=== PATIENT | male | born 1940 | race Caucasian/White ===

== ENCOUNTER 2019-12-26 14:05 | Inpatient (IN) | payer MEDICARE, OTHER, SELFPAY ==
[2019-12-26] VITALS (12 sets, daily range): BP systolic 131–219; BP diastolic 60–91; PULSE 70–88; RESP 20–30; TEMP 36.2–37.2; O2SAT 93–97; BMI 43.7
--- NOTE | ~2019-12-26 | CT_ITS ---
EXAMINATION: CTA chest PE protocol DATE: 12/27/2019 18:01 INDICATION: Shortness of breath, dyspnea on exertion. Subtle anterior lifestyle. TECHNIQUE: Computed tomography angiography (CTA) of the chest was performed with 100 mL Omnipaque-350 intravenous contrast timed to evaluate the pulmonary arteries. Coronal maximum intensity projection 3D-reconstructions were created by the technologist. Automated exposure control and iterative reconst ruction technique were employed. Exam dose: 976.28 mGy-cm total exam DLP. COMPARISON: None. FINDINGS: There is diagnostic contrast enhancement of the pulmonary arteries and no evidence of pulmo nary embolism. There is aortic, great vessel and coronary atherosclerotic calcification. No thoracic aortic aneurysm or dissection is detected. Mild cardiomegaly. No pericardial or pleural effusion. No hilar or mediastinal mass lesion or lymphadenopathy. There are calcified pulmonary granulomas as w ell as calcified hilar and mediastinal nodes consistent with old pulmonary granulomatous disease. No pulmonary infiltrate or consolidation or pulmonary mass lesion is evident. Up to 1.5 cm blebs in t he right upper lobe. Diffuse idiopathic skeletal hyperostosis of the thoracic spine. No suspicious osteolytic or osteoblas tic lesions are noted. IMPRESSION: No evidence of pulmonary embolism Reviewed, dictated and finalized at [facility]. Reviewed, dictated and finalized at location [facility].
--- NOTE | ~2019-12-26 | XR_ITS ---
EXAMINATION: XR chest 2V DATE: 12/26/2019 15:20 INDICATION: Shortness of breath and COPD TECHNIQUE: AP and lateral views of the chest are obtained. COMPARISON: 03/28/2004 FINDINGS: The lungs are free of acute opacities. There is no pleural effusion or pneumothorax. The ca rdiomediastinal silhouette is normal. There is moderate thoracic spondylosis. Calcified bilateral hil ar lymph nodes are consistent with old granulomatous disease. IMPRESSION: 1. No acute cardiopulmonary abnormality. Reviewed, dictated and finalized at location [facility].
--- NOTE | ~2019-12-26 | US_ITS ---
EXAMINATION: US venous doppler [facility] DATE: 12/27/2019 08:09 INDICATION: Lower limb swelling TECHNIQUE: Grayscale ultrasound images without and with compression and Doppler ultrasound images of the bilateral lower extremity veins were obtained. COMPARISON: None. FINDINGS: The visualized portions of right common femoral vein, profunda (deep) femoral vein, femoral vein, pop liteal vein, posterior tibial veins, peroneal veins, gastrocnemius vein and greater saphenous vein ou tflow are patent. The visualized portions of left common femoral vein, profunda femoral vein, femoral vein, popliteal v ein, posterior tibial veins, peroneal veins, gastrocnemius vein and greater saphenous vein outflow ar e patent. 2.3 x 1.5 x 1.4 cm Haines cyst at the left popliteal fossa. IMPRESSION: 1. No deep venous thrombosis in either lower limb. 2. Small left Haines's cyst. Reviewed, dictated and finalized at location B.
--- NOTE | 2019-12-26 14:24 | ED.SOB ---
HPI - SOB/Dyspnea General Chief Complaint: Shortness of Breath/Dyspnea Stated Complaint: sob Time Seen by Provider: 12/26/19 14:23 History of Present Illness HPI Narrative: Sent in from PCP for elevated blood pressure, and SOB. He reports that he had recent lab work showing anemia. He does admit to [facility]. He has taken all prescribed medications. No Chest pain. Related Data Home Medications Medication Instructions Recorded Confirmed Tresiba FlexTouch U-100 60 DAILY 12/26/19 enalapril maleate DAILY 12/26/19 furosemide 12/26/19 ipratropium-albuterol [Combivent INHALATION BID 12/26/19 Respimat] levothyroxine DAILY 12/26/19 metformin mg PO BID 12/26/19 potassium chloride meq DAILY 12/26/19 pravastatin HS 12/26/19 tamsulosin mg PO HS 12/26/19 venlafaxine mg PO DAILY 12/26/19 Allergies Allergy/AdvReac Type Severity Reaction Status Date / Time No Known Allergies Allergy Mild Verified 12/26/19 14:14 Review of Systems Review of Systems: All systems reviewed & are unremarkable except as noted in HPI and below Constitutional: Constitutional: Denies chills and Denies fever(s) Cardiovascular: Cardiovascular: Denies chest pain Respiratory: Respiratory: Denies chest congestion, Denies cough and Reports dyspnea Gastrointestinal: Gastrointestinal: Denies abdominal pain and Denies nausea Musculoskeletal: Musculoskeletal: Denies back pain Neurologic: Denies numbness and Denies weakness Hematologic/Lymphatic: Hematologic/Lymphatic: Denies easy bleeding and Denies easy bruising PMF Past Medical History Medical History BPH (benign prostatic hyperplasia) COPD (chronic obstructive pulmonary disease) Diabetes HTN (hypertension) Hypothyroidism Social History Social History Gender identity (if verbalized by the patient): Male Exam Const: General: no acute distress, alert and ill appearing Nutritional Appearance: obese Orientation/consciousness: patient oriented x3 HENMT: Head: normal to inspection Resp: Effort & Inspection: labored and tachypneic Auscultation: clear to auscultation bilaterally Cardio: Rate: regular rate Rhythm: regular rhythm GI: Inspection: distended GI Palp: No Tenderness to palpation present (GI) Skin: General skin exam: normal color Rashes: no rashes Neuro: General: patient oriented x3, moves all extremities, no focal motor deficits and CN's II-XI intact bilaterally Extrem: General: edema bilateral Other: No calf tenderness Course Vital Signs Vital signs: Vital Signs Temperature 36.2 C L 12/26/19 14:10 Pulse Rate 82 12/26/19 14:10 Respiratory Rate 20 12/26/19 14:10 Blood Pressure 201/73 H 12/26/19 14:10 Pulse Oximetry 97 12/26/19 14:10 Temperature 36.2 C L 12/26/19 14:10 Pulse Rate 70 12/26/19 17:38 Respiratory Rate 30 H 12/26/19 17:38 Blood Pressure 131/81 12/26/19 17:38 Pulse Oximetry 94 12/26/19 17:38 MDM - SOB/Dyspnea MDM Narrative Medical decision making narrative: He has labored breathing despite normal oxygen saturation he will need to be admitted for his breathing. This is likely due to CHF given significantly elevated BP, BNP, and peripheral edema. Differential Diagnosis Differential diagnosis: Likely acute exacerbation of chronic obstructive airways disease and congestive heart failure Medical Records Attestation: I reviewed the patient's medical records. Lab Data Attestation: I reviewed the patient's lab results. Result diagrams: 12/26/19 14:43 12/26/19 14:43 Labs: Lab Results 12/26/19 12/26/19 12/26/19 Range/Units 14:43 14:43 14:43 WBC 10.1 H (4.5-10.0) K/mm3 RBC 4.53 L (4.6-6.20) M/mm3 Hgb 12.7 L (14.0-18.0) g/dL Hct 39.9 L (42.0-52.0) % MCV 88.1 (80-100) fl MCH 28.0 (26-34) pg MCHC 31.8 L (32-36) g/dl RDW 14.6 H (11.5-14.5)
--- NOTE | 2019-12-26 14:34 | ECG_ITS ---
Measurements Intervals [place] Rate: 89 P: 62 DE: 274 QRS: -69 QRSD: 142 T: 65 QT: 374 QTc: 457 Interpretive Statements SINUS RHYTHM WITH FIRST DEGREE AV BLOCK LEFT AXIS DEVIATION RIGHT BUNDLE BRANCH BLOCK CONSIDER INFERIOR INFARCT, AGE INDETERMINATE BASELINE ARTIFACT- I, III, AVR, AVL, V1-V2 ABNORMAL ECG Electronically Signed On 12-26-2019 15:27:09 CDT by Js Abad D.O.
[2019-12-26 15:03] LABS: Basophils Absolute Auto 0.1 K/mm3 (0.0-0.1); Basophils Percent Auto 0.8 % (0.2-1.2); Eosinophils Absolute Auto 0.2 K/mm3 (0-0.3); Eosinophils Percent Auto 2.2 % (0-4.4); Hematocrit 39.9 % (42.0-52.0); Hemoglobin 12.7 g/dL (14.0-18.0); Immature Granulocyte Absolute 0.07 K/mm3 (0.00-0.031); Immature Granulocyte Percent A 0.7 % (0-0.5); Lymphocytes Absolute Auto 1.82 K/mm3 (0.9-3.2); Mean Corpuscular HGB Conc 31.8 g/dl (32-36); Mean Corpuscular Volume 88.1 fl (80-100); Mean Platelet Volume 9.8 fl (7.4-10.4); Monocytes Absolute Auto 0.7 K/mm3 (0.1-0.6); Monocytes Percent Auto 6.8 % (2.6-8.5); Neutrophils Absolute Auto 7.2 K/mm3 (1.3-6.7); Neutrophils Percent Auto 71.5 % (45.5-73.1); Platelet Count Result 636 k/mm3 (150-375); Red Blood Count 4.53 M/mm3 (4.6-6.20); Red Cell Distribution Width 14.6 % (11.5-14.5); White Blood Count 10.1 K/mm3 (4.5-10.0)
[2019-12-26 15:10] LABS: Anion Gap 7 mmol/L (8-16); Blood Urea Nitrogen 22 mg/dL (9-20); Calcium 8.7 mg/dL (8.4-10.2); Carbon Dioxide 26 mmol/L (22-30); Chloride 106 mmol/L (98-107); Estimated CRCL calculation 55 ml/min; Estimated Glomerular Filt Rate 53; Glucose 89 mg/dL (75-110); Potassium 4.3 mmol/L (3.4-5.0); Sodium 139 mmol/L (137-145)
[2019-12-26 15:20] LABS: INR 1.1
[2019-12-26 15:21] LABS: NT Pro B Type Natriuretic Pept 1370 PG/ML (5-100); Partial Thromboplastin Time 33.3 SECONDS (22.3-36.8); Troponin I 0.025 ng/mL (0.000-0.034)
[2019-12-26] MEDS: NITROGLYCERIN OINTMENT 1 INCH DOSE TRANSDERM (15:37)
[2019-12-26] MEDS: FUROSEMIDE INJ 40 MG/4 ML VIAL IV PUSH ×2 (15:37→22:53)
[2019-12-26] MEDS: IPRATROPIUM BR 0.02% INH SOLN 0.5 MG/2.5 ML VIAL INHALATION (15:57)
[2019-12-26] MEDS: ALBUTEROL SULFATE NEB 2.5 MG/0.5 ML INH 5 MG INHALATION (15:57)
[2019-12-26] MEDS: LABETALOL HCL INJ 100 MG/20 ML VIAL 20 MG IV PUSH (16:35)
--- NOTE | 2019-12-26 17:11 | PC.NURSE ---
Dietary tray ordered for pt, spoke to Sumit.
--- NOTE | 2019-12-26 20:11 | PC.NURSE ---
This patient, Gianfranco Rosen, was admitted to Medical Room 258-. Patient/family oriented to hospital policies and general routines including ID bracelet, bed and alarms, visiting hours, pain management, procedures, bathroom and other care routines, personal items, smoking policy, room service/diet, and visiting hours. Valuables list has been completed. Information on how to activate the Rapid Response Team has been discussed. Patient/Family are encouraged to report perceived risks to care and to ask questions if they do not understand what they are told or what they should do.
--- NOTE | 2019-12-26 21:59 | PM.IMHP ---
H&P: HPI History of Present Illness Date/Time: 12/26/19 21:59 Chief complaint: CHF exacerbation Narrative: Gianfranco Rosen is a 79 year old male who has a history of COPD. He is typically on room air. He does have history of sleep apnea and states that he uses a CPAP machine at home. The patient stated that he had been taking his diuretics for many months and was doing well. As matter of fact he thought he was doing so well that he did need his Lasix anymore. So he stopped taking it for last couple months. So now patient has been short of breath with exertion. He has been using his inhalers. He does not have a cough for fever chills. Last echo cardiac Doppler. He does not recall ever being diagnosed with CHF. She chest x-ray showed nothing acute at this time. Patient had been tachypneic but not hypoxic. Patient's respirations were 30 a minute but his O2 saturation was normal. No ABDs were drawn at that time. Patient was given nitro paste for elevated blood pressure of 219/91. His blood pressure did eventually come down to 131/81 given nebulizer treatment. He was given labetalol for the hypertension is well. He was given Lasix as well. The patient is very talkative and talking in full sentences. When I enter the room the patient is urged to pursue breathe. However prior to me coming to the room the patient was talking in full sentences without difficulty. He does have some edema to lower extremity. Date of service 12/26/2019 Review of Systems Review of Systems: All systems reviewed & are unremarkable except as noted in HPI and below Constitutional: Constitutional: Reports as per HPI and Reports no additional constitutional complaints Eyes: Eyes: Reports as per HPI and Reports no additional eye complaints ENT: Reports system reviewed and no additional complaints, except as documented and Reports Normal hearing present Cardiovascular: Cardiovascular: Reports no additional cardiovascular complaints Respiratory: Respiratory: Reports no additional respiratory complaints and Reports no additional respiratory complaints Gastrointestinal: Gastrointestinal: Reports as per HPI and Reports no additional gastrointestinal complaints Musculoskeletal: Musculoskeletal: Reports no additional musculoskeletal complaints Integumentary/Breasts: Skin/Breast: Reports system reviewed and no additional complaints, except as docu and Reports as per HPI Neurologic: Reports system reviewed and no additional complaints, except as documented, Reports as per HPI and Reports Normal hearing present Psychiatric: Psychiatric: Reports no additional psychiatric complaints and Reports as per HPI Endocrine: Endocrine: Reports no additional endocrine complaints Hematologic/Lymphatic: Hematologic/Lymphatic: Reports no additional hematologic/lymphatic complaints Allergic/Immunologic: Allergic/Immunologic: Reports no additional allergic/immunologic complaints [facility] Past Medical History Medical History (Updated 12/26/19 @ 22:21 by Jaimee Spann NP) BPH (benign prostatic hyperplasia) COPD (chronic obstructive pulmonary disease) Depression with anxiety Diabetes HTN (hypertension) Hyperlipidemia Hypothyroidism PORFIRIO on CPAP Surgical History Surgical History (Updated 12/26/19 @ 22:08 by Jaimee Spann NP) History of appendectomy S/P repair of hydrocele Family History Family History (Updated 12/26/19 @ 22:10 by Jaimee Spann NP) Father Natural with unknown cause Mother Natural with unknown cause Social History Social History (Updated 12/26/19 @ 22:12 by Jaimee Spann NP) Social History: The patient stated that he was over 30 years ago and they had 5 children together. He lives with his significant other he has been with over 30 years. Laura is has significant other and she is a durable power employment law attorney for healthcare. Patient is a full code. He said he used to smoke over 20 years ago and occasionally has a
[2019-12-26] MEDS: methylPREDNISolone SOD SUCC 125 MG VIAL 60 MG IV PUSH (22:53)
[2019-12-26] MEDS: PRAVASTATIN SODIUM 20 MG TABLET 40 MG PO (22:55)
[2019-12-26] MEDS: TAMSULOSIN HCL 0.4 MG CAPSULE PO (22:55)
[2019-12-26 23:12] LABS: Glucose Point of Care 123 (65-105)
[2019-12-27] VITALS (17 sets, daily range): BP systolic 160–185; BP diastolic 60–82; PULSE 82–108; RESP 16–26; TEMP 35.9–36.6; O2SAT 91–96
--- NOTE | 2019-12-27 | ECHO_ITS ---
Patient Info Name: Gianfranco Rosen Age: 79 years : 1940 Gender: Male Ht: 70 in Wt: 304 lbs BSA: 2.68 m2 HR: 98 bpm BP: 123 / 56 mmHg Technical Quality: Good Exam Date: 12/27/2019 10:25 AM Exam Location: [facility] Patient Status: Inpatient Admit Date: 12/27/2019 Staff Ordering Physician: Jaimee Spann NP Manager Non Profit: Tho Hutson RDCS, RT Attending Provider: Eryn Bass PA-C Referring Physician: Zana CÁRDENAS; Exam Type: CA echo doppler color flow Study Info Indications R07.89 - Other chest pain Complete two-dimensional, color flow and Doppler transthoracic echocardiogram is performed. Summary 1. Complete two-dimensional, color flow and Doppler transthoracic echocardiogram is performed. 2. Left ventricular chamber dimension is normal. 3. Left ventricular systolic function is normal, estimated at 65-70%. 4. There is mildly increased left ventricular wall thickness. 5. Left ventricular septal wall motion is normal. 6. The left ventricular diastolic function is normal. 7. Left atrial chamber dimension is mildly enlarged. Left Ventricle Left ventricular chamber dimension is normal. Left ventricular systolic function is normal, estimated at 65-70%. There is mildly increased left ventricular wall thickness. Left ventricular septal wall motion is normal. The left ventricular diastolic function is normal. Right Ventricle Right ventricular chamber dimension is normal. Right ventricular systolic function is normal. Left Atria Left atrial chamber dimension is mildly enlarged. Right Atria Right atrial chamber dimension is normal. Atrial Septum Intact interatrial septum visualized by color flow imaging. Aortic Valve The aortic valve is trileaflet. There is mild aortic valve sclerosis. There is no aortic valve stenosis. There is trace aortic valve regurgitation. Pulmonic Valve The pulmonic valve is normal. There is no pulmonic valve stenosis. There is trace pulmonic regurgitation. Mitral Valve The mitral valve has normal leaflets. There is no mitral valve stenosis. There is trace mitral valve regurgitation. Tricuspid Valve The tricuspid valve leaflets are normal. There is no significant tricuspid valve stenosis. There is trace tricuspid valve regurgitation. Pericardium/Pleural The pericardium appears normal. There is trivial pericardial effusion. Inferior Vena Cava Normal inferior vena cava with >50% collapse upon inspiration consistent with normal right atrial pressure, 8 mmHg. Aorta The aortic root size at the sinus of Valsalva is normal. The prox ascending aorta size is not well visualized. There is mild aortic atherosclerosis. Left Ventricular Outflow Tract Name Value Normal LVOT 2D LVOT Diameter 2.0 cm LVOT Doppler LVOT Peak Gradient 7 mmHg LVOT Mean Gradient 4 mmHg LVOT VTI 21 cm LVOT VTI/AV VTI Ratio 0.6 LVOT Stroke Volume 68 ml LVOT CO 6.
[2019-12-27] MEDS: hydrALAZINE HCL 20 MG/ML VIAL 10 MG IV PUSH ×2 (01:45→18:45)
[2019-12-27 05:50] LABS: Basophils Absolute Auto 0.1 K/mm3 (0.0-0.1); Basophils Percent Auto 0.6 % (0.2-1.2); Eosinophils Percent Auto 0.2 % (0-4.4); Hemoglobin 12.5 g/dL (14.0-18.0); Immature Granulocyte Percent A 0.9 % (0-0.5); Lymphocytes Absolute Auto 0.79 K/mm3 (0.9-3.2); Lymphocytes Percent Auto 6.9 % (18.3-44.2); Mean Corpuscular HGB Conc 32.1 g/dl (32-36); Mean Corpuscular Volume 87.2 fl (80-100); Mean Platelet Volume 9.8 fl (7.4-10.4); Monocytes Absolute Auto 0.2 K/mm3 (0.1-0.6); Monocytes Percent Auto 1.6 % (2.6-8.5); Neutrophils Absolute Auto 10.2 K/mm3 (1.3-6.7); Neutrophils Percent Auto 89.8 % (45.5-73.1); Platelet Count Result 649 k/mm3 (150-375); Red Blood Count 4.47 M/mm3 (4.6-6.20); Red Cell Distribution Width 14.6 % (11.5-14.5); White Blood Count 11.4 K/mm3 (4.5-10.0)
[2019-12-27 06:12] LABS: Magnesium 1.8 mg/dL (1.6-2.3)
[2019-12-27] MEDS: LEVOTHYROXINE SODIUM 75 MCG TABLET PO (06:39)
[2019-12-27] MEDS: methylPREDNISolone SOD SUCC 125 MG VIAL 60 MG IV PUSH ×2 (06:39→13:43)
[2019-12-27 08:13] LABS: Glucose Point of Care 208 (65-105)
[2019-12-27] MEDS: INSULIN ASPART (*BKC) 100 UNITS/ML SUB-Q ×3 (08:17→18:41)
[2019-12-27] MEDS: VENLAFAXINE HCL XR 75 MG CAP.ER.24H PO (08:19)
[2019-12-27] MEDS: ENALAPRIL MALEATE 10 MG TABLET 20 MG PO (08:20)
[2019-12-27] MEDS: FUROSEMIDE INJ 40 MG/4 ML VIAL IV PUSH ×2 (08:20→20:56)
[2019-12-27] MEDS: POTASSIUM CHLORIDE 10 MEQ TABLET.ER PO (08:20)
[2019-12-27 09:15] LABS: Hemoglobin A1C 7.2 % (<5.7)
[2019-12-27 13:15] LABS: Glucose Point of Care 316 (65-105)
--- NOTE | 2019-12-27 15:00 | PM.IMPN ---
Progress Note: A&P Assessment and Plan (1) Dyspnea: Code(s): R06.00 - Dyspnea, unspecified Status: Acute Assessment and Plan: patient presented to the hospital with dyspnea With rest and with exertion which is become worsening recently. Could be secondary to underlying congestive heart failure for which he is on diuretics that he has not taken for months, underlying COPD exacerbation since he is a former smoker, pulmonary embolism since he has a sedentary lifestyle, versus cardiac in nature since he has not seen a intelligence agent in a while and he has comorbid conditions such as diabetes and high cholesterol. Patient's chest x-ray on arrival showed no acute cardiopulmonary disease The patient does not have any leg swelling or pulmonary edema, but his BNP was elevated at 1300. he was given IV Lasix and has some improvement of his symptoms. Echocardiogram also showed normal systolic and diastolic function, so the patient does not have an underlying congestive heart failure. continue IV Lasix since it may be improving his symptoms and has good urinary output. Chest x-ray is not show signs of hyperinflation from COPD and he has no wheezing to show COPD exacerbation. Will decrease the patient's IV steroids that he was started on. Patient is tachycardic today on examination into to his sedentary lifestyle, not being on anticoagulation and shortness of breath I will order a CTA of his chest to further rule out a PE causing his symptoms. Venous Dopplers were negative bilaterally. Also worried about a cardiac cause with his initial troponin being 0.025 so a repeat troponin was ordered today which was less than 0.012. It could still be cardiac in nature due to his morbid obesity, diabetes, and no cardiac workup recently. Patient otherwise denies any chest pain at this time. Will continue monitoring on telemetry and consider cardiac evaluation as an outpatient. Continue monitoring his symptoms tomorrow and rule out underlying PE. (2) HTN (hypertension): Code(s): I10 - Essential (primary) hypertension Status: Chronic Assessment and Plan: Patient's blood pressure has been elevated in the 160s and 170s. Continue with enalapril He is also getting diuretics. Consider making adjustments if his blood pressure continues to be elevated but this could also be related to his underlying stress and anxiety of being in the hospital. Ordered p.r.n. hydralazine IV for elevated blood pressure Continue monitoring BP. (3) Hypothyroidism: Code(s): E03.9 - Hypothyroidism, unspecified Status: Chronic Assessment and Plan: Continue with levothyroxine. TSH was normal. (4) Depression with anxiety: Code(s): F41.8 - Other specified anxiety disorders Status: Chronic Assessment and Plan: Continue with Effexor. (5) BPH (benign prostatic hyperplasia): Code(s): N40.0 - Benign prostatic hyperplasia without lower urinary tract symptoms Status: Chronic Assessment and Plan: Continue with tamsulosin (6) PORFIRIO on CPAP: Code(s): G47.33 - Obstructive sleep apnea (adult) (pediatric); Z99.89 - Dependence on other enabling machines and devices Status: Chronic Assessment and Plan: Continue with CPAP machine (7) Diabetes: Code(s): E11.9 - Type 2 diabetes mellitus without complications Status: Chronic Assessment and Plan: Hemoglobin A1c was 7.2% which is fairly well controlled Continue Accu-Cheks ACHS. Hold metformin and Tresiba. Continue with sliding scale insulin with meals. Hypoglycemic protocol in place. [facility] Edie
[2019-12-27] MEDS: ALBUTEROL SULFATE NEB 2.5 MG/0.5 ML INH 5 MG INHALATION ×2 (15:37→21:03)
[2019-12-27] MEDS: IPRATROPIUM BR 0.02% INH SOLN 0.5 MG/2.5 ML VIAL INHALATION ×2 (15:38→21:03)
[2019-12-27 16:23] LABS: Troponin I < 0.012 ng/mL (0.000-0.034)
[2019-12-27 19:04] LABS: D Dimer 0.29 ug/mL (<0.48)
[2019-12-27 19:37] LABS: Glucose Point of Care 319 (65-105)
[2019-12-27] MEDS: TAMSULOSIN HCL 0.4 MG CAPSULE PO (20:57)
[2019-12-27] MEDS: PRAVASTATIN SODIUM 20 MG TABLET 40 MG PO (20:57)
[2019-12-27] MEDS: methylPREDNISolone SOD SUCC 40 MG VIAL IV PUSH (20:57)
[2019-12-27] MEDS: LABETALOL HCL INJ 100 MG/20 ML VIAL IV PUSH (21:08)
[2019-12-28] VITALS (17 sets, daily range): BP systolic 166–190; BP diastolic 67–79; PULSE 93–107; RESP 20–22; TEMP 35.6–36.1; O2SAT 91–96
[2019-12-28] MEDS: NITROGLYCERIN OINTMENT 1 INCH DOSE 0.5 INCH TRANSDERM (00:24)
[2019-12-28] MEDS: LABETALOL HCL INJ 100 MG/20 ML VIAL 20 MG IV PUSH (02:05)
[2019-12-28] MEDS: INSULIN ASPART (*BKC) 100 UNITS/ML 10 UNITS SUB-Q (02:14)
[2019-12-28] MEDS: IPRATROPIUM BR 0.02% INH SOLN 0.5 MG/2.5 ML VIAL INHALATION ×3 (02:59→13:44)
[2019-12-28] MEDS: ALBUTEROL SULFATE NEB 2.5 MG/0.5 ML INH 5 MG INHALATION ×3 (02:59→13:43)
[2019-12-28 04:00] LABS: Glucose Point of Care 413 (65-105)
[2019-12-28 04:00] LABS: Glucose Point of Care 348 (65-105)
[2019-12-28 05:45] LABS: Hematocrit 44.7 % (42.0-52.0); Hemoglobin 14.1 g/dL (14.0-18.0); Mean Corpuscular HGB Conc 31.5 g/dl (32-36); Mean Corpuscular Hemoglobin 27.6 pg (26-34); Mean Corpuscular Volume 87.6 fl (80-100); Mean Platelet Volume 9.8 fl (7.4-10.4); Platelet Count Result 874 k/mm3 (150-375); Red Cell Distribution Width 14.8 % (11.5-14.5)
[2019-12-28 06:11] LABS: Anion Gap 12 mmol/L (8-16); Blood Urea Nitrogen 42 mg/dL (9-20); Calcium 8.5 mg/dL (8.4-10.2); Carbon Dioxide 25 mmol/L (22-30); Chloride 99 mmol/L (98-107); Estimated CRCL calculation 46 ml/min; Estimated Glomerular Filt Rate 42; Glucose 351 mg/dL (75-110); Magnesium 2.1 mg/dL (1.6-2.3); Potassium 4.4 mmol/L (3.4-5.0); Sodium 136 mmol/L (137-145)
[2019-12-28] MEDS: LEVOTHYROXINE SODIUM 75 MCG TABLET PO (06:18)
[2019-12-28 07:51] LABS: Glucose Point of Care 338 (65-105)
[2019-12-28] MEDS: INSULIN ASPART (*BKC) 100 UNITS/ML SUB-Q ×2 (08:23→12:02)
[2019-12-28] MEDS: FUROSEMIDE INJ 40 MG/4 ML VIAL IV PUSH (08:25)
[2019-12-28] MEDS: ENALAPRIL MALEATE 10 MG TABLET 20 MG PO (08:25)
[2019-12-28] MEDS: POTASSIUM CHLORIDE 10 MEQ TABLET.ER PO (08:25)
[2019-12-28] MEDS: methylPREDNISolone SOD SUCC 40 MG VIAL IV PUSH (08:25)
[2019-12-28] MEDS: VENLAFAXINE HCL XR 75 MG CAP.ER.24H PO (08:25)
[2019-12-28 11:41] LABS: Glucose Point of Care 283 (65-105)
--- NOTE | 2019-12-28 11:59 | PM.DS ---
DS: Admitting Diagnosis Admitting Diagnosis Admitting Diagnosis: CHF exacerbation DS: Discharge Diagnosis Discharge Diagnosis (1) Dyspnea: Code(s): R06.00 - Dyspnea, unspecified Status: Acute Assessment and Plan: patient presented to the hospital with dyspnea With rest and with exertion which is become worsening recently. Could be secondary to underlying congestive heart failure for which he is on diuretics that he has not taken for months, underlying COPD exacerbation since he is a former smoker, pulmonary embolism since he has a sedentary lifestyle, versus cardiac in nature since he has not seen a grain cleaner and transfer operator in a while and he has comorbid conditions such as diabetes and high cholesterol. Patient's chest x-ray on arrival showed no acute cardiopulmonary disease The patient does not have any leg swelling or pulmonary edema, but his BNP was elevated at 1300. he was given IV Lasix with improvement of his symptoms. Echocardiogram also showed normal systolic and diastolic function, so the patient does not have an underlying congestive heart failure. Discontinued IV Lasix this morning. Chest x-ray is not show signs of hyperinflation from COPD and he has no wheezing to show COPD exacerbation. Will decrease the patient's IV steroids that he was started on. Will discontinue IV Steroids since his lungs are clear and not having any wheezing. I ordered a CTA of his chest which showed no PE or acute abnormality. Venous Dopplers were negative bilaterally. Also worried about a cardiac cause with his initial troponin being 0.025 so a repeat troponin was ordered today which was less than 0.012. It could still be cardiac in nature due to his morbid obesity, diabetes, and no cardiac workup recently. Patient otherwise denies any chest pain at this time. Tele shows no acute changes at this time. The patient reports feeling great today . He denies much shortness of breath at rest or with exertion. I believe the cause of his underlying shortness of breath could be due to discontinuing Lasix 20 mg months ago, vs morbid obesity, vs inactive lifestyle. Will discharge the patient home to try changing his diet and weight loss along with increasing his activity. Explained to the patient that he needs a stress test if he has not had one in a while to rule out underlying cardiac nature of his shortness of breath secondary to DM, morbid obesity and sedentary lifestyle. Follow up with PCP in 1 week for further evaluation, recommendations, possible stress test and will repeat labs to ensure his creatinine is back to normal and to consider restarting Lasix 20 mg daily. The patient understands and agrees with the plan. All questions answered. (2) HTN (hypertension): Code(s): I10 - Essential (primary) hypertension Status: Chronic Assessment and Plan: Patient's blood pressure has been elevated in the 160s and 170s. Continue with enalapril Will have him continue checking BP and write it down twice daily and follow up with PCP for further evaluation and adjustments to medications. (3) Hypothyroidism: Code(s): E03.9 - Hypothyroidism, unspecified Status: Chronic Assessment and Plan: Continue with levothyroxine. TSH was normal. (4) Depression with anxiety: Code(s): F41.8 - Other specified anxiety disorders Status: Chronic Assessment and Plan: Continue with Effexor. (5) BPH (benign prostatic hyperplasia): Code(s): N40.0 - Benign prostatic hyperplasia without lower urinary tract symptoms Status: Chronic Assessment and Plan: Continue with tamsulosin (6) PORFIRIO on CPAP: Code(s): G47.33 - Obstructive sleep apnea (adult) (ped
--- NOTE | 2019-12-29 06:35 | WPDCDIQUERY2 ---
CDI Query Clarification Request - Per documentation CHF and COPD have been ruled out. -I believe the cause of his underlying shortness of breath could be due to discontinuing Lasix 20 mg months ago, vs morbid obesity, vs inactive lifestyle.
== END 2019-12-28 14:10 | disposition home or self-care (01) | DRG 204 ==
LOC: ANHED 17:49 → ANH2MED 19:19
PROVIDERS: Nurse Practitioner; Physician Assistant; Admitting Provider Internal Medicine; Emergency Provider Emergency Medicine; PCP Family Medicine Sports Medicine; Visit Provider Internal Medicine
DX: R06.00 Dyspnea, unspecified (principal); Z68.41 Body mass index [BMI] 40.0-44.9, adult; E66.01 Morbid (severe) obesity due to excess calories; I10 Essential (primary) hypertension; E03.9 Hypothyroidism, unspecified; F41.8 Other specified anxiety disorders; N40.0 Benign prostatic hyperplasia without lower urinary tract symptoms; G47.33 Obstructive sleep apnea (adult) (pediatric); J44.9 Chronic obstructive pulmonary disease, unspecified; E11.9 Type 2 diabetes mellitus without complications; D72.829 Elevated white blood cell count, unspecified; Z72.89 Other problems related to lifestyle; Z79.84 Long term (current) use of oral hypoglycemic drugs; Z79.899 Other long term (current) drug therapy; Z87.891 Personal history of nicotine dependence; Z99.89 Dependence on other enabling machines and devices
CPT/HCPCS: 36415; 71046; 71275; 80048; 83036; 83735; 83880; 84100; 84443; 84484; 85025; 85027; 85380; 85610; 85730; 93005; 93306; 93970; 94640; 96374; 96375; 96376; 99285; A9270; G0378; J0360; J1815; J1940; J2060; J2920; J2930; Q9967

== ENCOUNTER 2020-05-30 14:39 | Inpatient (IN) | payer MEDICARE, SELFPAY ==
[2020-05-30] VITALS (13 sets, daily range): BP systolic 178–217; BP diastolic 56–99; PULSE 95–109; RESP 22–30; TEMP 36.4–36.7; O2SAT 91–97; BMI 46.2
--- NOTE | ~2020-05-30 | US_ITS ---
EXAMINATION: US venous doppler [facility] DATE: 05/31/2020 13:24 INDICATION: Lower limb edema. TECHNIQUE: Grayscale ultrasound images without and with compression and Doppler ultrasound images of the bilateral lower extremity veins were obtained. COMPARISON: Ultrasound 12/27/2019 FINDINGS: The visualized portions of right common femoral vein, profunda (deep) femoral vein, femoral vein, pop liteal vein, peroneal veins, posterior tibial veins, and greater saphenous vein outflow are patent. The visualized portions of left common femoral vein, profunda femoral vein, femoral vein, popliteal v ein, peroneal veins, posterior tibial veins, and greater saphenous vein outflow are patent. IMPRESSION: 1. No deep venous thrombosis. Reviewed, dictated and finalized at location A. CHING MACHINE OPERATOR
--- NOTE | ~2020-05-30 | XR_ITS ---
EXAMINATION: XR chest 1V portable DATE: 05/30/2020 15:14 INDICATION: Shortness of breath. TECHNIQUE: A single frontal view of the chest was obtained. COMPARISON: None. FINDINGS: There is a small left pleural effusion. There are airspace opacities in all lung zones bila terally with a perihilar and left basilar predominance. No pneumothorax. The heart size is normal. IMPRESSION: 1. Diffuse lung disease, consistent with pulmonary edema versus pneumonia. 2. Small left pleural effusion. Reviewed, dictated and finalized at location A. N CREW
--- NOTE | ~2020-05-30 | XR_ITS ---
EXAMINATION: XR chest 1V portable EXAM DATE: 05/31/2020 15:55 INDICATION: Lung edema. TECHNIQUE: Portable AP frontal chest x-ray was obtained. Comparison is made to prior examination from 05/30/2020. FINDINGS: Interval improvement in previously seen congestion and pulmonary edema, improving CHF exace rbation. There is no pneumothorax suspected. The cardiac silhouette is enlarged. There are no osseous abnormalities identified. IMPRESSION: Findings consistent with improving CHF exacerbation. Reviewed, dictated and finalized at location B. GER CONTACT
--- NOTE | 2020-05-30 14:44 | ECG_ITS ---
Measurements Intervals [place] Rate: 32 P: [place]: 0 QRS: -66 QRSD: 140 T: -50 QT: 473 QTc: 349 Interpretive Statements SINUS RHYTHM WITH MARKED FIRST DEGREE AV BLOCK RIGHT BUNDLE BRANCH BLOCK LOW VOLTAGE- PRECORDIAL LEADS INFERIOR INFARCT, AGE INDETERMINATE ANTEROLATERAL INFARCT, AGE INDETERMINATE ABNORMAL ECG Electronically Signed On 05-30-2020 16:06:41 VACUUM CASTER by Js Abad D.O.
[2020-05-30 15:18] LABS: Basophils Absolute Auto 0.1 K/mm3 (0.0-0.1); Basophils Percent Auto 0.9 % (0.2-1.2); Eosinophils Absolute Auto 0.1 K/mm3 (0-0.3); Eosinophils Percent Auto 1.4 % (0-4.4); Hematocrit 42.2 % (42.0-52.0); Hemoglobin 13.3 g/dL (14.0-18.0); Immature Granulocyte Absolute 0.06 K/mm3 (0.00-0.031); Immature Granulocyte Percent A 0.7 % (0-0.5); Lymphocytes Absolute Auto 0.93 K/mm3 (0.9-3.2); Lymphocytes Percent Auto 10.6 % (18.3-44.2); Mean Corpuscular HGB Conc 31.5 g/dl (32-36); Mean Corpuscular Hemoglobin 28.6 pg (26-34); Mean Corpuscular Volume 90.8 fl (80-100); Mean Platelet Volume 9.7 fl (7.4-10.4); Monocytes Absolute Auto 0.6 K/mm3 (0.1-0.6); Monocytes Percent Auto 6.6 % (2.6-8.5); Neutrophils Percent Auto 79.8 % (45.5-73.1); Platelet Count Result 664 k/mm3 (150-375); Red Blood Count 4.65 M/mm3 (4.6-6.20); Red Cell Distribution Width 15.6 % (11.5-14.5); White Blood Count 8.8 K/mm3 (4.5-10.0)
--- NOTE | 2020-05-30 15:45 | ED.SOB ---
HPI - SOB/Dyspnea General Chief Complaint: Shortness of Breath/Dyspnea Stated Complaint: shortness of breath x1 wk Time Seen by Provider: 05/30/20 14:57 Source: patient and family Mode of arrival: ambulatory Limitations: no limitations History of Present Illness HPI Narrative: An 80-year-old gentleman presents into the emergency department today with complaints of shortness of breath. His notes that his shortness of breath has been getting significantly worse over the last several months really. She notes that he can barely walk around without getting short of breath. He cannot tolerate doing any stairs. He also notes that he has been having extreme issues with swallowing. At one point time the patient was on Lasix and was taken off of this. They state that they are not clear why he was told to stop this. He denies any fevers chills or cough at this time. Patient denies any chest pain. Related Data Allergies Allergy/AdvReac Type Severity Reaction Status Date / Time No Known Allergies Allergy Verified 05/30/20 14:49 Review of Systems Review of Systems: Narrative: CONSTITUTIONAL: Denies fever, chills, or sweats. EYES: Denies visual changes, redness, or discharge. ENT: Denies rhinorrhea, congestion, sore throat, or otalgia. CARDIOVASCULAR: Denies chest pain, palpitations, or edema. RESPIRATORY: Endorses shortness of breath. GASTROINTESTINAL: Denies abdominal pain, nausea, vomiting, or diarrhea. GENITOURINARY: Denies dysuria or hematuria. SKIN: Denies rash or itching. MUSCULOSKELETAL: Denies back pain, joint pain, or myalgia. Endorses diffuse lower extremity edema NEUROLOGIC: Denies headache, numbness, dizziness, or weakness. PSYCHIATRIC: Denies anxiety or depression. Exam Narrative: Exam Narrative: GENERAL: Well-appearing, well-nourished, and in no acute distress. HEAD: Normocephalic, atraumatic. EYES: PERRLA and EOMI. ENT: Nares clear, no rhinorrhea or epistaxis. Mucous membranes moist. Oropharynx without tonsillar hypertrophy exudate or other lesions. Bilateral TMs pearly buckner nonbulging NECK: Supple. No adenopathy or masses. No carotid bruits or JVD CHEST: Significantly diminished lung sounds diffusely. HEART: Regular rate and rhythm. No murmur heard. Normal peripheral pulses. ABDOMEN: Obese abdomen, soft, nontender, nondistended, normal active bowel sounds. EXTREMITIES: Normal range of motion. 4+ edema in the BLE. SKIN: Warm, dry, no rash. NEURO: No focal deficits. Alert and oriented x3. PSYCH: Normal mood and affect. Course Consultations Consultation #1: Spoke with ABISAI Hermosillo for the hospitalist service. Full details of the patient's disposition and evaluation were discussed. She agrees to accept for further evaluation and work-up. Time: 16:25 Vital Signs Vital signs: Vital Signs Temperature 36.7 C 05/30/20 14:45 Pulse Rate 99 05/30/20 14:45 Respiratory Rate 29 H 05/30/20 14:45 Blood Pressure 217/95 H 05/30/20 14:45 Pulse Oximetry 94 05/30/20 14:45 Temperature 36.7 C 05/30/20 14:45 Pulse Rate 100 05/30/20 17:15 Respiratory Rate 28 H 05/30/20 17:15 Blood Pressure 188/79 H 05/30/20 17:15 Pulse Oximetry 91 05/30/20 17:15 MDM - SOB/Dyspnea MDM Narrative Medical decision making narrative: In brief this 80-year-old gentleman came into the emergency department tonight with complaints of shortness of breath. Clinically on evaluation the patient looks like a CHF exacerbation. He was having significant edema in his bilateral lower extremities as well as rales bilaterally on chest exam. Patient was noted to be borderline hypoxic. His labs were reviewed, patient's troponin mildly elevated but likely baseline for his CHF. He was not complaining of any chest pain. Patient was given Lasix, nitroglycerin with minimal improvement. Patient was also given hydralazine to address his blood pressure. Patient will be admitted to hospitalist service for further management. Medical Records Atte
[2020-05-30] MEDS: FUROSEMIDE INJ 40 MG/4 ML VIAL IV PUSH (15:49)
[2020-05-30] MEDS: NITROGLYCERIN OINTMENT 1 INCH DOSE TRANSDERM (15:50)
[2020-05-30 16:18] LABS: Anion Gap 4 mmol/L (8-16); Blood Urea Nitrogen 19 mg/dL (9-20); Calcium 9.1 mg/dL (8.4-10.2); Carbon Dioxide 29 mmol/L (22-30); Chloride 107 mmol/L (98-107); Estimated CRCL calculation 53 ml/min; Estimated Glomerular Filt Rate 49; Glucose 93 mg/dL (75-110); Potassium 4.3 mmol/L (3.4-5.0); Sodium 140 mmol/L (137-145)
[2020-05-30 16:27] LABS: NT Pro B Type Natriuretic Pept 3300 PG/ML (5-100)
[2020-05-30] MEDS: hydrALAZINE HCL 20 MG/ML VIAL 10 MG IV PUSH ×2 (16:55→22:44)
[2020-05-30 17:07] LABS: Troponin I 0.041 ng/mL (0.000-0.034)
--- NOTE | 2020-05-30 17:17 | PC.NURSE ---
Meal tray ordered for patient
--- NOTE | 2020-05-30 17:58 | ED.GENADULT ---
HPI - General Adult General Chief complaint: Shortness of Breath/Dyspnea Stated complaint: shortness of breath x1 wk Time Seen by Provider: 05/30/20 14:57 Source: patient and family Mode of arrival: ambulatory Limitations: no limitations Related Data Allergies Allergy/AdvReac Type Severity Reaction Status Date / Time No Known Allergies Allergy Verified 05/30/20 14:49 Course Vital Signs Vital signs: Vital Signs Temperature 36.7 C 05/30/20 14:45 Pulse Rate 99 05/30/20 14:45 Respiratory Rate 29 H 05/30/20 14:45 Blood Pressure 217/95 H 05/30/20 14:45 Pulse Oximetry 94 05/30/20 14:45 Temperature 36.7 C 05/30/20 14:45 Pulse Rate 100 05/30/20 17:15 Respiratory Rate 28 H 05/30/20 17:15 Blood Pressure 188/79 H 05/30/20 17:15 Pulse Oximetry 91 05/30/20 17:15 Medical Decision Making Vital Signs Vital Signs: Vital Signs Temperature 36.7 C 05/30/20 14:45 Pulse Rate 99 05/30/20 14:45 Respiratory Rate 29 H 05/30/20 14:45 Blood Pressure 217/95 H 05/30/20 14:45 Pulse Oximetry 94 05/30/20 14:45 Temperature 36.7 C 05/30/20 14:45 Pulse Rate 100 05/30/20 17:15 Respiratory Rate 28 H 05/30/20 17:15 Blood Pressure 188/79 H 05/30/20 17:15 Pulse Oximetry 91 05/30/20 17:15 Lab Data Result diagrams: 05/30/20 15:02 05/30/20 15:02 Labs: Lab Results 05/30/20 05/30/20 05/30/20 Range/Units 15:02 15:02 15:02 WBC 8.8 (4.5-10.0) K/mm3 RBC 4.65 (4.6-6.20) M/mm3 Hgb 13.3 L (14.0-18.0) g/dL Hct 42.2 (42.0-52.0) % MCV 90.8 (80-100) fl MCH 28.6 (26-34) pg MCHC 31.5 L (32-36) g/dl RDW 15.6 H (11.5-14.5) % Plt Count 664 H (150-375) k/mm3 MPV 9.7 (7.4-10.4) fl Immature Gran % (Auto) 0.7 H (0-0.5) % Neut % (Auto) 79.8 H (45.5-73.1) % Lymph % (Auto) 10.6 L (18.3-44.2) % Ceiba % (Auto) 6.6 (2.6-8.5) % Eos % (Auto) 1.4 (0-4.4) % Baso % (Auto) 0.9 (0.2-1.2) % Lymph # (Auto) 0.93 (0.9-3.2) K/mm3 Ceiba # (Auto) 0.6 (0.1-0.6) K/mm3 Eos # (Auto) 0.1 (0-0.3) K/mm3 Baso # (Auto) 0.1 (0.0-0.1) K/mm3 Abs Immat Gran (auto) 0.06 H (0.00-0.031) K/mm3 Absolute Neuts (auto) 7.0 H (1.3-6.7) K/mm3 Absolute Nucleated RBC 0.0 (0.0-0.012) K/mm3 Nucleated RBC % 0.0 (0.0-0.2) % Sodium 140 (137-145) mmol/L Potassium 4.3 (3.4-5.0) mmol/L Chloride 107 (98-107) mmol/L Carbon Dioxide 29 (22-30) mmol/L Anion Gap 4 L (8-16) mmol/L BUN 19 (9-20) mg/dL Creatinine 1.40 H (0.7-1.3) mg/dL Estim Creat Clear Calc 53 ml/min Estimated GFR 49 L (59 - ) Glucose 93 (75-110) mg/dL Calcium 9.1 (8.4-10.2) mg/dL Troponin I 0.041 H* (0.000-0.034) ng/mL NT-Pro-B Natriuret Pep 3300 H (5-100) PG/ML Discharge Plan Discharge Clinical Impression: Hypertensive crisis Congestive heart failure Qualifiers: Heart failure type: unspecified Heart failure chronicity: acute on chronic Qualified Code(s): I50.9 - Heart failure, unspecified Patient Disposition: Still a Patient Condition: Improved Follow-up/Referrals: PEACE GALLEGOS [Other]
[2020-05-30] MEDS: hydrALAZINE HCL 20 MG/ML VIAL IV PUSH (18:15)
[2020-05-30] MEDS: FUROSEMIDE 40 MG TABLET PO (18:31)
--- NOTE | 2020-05-30 18:40 | PC.NURSE ---
Patient placed on 2L oxygen due to patient having panic attack and reporting he cannot breath, patient calming down at this time.
--- NOTE | 2020-05-30 19:14 | ADMGEN ---
This patient, Winnie Rosen, was admitted to IMU Room 214-01 on at 1852. Patient/family oriented to hospital policies and general routines including ID bracelet, bed and alarms, visiting hours, pain management, procedures, bathroom and other care routines, personal items, smoking policy, room service/diet, and visiting hours. Information on how to activate the Rapid Response Team has been discussed. Patient/Family are encouraged to report perceived risks to care and to ask questions if they do not understand what they are told or what they should do.
[2020-05-30 20:51] LABS: Glucose Point of Care 163 (65-105)
[2020-05-30 20:59] LABS: Troponin I 0.037 ng/mL (0.000-0.034)
--- NOTE | 2020-05-30 21:00 | PM.IMHP ---
H&P: HPI History of Present Illness Date/Time: 05/30/20 21:00 Chief Complaint: Dyspnea on exertion Narrative: Gianfranco Rosen is a 80 year old male who has a history of sleep apnea and COPD. The patient was here back in November and had a normal echo. He had a normal EF and diastolic dysfunction. The the patient has a previous chart which needs to be merged with this chart. The patient was taken off of his Lasix last admission because he was not diagnosed with congestive heart failure. The last time he was here he was treated with COPD. The patient does not wear oxygen at home. Any does wear CPAP machine. The patient said that he was progressively getting more short of breath over the last week. He did not happen all of sudden. Had increased swelling in his lower extremities as well.. The patient is mostly short of breath with exertion. No fever, no chills, and no cough. The patient has difficulty ambulating up stairs. He sleeps with his head propped up. He sleeps with a CPAP on. Troponin 0.041 and 0.037. No complaints of chest pain. Patient was placed on 3 L of oxygen per nasal cannula. BNP was listed as 3300. Consistent pulmonary edema versus pneumonia. Small left pleural effusion. Nitro 1 in, IV Lasix, and Apresoline. Blood sugar 163. Patient is being admitted for observation on the date of service of 05/30/2020 Review of Systems Review of Systems: All systems reviewed & are unremarkable except as noted in HPI and below Constitutional: Constitutional: Reports as per HPI and Reports no additional constitutional complaints Eyes: Eyes: Reports as per HPI and Reports no additional eye complaints ENT: Reports system reviewed and no additional complaints, except as documented and Reports Normal hearing present Cardiovascular: Cardiovascular: Reports no additional cardiovascular complaints Respiratory: Respiratory: Reports no additional respiratory complaints and Reports no additional respiratory complaints Gastrointestinal: Gastrointestinal: Reports as per HPI and Reports no additional gastrointestinal complaints Musculoskeletal: Musculoskeletal: Reports no additional musculoskeletal complaints Integumentary/Breasts: Skin/Breast: Reports system reviewed and no additional complaints, except as docu and Reports as per HPI Neurologic: Reports system reviewed and no additional complaints, except as documented, Reports as per HPI and Reports Normal hearing present Psychiatric: Psychiatric: Reports no additional psychiatric complaints and Reports as per HPI Endocrine: Endocrine: Reports no additional endocrine complaints Hematologic/Lymphatic: Hematologic/Lymphatic: Reports no additional hematologic/lymphatic complaints Allergic/Immunologic: Allergic/Immunologic: Reports no additional allergic/immunologic complaints [facility] Past Medical History Medical History (Updated 05/30/20 @ 21:10 by Jaimee Spann NP) BPH (benign prostatic hyperplasia) COPD (chronic obstructive pulmonary disease) Depression with anxiety DM2 (diabetes mellitus, type 2) Hyperlipidemia Hypertension Hypothyroidism Obstructive sleep apnea Uses CPAP at home Surgical History Surgical History (Updated 05/30/20 @ 21:10 by Jaimee Spann NP) History of appendectomy S/P repair of hydrocele Family History Family History (Updated 05/30/20 @ 21:11 by Jaimee Spann NP) Father Natural Mother Natural Social History Social History (Updated 05/30/20 @ 21:12 by Jaimee Spann NP) Social History: The patient had been twice. He has been living with Laura his significant other for over 30 years. He has had 5 children with his previous . Laura is his durable power claim attorney for healthcare. The patient is a full code. The patient used to smoke over 20 years ago and occasionally has a cigarette. He occasionally has alcoholic beverage. No marijuana or illicit drugs. He is retired. Smoking status: Former smo
[2020-05-30] MEDS: methylPREDNISolone SOD SUCC 40 MG VIAL IV PUSH (21:45)
[2020-05-30] MEDS: ACETAMINOPHEN 325 MG TABLET 650 MG PO (22:44)
[2020-05-31] VITALS (16 sets, daily range): BP systolic 143–182; BP diastolic 55–87; PULSE 90–114; RESP 12–24; TEMP 35.9–36.6; O2SAT 92–97
--- NOTE | 2020-05-31 | ECHO_ITS ---
Patient Info Name: Gianfranco Rosen Age: 80 years : 1940 Gender: Male Ht: 70 in Wt: 322 lbs BSA: 2.76 m2 HR: 97 bpm BP: 144 / 64 mmHg Heart Rhythm: Indeterminant Technical Quality: Fair Exam Date: 05/31/2020 3:03 PM Exam Location: [facility] Pulmonary Patient Status: Inpatient Admit Date: 05/31/2020 Staff Ordering Physician: Jaimee Spann NP Outside Plant Supervisor: Tho Hutson, INDERJIT, RT Attending Provider: Snehal De Leon MD Referring Physician: Zana CÁRDENAS; Exam Type: CA echo doppler color flow Study Info Indications I27.82 - Chronic pulmonary embolism Complete two-dimensional, color flow and Doppler transthoracic echocardiogram is performed. Summary 1. Complete two-dimensional, color flow and Doppler transthoracic echocardiogram is performed. 2. Technically difficult study with limited views. 3. Left ventricular systolic function is normal, estimated at 55-60%. 4. There is severely increased left ventricular wall thickness. 5. The left ventricular diastolic function is grade III diastolic dysfunction. 6. Right atrial chamber dimension is mildly enlarged. 7. There is no aortic valve stenosis. 8. There is mild mitral valve regurgitation. 9. Unable to estimate PA systolic pressure due to poor spectral resolution of tricuspid regurgitant jet velocity. 10. Dilated inferior vena cava with <50% collapse upon inspiration consistent with significantly elevated right atrial pressure, 15 mmHg. Left Ventricle Left ventricular chamber dimension is normal. Left ventricular systolic function is normal, estimated at 55-60%. There is severely increased left ventricular wall thickness. The left ventricular diastolic function is grade III diastolic dysfunction. Technically difficult study with limited views. Right Ventricle Right ventricular chamber dimension is normal. Right ventricular systolic function is normal. Left Atria Left atrial chamber dimension is normal. Right Atria Right atrial chamber dimension is mildly enlarged. Aortic Valve The aortic valve is not well visualized. There is no aortic valve stenosis. There is no aortic valve regurgitation. Pulmonic Valve The pulmonic valve is not well visualized. Mitral Valve The mitral valve has thickened leaflets. There is mild mitral valve regurgitation. The mitral valve annulus is mildly calcified. Tricuspid Valve The tricuspid valve leaflets are normal. There is trace tricuspid valve regurgitation. Unable to estimate PA systolic pressure due to poor spectral resolution of tricuspid regurgitant jet velocity. Pericardium/Pleural The pericardium appears normal. There is trivial pericardial effusion. Inferior Vena Cava Dilated inferior vena cava with <50% collapse upon inspiration consistent with significantly elevated right atrial pressure, 15 mmHg. Aorta The aortic root size at the sinus of Valsalva is not well visualized. Left Ventricular Outflow Tract Name Value Normal LVOT 2D LVOT Diameter 2.0 cm LVOT Doppler LVOT Peak Gradient 5 mmHg LVOT Mean Gradient 3 mmHg L
[2020-05-31] MEDS: LABETALOL HCL INJ 100 MG/20 ML VIAL 10 MG IV PUSH (01:16)
[2020-05-31 05:22] LABS: Basophils Percent Auto 0.3 % (0.2-1.2); Hematocrit 42.2 % (42.0-52.0); Hemoglobin 13.3 g/dL (14.0-18.0); Immature Granulocyte Absolute 0.13 K/mm3 (0.00-0.031); Immature Granulocyte Percent A 1.1 % (0-0.5); Lymphocytes Absolute Auto 0.67 K/mm3 (0.9-3.2); Lymphocytes Percent Auto 5.8 % (18.3-44.2); Mean Corpuscular HGB Conc 31.5 g/dl (32-36); Mean Corpuscular Hemoglobin 27.8 pg (26-34); Mean Corpuscular Volume 88.3 fl (80-100); Mean Platelet Volume 9.8 fl (7.4-10.4); Monocytes Absolute Auto 0.3 K/mm3 (0.1-0.6); Monocytes Percent Auto 2.2 % (2.6-8.5); Neutrophils Absolute Auto 10.4 K/mm3 (1.3-6.7); Neutrophils Percent Auto 90.6 % (45.5-73.1); Platelet Count Result 879 k/mm3 (150-375); Red Blood Count 4.78 M/mm3 (4.6-6.20); Red Cell Distribution Width 15.5 % (11.5-14.5); White Blood Count 11.5 K/mm3 (4.5-10.0)
[2020-05-31] MEDS: methylPREDNISolone SOD SUCC 40 MG VIAL IV PUSH ×3 (05:41→22:48)
[2020-05-31] MEDS: LEVOTHYROXINE SODIUM 75 MCG TABLET PO (05:41)
[2020-05-31 05:56] LABS: Blood Urea Nitrogen 24 mg/dL (9-20); Calcium 8.7 mg/dL (8.4-10.2); Carbon Dioxide 30 mmol/L (22-30); Chloride 101 mmol/L (98-107); Estimated CRCL calculation 50 ml/min; Estimated Glomerular Filt Rate 45; Glucose 207 mg/dL (75-110); Magnesium 1.7 mg/dL (1.6-2.3); Phosphorus 3.4 mg/dL (2.5-4.5)
[2020-05-31 06:26] LABS: Anion Gap 6 mmol/L (8-16); Sodium 137 mmol/L (137-145)
[2020-05-31 06:29] LABS: Thyroid Stimulating Hormone Reflex 0.846 uIU/mL (0.465-4.68)
[2020-05-31] MEDS: TAMSULOSIN HCL 0.4 MG CAPSULE PO (10:31)
[2020-05-31] MEDS: ENALAPRIL MALEATE 10 MG TABLET 20 MG PO (10:31)
[2020-05-31] MEDS: PRAVASTATIN SODIUM 20 MG TABLET 40 MG PO (10:31)
[2020-05-31] MEDS: VENLAFAXINE HCL XR 75 MG CAP.ER.24H PO (10:31)
[2020-05-31] MEDS: FUROSEMIDE INJ 40 MG/4 ML VIAL IV PUSH (10:31)
[2020-05-31] MEDS: POTASSIUM CHLORIDE 10 MEQ TABLET.ER PO (10:31)
[2020-05-31] MEDS: INSULIN ASPART (*BKC) 100 UNITS/ML SUB-Q ×3 (10:32→17:34)
[2020-05-31] MEDS: ENOXAPARIN 40 MG/0.4 ML SYRINGE SUB-Q (10:32)
[2020-05-31 12:07] LABS: Glucose Point of Care 246 (65-105)
[2020-05-31] MEDS: ACETAMINOPHEN 325 MG TABLET 650 MG PO (12:35)
[2020-05-31] MEDS: PERFLUTREN LIPID MICROSPHERES 1.5 ML VIAL DILUTED TO 10 ML TOTAL VOLUME IV PUSH (15:19)
--- NOTE | 2020-05-31 15:28 | PM.IMPN ---
Progress Note: A&P Assessment and Plan (1) COPD (chronic obstructive pulmonary disease): Code(s): J44.9 - Chronic obstructive pulmonary disease, unspecified Status: Chronic Assessment and Plan: Breathing treatments Systemic steroids (2) PORFIRIO on CPAP: Code(s): G47.33 - Obstructive sleep apnea (adult) (pediatric); Z99.89 - Dependence on other enabling machines and devices Status: Chronic Assessment and Plan: CPAP at night time (3) Diabetes: Code(s): E11.9 - Type 2 diabetes mellitus without complications Status: Chronic Assessment and Plan: Continue to monitor ISS as needed (4) DM2 (diabetes mellitus, type 2): Code(s): E11.9 - Type 2 diabetes mellitus without complications Status: Chronic Assessment and Plan: Carb consistent diet (5) COPD (chronic obstructive pulmonary disease): Code(s): J44.9 - Chronic obstructive pulmonary disease, unspecified Status: Chronic Assessment and Plan: Continue breathing treatments. (6) HTN (hypertension): Code(s): I10 - Essential (primary) hypertension Status: Chronic Assessment and Plan: Re start home meds Subjective Date/time seen: 05/31/20 15:28 Patient states that he feels much better. Review of Systems Review of Systems: Narrative: patient states that he has been having sob Constitutional: Comments: no fevers, no rigors, no chills. ENT: Comments: no throat pain, nasal congestion. Cardiovascular: Comments: no chest pin, no leg swelling, no pnd, no orthopnea. Respiratory: Comments: sob, no cough or sputum production. Gastrointestinal: Comments: no n/v/abdominal pain. Musculoskeletal: Comments: no joint pain. Integumentary/Breasts: Comments: no rashes Neurologic: Comments: no sensory motor deficit Exam Narrative: Exam Narrative: Lying in bed. Const: General: no acute distress, alert, awake and tired appearing Nutritional Appearance: overweight HENMT: Head: normal to inspection and normocephalic General nose exam: Normal external nose present Face and sinus: normal facial exam Eyes: Pupils: Equal, round and reactive pupils present EOM: EOMs intact bilaterally Neck: Neck: no lymphadenopathy, supple and no JVD Resp: Auscultation: clear to auscultation bilaterally Cardio: Jugular venous distension: no JVD Rate: regular rate Rhythm: regular rhythm GI: GI Palp: Yes Soft to palpation and Yes No hepatosplenomegaly present Skin: Wounds: no wounds Neuro: General: patient oriented x3 and CN's II-XI intact bilaterally Cranial nerves: Yes CN's II-XII intact bilaterally and Yes Bilaterally intact EOM present Cognition (Neuro): normal cognition Speech: normal speech Motor exam (neuro): 5/5 motor strength present throughout Extrem: General: no pedal edema Objective Data Vital Signs Vital Signs: Vital Signs - 24 hr 05/30/20 17:15 05/30/20 18:04 05/30/20 18:41 Temperature Pulse Rate 100 103 H 105 H Respiratory Rate 28 H 29 H 30 H Blood Pressure 188/79 H 210/99 H 199/74 H Pulse Oximetry 91 92 96 05/30/20 19:00 05/30/20 20:00 05/30/20 22:00 Temperature 97.8 F Pulse Rate 104 H 107 H 104 H Respiratory Rate 22 H Blood Pressure 187/56 H Pulse Oximetry 97 94 05/30/20 22:10 05/30/20 22:14 05/30/20 23:45 Temperature Pulse Rate 104 H 100 Respiratory Rate Blood Pressure 178/75 H Pulse Oximetry 95 92 05/30/20 23:48 05/31/20 00:00 05/31/20 01:16 Temperature 97.6 F Pulse Rate 109 H 108 H 104 H Respiratory Rate 22 H Blood Pressure 182/78 H Pulse Oximetry 95 92 05/31/20 02:00 05/31/20 04:00 05/31/20 06:00 Temperature 97.8 F Pulse Rate 90 98 93 Respiratory Rate 20 Blood Pressure 144/64 H Pulse Oximetry 96 05/31/20 08:00 05/31/20 08:41 05/31/20 10:00 Temperature 96.7 F L Pulse Rate 96 98 97 Respiratory Rate 24 H Blood Pressure 143/64 H Pulse Oximetry 92 92 05/31/20 12:0
[2020-05-31 16:33] LABS: Glucose Point of Care 230 (65-105)
[2020-05-31] MEDS: hydrALAZINE HCL 20 MG/ML VIAL 10 MG IV PUSH (20:31)
[2020-05-31 20:37] LABS: Glucose Point of Care 266 (65-105)
[2020-05-31] MEDS: amLODIPine BESYLATE 5 MG TABLET PO (22:48)
[2020-06-01] VITALS (16 sets, daily range): BP systolic 150–184; BP diastolic 54–76; PULSE 91–104; RESP 18–24; TEMP 35.9–36.6; O2SAT 92–97
[2020-06-01 01:29] LABS: Glucose Point of Care 206 (65-105)
[2020-06-01] MEDS: hydrALAZINE HCL 20 MG/ML VIAL 10 MG IV PUSH ×2 (04:18→12:02)
[2020-06-01] MEDS: methylPREDNISolone SOD SUCC 40 MG VIAL IV PUSH ×3 (07:00→21:18)
[2020-06-01] MEDS: LEVOTHYROXINE SODIUM 75 MCG TABLET PO (07:00)
--- NOTE | 2020-06-01 08:24 | P.CDI_ITS ---
CDI Query Clarification Request 1) CHF, acute on chronic documented in H&P - CXR impression: findings c/w improving CHF exacerbation - BNP 3300 - Lasix 40mg IV and Lasix 40mg po given in ED and pt continued on Lasix 40mg IV daily - 05/31 echo summary: EF 55-60 %, grade III diastolic dysfunction Please further specify type of acute on chronic CHF: * Systolic * Diastolic * Both systolic and diastolic * Unable to determine 2) COPD has been documented - Pt placed on Solu Medrol 40 mg IV q 8 hrs Please clarify if COPD is exacerbated, stable, or unable to determine <Vaishali Hampton RN - Last Filed: 06/01/20 08:32> Clarified Diagnosis (1) Decompensated COPD with exacerbation (chronic obstructive pulmonary disease): Code(s): J44.1 - Chronic obstructive pulmonary disease with (acute) exacerbation <Vaishali Hampton RN - Last Filed: 06/01/20 08:32> Status: Acute <Vaishali Hampton RN - Last Filed: 06/01/20 08:32> (2) Diastolic CHF, acute on chronic: Code(s): I50.33 - Acute on chronic diastolic (congestive) heart failure <Vaishali Hampton RN - Last Filed: 06/01/20 08:32> Status: Acute <Vaishali Hampton RN - Last Filed: 06/01/20 08:32>
[2020-06-01] MEDS: FUROSEMIDE INJ 40 MG/4 ML VIAL IV PUSH ×2 (08:51→17:41)
[2020-06-01] MEDS: INSULIN ASPART (*BKC) 100 UNITS/ML SUB-Q ×3 (08:51→18:00)
[2020-06-01] MEDS: ENOXAPARIN 40 MG/0.4 ML SYRINGE SUB-Q (08:51)
[2020-06-01 08:52] LABS: Glucose Point of Care 223 (65-105)
[2020-06-01] MEDS: POTASSIUM CHLORIDE 10 MEQ TABLET.ER PO (08:52)
[2020-06-01] MEDS: PRAVASTATIN SODIUM 20 MG TABLET 40 MG PO (08:52)
[2020-06-01] MEDS: ENALAPRIL MALEATE 10 MG TABLET 20 MG PO (08:52)
[2020-06-01] MEDS: TAMSULOSIN HCL 0.4 MG CAPSULE PO (08:52)
[2020-06-01] MEDS: VENLAFAXINE HCL XR 75 MG CAP.ER.24H PO (08:52)
[2020-06-01 11:59] LABS: Glucose Point of Care 282 (65-105)
[2020-06-01] MEDS: amLODIPine BESYLATE 5 MG TABLET PO (12:03)
--- NOTE | 2020-06-01 12:17 | PC.NURSE ---
Transfer received from IMU per bed. Report received from SCOTT Fonseca.
--- NOTE | 2020-06-01 13:31 | PC.NURSE ---
Addendum entered by EUNICE Lazaro 06/01/20 13:32: Transfer time entered in error. Transfer time was actually 1210. Original Note: This patient, Gianfranco Rosen, was transferred to [facility] on 06/01/20 at 1331. Personal belongings sent with patient. Report given to Imelda. Appropriate documentation sent with patient.
--- NOTE | 2020-06-01 16:20 | PM.IMPN ---
Progress Note: A&P Assessment and Plan (1) Decompensated COPD with exacerbation (chronic obstructive pulmonary disease): Code(s): J44.1 - Chronic obstructive pulmonary disease with (acute) exacerbation Status: Acute Assessment and Plan: Breathing treatments Solumedrol Oygen by NC (2) Diastolic CHF, acute on chronic: Code(s): I50.33 - Acute on chronic diastolic (congestive) heart failure Status: Acute Assessment and Plan: Diuresing well I/O's daily Fluid restriction. (3) KIMBROUGH (dyspnea on exertion): Code(s): R06.00 - Dyspnea, unspecified Status: Acute Assessment and Plan: Likely secondary to CHF exacerbation Improved (4) PORFIRIO on CPAP: Code(s): G47.33 - Obstructive sleep apnea (adult) (pediatric); Z99.89 - Dependence on other enabling machines and devices Status: Chronic Assessment and Plan: Continue CPAP at night time (5) DM2 (diabetes mellitus, type 2): Code(s): E11.9 - Type 2 diabetes mellitus without complications Status: Chronic Assessment and Plan: Accu checks ACHS ISS as needed (6) Obstructive sleep apnea: Code(s): G47.33 - Obstructive sleep apnea (adult) (pediatric) Status: Chronic Assessment and Plan: CPAP Subjective Date/time seen: 06/01/20 16:20 I feel much better. Review of Systems Review of Systems: Narrative: No new issues overnight Constitutional: Comments: no fevers, no rigors, no chills. ENT: Comments: no nasal congestion, no throat pain. Cardiovascular: Comments: no chest pain, leg swelling Respiratory: Comments: mild sob, non productive cough. Gastrointestinal: Comments: no n/v/abdominal pain. Musculoskeletal: Comments: B/L LE swelling. Integumentary/Breasts: Comments: no rashes Neurologic: Comments: no sensory motor deficit Exam Narrative: Exam Narrative: Sitting in recliner. Const: General: comfortable, no acute distress, alert, awake, Physically active and other (Chronically ill looking) Nutritional Appearance: overweight Orientation/consciousness: patient oriented x3 HENMT: Head: normocephalic Ears: hearing grossly normal bilaterally General nose exam: Normal external nose present Face and sinus: normal facial exam Eyes: General: appearance normal, both eyes and all related structures Pupils: Equal, round and reactive pupils present EOM: EOMs intact bilaterally Neck: Neck: no lymphadenopathy, supple and no JVD Resp: Auscultation: diminished lung sounds Cardio: Jugular venous distension: no JVD Rate: regular rate Rhythm: regular rhythm GI: GI Palp: Yes Soft to palpation and Yes No hepatosplenomegaly present Skin: Wounds: no wounds Neuro: General: patient oriented x3 and CN's II-XI intact bilaterally Cranial nerves: Yes CN's II-XII intact bilaterally Cognition (Neuro): normal cognition Speech: normal speech Motor exam (neuro): 5/5 motor strength present throughout Extrem: General: edema bilateral (ankle.) Objective Data Vital Signs Vital Signs: Vital Signs - 24 hr 05/31/20 18:00 05/31/20 20:00 05/31/20 21:45 Temperature 96.9 F L Pulse Rate 110 H 103 H Respiratory Rate 20 Blood Pressure 182/79 H 172/55 H Pulse Oximetry 97 05/31/20 22:00 06/01/20 00:00 06/01/20 02:00 Temperature 96.7 F L Pulse Rate 99 95 99 Respiratory Rate 22 H Blood Pressure 155/71 H Pulse Oximetry 95 06/01/20 04:00 06/01/20 06:00 06/01/20 07:12 Temperature 98 F Pulse Rate 100 98 Respiratory Rate 18 Blood Pressure 179/59 H 157/61 H Pulse Oximetry 95 06/01/20 08:00 06/01/20 09:33 06/01/20 10:00 Temperature 97.4 F L Pulse Rate 98 96 Respiratory Rate 22 H Blood Pressure 154/54 H Pulse Oximetry 92 92 06/01/20 11:58 06/01/20 12:21 06/01/20 13:42 Temperature 97.2 F L 96.9 F L 96.8 F L Pulse Rate 100 91 102 H Respiratory Rate 24 H 24 H 22 H Blood Pressure 180/66 H 150/76 H 154/60 H Pulse Oximetry 94 97 93
[2020-06-01] MEDS: ALBUTEROL SULFATE NEB 2.5 MG/0.5 ML INH INHALATION (17:32)
[2020-06-01 17:49] LABS: Glucose Point of Care 285 (65-105)
[2020-06-01 20:28] LABS: Glucose Point of Care 386 (65-105)
[2020-06-02] VITALS (20 sets, daily range): BP systolic 150–196; BP diastolic 61–87; PULSE 88–107; RESP 18–24; TEMP 36.3–36.4; O2SAT 91–96
[2020-06-02] MEDS: ALBUTEROL SULFATE NEB 2.5 MG/0.5 ML INH INHALATION ×4 (02:31→19:34)
[2020-06-02] MEDS: LEVOTHYROXINE SODIUM 75 MCG TABLET PO (06:36)
[2020-06-02] MEDS: methylPREDNISolone SOD SUCC 40 MG VIAL IV PUSH ×3 (06:36→22:52)
[2020-06-02 07:55] LABS: Glucose Point of Care 324 (65-105)
[2020-06-02] MEDS: INSULIN ASPART (*BKC) 100 UNITS/ML SUB-Q ×2 (07:55→11:46)
[2020-06-02 07:59] LABS: Potassium 4.3 mmol/L (3.4-5.0)
[2020-06-02] MEDS: PRAVASTATIN SODIUM 20 MG TABLET 40 MG PO (08:00)
[2020-06-02] MEDS: FUROSEMIDE INJ 40 MG/4 ML VIAL IV PUSH ×2 (08:00→16:34)
[2020-06-02] MEDS: ENOXAPARIN 40 MG/0.4 ML SYRINGE SUB-Q (08:00)
[2020-06-02] MEDS: VENLAFAXINE HCL XR 75 MG CAP.ER.24H PO (08:01)
[2020-06-02] MEDS: ENALAPRIL MALEATE 10 MG TABLET 20 MG PO (08:01)
[2020-06-02] MEDS: POTASSIUM CHLORIDE 10 MEQ TABLET.ER PO (08:01)
[2020-06-02] MEDS: amLODIPine BESYLATE 5 MG TABLET PO (08:01)
[2020-06-02] MEDS: TAMSULOSIN HCL 0.4 MG CAPSULE PO (08:01)
[2020-06-02 11:50] LABS: Glucose Point of Care 391 (65-105)
--- NOTE | 2020-06-02 15:06 | PM.IMPN ---
Progress Note: A&P Assessment and Plan (1) Diastolic CHF, acute on chronic: Code(s): I50.33 - Acute on chronic diastolic (congestive) heart failure Status: Acute Assessment and Plan: Diuresing I/O's daily BMP Clinically much improved. (2) Decompensated COPD with exacerbation (chronic obstructive pulmonary disease): Code(s): J44.1 - Chronic obstructive pulmonary disease with (acute) exacerbation Status: Acute Assessment and Plan: Breathing treatments Systemic steroids Supplemental O2 CPAP at night time. (3) HTN (hypertension): Code(s): I10 - Essential (primary) hypertension Status: Chronic Assessment and Plan: Stable Continue home meds (4) PORFIRIO on CPAP: Code(s): G47.33 - Obstructive sleep apnea (adult) (pediatric); Z99.89 - Dependence on other enabling machines and devices Status: Chronic Assessment and Plan: Continue CPAP Subjective Date/time seen: 06/02/20 15:06 States that feels much better. Review of Systems Review of Systems: Narrative: Denies any discomfort at this time. Constitutional: Comments: no fevers, no rigors, no chills. Cardiovascular: Comments: leg swelling Respiratory: Comments: mild sob. Gastrointestinal: Comments: no n/v/abdominal pain. Musculoskeletal: Comments: no joint pain. Integumentary/Breasts: Comments: no rashes. Neurologic: Comments: no sensory motor deficit. Exam Narrative: Exam Narrative: Lying in bed. Const: General: comfortable, no acute distress, alert, awake and Physically active Nutritional Appearance: overweight HENMT: Head: normal to inspection and normocephalic Ears: hearing grossly normal bilaterally General nose exam: Normal external nose present Face and sinus: normal facial exam Neck: Neck: no lymphadenopathy, supple and no JVD Lymphatic: no lymphadenopathy noted Resp: Auscultation: clear to auscultation bilaterally and diminished lung sounds Cardio: Jugular venous distension: no JVD Rate: regular rate Rhythm: regular rhythm GI: GI Palp: Yes Soft to palpation and Yes No hepatosplenomegaly present Skin: Rashes: no rashes Neuro: General: patient oriented x3 and CN's II-XI intact bilaterally Cranial nerves: Yes CN's II-XII intact bilaterally and Yes Equal, round and reactive pupils present Cognition (Neuro): normal cognition Speech: normal speech Motor exam (neuro): 5/5 motor strength present throughout Extrem: General: pedal edema bilaterally Objective Data Vital Signs Vital Signs: Vital Signs - 24 hr 06/01/20 16:00 06/01/20 19:57 06/01/20 20:00 Temperature 97.4 F L Pulse Rate 103 H 102 H 104 H Respiratory Rate 20 Blood Pressure 184/69 H Pulse Oximetry 97 06/01/20 21:20 06/01/20 22:59 06/02/20 00:00 Temperature Pulse Rate 99 Respiratory Rate Blood Pressure Pulse Oximetry 97 96 06/02/20 02:31 06/02/20 02:38 06/02/20 04:00 Temperature Pulse Rate 99 97 100 Respiratory Rate 22 H 22 H Blood Pressure Pulse Oximetry 06/02/20 06:04 06/02/20 08:00 06/02/20 09:15 Temperature 97.3 F L Pulse Rate 100 99 100 Respiratory Rate 18 22 H Blood Pressure 165/85 H Pulse Oximetry 95 95 96 06/02/20 09:25 06/02/20 09:56 06/02/20 12:00 Temperature Pulse Rate 97 97 Respiratory Rate 20 Blood Pressure Pulse Oximetry 92 06/02/20 14:22 06/02/20 14:31 Temperature 97.6 F Pulse Rate 100 88 Respiratory Rate 18 18 Blood Pressure 173/78 H Pulse Oximetry 91 Intake/Output Intake/Output: Intake & Output 05/30/20 05/31/20 06/01/20 06/02/20 23:59 23:59 23:59 23:59 Intake Total 1220 1330 1220 Output Total 4551 [id number] [facility] -[id number] [id number] -[id number] Meds/Results Medications: Active Medications Generic Name Dose Route Start Last Admin Trade Name Freq PRN Reason Stop Dose Admin Acetaminophen 650 mg 05/30/20 22:22 05/31/20 12:35 Acetaminophen 325 Mg Tablet PO 650 mg Q4H PRN Ad
[2020-06-02 15:19] LABS: Basophils Percent Auto 0.1 % (0.2-1.2); Hematocrit 43.2 % (42.0-52.0); Hemoglobin 13.9 g/dL (14.0-18.0); Immature Granulocyte Absolute 0.13 K/mm3 (0.00-0.031); Immature Granulocyte Percent A 0.8 % (0-0.5); Lymphocytes Absolute Auto 0.52 K/mm3 (0.9-3.2); Lymphocytes Percent Auto 3.1 % (18.3-44.2); Mean Corpuscular HGB Conc 32.2 g/dl (32-36); Mean Corpuscular Hemoglobin 28.3 pg (26-34); Mean Platelet Volume 9.5 fl (7.4-10.4); Monocytes Absolute Auto 0.9 K/mm3 (0.1-0.6); Monocytes Percent Auto 5.6 % (2.6-8.5); Neutrophils Percent Auto 90.4 % (45.5-73.1); Platelet Count Result 1017 k/mm3 (150-375); Red Blood Count 4.91 M/mm3 (4.6-6.20); Red Cell Distribution Width 15.5 % (11.5-14.5); White Blood Count 16.6 K/mm3 (4.5-10.0)
[2020-06-02 15:33] LABS: Anion Gap 9 mmol/L (8-16); Blood Urea Nitrogen 54 mg/dL (9-20); Calcium 8.9 mg/dL (8.4-10.2); Carbon Dioxide 27 mmol/L (22-30); Chloride 99 mmol/L (98-107); Estimated CRCL calculation 44 ml/min; Estimated Glomerular Filt Rate 39; Glucose 425 mg/dL (75-110); Potassium 4.4 mmol/L (3.4-5.0); Sodium 135 mmol/L (137-145)
[2020-06-02 16:40] LABS: Glucose Point of Care 416 (65-105)
[2020-06-02] MEDS: INSULIN ASPART (*BKC) 100 UNITS/ML 12 UNITS SUB-Q (17:01)
[2020-06-02] MEDS: hydrALAZINE HCL 20 MG/ML VIAL 10 MG IV PUSH (19:52)
[2020-06-02] MEDS: ACETAMINOPHEN 325 MG TABLET 650 MG PO (19:58)
[2020-06-02 22:50] LABS: Glucose Point of Care 485 (65-105)
[2020-06-03] VITALS (9 sets, daily range): BP systolic 154; BP diastolic 77; PULSE 51–105; RESP 16–20; TEMP 36.2; O2SAT 92–94
[2020-06-03] MEDS: ALBUTEROL SULFATE NEB 2.5 MG/0.5 ML INH INHALATION ×2 (02:08→09:05)
[2020-06-03] MEDS: methylPREDNISolone SOD SUCC 40 MG VIAL IV PUSH (06:05)
[2020-06-03] MEDS: LEVOTHYROXINE SODIUM 75 MCG TABLET PO (06:05)
[2020-06-03] MEDS: INSULIN ASPART (*BKC) 100 UNITS/ML SUB-Q (07:35)
[2020-06-03 07:41] LABS: Glucose Point of Care 391 (65-105)
[2020-06-03] MEDS: TAMSULOSIN HCL 0.4 MG CAPSULE PO (08:57)
[2020-06-03] MEDS: VENLAFAXINE HCL XR 75 MG CAP.ER.24H PO (08:57)
[2020-06-03] MEDS: FUROSEMIDE INJ 40 MG/4 ML VIAL IV PUSH (08:57)
[2020-06-03] MEDS: ENALAPRIL MALEATE 10 MG TABLET 20 MG PO (08:57)
[2020-06-03] MEDS: POTASSIUM CHLORIDE 10 MEQ TABLET.ER PO (08:57)
[2020-06-03] MEDS: PRAVASTATIN SODIUM 20 MG TABLET 40 MG PO (08:57)
[2020-06-03] MEDS: ENOXAPARIN 40 MG/0.4 ML SYRINGE SUB-Q (08:57)
[2020-06-03] MEDS: amLODIPine BESYLATE 5 MG TABLET PO (08:58)
--- NOTE | 2020-06-03 09:51 | PM.DS ---
DS: Admitting Diagnosis Admitting Diagnosis Admitting Diagnosis: (1) Hypertensive crisis: (2) COPD (chronic obstructive pulmonary disease): (3) Congestive heart failure: (4) Obstructive sleep apnea: (5) BPH (benign prostatic hyperplasia): (6) Depression with anxiety: (7) Hypertension: (8) Hypothyroidism: (9) Hyperlipidemia: DS: Discharge Diagnosis Discharge Diagnosis (1) Diastolic CHF, acute on chronic: Code(s): I50.33 - Acute on chronic diastolic (congestive) heart failure Status: Acute (2) Decompensated COPD with exacerbation (chronic obstructive pulmonary disease): Code(s): J44.1 - Chronic obstructive pulmonary disease with (acute) exacerbation Status: Acute (3) Diabetes: Code(s): E11.9 - Type 2 diabetes mellitus without complications Status: Chronic (4) COPD (chronic obstructive pulmonary disease): Code(s): J44.9 - Chronic obstructive pulmonary disease, unspecified Status: Chronic (5) HTN (hypertension): Code(s): I10 - Essential (primary) hypertension Status: Chronic (6) PORFIRIO on CPAP: Code(s): G47.33 - Obstructive sleep apnea (adult) (pediatric); Z99.89 - Dependence on other enabling machines and devices Status: Chronic (7) DM2 (diabetes mellitus, type 2): Code(s): E11.9 - Type 2 diabetes mellitus without complications Status: Chronic (8) Hypertensive crisis: Code(s): I16.9 - Hypertensive crisis, unspecified Status: Acute DS: Summary Hospital Course Hospital Course: Gianfranco Rosen is a 80 year old male who has a history of sleep apnea on CPAP, COPD. The patient was here back in November and had a normal echo. He had a normal EF and diastolic dysfunction. The the patient has a previous chart which needs to be merged with this chart. The patient was taken off of his Lasix last admission because he was not diagnosed with congestive heart failure. The last time he was here he was treated with COPD. The patient does not wear oxygen at home. Does wear CPAP machine. The patient said that he was progressively getting more short of breath over the last week. Had increased swelling in his lower extremities . The patient has shortness of breath with exertion. No fever, no chills, and no cough. The patient has difficulty going up stairs. He sleeps with his head up. He sleeps with a CPAP on. Troponin 0.041 and 0.037. No complaints of chest pain. Patient was placed on 3 L of oxygen by nasal cannula. BNP was elevated at 3300. Consistent pulmonary edema versus pneumonia. Small left pleural effusion. Nitro 1 in, IV Lasix, and Apresoline. Was placed on observation for further evaluation and monitoring and treatment. A 2DECHO was obtained and showed EF=40-4% Patient was placed on Azithromycin an Rocephin due to lung infiltrates and breathing treatments he was diuresed as well and participated in PT/OT therapy sessions No procedures No consults No events. Time Spent with Patient Time attestation: Total time spent providing and/or coordinating discharge services: Exam Const: General: cooperative, comfortable, no acute distress, well developed, alert and awake Nutritional Appearance: average body habitus Orientation/consciousness: patient oriented x3 HENMT: Head: normal to inspection, normocephalic and atraumatic Ears: hearing grossly normal bilaterally General nose exam: Normal external nose present Face and sinus: normal facial exam Eyes: Pupils: Equal, round and reactive pupils present EOM: EOMs intact bilaterally Neck: Neck: no lymphadenopathy and no JVD Resp: Effort & Inspection: normal respiratory effort and able to speak in complete sentences Auscultation: clear to auscultation bilaterally Cardio: Jugular venous distension: no JVD Rate: regular rate Rhythm: regular rhythm GI: GI Palp: Yes Soft to palpation and Yes No hepatosplenom
== END 2020-06-03 12:00 | disposition home or self-care (01) | DRG 304 ==
LOC: ANHED 17:57 → ANHIMU 18:07 → ANH3MED 06-01 15:40 → ANHIMU 06-06 13:57
PROVIDERS: Nurse Practitioner; Admitting Provider Family Medicine; Emergency Provider Emergency Medicine; Visit Provider Internal Medicine
DX: I16.9 Hypertensive crisis, unspecified (principal); I50.33 Acute on chronic diastolic (congestive) heart failure; J44.1 Chronic obstructive pulmonary disease with (acute) exacerbation; I11.0 Hypertensive heart disease with heart failure; E11.9 Type 2 diabetes mellitus without complications; G47.33 Obstructive sleep apnea (adult) (pediatric); N40.0 Benign prostatic hyperplasia without lower urinary tract symptoms; E78.5 Hyperlipidemia, unspecified; F41.8 Other specified anxiety disorders; Z28.21 Immunization not carried out because of patient refusal; Z79.4 Long term (current) use of insulin; Z87.891 Personal history of nicotine dependence; Z99.89 Dependence on other enabling machines and devices
CPT/HCPCS: 36415; 71045; 80048; 82948; 83735; 83880; 84100; 84132; 84443; 84484; 85025; 87040; 93005; 93306; 93970; 94640; 96374; 96375; 96376; 97110; 97161; 97165; 97530; 97535; 99285; A9270; G0378; J0360; J1650; J1815; J1940; J2920; Q9957

== ENCOUNTER 2021-02-06 15:14 | Observation (INO) | payer MEDICARE, SELFPAY ==
[2021-02-06] VITALS (8 sets, daily range): BP systolic 174–200; BP diastolic 72–82; PULSE 80–99; RESP 14–23; TEMP 36.4–36.6; O2SAT 93–99; BMI 41.3
--- NOTE | ~2021-02-06 | XR_ITS ---
EXAMINATION: XR chest 2V DATE: 02/06/2021 15:55 INDICATION: Shortness of breath. TECHNIQUE: Frontal and lateral views of the chest were obtained. COMPARISON: Chest single view 05/31/2020, chest CT 12/27/2019 FINDINGS: There is a small left pleural effusion. There are airspace opacities in left lower lung zon e. There is linear atelectasis in left midlung zone. Calcified bilateral lung nodules and calcified h ilar and mediastinal lymph nodes are consistent with old granulomatous disease. No pneumothorax. The heart size is normal. There are prominent paracardial fat pads. IMPRESSION: 1. Small left pleural effusion. 2. Airspace opacities in left lower lung zone, consistent with atelectasis versus pneumonia. Reviewed, dictated and finalized at location A. IMPRESSION: 1. Small left pleural effusion. 2. Airspace opacities in left lower lung zone, consistent with atelectasis vers us pneumonia.
--- NOTE | 2021-02-06 15:16 | ECG_ITS ---
Measurements Intervals [place] Rate: 85 P: 60 AR: 292 QRS: -67 QRSD: 149 T: 53 QT: 403 QTc: 479 Interpretive Statements SINUS RHYTHM WITH FIRST DEGREE AV BLOCK RIGHT BUNDLE BRANCH BLOCK VOLTAGE CRITERIA FOR LVH ANTEROLATERAL INFARCT, AGE INDETERMINATE BASELINE ARTIFACT- I, AVR, AVL ABNORMAL ECG Electronically Signed On 02-06-2021 15:32:58 CDT by Js Abad D.O.
[2021-02-06 15:55] LABS: Basophils Absolute Auto 0.1 K/mm3 (0.0-0.1); Basophils Percent Auto 0.8 % (0.2-1.2); Eosinophils Absolute Auto 0.2 K/mm3 (0-0.3); Eosinophils Percent Auto 1.8 % (0-4.4); Hematocrit 42.3 % (42.0-52.0); Hemoglobin 13.9 g/dL (14.0-18.0); Immature Granulocyte Absolute 0.06 K/mm3 (0.00-0.031); Immature Granulocyte Percent A 0.6 % (0-0.5); Lymphocytes Absolute Auto 1.26 K/mm3 (0.9-3.2); Lymphocytes Percent Auto 11.8 % (18.3-44.2); Mean Corpuscular HGB Conc 32.9 g/dl (32-36); Mean Corpuscular Hemoglobin 29.3 pg (26-34); Mean Corpuscular Volume 89.2 fl (80-100); Mean Platelet Volume 9.3 fl (7.4-10.4); Monocytes Absolute Auto 0.7 K/mm3 (0.1-0.6); Monocytes Percent Auto 6.6 % (2.6-8.5); Neutrophils Absolute Auto 8.4 K/mm3 (1.3-6.7); Neutrophils Percent Auto 78.4 % (45.5-73.1); Platelet Count Result 780 k/mm3 (150-375); Red Blood Count 4.74 M/mm3 (4.6-6.20); Red Cell Distribution Width 13.9 % (11.5-14.5); White Blood Count 10.7 K/mm3 (4.5-10.0)
[2021-02-06 16:02] LABS: Anion Gap 6 mmol/L (8-16); Blood Urea Nitrogen 24 mg/dL (9-20); Carbon Dioxide 30 mmol/L (22-30); Chloride 105 mmol/L (98-107); Estimated CRCL calculation 46 ml/min; Estimated Glomerular Filt Rate 49; Glucose 127 mg/dL (65-110); Potassium 4.1 mmol/L (3.4-5.0); Sodium 141 mmol/L (137-145)
[2021-02-06 16:10] LABS: INR 3.3; Prothrombin Time 32.9 Seconds (11.1-14.7)
--- NOTE | 2021-02-06 16:13 | ED.SOB ---
HPI - SOB/Dyspnea General Chief Complaint: Shortness of Breath/Dyspnea Stated Complaint: SOB Time Seen by Provider: 02/06/21 16:13 Source: patient Mode of arrival: ambulatory Limitations: no limitations History of Present Illness HPI Narrative: The patient is an 80 yo male with a history of COPD, HTN, Type II DM, diastolic CHF, EF 55%, who presents for evaluation of dyspnea. Pt actually denies having any medical history at time of assessment. He reports dyspnea with onset yesterday. Worsening over the past 24 hours. Patient's significant other called EMS to have patient evaluated today due to constant dyspnea. Pt was given a Duoneb en route without much improvement. Pt reports dyspnea at rest. He denies chest pain, cough, fever or chills. He does report lower extremity swelling which is chronic for him; states he has been battling that for years. No recent travel or recent surgery. No recent sick contacts. He has received one COVID vaccine in his series. No known history of COVID. No worsening in dyspnea with exertion or positional changes. states patient has been taking his Lasix every couple of days. History of prior alcohol abuse, previous smoker. Patient admitted to this facility in 05/2020, EF 55-60%. Related Data Home Medications Medication Instructions Recorded Confirmed Combivent Respimat See Rx Instructions .ROUTE .COMPLEX 12/26/19 12/26/19 Tresiba FlexTouch U-100 60 unit SUBCUT DAILY 12/26/19 12/26/19 enalapril maleate 20 mg PO DAILY 12/26/19 12/26/19 furosemide 20 mg PO DAILY 12/26/19 12/26/19 levothyroxine 75 mcg PO DAILY 12/26/19 12/26/19 metformin 500 mg PO BID 12/26/19 12/26/19 potassium chloride 10 meq PO DAILY 12/26/19 12/26/19 pravastatin 40 mg PO HS 12/26/19 12/26/19 tamsulosin 0.4 mg PO HS 12/26/19 12/26/19 venlafaxine 75 mg PO DAILY 12/26/19 12/26/19 Tresiba U-100 Insulin 60 unit SUBCUT DAILY 05/30/20 05/30/20 enalapril maleate 20 mg PO DAILY 05/30/20 05/30/20 levothyroxine 75 mcg PO DAILY 05/30/20 05/30/20 metformin 1,000 mg PO BID 05/30/20 05/30/20 potassium chloride 10 meq PO DAILY 05/30/20 05/30/20 pravastatin 40 mg PO DAILY 05/30/20 05/30/20 tamsulosin 0.4 mg PO DAILY 05/30/20 05/30/20 venlafaxine 75 mg PO DAILY 05/30/20 05/30/20 Allergies Allergy/AdvReac Type Severity Reaction Status Date / Time No Known Allergies Allergy Verified 05/31/20 09:04 Review of Systems Review of Systems: CONSTITUTIONAL: Denies fever, chills, or sweats. EYES: Denies visual changes, redness, or discharge. ENT: Denies rhinorrhea, congestion, sore throat, or otalgia. CARDIOVASCULAR: Denies chest pain, palpitations, reports bilateral lower extremity edema RESPIRATORY: Denies cough, reports dyspnea GASTROINTESTINAL: Denies abdominal pain, nausea, vomiting, or diarrhea. GENITOURINARY: Denies dysuria or hematuria. SKIN: Denies rash or itching. MUSCULOSKELETAL: Denies back pain, joint pain, or myalgia. NEUROLOGIC: Denies headache, numbness, or weakness. [facility] Past Medical History Medical History BPH (benign prostatic hyperplasia) BPH (benign prostatic hyperplasia) COPD (chronic obstructive pulmonary disease) COPD (chronic obstructive pulmonary disease) Depression with anxiety Depression with anxiety Diabetes DM2 (diabetes mellitus, type 2) HTN (hypertension) Hyperlipidemia Hyperlipidemia Hypertension Hypothyroidism Hypothyroidism Obstructive sleep apnea Uses CPAP at home PORFIRIO on CPAP Surgical History Surgical History History of appendectomy History of appendectomy S/P repair of hydrocele S/P repair of hydrocele Family History Family History Father Natural Mother Natural Father Natural with unknown cause Mother Natural with unknown cause Social History Social History (Reviewed 02/06/21 @ 17:07 by Daniel
[2021-02-06 16:15] LABS: NT Pro B Type Natriuretic Pept 3140 pg/mL (5-100); Troponin I 0.029 ng/mL (0.000-0.034)
[2021-02-06 16:35] LABS: Alveolar/Arterial O2 Gradient 30.8 mmHg; Base Excess ABG -0.7 mEq/l (+/-2.0); Carboxyhemoglobin 0.9 % THb (0-2.0); Device ROOM AIR; Fractional Inspired Oxygen 21 %; Methemoglobin ABG 0.1 %THb (0-1.5); Modified Allen's Test Pass; Oxygen Content ABG 19.7 %vol (16.0-22.0); Oxygen Saturation ABG 95.8 % (95.0-100.0); Oxyhemoglobin 93.9 % THb (90.0-100.0); PCO2 ABG 35.3 mmHg (35.0-45.0); PO2 ABG 76.7 mmHg (80.0-100.0); PO2 FiO2 Ratio Arterial Blood 3.65 %; Reduced Hemoglobin 5.1 %THb (0-5.0); Site Drawn RIGHT RADIAL; Total Hemoglobin 14.9 g/dL (12.0-18.0); pH ABG 7.431 (7.350-7.450)
[2021-02-06] MEDS: NITROGLYCERIN SL 0.4 MG TABLET SUBLINGUAL (17:41)
[2021-02-06] MEDS: FUROSEMIDE INJ 40 MG/4 ML VIAL 20 MG IV PUSH (17:41)
[2021-02-06] MEDS: NITROGLYCERIN OINTMENT 1 INCH DOSE TRANSDERM (17:57)
[2021-02-06] MEDS: ALBUTEROL SULFATE NEB 2.5 MG/3 ML INH 1.25 MG INHALATION (18:00)
[2021-02-06 18:58] LABS: Alanine Aminotransferase 17 U/L (4-50); Albumin Level 3.9 g/dL (3.5-5.1); Alkaline Phosphatase 71 U/L (38-126); Aspartate Amino Transferase 26 U/L (17-59); Bilirubin,Total 0.5 mg/dL (0.2-1.3)
[2021-02-06 19:08] LABS: Troponin I 0.023 ng/mL (0.000-0.034)
--- NOTE | 2021-02-06 20:46 | PM.IMHP ---
H&P: HPI History of Present Illness Date/Time: 02/06/21 20:46 this is a 80-year-old male patient who has a past medical history of having COPD, hypertension, diabetes type 2, congestive heart failure with an EF of 55%. The patient presented to the emergency room for evaluation of dyspnea. The patient is having a difficult time lying flat and is short of breath with exertion. This has been worsening over last 24 hours. The patient has increased edema to his lower extremities. The patient tried to do DuoNebs without any relief. The patient denied any chest pain. No fever no chills. No known history of COVID. No recent travel or sick contacts. The patient stated that he has been taking his medications daily. White count 10.7. Creatinine 1.4 which is his baseline. Blood sugar 127. Troponin negative x2. BNP 3140. COVID PCR is pending. Chest x-ray was read as small left pleural effusion. Airspace opacities and left lower lung zones, consistent with atelectasis versus pneumonia. The patient was given nitro sublingual, IV Lasix, nitro paste, and albuterol. The patient stated very little relief and was very uncomfortable lying in the bed. The patient had a strong scent of urine. Last echo was on 05/31/2020 with the EF of 55-60% grade 3 diastolic dysfunction. The patient is being admitted to observation status on the date of service of 02/06/2021. Chief Complaint: Shortness of breath Review of Systems Review of Systems: All systems reviewed & are unremarkable except as noted in HPI and below Constitutional: Constitutional: Reports as per HPI and Reports no additional constitutional complaints Eyes: Eyes: Reports as per HPI and Reports no additional eye complaints ENT: Reports system reviewed and no additional complaints, except as documented and Reports Normal hearing present Cardiovascular: Cardiovascular: Reports no additional cardiovascular complaints Respiratory: Respiratory: Reports no additional respiratory complaints and Reports no additional respiratory complaints Gastrointestinal: Gastrointestinal: Reports as per HPI and Reports no additional gastrointestinal complaints Musculoskeletal: Musculoskeletal: Reports no additional musculoskeletal complaints Integumentary/Breasts: Skin/Breast: Reports system reviewed and no additional complaints, except as docu and Reports as per HPI Neurologic: Reports system reviewed and no additional complaints, except as documented, Reports as per HPI and Reports Normal hearing present Psychiatric: Psychiatric: Reports no additional psychiatric complaints and Reports as per HPI Endocrine: Endocrine: Reports no additional endocrine complaints Hematologic/Lymphatic: Hematologic/Lymphatic: Reports no additional hematologic/lymphatic complaints Allergic/Immunologic: Allergic/Immunologic: Reports no additional allergic/immunologic complaints [facility] Past Medical History Medical History (Updated 02/06/21 @ 22:39 by Jaimee Spann NP) BPH (benign prostatic hyperplasia) COPD (chronic obstructive pulmonary disease) Depression with anxiety Diabetes DM2 (diabetes mellitus, type 2) Hyperlipidemia Hypertension Hypothyroidism Obstructive sleep apnea Uses CPAP at home Surgical History Surgical History (Updated 02/06/21 @ 22:40 by Jaimee Spann NP) History of appendectomy S/P repair of hydrocele Family History Family History (Updated 02/06/21 @ 22:40 by Jaimee Spann NP) Mother Natural Father Natural with unknown cause Social History Social History (Updated 02/06/21 @ 22:41 by Jaimee Spann NP) Social History: The patient stated that he was over 30 years ago and they had 5 children together. He lives with his significant other he has been with over 30 years. Laura is has significant other and she is a durable power consumer attorney for healthcare. Patient is a full code. He said he used to smoke over 20 years ago and occasionally has a cigarette. Occ
[2021-02-07] VITALS: PULSE 86
--- NOTE | 2021-02-07 00:16 | PC.NURSE ---
This patient, Gianfranco Rosen, was admitted to 3 [facility] Surg Room 313-01. Patient/family oriented to hospital policies and general routines including ID bracelet, bed and alarms, visiting hours, pain management, procedures, bathroom and other care routines, personal items, smoking policy, room service/diet, and visiting hours. Information on how to activate the Rapid Response Team has been discussed. Patient/Family are encouraged to report perceived risks to care and to ask questions if they do not understand what they are told or what they should do.
[2021-02-07 02:50] VITALS: BP 205/83
[2021-02-07] MEDS: hydrALAZINE HCL 20 MG/ML VIAL 10 MG IV PUSH (03:00)
[2021-02-07] MEDS: HALOPERIDOL LACTATE 5 MG/ML VIAL IM (03:01)
[2021-02-07 04:00] VITALS: BP 175/60; PULSE 85; RESP 22; TEMP 36.3; O2SAT 99
--- NOTE | 2021-02-07 06:00 | ECG_ITS ---
Measurements Intervals [place] Rate: 93 P: 55 AL: 248 QRS: -74 QRSD: 162 T: 73 QT: 394 QTc: 490 Interpretive Statements SINUS RHYTHM WITH FIRST DEGREE AV BLOCK RIGHT BUNDLE BRANCH BLOCK LEFT ANTERIOR FASCICULAR BLOCK BASELINE WANDER- V3 ABNORMAL ECG Electronically Signed On 02-07-2021 11:13:21 CDT by Js Abad D.O.
--- NOTE | 2021-02-07 07:43 | PC.NURSE ---
Patient has requested to leave AMA. Patient is alert and oriented x4. Patient refuses to wear CPAP. Patient refuses to wear oxygen. Dr. Pulliam has been informed of the situation and approved patient to sign AMA forms and leave once a ride is in route.
[2021-02-07 08:56] LABS: Glucose Point of Care 120 mg/dl (65-105)
--- NOTE | 2021-02-07 09:19 | PM.CNCAR ---
Assessment and Plan Assessment and plan (1) Diastolic CHF, acute on chronic: Code(s): I50.33 - Acute on chronic diastolic (congestive) heart failure Status: Acute Assessment and Plan: Mild acute on chronic decompensated heart failure with preserved ejection fraction most likely secondary to uncontrolled hypertension medication noncompliance. It does not appear per pharmacy records he has been taking losartan or Lasix. Upon questioning he was somewhat vague with regards to his consistency with medications. -patient appears reasonably compensated at this time. May change to oral Lasix 40 mg p.o. x1 now 20 mg daily thereafter. -BP must be much better controlled prior to discharge to reduce risk for recurrent decompensated heart failure. Monitor renal function. -compliant with CPAP, diabetes management, follow-up, medical therapy, and recommendations. -patient indicated his desire to leave hospital against medical advice necessary as he wants to go home today. He was unequivocally advised not to leave the hospital against medical advice and ensure his own safety and health. I explained the importance of ensuring blood pressure control adequate volume status and tolerance of medications and that he remain compliant with medications and recommendations to avoid recurrent hospitalizations. He was not favor reducing likelihood of returning to the hospital but was noncommittal to remaining hospitalized as recommended. Echocardiogram May 2020 revealed severe concentric LVH consistent with hypertensive heart disease EF 55-60%. No need to repeat echocardiogram at this time. Grade 3 diastolic dysfunction also noted. (2) Uncontrolled hypertension: Code(s): I10 - Essential (primary) hypertension Status: Acute Assessment and Plan: BP very poorly controlled. Add amlodipine 5 mg daily, continue enalapril 20 mg daily. Discontinue p.r.n. hydralazine to clarify what he will require. Discontinue nitroglycerin paste. Explained to the patient risk for acute decompensated heart failure with uncontrolled hypertension. Goal less than 130/80mmHg ideally as tolerated. Will need to exercise some caution given his advanced age. (3) Noncompliance with medication regimen: Code(s): Z91.14 - Patient's other noncompliance with medication regimen Status: Acute Assessment and Plan: Per pharmacy records he has not been compliant with several of his medications including Lasix and enalapril. As above. (4) CKD stage 3 due to type 2 diabetes mellitus: Code(s): E11.22 - Type 2 diabetes mellitus with diabetic chronic kidney disease; N18.30 - Chronic kidney disease, stage 3 unspecified Status: Acute Assessment and Plan: Appears to be near baseline at this time. Continue to monitor closely with regards to medication tolerance. (5) PORFIRIO on CPAP: Code(s): G47.33 - Obstructive sleep apnea (adult) (pediatric); Z99.89 - Dependence on other enabling machines and devices Status: Chronic Assessment and Plan: Compliance with CPAP. (6) COPD (chronic obstructive pulmonary disease): Code(s): J44.9 - Chronic obstructive pulmonary disease, unspecified Status: Chronic Assessment and Plan: Per primary service. COVID swab pending remains in isolation as PUI. (7) DM2 (diabetes mellitus, type 2): Code(s): E11.9 - Type 2 diabetes mellitus without complications Status: Chronic Assessment and Plan: Per primary service. (8) Morbid obesity with BMI of 40.0-44.9, adult: Code(s): E66.01 - Morbid (severe) obesity due to excess calories; Z68.41 - Body mass index [BMI] 40.0-44.9, adult Status: Acute Assessment and Plan: Lifestyle modification, weight loss, reduction in caloric intake and consistent cardiovascular activity. History of Present Illness History of Present Illness Consult date/time: Date of service: 02/07/21 09:19 Cardiology consultation
[2021-02-07 09:34] VITALS: BP 221/78; PULSE 89; RESP 22; TEMP 36.2; O2SAT 95
--- NOTE | 2021-02-07 09:44 | PM.EVENT ---
Event Note Event Note Event Note: I was called by the nursing staff this morning due to the patient wanting to leave against medical advice. I went up saw the patient and had a nice conversation with him. He was calm, collective, and appropriate. He stated that he came in for shortness of breath and that he was ready to go home and he has called his ride. I talked to him about his blood pressure elevation and that this is considered a silent killer. He is at significant risk for stroke, heart attack and other various diseases which can result in even if he feels good right now. He says that he has a primary care physician that he is going to get in touch with. I explained him that he needed to stay in the hospital but he has refused. I asked him what blood pressure medications he was taking at home and he said he takes whatever pills his pharmacy since him through the mail and was unable to tell me what exactly they were. I did call [facility] pharmacy and was confirmed that he is not taking any blood pressure medications. He is only getting metformin, tamsulosin, pravastatin, and venlafaxine. The last time he was prescribed enalapril was 2020 in the Lasix was June 2020. Cardiology was consulted and I spoke with them about the case. The patient is not stable for discharge and he is well aware of the risk of leaving against medical advice. Because of his significant blood pressure, I did call in a few blood pressure medications to his mail-in pharmacy. I urged him to see his primary care physician as soon as possible or come back to emergency room. Patient agreed. Vitals: Temperature 97.2?, blood pressure 221/78, pulse 89, respiratory rate 22, O2 sat 95 on room air General: Overweight patient resting comfortably on the side the bed in no acute distress Neuro: Alert and oriented x4. Cranial nerves 2-12 intact. Equal strength upper lower extremities 5/5 HEENT: Normocephalic, neck supple CV: Regular rate and rhythm Resp: Mildly decreased breath sounds and very few crackles at the bases. Overall clear. No conversational dyspnea Abd: Soft, non-distended. No palpable pain in all four quadrants. Positive bowel sounds. Extremities: 1+ lower extremity pitting edema, worse on the left. No pain to palpation Diagnosis-hypertensive urgency, chronic kidney disease, diabetes, acute on chronic diastolic heart failure, COVID PUI. plan-suspect this is acute on chronic heart failure due to uncontrolled hypertension. No signs of pneumonia on exam, history or labs. Patient has been afebrile. Patient plans to leave against medical advice. As stated above, he understands the risks. Due to his significant hypertension, I did refill some of his blood pressure medications. He is unreliable to get to a physical pharmacy so I will mail these to his house.
[2021-02-07 18:09] LABS: SARS-CoV-2 RNA PCR Negative
== END 2021-02-07 10:05 | disposition left against medical advice (07) ==
LOC: ANHED 19:20 → ANH3MEDSUR 19:53
PROVIDERS: Emergency Medicine; Physician Assistant; Admitting Provider Internal Medicine; Emergency Provider Emergency Medicine; PCP Family Medicine Sports Medicine; Visit Provider Internal Medicine
DX: R06.02 Shortness of breath (principal); J44.9 Chronic obstructive pulmonary disease, unspecified; R60.0 Localized edema; G47.33 Obstructive sleep apnea (adult) (pediatric); I50.33 Acute on chronic diastolic (congestive) heart failure; N40.0 Benign prostatic hyperplasia without lower urinary tract symptoms; E03.9 Hypothyroidism, unspecified; E78.5 Hyperlipidemia, unspecified; E11.9 Type 2 diabetes mellitus without complications; F41.8 Other specified anxiety disorders; I13.0 Hypertensive heart and chronic kidney disease with heart failure and stage 1 through stage 4 chronic kidney disease, or unspecified chronic kidney disease; E11.22 Type 2 diabetes mellitus with diabetic chronic kidney disease; N18.30 Chronic kidney disease, stage 3 unspecified; E66.01 Morbid (severe) obesity due to excess calories; Z68.41 Body mass index [BMI] 40.0-44.9, adult; Z87.891 Personal history of nicotine dependence; Z91.14 Patient's other noncompliance with medication regimen; Z20.822 Contact with and (suspected) exposure to COVID-19; Z79.4 Long term (current) use of insulin
CPT/HCPCS: 36415; 36600; 71046; 80048; 80076; 82375; 82805; 82948; 83050; 83880; 84484; 85025; 85610; 85730; 93005; 94640; 96372; 96374; 96375; 99285; A9270; C9803; G0378; J0360; J1630; J1940; U0003; U0005

== ENCOUNTER 2022-01-11 13:49 | Inpatient (IN) | payer MEDICARE, SELFPAY ==
[2022-01-11] VITALS (18 sets, daily range): BP systolic 153–211; BP diastolic 70–97; PULSE 75–100; RESP 18–30; TEMP 36.1–36.3; O2SAT 96
--- NOTE | ~2022-01-11 | XR_ITS ---
EXAMINATION: XR chest 1V portable Exam Date/Time: 01/11/2022 14:30 CDT HISTORY: sob MULT FALLS AGGRESSION NOTED Comparison: 02/06/2021. RESULT: Lines, tubes, and devices: None. Lungs and pleura: Moderate left costophrenic angle blunting subsegmental left basilar opacities.. Cardiomediastinal silhouette: Stable. Other: No acute osseous or upper abdominal finding. IMPRESSION: Atelectasis/consolidation in the left lower lung. Moderate left pleural effusion. Reviewed, dictated and finalized at location K. IMPRESSION: Atelectasis/consolidation in the left lower lung. Moderate left pleural effusio n.
--- NOTE | 2022-01-11 13:55 | ECG_ITS ---
Measurements Intervals [place] Rate: 80 P: 59 WI: 277 QRS: -62 QRSD: 161 T: 36 QT: 420 QTc: 485 Interpretive Statements SINUS RHYTHM WITH FIRST DEGREE AV BLOCK ATRIAL PREMATURE COMPLEXES RIGHT BUNDLE BRANCH BLOCK LEFT ANTERIOR FASCICULAR BLOCK ABNORMAL ECG COMPARED TO ECG 02/07/2021 09:49:23 NO SIGNIFICANT CHANGES Electronically Signed On 01-11-2022 17:48:28 CDT by Js Abad D.O.
[2022-01-11 14:11] LABS: Basophils Absolute Auto 0.1 K/mm3 (0.0-0.1); Basophils Percent Auto 0.9 % (0.2-1.2); Eosinophils Absolute Auto 0.2 K/mm3 (0-0.3); Eosinophils Percent Auto 1.7 % (0-4.4); Hematocrit 37.4 % (42.0-52.0); Hemoglobin 12.2 g/dL (14.0-18.0); Immature Granulocyte Absolute 0.06 K/mm3 (0.00-0.031); Immature Granulocyte Percent A 0.6 % (0-0.5); Lymphocytes Absolute Auto 0.85 K/mm3 (0.9-3.2); Lymphocytes Percent Auto 9.1 % (18.3-44.2); Mean Corpuscular HGB Conc 32.6 g/dl (32-36); Mean Corpuscular Hemoglobin 28.8 pg (26-34); Mean Corpuscular Volume 88.4 fl (80-100); Mean Platelet Volume 9.2 fl (7.4-10.4); Monocytes Absolute Auto 0.6 K/mm3 (0.1-0.6); Monocytes Percent Auto 6.8 % (2.6-8.5); Neutrophils Absolute Auto 7.5 K/mm3 (1.3-6.7); Neutrophils Percent Auto 80.9 % (45.5-73.1); Platelet Count Result 682 k/mm3 (150-375); Red Blood Count 4.23 M/mm3 (4.6-6.20); Red Cell Distribution Width 14.7 % (11.5-14.5); White Blood Count 9.3 K/mm3 (4.5-10.0)
--- NOTE | 2022-01-11 14:19 | PC.NURSE ---
Patient's daughter Celsa asked underwriter mortgage loan to step out of room and speak with her. Patient reports patient has had multiple falls and she believes it is due to his swollen legs. She reports patient sits up on the side of the bed and falls frequently. She reports patient's girlfriend takes care of him but hasn't been able to take care of him appropriately for years. She reports he goes to the bathroom in a wheelchair but doesn't always make it and is incontinent of stool and urine. Patient has dried stool on his feet. Patient doesn't use a walker or a cane at home. Daughter reports patient will not go to a long term and she is not ready for that decision but thinks he needs rehab to work on his legs. Patient has pitting edema to both lower legs. Patient also c/o of feeling short of breath.
[2022-01-11 14:21] LABS: Alanine Aminotransferase 17 U/L (6-50); Albumin Level 3.1 g/dL (3.5-5.1); Alkaline Phosphatase 66 U/L (38-126); Anion Gap 6 mmol/L (8-16); Aspartate Amino Transferase 22 U/L (17-59); Bilirubin,Total 0.3 mg/dL (0.2-1.3); Blood Urea Nitrogen 20 mg/dL (9-20); Calcium 8.6 mg/dL (8.4-10.2); Carbon Dioxide 26 mmol/L (22-30); Chloride 105 mmol/L (98-107); Estimated CRCL calculation 40 ml/min; Estimated Glomerular Filt Rate 45; Glucose 195 mg/dL (65-110); Potassium 3.8 mmol/L (3.4-5.0); Sodium 137 mmol/L (137-145)
--- NOTE | 2022-01-11 14:29 | ED.WEAKNESS ---
HPI - Weakness General Chief complaint: Weakness Stated complaint: weakness Time Seen by Provider: 01/11/22 14:06 Source: patient, family (daughter at bedside), RN notes reviewed and old records reviewed Mode of arrival: EMS Limitations: no limitations History of Present Illness HPI Narrative: This is an 81 year old male with history of hypertension, CHF, hypothyroidism, sleep apnea on CPAP who presents for evaluation of frequent falls. Patient lives at home with his girl friend. Patient states he has fallen twice today. This morning he states he was getting out of the bed and he slid down on his buttocks down to ground. He fell again this afternoon walking out of the bathroom. He denies hitting his head or LOC either fall. EMS was called his home both times for a lift assist. After his second fall, EMS had to talk to patient at least an hour to convince him to come to ER. HE denies chest pain, sob, nausea, vomiting, headache, abdominal pain, fever or chills. His daughter is at bedside . She states she is from [place] and she has been in town for 3 month trying to get her father's home and health in order. She states patient has had multiple falls over past several month. She states patient does not do much around the house. She states he just lays around and he is often on his CPAP machine throughout the day. He has been having alot of leg edema , and she reports his PCP increased his diuretic in past 2 weeks. She thinks patient needs PT/TODD and help improving his leg edema. She also states patient complained of shortness of breath to his nurse earlier. Related Data Home Medications Medication Instructions Recorded Confirmed potassium chloride 10 mEq 10 meq PO DAILY 12/26/19 02/06/21 capsule,extended release venlafaxine 75 mg capsule,extended 75 mg PO DAILY 12/26/19 02/06/21 release 24 hr insulin degludec 100 unit/mL 60 unit subcut DAILY 05/30/20 02/07/21 subcutaneous solution (Tresiba U-100 Insulin) levothyroxine 75 mcg tablet 75 mcg PO DAILY 05/30/20 02/06/21 metformin 500 mg tablet,extended 1,000 mg PO BID 05/30/20 02/07/21 release 24 hr pravastatin 40 mg tablet 40 mg PO DAILY 05/30/20 02/06/21 tamsulosin 0.4 mg capsule 0.4 mg PO DAILY 05/30/20 02/06/21 ipratropium 18 mcg-albuterol 103 See Rx Instructions .Route 01/11/22 01/11/22 mcg/actuation aerosol inhaler .COMPLEX PRN Shortness Of Breath Allergies Allergy/AdvReac Type Severity Reaction Status Date / Time No Known Allergies Allergy Verified 05/31/20 09:04 Review of Systems Review of Systems: All systems reviewed & are unremarkable except as noted in HPI and below Constitutional: Constitutional: Denies chills, Reports fatigue and Denies fever(s) ENT: Reports nasal congestion and Reports sore throat Cardiovascular: Cardiovascular: Denies chest pain Respiratory: Respiratory: Denies chest congestion, Denies cough and Reports dyspnea Gastrointestinal: Gastrointestinal: Denies abdominal pain, Denies nausea and Denies vomiting Neurologic: Denies syncope, Denies headache(s) and Denies focal weakness PMFSH Past Medical History Medical History BPH (benign prostatic hyperplasia) COPD (chronic obstructive pulmonary disease) Depression with anxiety Diabetes DM2 (diabetes mellitus, type 2) Hyperlipidemia Hypertension Hypothyroidism Obstructive sleep apnea Uses CPAP at home Surgical History Surgical History History of appendectomy S/P repair of hydrocele Family History Family History Mother Natural Father Natural with unknown cause Social History Social History Social History: The patient stated that he was over 30 years ago and they had 5 children together. He lives with his significant o
[2022-01-11 14:42] LABS: INR 1.2; Prothrombin Time 14.6 Seconds (11.1-14.7)
[2022-01-11 14:43] LABS: Partial Thromboplastin Time 33.9 SECONDS (22.3-36.8)
[2022-01-11 14:47] LABS: Magnesium 1.7 mg/dL (1.6-2.3)
[2022-01-11 15:00] LABS: Troponin I 0.035 ng/mL (0.000-0.034)
[2022-01-11 15:18] LABS: NT Pro B Type Natriuretic Pept 3360 pg/mL (5-100)
[2022-01-11 15:30] LABS: Alveolar/Arterial O2 Gradient 24.2 mmHg; Base Excess ABG 0.6 mEq/l (+/-2.0); Carboxyhemoglobin 0.3 % THb (0-2.0); Fractional Inspired Oxygen 21 %; HCO3 ABG 25.5 mEq/l (22.0-26.0); Methemoglobin ABG 0.1 %THb (0-1.5); Oxygen Content ABG 16.6 %vol (16.0-22.0); Oxygen Saturation ABG 95.2 % (95.0-100.0); Oxyhemoglobin 94.1 % THb (90.0-100.0); PCO2 ABG 41.8 mmHg (35.0-45.0); PO2 ABG 75.5 mmHg (80.0-100.0); Reduced Hemoglobin 5.5 %THb (0-5.0); Total Hemoglobin 12.5 g/dL (12.0-18.0); pH ABG 7.403 (7.350-7.450)
[2022-01-11 15:31] LABS: Device ROOM AIR; Modified Allen's Test Pass; Site Drawn LEFT RADIAL
[2022-01-11 15:40] LABS: SARS-CoV-2 RNA PCR Negative
[2022-01-11] MEDS: NITROGLYCERIN OINTMENT 1 INCH DOSE TRANSDERM (15:47)
[2022-01-11] MEDS: FUROSEMIDE INJ 40 MG/4 ML VIAL IV PUSH ×2 (15:47→21:43)
[2022-01-11 15:56] LABS: Appearance Urine Clear (Clear); Bilirubin Urine Negative (Negative); Blood Urine Trace-lysed (Negative); Color Urine Yellow (Yellow); Glucose Urine UA 1+ mg/dL (Negative); Ketones Urine Negative (Negative); Leukocyte Esterase Ur Negative LEU/UL (Negative); Nitrate Urine Positive (Negative); Protein Urine 3+ mg/dL (Negative); pH Urine 6.5 (5.0-9.0)
[2022-01-11 16:04] LABS: Bacteria Urine 2+ /hpf; Mucus Urine Rare /lpf; WBC Urine 21-30 /hpf
[2022-01-11 16:05] LABS: Add Urine Microscopic? YES
--- NOTE | 2022-01-11 17:09 | PC.NURSE ---
Daughter also reports patient wears a CPAP at night. She reports the CPAP machine he has was dirty so they cleaned and replaced the mask and tray but she is concerned that it isn't set up correctly for him. Daughter would like to have patient on a CPAP machine in the hospital during his stay if possible.
[2022-01-11] MEDS: hydrALAZINE HCL 20 MG/ML VIAL IV PUSH (18:05)
--- NOTE | 2022-01-11 18:44 | PC.NURSE ---
Pt transferred into room 305-1 at 1844 from the emergency room. Pt information given to night nurse.
--- NOTE | 2022-01-11 20:12 | ADMGEN ---
This patient, Gianfranco Rosen, was admitted to 3 [facility] Surg Room 305-01. Patient/family oriented to hospital policies and general routines including ID bracelet, bed and alarms, visiting hours, pain management, procedures, bathroom and other care routines, personal items, smoking policy, room service/diet, and visiting hours. Information on how to activate the Rapid Response Team has been discussed. Patient/Family are encouraged to report perceived risks to care and to ask questions if they do not understand what they are told or what they should do.
--- NOTE | 2022-01-11 21:00 | PM.IMHP ---
H&P: HPI History of Present Illness Date/Time: 01/11/22 21:00 Chief Complaint: Multiple falls. Narrative: This is an 81-year-old male with COPD, hypertension, type 2 diabetes mellitus, congestive heart failure, hypothyroidism, and sleep apnea presented to the emergency department via EMS from home for evaluation after multiple falls. He is not the greatest historian and he cannot really pinpoint why he is having these falls. In fact he tells me that he is not having falls he is really just ?slipping? either out of bed or from a chair onto the ground. Earlier today however he was in the bathroom when he did up falling down on to his buttocks though he does not know how or why he fell. He did not injure himself however he had difficulties getting up and his significant other called 911. There was no loss of consciousness. Workup in the emergency department was pretty unremarkable and most of his labs were stable on review of previous labs. His urine is abnormal with positive nitrates, 2+ bacteria, and 21 to 30 WBC however he has no symptom at all to suggest an active UTI. Due to his recurrent falls and weakness (he had difficulties even getting up from a seated position in the ER) he is being admitted overnight for PT/OT consultation and further evaluation. Review of Systems Review of Systems: Twelve systems were reviewed. He denies vertigo, focal weakness, and paresthesias. No cold or flu symptoms. No chest pain or shortness of breath. No nausea, vomiting, or diarrhea. He denies dysuria, urinary urgency, and hesitancy. Except as documented, all other systems were reviewed and are negative. [facility] Past Medical History Medical History Benign prostatic hyperplasia Chronic anemia Chronic kidney disease Chronic obstructive pulmonary disease Depression with anxiety Diastolic dysfunction Hyperlipidemia Hypertension Hypothyroidism Obstructive sleep apnea on CPAP Type 2 diabetes mellitus Surgical History Surgical History History of appendectomy History of hydrocelectomy Family History Family History Mother Natural Father Natural with unknown cause Social History Social History (Updated 01/11/22 @ 20:10 by Liz Gonzalez PA-C) Social History: The patient lives in his own home in [place]. He is and has 5 children. He was a social smoker and quit well over 20 years ago though he still has an occasional cigarette here there. He drinks alcohol rarely and in moderation. No illicit substance abuse. He designates his brother Brayden Rosen as his surrogate decision maker new wishes to be a full code. Smoking packs per day: 0.5 Smoking cigarettes per day: 10.0 Years smoked: 15 Smoking pack-years: 7.50 Smoking status: Former smoker Tobacco type: cigarettes Second hand tobacco smoke exposure: No Alcohol intake: never Drinks per week: 1 Substance use: never Substance use type: does not use Spiritual care concerns: No Meds Home Medications and Allergies Home Medications Medication Instructions Recorded Confirmed Type potassium chloride 10 mEq 10 meq PO DAILY 12/26/19 01/11/22 History capsule,extended release venlafaxine 75 mg capsule,extended 75 mg PO DAILY 12/26/19 01/11/22 History release 24 hr levothyroxine 75 mcg tablet 75 mcg PO DAILY 05/30/20 01/11/22 History metformin 500 mg tablet,extended 1,000 mg PO BID 05/30/20 01/11/22 History release 24 hr pravastatin 40 mg tablet 40 mg PO DAILY 05/30/20 01/11/22 History tamsulosin 0.4 mg capsule 0.4 mg PO DAILY 05/30/20 01/11/22 History amlodipine 5 mg tablet (Norvasc) 5 mg PO QAM #30 tabs 02/07/21 01/11/22 Rx enalapril maleate 20 mg tablet 20 mg PO DAILY #30 tabs 02/07/21 01/11/22 Rx furosemide 20 mg tablet 40 mg PO DAILY 01/11/22 01/11/22 Hist
[2022-01-11 21:45] LABS: Hemoglobin A1C 7.8 % (<5.7)
[2022-01-12] VITALS (12 sets, daily range): BP systolic 142–195; BP diastolic 51–101; PULSE 59–105; RESP 14–22; TEMP 35.5–36.7; O2SAT 92–98
[2022-01-12] MEDS: hydrALAZINE HCL 20 MG/ML VIAL 10 MG IV PUSH ×2 (03:48→22:23)
--- NOTE | 2022-01-12 05:46 | PC.NURSE ---
Patient had complaints of headache, checked blood pressure and was 200/90 gave PRN hydralazine 10mg IV push. Rechecked blood pressure 30 minutes after and was at 150/80.
[2022-01-12] MEDS: LEVOTHYROXINE SODIUM 75 MCG TABLET PO (06:19)
[2022-01-12 06:25] LABS: Basophils Absolute Auto 0.1 K/mm3 (0.0-0.1); Basophils Percent Auto 0.7 % (0.2-1.2); Eosinophils Absolute Auto 0.1 K/mm3 (0-0.3); Eosinophils Percent Auto 0.5 % (0-4.4); Hematocrit 42.1 % (42.0-52.0); Hemoglobin 13.3 g/dL (14.0-18.0); Immature Granulocyte Percent A 0.7 % (0-0.5); Lymphocytes Absolute Auto 1.15 K/mm3 (0.9-3.2); Lymphocytes Percent Auto 8.6 % (18.3-44.2); Mean Corpuscular HGB Conc 31.6 g/dl (32-36); Mean Corpuscular Hemoglobin 28.2 pg (26-34); Mean Corpuscular Volume 89.4 fl (80-100); Mean Platelet Volume 9.9 fl (7.4-10.4); Monocytes Absolute Auto 0.9 K/mm3 (0.1-0.6); Monocytes Percent Auto 6.6 % (2.6-8.5); Neutrophils Absolute Auto 11.1 K/mm3 (1.3-6.7); Neutrophils Percent Auto 82.9 % (45.5-73.1); Platelet Count Result 787 k/mm3 (150-375); Red Blood Count 4.71 M/mm3 (4.6-6.20); Red Cell Distribution Width 14.7 % (11.5-14.5); White Blood Count 13.4 K/mm3 (4.5-10.0)
[2022-01-12 06:36] LABS: Anion Gap 15 mmol/L (8-16); Blood Urea Nitrogen 20 mg/dL (9-20); Calcium 8.7 mg/dL (8.4-10.2); Carbon Dioxide 24 mmol/L (22-30); Chloride 100 mmol/L (98-107); Estimated CRCL calculation 43 ml/min; Estimated Glomerular Filt Rate 41; Glucose 184 mg/dL (65-110); Magnesium 1.7 mg/dL (1.6-2.3); Potassium 3.4 mmol/L (3.4-5.0); Sodium 139 mmol/L (137-145)
[2022-01-12 07:31] LABS: Glucose Point of Care 194 mg/dl (65-105)
[2022-01-12] MEDS: PRAVASTATIN SODIUM 20 MG TABLET 40 MG PO (09:14)
[2022-01-12] MEDS: TAMSULOSIN HCL 0.4 MG CAPSULE PO (09:14)
[2022-01-12] MEDS: ENALAPRIL MALEATE 10 MG TABLET 20 MG PO (09:14)
[2022-01-12] MEDS: amLODIPine BESYLATE 5 MG TABLET PO (09:14)
[2022-01-12] MEDS: POTASSIUM CHLORIDE 10 MEQ TABLET.ER PO (09:15)
[2022-01-12] MEDS: metFORMIN HCL XR 500 MG TAB.SR.24H 1000 MG PO ×2 (09:15→16:33)
[2022-01-12] MEDS: FUROSEMIDE INJ 40 MG/4 ML VIAL IV PUSH ×2 (09:15→21:41)
[2022-01-12] MEDS: VENLAFAXINE HCL XR 75 MG CAP.ER.24H PO (09:15)
--- NOTE | 2022-01-12 10:14 | PM.IMPN ---
Progress Note: A&P Assessment and Plan (1) Multiple falls: Code(s): R29.6 - Repeated falls Status: Acute Assessment and Plan: Patient does not know why he keeps falling. He denies prodromes prior to the fall and he also denies vertigo and does not feel off balance. He has not had any syncopal episodes. Luckily he has not sustained any significant injuries. No focal deficits. Patient is weak, likely due to overall deconditioning. PT/OT have been consulted. Fall precautions implemented (2) Abnormal urinalysis: Code(s): R82.90 - Unspecified abnormal findings in urine Status: Acute Assessment and Plan: He denies symptoms of UTI however we will continue with ceftriaxone pending urine culture as he is not really a great historian. Mild leukocytosis today. Afebrile. (3) CHF exacerbation: Code(s): I50.9 - Heart failure, unspecified Status: Acute Assessment and Plan: Echo in July 2020 showed diastolic dysfunction with a normal EF of 55%. He appears to have an exacerbation of diastolic CHF, likely related to poorly controlled blood pressures. Continue diuresis (Lasix 40 mg IV BID). Monitor volume status, intake and output. Monitor renal function. (4) Hypertension: Code(s): I10 - Essential (primary) hypertension Status: Chronic Assessment and Plan: Blood pressures poorly controlled, in the 170s to 190 systolic on presentation. Likely due to hypervolemia and missed medication. Seems to be improving following initial treatment and diuresis. Last BP 142/99. Continue enalapril and amlodipine. PRN hydralazine. (5) Chronic anemia: Code(s): D64.9 - Anemia, unspecified Status: Acute Assessment and Plan: Hemoglobin and hematocrit are stable on review of previous labs. (6) Chronic kidney disease: Code(s): N18.9 - Chronic kidney disease, unspecified Status: Acute Assessment and Plan: Kidney function is stable on review of previous labs. Monitor closely while on Lasix. (7) Hypothyroidism: Code(s): E03.9 - Hypothyroidism, unspecified Status: Chronic Assessment and Plan: TSH is within normal limits. Continue levothyroxine (8) Type 2 diabetes mellitus: Code(s): E11.9 - Type 2 diabetes mellitus without complications Status: Acute Assessment and Plan: A1c is 7.8. Continue sliding scale insulin, Accu-Cheks, and hypoglycemic protocol. Continue home metformin. Subjective Date/time seen: 01/12/22 10:14 Interval history: date of service: 01/12/2022 Gianfranco Rosen is an 81-year-old male with a history of CKD, COPD, diastolic dysfunction, hypertension, hyperlipidemia, hypothyroidism, PORFIRIO on CPAP, type 2 diabetes mellitus is seen in follow-up for frequent falls. The patient is a poor historian and not able to provide much reliable history. He does specifically deny shortness of breath, chest pain, abdominal pain, nausea, or vomiting. States he ate a good breakfast this morning. Denies any urinary symptoms and in fact was urinating in the urinal upon my entrance. He denies diarrhea. States his last bowel movement was 2 days ago. He does endorse a little bit of swelling in his lower extremities. Exam Narrative: General: obese, chronically ill-appearing 81-year-old male, sitting up in bed, comfortable, NARD Neuro: awake, alert and oriented x3, speech clear, no focal neuro deficits noted HEENMT: normocephalic, atraumatic, EOMI, sclerae anicteric, moist oral mucosa Respiratory: diminished breath sounds without obvious crackles, rhonchi, wheezes, nonlabored breathing, able to speak in complete sentences Cardio: regular rate, regular rhythm with S1-S2 Abdomen: distended, normoactive bowel sounds, soft, nontender to palpation Extremities: bilateral lower extremities with 1+ edema, no erythema or tenderness to palpation, DP pulses 2+ bilaterally Skin: no rashes
--- NOTE | 2022-01-12 11:12 | PC.NURSE ---
nitroglycerin transdermal patch removed from upper left chest of patient at approximately 1030 on 01/12/22
[2022-01-12 11:27] LABS: Glucose Point of Care 243 mg/dl (65-105)
[2022-01-12] MEDS: INSULIN ASPART (*BKC) 100 UNITS/ML SUB-Q (12:13)
[2022-01-12 16:21] LABS: Glucose Point of Care 175 mg/dl (65-105)
[2022-01-12] MEDS: ACETAMINOPHEN 325 MG TABLET 650 MG PO (16:33)
[2022-01-12] MEDS: LORazepam (*CRX) 0.5 MG TABLET PO ×2 (16:33→22:23)
--- NOTE | 2022-01-12 16:52 | PC.NURSE ---
Pt has had several episodes of aggressive, combative, belligerent behavior including but not limited to cursing, foul and vulgar insults directed to staff member in room (i.e. myself and the SALES [employer]PRESENT[employer]IVE [employer]) at that moment, charging towards the staff member as if to hit the staff member, yelling, and slamming and hitting objects and objects against the bed. Pt is frequently trying to get up and walk but pt is not able to stand or support his own weight. It took approximately 20 minutes and 2 people trying to use the [employer] to return pt to the bed from the recliner that was 1 foot away; however, pt was not able to pull himself up or stand up for the 2-3 seconds it took to put the seat pads in place. These episodes and behaviors have increased in frequency and severity as the day has progressed.
[2022-01-12] MEDS: QUEtiapine FUMARATE 12.5 MG TABLET PO (21:41)
[2022-01-12 21:57] LABS: Glucose Point of Care 181 mg/dl (65-105)
[2022-01-13] VITALS (9 sets, daily range): BP systolic 105–168; BP diastolic 67–69; PULSE 80–95; RESP 14–18; TEMP 35.7–36.8; O2SAT 92–99
[2022-01-13] MEDS: LEVOTHYROXINE SODIUM 75 MCG TABLET PO (06:29)
[2022-01-13 07:28] LABS: Hematocrit 40.9 % (42.0-52.0); Hemoglobin 12.8 g/dL (14.0-18.0); Mean Corpuscular HGB Conc 31.3 g/dl (32-36); Mean Corpuscular Hemoglobin 28.4 pg (26-34); Mean Corpuscular Volume 90.9 fl (80-100); Mean Platelet Volume 9.5 fl (7.4-10.4); Platelet Count Result 714 k/mm3 (150-375)
[2022-01-13 07:35] LABS: Glucose Point of Care 174 mg/dl (65-105)
[2022-01-13 08:09] LABS: Anion Gap 13 mmol/L (8-16); Blood Urea Nitrogen 28 mg/dL (9-20); Calcium 8.4 mg/dL (8.4-10.2); Carbon Dioxide 30 mmol/L (22-30); Chloride 98 mmol/L (98-107); Estimated CRCL calculation 35 ml/min; Estimated Glomerular Filt Rate 32; Glucose 161 mg/dL (65-110); Potassium 3.6 mmol/L (3.4-5.0); Sodium 141 mmol/L (137-145)
[2022-01-13] MEDS: TAMSULOSIN HCL 0.4 MG CAPSULE PO (08:48)
[2022-01-13] MEDS: FUROSEMIDE INJ 40 MG/4 ML VIAL IV PUSH (08:48)
[2022-01-13] MEDS: VENLAFAXINE HCL XR 75 MG CAP.ER.24H PO (08:48)
[2022-01-13] MEDS: ENALAPRIL MALEATE 10 MG TABLET 20 MG PO (08:49)
[2022-01-13] MEDS: amLODIPine BESYLATE 5 MG TABLET PO (08:49)
[2022-01-13] MEDS: POTASSIUM CHLORIDE 10 MEQ TABLET.ER PO (08:49)
[2022-01-13] MEDS: metFORMIN HCL XR 500 MG TAB.SR.24H 1000 MG PO (08:49)
[2022-01-13] MEDS: PRAVASTATIN SODIUM 20 MG TABLET 40 MG PO (08:49)
--- NOTE | 2022-01-13 10:28 | PC.NURSE ---
During morning assessment, patient was not able to tell me where he was, why he was here, what year, month or day it was therefore pt is only oriented to self. Pt began making derogatory comments about my intelligence and my role including but not limited to that I am here to serve him and cater to his every whim. I attempted to explain why pt was here and that we are trying to help him get better. Pt became angrier because he wasn't going to be allowed to do what he wanted and was not receiving undivided attention. Pt then began throwing items from the bedside table onto the floor, taking off his gown and refusing to put it back on (pt has a roommate in addition to the rest of staff, visitors, etc.), screaming, cursing, making threats, etc. Hospitalist notified. I will continue to monitor.
[2022-01-13 11:20] LABS: Glucose Point of Care 216 mg/dl (65-105)
[2022-01-13] MEDS: INSULIN ASPART (*BKC) 100 UNITS/ML SUB-Q (12:47)
--- NOTE | 2022-01-13 13:30 | PCPTNOTE ---
The patient treatment was not able to be completed this afternoon due to patient sleeping and not able to stay awake to participate at this time. Will plan to continue treatment per plan of care.
--- NOTE | 2022-01-13 15:40 | PM.IMPN ---
Progress Note: A&P Assessment and Plan (1) Multiple falls: Code(s): R29.6 - Repeated falls Status: Acute Assessment and Plan: Patient does not know why he keeps falling. He denies prodromes prior to the fall and he also denies vertigo and does not feel off balance. He has not had any syncopal episodes. Luckily he has not sustained any significant injuries. No focal deficits. Patient is weak, likely due to overall physical deconditioning. PT/OT have been consulted. Fall precautions implemented (2) UTI (urinary tract infection): Code(s): N39.0 - Urinary tract infection, site not specified Status: Acute Assessment and Plan: urine culture with growth of >100k Klebsiella. Continue IV ceftriaxone. Transition to p.o. cefdinir tomorrow (3) CHF exacerbation: Code(s): I50.9 - Heart failure, unspecified Status: Acute Assessment and Plan: Echo in July 2020 showed diastolic dysfunction with a normal EF of 55%. He appears to have an exacerbation of diastolic CHF, likely related to poorly controlled blood pressures. has been diuresed and volume status seems improved. Lasix held today due to slight increase. Continue to monitor volume status, intake and output. (4) Hypertension: Code(s): I10 - Essential (primary) hypertension Status: Chronic Assessment and Plan: Blood pressures poorly controlled, in the 170s to 190 systolic on presentation. Likely due to hypervolemia and missed medication. improved following diuresis. Last BP 105/69. Continue enalapril and amlodipine. PRN hydralazine. (5) Chronic anemia: Code(s): D64.9 - Anemia, unspecified Status: Acute Assessment and Plan: Hemoglobin and hematocrit are stable on review of previous labs. (6) Chronic kidney disease: Code(s): N18.9 - Chronic kidney disease, unspecified Status: Acute Assessment and Plan: Slight increase in creatinine today to 2.0. Lasix held. Recheck BMP tomorrow. (7) Hypothyroidism: Code(s): E03.9 - Hypothyroidism, unspecified Status: Chronic Assessment and Plan: TSH is within normal limits. Continue levothyroxine (8) Type 2 diabetes mellitus: Code(s): E11.9 - Type 2 diabetes mellitus without complications Status: Acute Assessment and Plan: A1c is 7.8. Continue sliding scale insulin, Accu-Cheks, and hypoglycemic protocol. Continue home metformin. (9) Agitation: Code(s): R45.1 - Restlessness and agitation Status: Acute Assessment and Plan: Patient with intermittent episodes of agitation. Per family reports, has been an issue for some time. PRN ativan. Low dose seroquel at night Subjective Date/time seen: 01/13/22 15:40 Interval history: date of service: 01/13/2022 Gianfranco Rosen is an 81-year-old male with a history of CKD, COPD, diastolic dysfunction, hypertension, hyperlipidemia, hypothyroidism, PORFIRIO on CPAP, type 2 diabetes mellitus who is seen in follow-up for frequent falls. The patient is a poor historian and not able to provide much reliable history. He was able to accurately state his name and date, he knew he was at [facility]. He stated the year was 2221 and could not state month or day of the week. He did know it was fall. He could not think of the president name, then remembered it started with a B and then was able to accurately state. Appears his mental status waxes and wanes. Report from nursing staff that patient has been aggressive and combative. At time of my evaluation, he is resting comfortably and denies any attempts to hit or make contact with staff. Per RN, patients daughter reports the patient to be verbally abuse to caregiver. Review of Systems Review of Systems: All systems reviewed & are unremarkable except as noted in HPI and below Exam Narrative: General: obese, chronically ill-appearing 81-year-old male
[2022-01-13 16:18] LABS: Glucose Point of Care 164 mg/dl (65-105)
--- NOTE | 2022-01-13 16:32 | PC.NURSE ---
Pt keeps screaming for July. He has been asked to stop screaming and reminded that he is in the hospital and July is not here. Pt accused me of lying, called me foul names, and then shouted Shut up! Laura!!!
[2022-01-13] MEDS: ACETAMINOPHEN 325 MG TABLET 650 MG PO (21:09)
[2022-01-13] MEDS: LORazepam (*CRX) 0.5 MG TABLET PO (21:09)
[2022-01-13] MEDS: QUEtiapine FUMARATE 12.5 MG TABLET PO (21:10)
[2022-01-13 21:51] LABS: Glucose Point of Care 199 mg/dl (65-105)
[2022-01-14] MEDS: hydrALAZINE HCL 20 MG/ML VIAL 10 MG IV PUSH (04:56)
[2022-01-14 05:28] LABS: Glucose Point of Care 178 mg/dl (65-105)
[2022-01-14 05:58] VITALS: BP 168/63; PULSE 95; RESP 14; TEMP 36.8; O2SAT 92
[2022-01-14] MEDS: LEVOTHYROXINE SODIUM 75 MCG TABLET PO (06:10)
[2022-01-14 06:22] LABS: Hematocrit 41.8 % (42.0-52.0); Hemoglobin 13.1 g/dL (14.0-18.0); Mean Corpuscular HGB Conc 31.3 g/dl (32-36); Mean Corpuscular Hemoglobin 28.2 pg (26-34); Mean Corpuscular Volume 90.1 fl (80-100); Mean Platelet Volume 9.4 fl (7.4-10.4); Platelet Count Result 755 k/mm3 (150-375); Red Blood Count 4.64 M/mm3 (4.6-6.20); Red Cell Distribution Width 14.8 % (11.5-14.5); White Blood Count 10.3 K/mm3 (4.5-10.0)
[2022-01-14 06:34] LABS: Anion Gap 10 mmol/L (8-16); Blood Urea Nitrogen 33 mg/dL (9-20); Calcium 8.4 mg/dL (8.4-10.2); Carbon Dioxide 26 mmol/L (22-30); Chloride 101 mmol/L (98-107); Estimated CRCL calculation 36 ml/min; Estimated Glomerular Filt Rate 34; Glucose 169 mg/dL (65-110); Potassium 3.6 mmol/L (3.4-5.0); Sodium 137 mmol/L (137-145)
[2022-01-14 07:51] LABS: Glucose Point of Care 179 mg/dl (65-105)
[2022-01-14] MEDS: PRAVASTATIN SODIUM 20 MG TABLET 40 MG PO (08:57)
[2022-01-14] MEDS: CEFDINIR 300 MG CAPSULE PO (08:57)
[2022-01-14] MEDS: VENLAFAXINE HCL XR 75 MG CAP.ER.24H PO (08:57)
[2022-01-14] MEDS: amLODIPine BESYLATE 5 MG TABLET PO (08:57)
[2022-01-14] MEDS: ENALAPRIL MALEATE 10 MG TABLET 20 MG PO (08:58)
[2022-01-14] MEDS: POTASSIUM CHLORIDE 10 MEQ TABLET.ER PO (08:58)
[2022-01-14] MEDS: TAMSULOSIN HCL 0.4 MG CAPSULE PO (08:58)
[2022-01-14] MEDS: ACETAMINOPHEN 325 MG TABLET 650 MG PO (10:16)
[2022-01-14] MEDS: LORazepam (*CRX) 0.5 MG TABLET PO (10:20)
[2022-01-14 12:14] LABS: Glucose Point of Care 185 mg/dl (65-105)
--- NOTE | 2022-01-14 13:33 | PM.DS ---
DS: Admitting Diagnosis Discharge Date 01/14/2022 Admitting Diagnosis Falls DS: Discharge Diagnosis Discharge Diagnosis (1) Multiple falls: Code(s): R29.6 - Repeated falls Status: Acute Assessment and Plan: Patient does not know why he keeps falling. He denies prodromes prior to the fall and he also denies vertigo and does not feel off balance. He has not had any syncopal episodes. Luckily he has not sustained any significant injuries. There were no focal deficits noted on exam but he is weak. Participated in PT/OT during admission. Will continue therapy at SNF following discharge. Fall precautions implemented. (2) UTI (urinary tract infection): Code(s): N39.0 - Urinary tract infection, site not specified Status: Acute Assessment and Plan: Urine culture with growth of >100k Klebsiella. Treated with IV ceftriaxone and transitioned to PO cefdinir to complete a total of 7 days of antibiotic therapy based on susceptibility report. (3) CHF exacerbation: Code(s): I50.9 - Heart failure, unspecified Status: Acute Assessment and Plan: Echo in July 2020 showed diastolic dysfunction with a normal EF of 55%. [place] to have exacerbation of diastolic CHF, likely related to poorly controlled blood pressures with elevation of BNP and effusion on CXR. He was diuresed with IV lasix with improvement in volume status. Lasix held temporarily with minor bump in creatinine. Home PO Lasix resumed on discharge. CHF education provided. Monitor daily weights at nursing facility. (4) Hypertension: Code(s): I10 - Essential (primary) hypertension Status: Chronic Assessment and Plan: Blood pressures elevated on admission but did improve iwth diuresis. Continue PO antihypertensives. (5) Chronic anemia: Code(s): D64.9 - Anemia, unspecified Status: Acute Assessment and Plan: Hemoglobin and hematocrit stable on review of previous labs. (6) Chronic kidney disease: Code(s): N18.9 - Chronic kidney disease, unspecified Status: Acute Assessment and Plan: Renal function stable. Slight bump in creatinine following IV lasix but with downward trend. Resume PO lasix and recheck BMP in 1 week. (7) Hypothyroidism: Code(s): E03.9 - Hypothyroidism, unspecified Status: Chronic Assessment and Plan: TSH within normal limits. Continue levothyroxine. (8) Type 2 diabetes mellitus: Code(s): E11.9 - Type 2 diabetes mellitus without complications Status: Acute Assessment and Plan: A1c is 7.8. Continue home metformin. Monitor blood sugars with meals and at bedtime at nursing facility and implement hypoglycemia protocol (9) Agitation: Code(s): R45.1 - Restlessness and agitation Status: Acute Assessment and Plan: Patient with intermittent episodes of agitation. Per family reports, has been an issue for some time. Started on low-dose Seroquel 12.5 mg at night. 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 Recheck CBC with diff in 1 week with results to PCP. Will likely benefit from hematology referral. DS: Summary Hospital Course Hospital Course: Date of admission: 01/11/2022 Date of discharge: 01/14/2022 Gianfranco Rosen is an 81-year-old male with a history of CKD, COPD, diastolic dysfunction, hypertension, hyperlipidemia, hypothyroidism, PORFIRIO on CPAP, and type 2 diabetes mellitus who presented to the emergency department on 01/11/2022 with complaints of frequent falls. On presentation to the ED, his vital signs were stable, he was afebrile,
[2022-01-14 14:00] VITALS: BP 106/59; PULSE 90; RESP 20; TEMP 36.4; O2SAT 91
[2022-01-14 14:15] LABS: EDCOVIDSCREEN Negative (Negative)
--- NOTE | 2022-01-14 15:02 | PC.NURSE ---
had order for pt discharge. called [facility] at 1350 to give report to nurse. engineering equipment operator paged nurse at facility. engineering equipment operator was unable to get nurse to pickle pumper phone but informed me she will give the nurse a message to call me back so I can give report. An hour later when I did not get a call back, I decided to call again. At 1454 I placed another call to [facility] and I told the engineering equipment operator that I was calling again to give report because the nurse did not call me back after she delivered the message. Practice Or Student Teacher informed this nurse that she gave the message to receiving nurse right after I called the first time. Will call back a third time at 1530 if no call back by then.
[2022-01-14 16:04] LABS: Glucose Point of Care 163 mg/dl (65-105)
== END 2022-01-14 20:00 | DRG 291 ==
LOC: ANHED 17:05 → ANH3MEDSUR 18:15
PROVIDERS: Emergency Medicine; Physician Assistant; Admitting Provider Student in an Organized Health Care Education/Training Program; Emergency Provider General Practice; PCP Family Medicine Sports Medicine; Visit Provider Family Medicine
DX: I13.0 Hypertensive heart and chronic kidney disease with heart failure and stage 1 through stage 4 chronic kidney disease, or unspecified chronic kidney disease (principal); I50.31 Acute diastolic (congestive) heart failure; N39.0 Urinary tract infection, site not specified; Z68.41 Body mass index [BMI] 40.0-44.9, adult; B96.1 Klebsiella pneumoniae [K. pneumoniae] as the cause of diseases classified elsewhere; R29.6 Repeated falls; N18.9 Chronic kidney disease, unspecified; E03.9 Hypothyroidism, unspecified; E11.9 Type 2 diabetes mellitus without complications; R45.1 Restlessness and agitation; E78.5 Hyperlipidemia, unspecified; E87.79 Other fluid overload; D64.9 Anemia, unspecified; D47.3 Essential (hemorrhagic) thrombocythemia; Z20.822 Contact with and (suspected) exposure to COVID-19; G47.33 Obstructive sleep apnea (adult) (pediatric); E66.9 Obesity, unspecified; N40.0 Benign prostatic hyperplasia without lower urinary tract symptoms; J44.9 Chronic obstructive pulmonary disease, unspecified; F41.8 Other specified anxiety disorders; Z90.49 Acquired absence of other specified parts of digestive tract; Z87.891 Personal history of nicotine dependence
CPT/HCPCS: 36415; 36600; 71045; 80048; 80053; 81001; 82375; 82805; 82948; 83036; 83050; 83735; 83880; 84443; 84484; 85025; 85027; 85610; 85730; 87077; 87086; 87186; 87426; 93005; 94660; 96365; 96366; 96375; 96376; 97110; 97161; 97165; 97530; 97535; 99285; A9270; C9803; G0378; J0360; J0696; J1815; J1940; U0003; U0005

== ENCOUNTER 2022-05-17 14:26 | Observation (INO) | payer MEDICARE, SELFPAY ==
[2022-05-17] VITALS (9 sets, daily range): BP systolic 132–160; BP diastolic 27–136; PULSE 100–108; RESP 18–40; TEMP 36.6; O2SAT 96–97
--- NOTE | ~2022-05-17 | XR_ITS ---
EXAMINATION: XR chest 1V portable DATE: 05/17/2022 21:58 INDICATION: Shortness of breath. TECHNIQUE: A single frontal view of the chest was obtained. COMPARISON: Chest single view 01/11/2022, chest CT 12/27/2019 FINDINGS: There is a small left pleural effusion. There are airspace opacities in the mid and lower l ced zones with a basilar predominance. Calcified pulmonary nodules and calcified hilar and mediastina l lymph nodes are consistent with old granulomatous disease. No pneumothorax. The heart size is kris l. There are prominent paracardial fat pads. IMPRESSION: 1. Stable small left pleural effusion. 2. Airspace opacities in the mid and lower lung zones with a basilar predominance with slight improve ment on the right, consistent with atelectasis versus pneumonia. Reviewed, dictated and finalized at location A. R OPERATOR AUT[employer]ATIC IMPRESSION: 1. Stable small left pleural effusion. 2. Airspace opacities in the mid and lower lung zones with a basilar predominan ce with slight improvement on the right, consistent with atelectasis versus pne umonia.
--- NOTE | 2022-05-17 21:18 | ECG_ITS ---
Measurements Intervals [place] Rate: 101 P: 38 MN: 230 QRS: -59 QRSD: 165 T: 39 QT: 344 QTc: 447 Interpretive Statements SINUS TACHYCARDIA WITH FIRST DEGREE AV BLOCK RIGHT BUNDLE BRANCH BLOCK LEFT ANTERIOR FASCICULAR BLOCK BASELINE ARTIFACT- II, III, AVR, AVL, AVF ABNORMAL ECG COMPARED TO ECG 01/11/2022 14:10:38 SINUS TACHYCARDIA NOW PRESENT Electronically Signed On 05-18-2022 7:18:56 HEAD OF LOSS PREVENTION by sJ Abad D.O.
--- NOTE | 2022-05-17 21:31 | ED.WEAKNESS ---
HPI - Weakness General Chief complaint: Weakness Stated complaint: hypertension Time Seen by Provider: 05/17/22 20:58 History of Present Illness HPI Narrative: 82-year-old male history of hypertension, CHF, hypothyroidism, COPD, sleep apnea on CPAP who presents for evaluation of multiple medical problems. Patient is accompanied by his family who assisted in the providing the history. Patient lives at home with his , but requires full care from his . Patient is unable to use the restroom, and presents with a rash to his groin and waist area due to sitting in his own feces and urine. Family states patient has been noncompliant with his blood pressure medication, and have noticed that he has become more short of breath and developed more swelling in his legs. Related Data Home Medications Medication Instructions Recorded Confirmed venlafaxine 75 mg capsule,extended 75 mg PO BID 12/26/19 05/18/22 release 24 hr levothyroxine 75 mcg tablet 75 mcg PO DAILY 05/30/20 05/18/22 pravastatin 40 mg tablet 40 mg PO DAILY 05/30/20 05/18/22 tamsulosin 0.4 mg capsule 0.4 mg PO DAILY 05/30/20 05/18/22 furosemide 20 mg tablet 20 mg PO DAILY 01/11/22 05/18/22 cholecalciferol (vitamin D3) 50 1 unit PO DAILY 05/18/22 05/18/22 mcg (2,000 unit) capsule (Vitamin D3) ipratropium 20 mcg-albuterol 100 2 puff inhalation QID PRN 05/18/22 05/18/22 mcg/actuation mist for inhalation Shortness Of Breath Or Wheezing (Combivent Respimat) metformin 500 mg tablet 1,000 mg PO BID 05/18/22 05/18/22 quetiapine 25 mg tablet 25 mg PO HS 05/18/22 05/18/22 Allergies Allergy/AdvReac Type Severity Reaction Status Date / Time No Known Allergies Allergy Verified 05/17/22 14:41 [facility] Past Medical History Medical History Benign prostatic hyperplasia Chronic anemia Chronic kidney disease Chronic obstructive pulmonary disease Depression with anxiety Diastolic dysfunction Hyperlipidemia Hypertension Hypothyroidism Obstructive sleep apnea on CPAP Type 2 diabetes mellitus Surgical History Surgical History History of appendectomy History of hydrocelectomy Family History Family History Mother Natural Father Natural with unknown cause Social History Social History (Updated 01/11/22 @ 20:10 by Liz Gonzalez PA-C) Social History: The patient lives in his own home in [place]. He is and has 5 children. He was a social smoker and quit well over 20 years ago though he still has an occasional cigarette here there. He drinks alcohol rarely and in moderation. No illicit substance abuse. He designates his brother Brayden Rosen as his surrogate decision maker new wishes to be a full code. Smoking packs per day: 0.5 Smoking cigarettes per day: 10.0 Years smoked: 15 Smoking pack-years: 7.50 Smoking status: Former smoker Tobacco type: cigarettes Second hand tobacco smoke exposure: No Alcohol intake: former Drinks per week: 1 Substance use: never Substance use type: does not use Lack of Transportation: No Lack of Food: Never True Current Housing: I Have Housing Concerned About Future Housing: No Difficulty Paying Gas/Electric Bills: No Difficulty Paying for Meds: No Currently Unemployed: No Education: High School Diploma/GED Difficulty w/ Childcare or Family Care: No Spiritual care concerns: No Exam Narrative: GENERAL: Chronically ill-appearing, well-nourished, no physical limitations, and in no acute distress. HEAD: Normocephalic, atraumatic. EYES: Conjunctivae normal, PERRLA and EOMI. CHEST: Decreased breath sounds bases, tachypneic HEART: Regular rate and rhythm. No murmur heard. Normal peripheral pulses. ABDOMEN: Soft, nontender, obese nondistended, normal active bowel sounds. : Large erythe
[2022-05-17 21:45] LABS: Appearance Urine Clear (Clear); Bilirubin Urine 1+ (Negative); Blood Urine 1+ (Negative); Color Urine Yellow (Yellow); Glucose Urine UA 1+ mg/dL (Negative); Ketones Urine Negative (Negative); Leukocyte Esterase Ur Negative LEU/UL (Negative); Nitrate Urine Negative (Negative); Protein Urine 3+ mg/dL (Negative); Specific Grav Ur 1.025 (1.001-1.035); Urobilinogen Urine 0.2 mg/dL (<2.0); pH Urine 5.5 (5.0-9.0)
[2022-05-17 21:46] LABS: Hyaline Casts Urine 15-19 /lpf; Mucus Urine Few /lpf; RBC Urine 0-2 /hpf (0-2); Squamous Epithelial Cell Urine Rare /hpf (Few)
[2022-05-17 21:47] LABS: Add Urine Microscopic? YES
[2022-05-17 21:51] LABS: Basophils Percent Auto 0.4 % (0.2-1.2); Eosinophils Absolute Auto 0.1 K/mm3 (0-0.3); Eosinophils Percent Auto 1.2 % (0-4.4); Hematocrit 33.6 % (42.0-52.0); Hemoglobin 10.9 g/dL (14.0-18.0); Immature Granulocyte Absolute 0.12 K/mm3 (0.00-0.031); Immature Granulocyte Percent A 1.2 % (0-0.5); Lymphocytes Absolute Auto 1.02 K/mm3 (0.9-3.2); Lymphocytes Percent Auto 9.8 % (18.3-44.2); Mean Corpuscular HGB Conc 32.4 g/dl (32-36); Mean Corpuscular Hemoglobin 28.4 pg (26-34); Mean Corpuscular Volume 87.5 fl (80-100); Mean Platelet Volume 9.6 fl (7.4-10.4); Monocytes Absolute Auto 0.8 K/mm3 (0.1-0.6); Monocytes Percent Auto 7.3 % (2.6-8.5); Neutrophils Absolute Auto 8.4 K/mm3 (1.3-6.7); Neutrophils Percent Auto 80.1 % (45.5-73.1); Platelet Count Result 693 k/mm3 (150-375); Red Blood Count 3.84 M/mm3 (4.6-6.20); Red Cell Distribution Width 14.2 % (11.5-14.5); White Blood Count 10.4 K/mm3 (4.5-10.0)
[2022-05-17 22:03] LABS: Lactic Acid Reflex 1.5 mmol/L (0.7-2.0)
[2022-05-17 22:57] LABS: Troponin I 0.025 ng/mL (0.000-0.034)
[2022-05-17 23:13] LABS: Alanine Aminotransferase 24 U/L (6-50); Albumin Level 3.1 g/dL (3.5-5.1); Alkaline Phosphatase 88 U/L (38-126); Anion Gap 6 mmol/L (8-16); Aspartate Amino Transferase 26 U/L (17-59); Bilirubin,Total 0.5 mg/dL (0.2-1.3); Blood Urea Nitrogen 27 mg/dL (9-20); Calcium 7.9 mg/dL (8.4-10.2); Carbon Dioxide 25 mmol/L (22-30); Chloride 105 mmol/L (98-107); Estimated CRCL calculation 32 ml/min; Estimated Glomerular Filt Rate 32; Glucose 176 mg/dL (65-110); Potassium 3.3 mmol/L (3.4-5.0); Sodium 136 mmol/L (137-145)
[2022-05-17 23:22] LABS: NT Pro B Type Natriuretic Pept 1810 pg/mL (19.9-100)
[2022-05-18] VITALS (9 sets, daily range): BP systolic 122–171; BP diastolic 56–72; PULSE 83–101; RESP 10–25; TEMP 36.1–36.7; O2SAT 93–98; BMI 35.8
[2022-05-18 00:36] LABS: Hemoglobin A1C 8.2 % (<5.7)
[2022-05-18 02:13] LABS: D Dimer 1.52 ug/mL (<0.48)
[2022-05-18] MEDS: FUROSEMIDE INJ 40 MG/4 ML VIAL IV PUSH (02:21)
--- NOTE | 2022-05-18 03:02 | ADMGEN ---
This patient, Ginafranco Rosen, was admitted to Medical Room 343-01. Patient/family oriented to hospital policies and general routines including ID bracelet, bed and alarms, visiting hours, pain management, procedures, bathroom and other care routines, personal items, smoking policy, room service/diet, and visiting hours. Information on how to activate the Rapid Response Team has been discussed. Patient/Family are encouraged to report perceived risks to care and to ask questions if they do not understand what they are told or what they should do.
[2022-05-18 05:03] LABS: Influenza A QL RT-PCR Negative (Negative); Influenza B QL RT-PCR Negative (Negative); RSV RNA, RT-PCR Negative (Negative); SARS-CoV-2 RNA PCR Positive
[2022-05-18 12:33] LABS: Glucose Point of Care 208 mg/dl (65-105)
--- NOTE | 2022-05-18 13:08 | PM.IMHP ---
H&P: HPI History of Present Illness Date/Time: 05/18/22 13:08 Chief Complaint: not feeling well. Narrative: Patient is 82-year-old male with history of hypertension, CHF, hypothyroidism, COPD, sleep apnea on CPAP. Came to the hospital complaining of not feeling well patient was tested positive for COVID. Patient lives at home with his patient was noted that he was unable to walk more tired short of breath and lethargic. Patient is seen in the hospital looks fully awake alert sitting on chair and questioning why he is in the hospital denies any history any complaints of shortness of breath chest pain orthopnea headaches dizziness palpitation abdominal pain or leg swelling Review of Systems Review of Systems: No fevers chills nausea vomiting. No double vision no blurry vision. No difficulty hearing or sinus complaints. No chest pain shortness of breath fever palpitation dizziness ankle swelling. No coughing wheezing chills. No nausea constipation diarrhea abdominal pain reflux. No urgency frequency of urination. No hematuria. No skin rash eczema. No anxiety depression difficulty sleeping. No bleeding gums enlarged glands. No muscle ache back pain joint stiffness. No loss of strength numbness headache tremor or loss of memory. [facility] Past Medical History Medical History Benign prostatic hyperplasia Chronic anemia Chronic kidney disease Chronic obstructive pulmonary disease Depression with anxiety Diastolic dysfunction Hyperlipidemia Hypertension Hypothyroidism Obstructive sleep apnea on CPAP Type 2 diabetes mellitus Surgical History Surgical History History of appendectomy History of hydrocelectomy Family History Family History Mother Natural Father Natural with unknown cause Social History Social History (Updated 01/11/22 @ 20:10 by Liz Gonzalez PA-C) Social History: The patient lives in his own home in [place]. He is and has 5 children. He was a social smoker and quit well over 20 years ago though he still has an occasional cigarette here there. He drinks alcohol rarely and in moderation. No illicit substance abuse. He designates his brother Brayden Rosen as his surrogate decision maker new wishes to be a full code. Smoking packs per day: 0.5 Smoking cigarettes per day: 10.0 Years smoked: 15 Smoking pack-years: 7.50 Smoking status: Former smoker Tobacco type: cigarettes Second hand tobacco smoke exposure: No Alcohol intake: former Drinks per week: 1 Substance use: never Substance use type: does not use Lack of Transportation: No Lack of Food: Never True Current Housing: I Have Housing Concerned About Future Housing: No Difficulty Paying Gas/Electric Bills: No Difficulty Paying for Meds: No Currently Unemployed: No Education: High School Diploma/GED Difficulty w/ Childcare or Family Care: No Spiritual care concerns: No Meds Home Medications and Allergies Home Medications Medication Instructions Recorded Confirmed Type potassium chloride 10 mEq 10 meq PO DAILY 12/26/19 01/11/22 History capsule,extended release venlafaxine 75 mg capsule,extended 75 mg PO DAILY 12/26/19 01/11/22 History release 24 hr levothyroxine 75 mcg tablet 75 mcg PO DAILY 05/30/20 01/11/22 History metformin 500 mg tablet,extended 1,000 mg PO BID 05/30/20 01/11/22 History release 24 hr pravastatin 40 mg tablet 40 mg PO DAILY 05/30/20 01/11/22 History tamsulosin 0.4 mg capsule 0.4 mg PO DAILY 05/30/20 01/11/22 History amlodipine 5 mg tablet (Norvasc) 5 mg PO QAM #30 tabs 02/07/21 01/11/22 Rx enalapril maleate 20 mg tablet 20 mg PO DAILY #30 tabs 02/07/21 01/11/22 Rx furosemide 20 mg tablet 40 mg PO DAILY 01/11/22 01/11/22 History ipratropium 18
[2022-05-18] MEDS: hydrALAZINE HCL 25 MG TABLET PO ×2 (16:15→21:31)
[2022-05-18 17:53] LABS: Glucose Point of Care 193 mg/dl (65-105)
[2022-05-18 21:16] LABS: Glucose Point of Care 187 mg/dl (65-105)
[2022-05-18] MEDS: QUEtiapine FUMARATE 25 MG TABLET PO (21:50)
[2022-05-18] MEDS: IPRATROPIUM BR 0.02% INH SOLN 0.5 MG/2.5 ML VIAL INHALATION (22:45)
[2022-05-19] VITALS (8 sets, daily range): BP systolic 157; BP diastolic 68; PULSE 80–96; RESP 18–24; TEMP 36.8; O2SAT 91
[2022-05-19] MEDS: IPRATROPIUM BR 0.02% INH SOLN 0.5 MG/2.5 ML VIAL INHALATION ×4 (02:00→19:44)
--- NOTE | 2022-05-19 02:52 | PC.NURSE ---
Patients home cpap was reviewed by maintenance and set up by RT at . PT wore cpap until approximately 0200 at which time he requested to take it off.
[2022-05-19 05:58] LABS: Basophils Absolute Auto 0.1 K/mm3 (0.0-0.1); Basophils Percent Auto 0.6 % (0.2-1.2); Eosinophils Absolute Auto 0.2 K/mm3 (0-0.3); Eosinophils Percent Auto 2.3 % (0-4.4); Hematocrit 30.5 % (42.0-52.0); Hemoglobin 9.6 g/dL (14.0-18.0); Immature Granulocyte Percent A 2.4 % (0-0.5); Lymphocytes Percent Auto 12.2 % (18.3-44.2); Mean Corpuscular HGB Conc 31.5 g/dl (32-36); Mean Corpuscular Hemoglobin 28.2 pg (26-34); Mean Corpuscular Volume 89.4 fl (80-100); Mean Platelet Volume 9.7 fl (7.4-10.4); Monocytes Absolute Auto 0.7 K/mm3 (0.1-0.6); Monocytes Percent Auto 8.3 % (2.6-8.5); Neutrophils Absolute Auto 6.1 K/mm3 (1.3-6.7); Neutrophils Percent Auto 74.2 % (45.5-73.1); Platelet Count Result 648 k/mm3 (150-375); Red Blood Count 3.41 M/mm3 (4.6-6.20); Red Cell Distribution Width 14.1 % (11.5-14.5); White Blood Count 8.2 K/mm3 (4.5-10.0)
[2022-05-19 06:07] LABS: Anion Gap 4 mmol/L (8-16); Blood Urea Nitrogen 29 mg/dL (9-20); Calcium 7.9 mg/dL (8.4-10.2); Carbon Dioxide 27 mmol/L (22-30); Chloride 105 mmol/L (98-107); Estimated CRCL calculation 30 ml/min; Estimated Glomerular Filt Rate 30; Glucose 201 mg/dL (65-110); Magnesium 1.7 mg/dL (1.6-2.3); Potassium 3.1 mmol/L (3.4-5.0); Sodium 136 mmol/L (137-145)
[2022-05-19 07:39] LABS: Hemoglobin A1C 8.1 % (<5.7)
[2022-05-19 08:55] LABS: Glucose Point of Care 140 mg/dl (65-105)
[2022-05-19] MEDS: amLODIPine BESYLATE 5 MG TABLET 10 MG PO (09:57)
[2022-05-19] MEDS: VENLAFAXINE HCL XR 75 MG CAP.ER.24H PO (09:58)
[2022-05-19] MEDS: hydrALAZINE HCL 25 MG TABLET PO ×4 (09:58→20:32)
[2022-05-19] MEDS: TAMSULOSIN HCL 0.4 MG CAPSULE PO (09:58)
[2022-05-19] MEDS: LEVOTHYROXINE SODIUM 75 MCG TABLET PO (09:58)
[2022-05-19] MEDS: PRAVASTATIN SODIUM 20 MG TABLET 40 MG PO (09:58)
[2022-05-19] MEDS: PANTOPRAZOLE 40 MG TABLET PO (09:58)
[2022-05-19] MEDS: CHOLECALCIFEROL 1,000 UNITS TABLET 2000 UNITS PO (09:58)
[2022-05-19] MEDS: ENOXAPARIN 40 MG/0.4 ML SYRINGE SUB-Q (10:04)
[2022-05-19 12:39] LABS: Glucose Point of Care 163 mg/dl (65-105)
[2022-05-19] MEDS: TOLNAFTATE 1% POWDER 45 GM BTL 1 APPLIC TOPICAL ×2 (13:15→20:37)
[2022-05-19 17:36] LABS: Glucose Point of Care 190 mg/dl (65-105)
--- NOTE | 2022-05-19 18:35 | PM.IMPN ---
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: Code(s): E11.22 - Type 2 diabetes mellitus with diabetic chronic kidney disease; N18.30 - Chronic kidney disease, stage 3 unspecified Status: Acute (6) Morbid obesity with BMI of 40.0-44.9, adult: Code(s): E66.01 - Morbid (severe) obesity due to excess calories; Z68.41 - Body mass index [BMI] 40.0-44.9, adult Status: Acute (7) Pneumonia: Code(s): J18.9 - Pneumonia, unspecified organism Status: Acute Assessment and Plan: Weakness Pt will benefit from physial therapy prior to DC COVID Pt is covid positive pt is in isolation room not needing oxygen no one any steriods Pneumonia CXr showspneumonia Pt is on iv rocephin changed from levaquin Pt adviced to quit smoking. Bronchodilators. HBA1c ( goal <7.0%) , Optimize REMINGTON-inhibitor and statin Routine glucose monitoring. Watch for Hypoglycemia. BMI goal < 25 Exercise, Diet ( low salt- low carb) Weight loss Routinely check for urine microalbuminuria Sliding scale as needed Creatinine 2.0 Potassium 3.3 Continue to watch bmp Morbid obesity Keeping BMI less than 25. Routine exercises. Weight loss advised Subjective Date/time seen: 05/19/22 18:35 82-year-old male with history of hypertension, CHF, hypothyroidism, COPD, sleep apnea on CPAP.? Came to the hospital complaining of not feeling well patient was tested positive for COVID. Pt appears weak and tired Review of Systems Review of Systems: Weak and tired Exam Narrative: GENERAL: morbidly obese NECK: Supple. No adenopathy, no masses. RESPIRATORY: Airway patent, respirations nonlabored. Clear to auscultation bilaterally, no rales, rhonchi, wheezing. CARDIOVASCULAR: Regular rate and rhythm without murmurs, rubs, or gallops. Peripheral pulses 2+ and equal bilaterally. ABDOMINAL: Soft, nontender, nondistended, no hepatosplenomegaly. Normoactive BS. MUSCULOSKELETAL: no Epigastric and no hypochondrial tenderness SKIN: Warm, dry, normal color. No rashes. NEURO: A&O X3. generalized weakness PSYCHIATRIC: Appropriate mood and affect. Normal interaction. Objective Data Vital Signs Vital Signs: Vital Signs - 24 hr 05/18/22 21:30 05/18/22 22:48 05/18/22 23:43 Temperature 36.7 C Pulse Rate 93 93 Respiratory Rate 22 H Blood Pressure 151/65 H 151/65 H Pulse Oximetry 94 93 94 Oxygen Delivery Room Air 05/18/22 23:50 05/19/22 02:00 05/19/22 10:24 Temperature Pulse Rate 90 85 Respiratory Rate 20 Blood Pressure Pulse Oximetry 94 Oxygen Delivery Room Air Room Air 05/19/22 09:59 05/19/22 10:50 05/19/22 14:00 Temperature 36.8 C Pulse Rate 80 92 Respiratory Rate 20 24 H Blood Pressure 157/68 H Pulse Oximetry 91 Oxygen Delivery Room Air 05/19/22 08:00 05/19/22 16:40 05/19/22 16:47 Temperature Pulse Rate 92 93 Respiratory Rate 18 18 Blood Pressure Pulse Oximetry Oxygen Delivery Room Air Intake/Output Intake/Output: Intake & Output 05/16/22 05/17/22 05/18/22 05/19/22 23:59 23:59 23:59 23:59 Intake Total 960 750 Output Total 100 300 Balance 860 450 Meds/Results Medications: Active Medications Generic Name Dose Route Start Last Admin Trade Name Freq PRN Reason Stop Dose Admin Acetaminophen 650 mg
[2022-05-19] MEDS: QUEtiapine FUMARATE 25 MG TABLET PO (20:32)
[2022-05-19 20:35] LABS: Glucose Point of Care 209 mg/dl (65-105)
[2022-05-20] MEDS: IPRATROPIUM BR 0.02% INH SOLN 0.5 MG/2.5 ML VIAL INHALATION ×2 (00:01→12:12)
[2022-05-20] MEDS: LEVOTHYROXINE SODIUM 75 MCG TABLET PO (05:26)
[2022-05-20 08:48] LABS: Glucose Point of Care 149 mg/dl (65-105)
[2022-05-20] MEDS: PANTOPRAZOLE 40 MG TABLET PO (09:01)
[2022-05-20] MEDS: PRAVASTATIN SODIUM 20 MG TABLET 40 MG PO (09:01)
[2022-05-20] MEDS: ENALAPRIL MALEATE 10 MG TABLET 20 MG PO (09:01)
[2022-05-20] MEDS: hydrALAZINE HCL 25 MG TABLET PO ×4 (09:01→21:50)
[2022-05-20] MEDS: CHOLECALCIFEROL 1,000 UNITS TABLET 2000 UNITS PO (09:01)
[2022-05-20] MEDS: amLODIPine BESYLATE 5 MG TABLET 10 MG PO (09:01)
[2022-05-20] MEDS: VENLAFAXINE HCL XR 75 MG CAP.ER.24H PO (09:01)
[2022-05-20] MEDS: FUROSEMIDE 20 MG TABLET PO (09:01)
[2022-05-20] MEDS: TAMSULOSIN HCL 0.4 MG CAPSULE PO (09:01)
[2022-05-20] MEDS: ENOXAPARIN 40 MG/0.4 ML SYRINGE SUB-Q (09:02)
[2022-05-20] MEDS: TOLNAFTATE 1% POWDER 45 GM BTL 1 APPLIC TOPICAL ×2 (09:02→21:50)
[2022-05-20 09:05] VITALS: PULSE 103
[2022-05-20 11:08] LABS: Hematocrit 31.8 % (42.0-52.0); Hemoglobin 10.2 g/dL (14.0-18.0); Mean Corpuscular HGB Conc 32.1 g/dl (32-36); Mean Corpuscular Hemoglobin 28.5 pg (26-34); Mean Corpuscular Volume 88.8 fl (80-100); Mean Platelet Volume 9.4 fl (7.4-10.4); Platelet Count Result 628 k/mm3 (150-375); Red Blood Count 3.58 M/mm3 (4.6-6.20); Red Cell Distribution Width 14.1 % (11.5-14.5); White Blood Count 8.6 K/mm3 (4.5-10.0)
[2022-05-20 11:18] LABS: Anion Gap 4 mmol/L (8-16); Blood Urea Nitrogen 27 mg/dL (9-20); Calcium 8.2 mg/dL (8.4-10.2); Carbon Dioxide 28 mmol/L (22-30); Chloride 104 mmol/L (98-107); Estimated CRCL calculation 30 ml/min; Estimated Glomerular Filt Rate 30; Glucose 187 mg/dL (65-110); Potassium 3.5 mmol/L (3.4-5.0); Sodium 136 mmol/L (137-145)
--- NOTE | 2022-05-20 11:18 | PM.IMPN ---
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: Code(s): E11.22 - Type 2 diabetes mellitus with diabetic chronic kidney disease; N18.30 - Chronic kidney disease, stage 3 unspecified Status: Acute (6) Morbid obesity with BMI of 40.0-44.9, adult: Code(s): E66.01 - Morbid (severe) obesity due to excess calories; Z68.41 - Body mass index [BMI] 40.0-44.9, adult Status: Acute (7) Pneumonia: Code(s): J18.9 - Pneumonia, unspecified organism Status: Acute Assessment and Plan: Weakness Pt will benefit from physial therapy prior to DC COVID Pt is covid positive pt is in isolation room not needing oxygen not on any steriods will add Tessalon perles Pneumonia CXr shows pneumonia Pt is on iv rocephin changed from levaquin Pt adviced to quit smoking. Bronchodilators. DM SSI and accuchecks HBA1c ( goal <7.0%) , Optimize REMINGTON-inhibitor and statin Routine glucose monitoring. Watch for Hypoglycemia. BMI goal < 25 Exercise, Diet ( low salt- low carb) Weight loss Routinely check for urine microalbuminuria Sliding scale as needed COPD Pt is on breathing treatments CHF watch creat add oral lasix CKD Creatinine 2.0 Potassium 3.3 Continue to watch bmp Morbid obesity Keeping BMI less than 25. Routine exercises. Weight loss advised Subjective Date/time seen: 05/20/22 11:18 82-year-old male with history of hypertension, CHF, hypothyroidism, COPD, sleep apnea on CPAP.? Came to the hospital complaining of not feeling well patient was tested positive for COVID. Review of Systems Review of Systems: Pt appears weak and tired, denies cough or sob Exam Narrative: GENERAL: morbidly obese NECK: Supple. No adenopathy, no masses. RESPIRATORY: Airway patent, respirations nonlabored. Clear to auscultation bilaterally, no rales, rhonchi, wheezing. CARDIOVASCULAR: Regular rate and rhythm without murmurs, rubs, or gallops. Peripheral pulses 2+ and equal bilaterally. ABDOMINAL: Soft, nontender, nondistended, no hepatosplenomegaly. Normoactive BS. MUSCULOSKELETAL: no Epigastric and no hypochondrial tenderness SKIN: Warm, dry, normal color. No rashes. NEURO: A&O X3. generalized weakness PSYCHIATRIC: Appropriate mood and affect. Normal interaction. Objective Data Vital Signs Vital Signs: Vital Signs - 24 hr 05/19/22 14:00 05/19/22 16:40 05/19/22 16:47 Temperature 36.8 C Pulse Rate 92 92 93 Respiratory Rate 24 H 18 18 Blood Pressure 157/68 H Pulse Oximetry 91 Oxygen Delivery 05/19/22 19:45 05/19/22 19:57 05/19/22 20:00 Temperature Pulse Rate 92 96 96 Respiratory Rate 18 18 18 Blood Pressure Pulse Oximetry 91 Oxygen Delivery Room Air 05/20/22 09:05 Temperature Pulse Rate 103 H Respiratory Rate Blood Pressure Pulse Oximetry Oxygen Delivery Intake/Output Intake/Output: Intake & Output 05/17/22 05/18/22 05/19/22 05/20/22 23:59 23:59 23:59 23:59 Intake Total 960 1040 240 Output Total 100 500 Balance 860 540 240 Meds/Results Medications: Active Medications Generic Name Dose Route Start Last Admin Trade Name Freq PRN Reason Stop Dose Admin Acetaminophen 650 mg 05/19/22 18:36 Acetaminophen 325 Mg Tablet PO Q6H PRN Mild Pain (1-3) Or Fever Albuterol 2.5 mg
[2022-05-20 12:08] VITALS: PULSE 89; RESP 18
[2022-05-20 12:09] LABS: Glucose Point of Care 200 mg/dl (65-105)
[2022-05-20 12:13] VITALS: O2SAT 94
[2022-05-20 12:18] VITALS: PULSE 90; RESP 18
[2022-05-20] MEDS: POTASSIUM CHLORIDE 20 MEQ PACKET (FOR LIQUID) 40 MEQ PO (12:27)
[2022-05-20] MEDS: BENZONATATE 100 MG CAPSULE PO ×2 (12:27→17:59)
[2022-05-20 15:06] VITALS: BP 150/99; PULSE 83; RESP 20; TEMP 36.8; O2SAT 95
[2022-05-20 17:33] LABS: Glucose Point of Care 170 mg/dl (65-105)
--- NOTE | 2022-05-20 19:25 | PCRCNOTE ---
pt refusing 2000 UPD treatment stating he does not feel like taking it and just wants to go home. RN informed.
[2022-05-20 21:03] LABS: Glucose Point of Care 199 mg/dl (65-105)
[2022-05-20] MEDS: QUEtiapine FUMARATE 25 MG TABLET PO (21:50)
--- NOTE | 2022-05-20 22:11 | PC.NURSE ---
Patient stating he is ready to be discharged. Patient states he was verbally told he was discharged by older lady doctor . Informed patient that it was 2129. Patient states he will be discharged even if he has to jump up and stomp out of here. Patient told physician underwriter to make it happen. Educated patient that he had no orders to be discharged for today. Encouraged patient to stay tonight and investigate discharge in the morning. Patient stated he was leaving regardless. Certified Personal Finance Counselor educated patient on AMA process and asked if patient had someone to give him a ride home. Patient stated he did and would call them. Certified Personal Finance Counselor informed data warehouse specialist. Patient called physician underwriter back into room to state that he spoke with his family and will be staying tonight as he was unaware it was so late at night. He will leave in the morning instead.
[2022-05-21] VITALS (10 sets, daily range): BP systolic 150–160; BP diastolic 50–83; PULSE 83–96; RESP 18–22; TEMP 36.3–37.1; O2SAT 93–98
[2022-05-21] MEDS: LEVOTHYROXINE SODIUM 75 MCG TABLET PO (05:45)
[2022-05-21 06:03] LABS: Anion Gap 6 mmol/L (8-16); Blood Urea Nitrogen 25 mg/dL (9-20); Calcium 7.8 mg/dL (8.4-10.2); Carbon Dioxide 23 mmol/L (22-30); Chloride 110 mmol/L (98-107); Estimated CRCL calculation 33 ml/min; Estimated Glomerular Filt Rate 34; Glucose 141 mg/dL (65-110); Potassium 3.6 mmol/L (3.4-5.0); Sodium 139 mmol/L (137-145)
[2022-05-21 08:20] LABS: Glucose Point of Care 138 mg/dl (65-105)
[2022-05-21] MEDS: IPRATROPIUM BR 0.02% INH SOLN 0.5 MG/2.5 ML VIAL INHALATION ×2 (09:09→19:37)
--- NOTE | 2022-05-21 09:41 | PCPTNOTE ---
Patient refused treatment this session due to wanting to eat, then rest. Stated come back later.
[2022-05-21] MEDS: PANTOPRAZOLE 40 MG TABLET PO (10:00)
[2022-05-21] MEDS: FUROSEMIDE 20 MG TABLET PO (10:00)
[2022-05-21] MEDS: TAMSULOSIN HCL 0.4 MG CAPSULE PO (10:00)
[2022-05-21] MEDS: PRAVASTATIN SODIUM 20 MG TABLET 40 MG PO (10:00)
[2022-05-21] MEDS: ENALAPRIL MALEATE 10 MG TABLET 20 MG PO (10:00)
[2022-05-21] MEDS: TOLNAFTATE 1% POWDER 45 GM BTL 1 APPLIC TOPICAL ×2 (10:01→20:41)
[2022-05-21] MEDS: BENZONATATE 100 MG CAPSULE PO ×3 (10:01→18:14)
[2022-05-21] MEDS: POTASSIUM CHLORIDE 20 MEQ PACKET (FOR LIQUID) 40 MEQ PO (10:01)
[2022-05-21] MEDS: hydrALAZINE HCL 25 MG TABLET PO ×4 (10:01→20:41)
[2022-05-21] MEDS: ENOXAPARIN 40 MG/0.4 ML SYRINGE SUB-Q (10:01)
[2022-05-21] MEDS: CHOLECALCIFEROL 1,000 UNITS TABLET 2000 UNITS PO (10:01)
[2022-05-21] MEDS: amLODIPine BESYLATE 5 MG TABLET 10 MG PO (10:01)
[2022-05-21] MEDS: VENLAFAXINE HCL XR 75 MG CAP.ER.24H PO (10:06)
--- NOTE | 2022-05-21 11:31 | PCRCNOTE ---
Pt refused 1200 tx, will attempt again for 1600 tx.
[2022-05-21 12:33] LABS: Glucose Point of Care 160 mg/dl (65-105)
--- NOTE | 2022-05-21 15:46 | PM.IMPN ---
Progress Note: A&P Assessment and Plan (1) Weakness: Code(s): R53.1 - Weakness Status: Acute (2) Diastolic dysfunction: Code(s): I51.89 - Other ill-defined heart diseases Status: Acute (3) Type 2 diabetes mellitus: Code(s): E11.9 - Type 2 diabetes mellitus without complications Status: Acute (4) Chronic obstructive pulmonary disease: Code(s): J44.9 - Chronic obstructive pulmonary disease, unspecified Status: Acute (5) CKD stage 3 due to type 2 diabetes mellitus: Code(s): E11.22 - Type 2 diabetes mellitus with diabetic chronic kidney disease; N18.30 - Chronic kidney disease, stage 3 unspecified Status: Acute (6) Morbid obesity with BMI of 40.0-44.9, adult: Code(s): E66.01 - Morbid (severe) obesity due to excess calories; Z68.41 - Body mass index [BMI] 40.0-44.9, adult Status: Acute (7) Pneumonia: Code(s): J18.9 - Pneumonia, unspecified organism Status: Acute Assessment and Plan: Generalized Weakness Pt will benefit from physial therapy prior to DC. Plan for SNF placement COVID Pt is covid positive pt is in isolation room not needing oxygen not on any steriods Added Tessalon perles Pneumonia CXr shows pneumonia Pt was initially treated with IV antibiotics Levaquin/ceftriaxone but now stopped. WBC count is normal. Will continue off of antibiotics Pt adviced to quit smoking. Bronchodilators. DM SSI and accuchecks HBA1c ( goal <7.0%) , Optimize REMINGTON-inhibitor and statin Routine glucose monitoring. Watch for Hypoglycemia. BMI goal < 25 Exercise, Diet ( low salt- low carb) Weight loss Routinely check for urine microalbuminuria Sliding scale as needed COPD Pt is on breathing treatments CHF watch creat add oral lasix CKD Creatinine 2.0 baseline creatinine high 1s to low 2s. Currently at baseline Continue to watch bmp Morbid obesity Keeping BMI less than 25. Routine exercises. Weight loss advised Subjective Date/time seen: 05/21/22 15:46 Interval history: No new complaints. Wants to go home. Generalized weakness. Review of Systems Review of Systems: All systems reviewed & are unremarkable except as noted in HPI and below Exam Narrative: GENERAL: morbidly obese not in acute distress NECK: Supple. No adenopathy, no masses. RESPIRATORY: Airway patent, respirations nonlabored. Clear to auscultation bilaterally, no rales, rhonchi, wheezing. CARDIOVASCULAR: Regular rate and rhythm without murmurs, rubs, or gallops. Peripheral pulses 2+ and equal bilaterally. ABDOMINAL: Soft, nontender, nondistended, no hepatosplenomegaly. Normoactive BS. MUSCULOSKELETAL: no Epigastric and no hypochondrial tenderness SKIN: Warm, dry, normal color. No rashes. NEURO: A&O X3. generalized weakness PSYCHIATRIC: Appropriate mood and affect. Normal interaction. Objective Data Vital Signs Vital Signs: Vital Signs - 24 hr 05/21/22 00:00 05/21/22 09:09 05/21/22 09:16 Temperature 98.1 F Pulse Rate 96 87 Respiratory Rate 22 H 20 20 Blood Pressure 150/83 H Pulse Oximetry 98 93 Oxygen Delivery Room Air 05/21/22 09:22 05/21/22 08:00 Temperature 97.4 F L Pulse Rate 88 85 Respiratory Rate 20 18 Blood Pressure 151/64 H Pulse Oximetry 97 Oxygen Delivery Intake/Output Intake/Output: Intake & Output 05/18/22 05/19/22 05/20/22 05/21/22 23:59 23:59 23:59 23:59 Intake Total 960 1040 480 342 Output Total 100 500 700 Balance 860 540 -220 342 Meds/Results Medications: Active Medications Generic Name Dose Route Start Last Admin Trade Name Freq PRN Reason Stop Dose Admin Acetaminophen 650 mg 05/19/22 18:36 Acetaminophen 325 Mg Tablet PO Q6H PRN Mild Pain (1-3) Or Fever Albuterol 2.5 mg 05/18/22 14:12 Albuterol Sulfate Neb 2.5 Mg/3 Ml Inh INHALATION Q4HRT PRN Shortness Of Breath Amlodipine Besylate 10 mg 05/19/22 09:00 05/21/22 10:01
[2022-05-21 17:29] LABS: Glucose Point of Care 195 mg/dl (65-105)
[2022-05-21] MEDS: QUEtiapine FUMARATE 25 MG TABLET PO (20:41)
[2022-05-21 20:58] LABS: Glucose Point of Care 178 mg/dl (65-105)
[2022-05-22] MEDS: IPRATROPIUM BR 0.02% INH SOLN 0.5 MG/2.5 ML VIAL INHALATION (00:05)
[2022-05-22 00:07] VITALS: PULSE 85; RESP 20
[2022-05-22 00:20] VITALS: PULSE 88; RESP 20
--- NOTE | 2022-05-22 02:08 | PC.NURSE ---
Patient appears confused on time. Patient has called the switch board and asked them to call his home. Foundation Coordinator informed him that it was 115am. Patient disagreed. Foundation Coordinator called and informed clinical writer of phone call. Bilingual Teacher Assistant entered patients room and discussed call with him. Patient disagreed that it was 115am. Patient then became distracted. At 2am patient was heard yelling out. Bilingual Teacher Assistant and another nurse enter room to see patient laying diagonal across end of bed. Patient asks for help sitting up, then requests to see his doctor so he can be discharged. Reminded patient that he spoke with his doctor earlier yesterday about his discharge. Patient states we have altered the time. Reminded the patient that it is 2am. Patient does not believe clinical writer and insists it is daytime sometime and clinical writer has created a time slash .
[2022-05-22 04:59] VITALS: BP 165/76; PULSE 86; RESP 20; TEMP 36.4; O2SAT 95
--- NOTE | 2022-05-22 05:22 | PCRCNOTE ---
pt refusing 0400 UPD
[2022-05-22 05:41] LABS: Basophils Absolute Auto 0.1 K/mm3 (0.0-0.1); Basophils Percent Auto 1.3 % (0.2-1.2); Eosinophils Absolute Auto 0.2 K/mm3 (0-0.3); Eosinophils Percent Auto 2.7 % (0-4.4); Hematocrit 32.7 % (42.0-52.0); Immature Granulocyte Absolute 0.45 K/mm3 (0.00-0.031); Immature Granulocyte Percent A 5.3 % (0-0.5); Lymphocytes Absolute Auto 0.91 K/mm3 (0.9-3.2); Lymphocytes Percent Auto 10.7 % (18.3-44.2); Mean Corpuscular HGB Conc 30.6 g/dl (32-36); Mean Corpuscular Hemoglobin 28.9 pg (26-34); Mean Corpuscular Volume 94.5 fl (80-100); Mean Platelet Volume 9.5 fl (7.4-10.4); Monocytes Absolute Auto 0.6 K/mm3 (0.1-0.6); Monocytes Percent Auto 7.5 % (2.6-8.5); Neutrophils Absolute Auto 6.2 K/mm3 (1.3-6.7); Neutrophils Percent Auto 72.5 % (45.5-73.1); Platelet Count Result 636 k/mm3 (150-375); Red Blood Count 3.46 M/mm3 (4.6-6.20); Red Cell Distribution Width 14.3 % (11.5-14.5); White Blood Count 8.5 K/mm3 (4.5-10.0)
[2022-05-22 05:52] LABS: Alanine Aminotransferase 24 U/L (6-50); Albumin Level 3.2 g/dL (3.5-5.1); Alkaline Phosphatase 79 U/L (38-126); Anion Gap 3 mmol/L (8-16); Aspartate Amino Transferase 26 U/L (17-59); Bilirubin,Total 0.4 mg/dL (0.2-1.3); Blood Urea Nitrogen 24 mg/dL (9-20); Carbon Dioxide 24 mmol/L (22-30); Chloride 105 mmol/L (98-107); Estimated CRCL calculation 33 ml/min; Estimated Glomerular Filt Rate 34; Glucose 135 mg/dL (65-110); Potassium 3.9 mmol/L (3.4-5.0); Sodium 132 mmol/L (137-145)
[2022-05-22 08:34] LABS: Glucose Point of Care 130 mg/dl (65-105)
[2022-05-22] MEDS: ENOXAPARIN 40 MG/0.4 ML SYRINGE SUB-Q (09:31)
[2022-05-22] MEDS: TAMSULOSIN HCL 0.4 MG CAPSULE PO (09:32)
[2022-05-22] MEDS: ENALAPRIL MALEATE 10 MG TABLET 20 MG PO (09:32)
[2022-05-22] MEDS: FUROSEMIDE 20 MG TABLET PO (09:32)
[2022-05-22] MEDS: PRAVASTATIN SODIUM 20 MG TABLET 40 MG PO (09:32)
[2022-05-22] MEDS: PANTOPRAZOLE 40 MG TABLET PO (09:32)
[2022-05-22] MEDS: BENZONATATE 100 MG CAPSULE PO (09:32)
[2022-05-22] MEDS: VENLAFAXINE HCL XR 75 MG CAP.ER.24H PO (09:32)
[2022-05-22] MEDS: CHOLECALCIFEROL 1,000 UNITS TABLET 2000 UNITS PO (09:32)
[2022-05-22] MEDS: amLODIPine BESYLATE 5 MG TABLET 10 MG PO (09:32)
[2022-05-22] MEDS: hydrALAZINE HCL 25 MG TABLET PO (09:32)
[2022-05-22] MEDS: POTASSIUM CHLORIDE 20 MEQ PACKET (FOR LIQUID) 40 MEQ PO (09:33)
[2022-05-22] MEDS: TOLNAFTATE 1% POWDER 45 GM BTL 1 APPLIC TOPICAL (09:33)
[2022-05-22] MEDS: ACETAMINOPHEN 325 MG TABLET 650 MG PO (09:52)
--- NOTE | 2022-05-22 12:03 | PM.DS ---
DS: Admitting Diagnosis Discharge Date 05/22/2022 Admitting Diagnosis generalized weakness DS: Discharge Diagnosis Discharge Diagnosis (1) Weakness: Code(s): R53.1 - Weakness Status: Acute (2) Diastolic dysfunction: Code(s): I51.89 - Other ill-defined heart diseases Status: Acute (3) Type 2 diabetes mellitus: Code(s): E11.9 - Type 2 diabetes mellitus without complications Status: Acute (4) Chronic obstructive pulmonary disease: Code(s): J44.9 - Chronic obstructive pulmonary disease, unspecified Status: Acute (5) CKD stage 3 due to type 2 diabetes mellitus: Code(s): E11.22 - Type 2 diabetes mellitus with diabetic chronic kidney disease; N18.30 - Chronic kidney disease, stage 3 unspecified Status: Acute (6) Morbid obesity with BMI of 40.0-44.9, adult: Code(s): E66.01 - Morbid (severe) obesity due to excess calories; Z68.41 - Body mass index [BMI] 40.0-44.9, adult Status: Acute (7) Pneumonia: Code(s): J18.9 - Pneumonia, unspecified organism Status: Acute DS: Summary Hospital Course Hospital Course: # Generalized? Weakness patient requiring full care from his unable to perform ADLs. Noncompliant with medications. Worsening shortness of breath. PT OT was performed during the hospital stay and recommended SNF placement. # COVID positive: Pt is covid positive pt is in isolation room not needing oxygen not on any steriods Added Tessalon perles Continue current management # Pneumonia CXr shows pneumonia Pt was initially treated with IV antibiotics Levaquin/ceftriaxone but now stopped.? WBC count is normal.? Will continue off of antibiotics Pt adviced to quit smoking. continue Bronchodilators. # type 2 diabetes mellitus: SSI and accuchecks HBA1c ( goal <7.0%) , Optimize REMINGTON-inhibitor and statin Routine glucose monitoring. Watch for Hypoglycemia. BMI goal < 25 Exercise, Diet ( low salt- low carb) Weight loss Routinely check for urine microalbuminuria Sliding scale as needed # COPD Pt is on breathing treatments #CHF watch creat on oral Lasix was resumed #CKD Creatinine 2.0 baseline creatinine high 1s to low 2s.? Currently at baseline Continue to watch bmp #Morbid obesity Keeping BMI less than 25. Routine exercises. Weight loss advised # disposition patient plan to be discharged to residential facility for further rehabilitation Time Spent with Patient Time attestation: Total time spent providing and/or coordinating discharge services: 45 minutes Exam Narrative: GENERAL: morbidly obese not in acute distress NECK: Supple. No adenopathy, no masses. RESPIRATORY: Airway patent, respirations nonlabored. Clear to auscultation bilaterally, no rales, rhonchi, wheezing. CARDIOVASCULAR: Regular rate and rhythm without murmurs, rubs, or gallops. Peripheral pulses 2+ and equal bilaterally. ABDOMINAL: Soft, nontender, nondistended, no hepatosplenomegaly. Normoactive BS. MUSCULOSKELETAL: no Epigastric and no hypochondrial tenderness SKIN: Warm, dry, normal color. No rashes. NEURO: A&O X3. generalized weakness PSYCHIATRIC: Appropriate mood and affect. Normal interaction. DS: Data Data Completed and Pending Labs on day of discharge: Labs from last 24 hours 05/22/22 05/22/22 05/22/22 08:21 05:33 05:33 WBC 8.5 RBC 3.46 L Hgb 10.0 L Hct 32.7 L MCV 94.5 D MCH 28.9 MCHC 30.6 L RDW 14.3 Plt Count 636 H MPV 9.5 Immature Gran % (Auto) 5.3 H Neut % (Auto) 72.5 Lymph % (Auto) 10.7 L Crowley % (Auto) 7.5 Eos % (Auto) 2.7 Baso % (Auto) 1.3 H Lymph # (Auto) 0.91 Crowley # (Auto) 0.6 Eos # (Auto) 0.2 Baso # (Auto) 0.1 Abs Immat Gran (auto) 0.45 H Absolute Neuts (auto) 6.2 Absolute Nucleated RBC 0.0 Nucleated RBC % 0.0 Sodium 132 L Potassium 3.9 Chloride 105 Carbon Dioxide 24 Anion Gap 3 L BUN 24 H Creatinine
[2022-05-22 12:22] LABS: Glucose Point of Care 174 mg/dl (65-105)
--- NOTE | 2022-05-22 12:34 | PC.NURSE ---
Call made to [facility] to give report. Shake Out Worker said they are awaiting nurse assignments, and will call me back.
== END 2022-05-22 13:40 ==
LOC: ANHED 05-18 01:35 → ANH3MED 05-18 02:37
PROVIDERS: Family Medicine; Internal Medicine; Admitting Provider Internal Medicine; Emergency Provider Nurse Practitioner Family; PCP Family Medicine Sports Medicine; Visit Provider Internal Medicine
DX: U07.1 COVID-19 (principal); R53.1 Weakness; J18.9 Pneumonia, unspecified organism; E03.9 Hypothyroidism, unspecified; G47.33 Obstructive sleep apnea (adult) (pediatric); E11.22 Type 2 diabetes mellitus with diabetic chronic kidney disease; I13.0 Hypertensive heart and chronic kidney disease with heart failure and stage 1 through stage 4 chronic kidney disease, or unspecified chronic kidney disease; N18.30 Chronic kidney disease, stage 3 unspecified; I50.9 Heart failure, unspecified; J44.9 Chronic obstructive pulmonary disease, unspecified; E66.01 Morbid (severe) obesity due to excess calories; Z68.41 Body mass index [BMI] 40.0-44.9, adult; Z72.0 Tobacco use
CPT/HCPCS: 36415; 71045; 80048; 80053; 81001; 82948; 83036; 83605; 83735; 83880; 84484; 85025; 85027; 85380; 87086; 87637; 93005; 94640; 96365; 96366; 96368; 96372; 96374; 96375; 97161; 97165; 97530; 97535; 99285; A9270; G0378; J0696; J1650; J1940; J1956

== ENCOUNTER 2023-12-17 20:35 | Inpatient (IN) | payer MEDICARE, SELFPAY ==
--- NOTE | ~2023-12-17 | CT_ITS ---
EXAMINATION: CT abdomen pelvis wo con DATE: 12/17/2023 21:21 INDICATION: Abdominal pain nausea vomiting TECHNIQUE: Computed tomography (CT) of the abdomen and pelvis was performed without intravenous contr ast. Automated exposure control and iterative reconstruction technique were employed. The dose-length product was 681.00 mGy-cm. COMPARISON: X-ray chest, same date and 05/17/2022; CTPA 12/27/2019. FINDINGS: Lower thorax: Moderate bilateral gynecomastia. Coronary artery calcifications. Multiple calcified gra nulomas. Small left pleural effusion, with pleural thickening. Dependent left lower lobe rounded atel ectasis. Calcified hilar nodes. Liver: Normal. Biliary/Gallbladder: Gallbladder is normal. No bile duct dilation. Pancreas: No mass or duct dilation. Spleen: Normal. Adrenals:2.1 cm right adrenal adenoma. Kidneys: Bilateral perinephric stranding. Bilateral cortical thinning. Renal sinus lipomatosis. Multi ple bilateral simple cysts. GI tract: No small or large bowel dilation. Appendix not confidently visualized. Diverticulosis witho ut diverticulitis. Mesentery/Peritoneum: No ascites, mass, or free air. Retroperitoneum: No mass. Atherosclerotic abdominal aortic and/or arterial calcifications. Small sacc ular infrarenal abdominal aortic aneurysm measuring 2.9 x 3.1 cm. Pelvis: Pelvic organs are within normal limits. Soft Tissues: Small bilateral fat-containing ventral hernias. Uncomplicated fat-containing supraumbil ical hernia. Small fat-containing uncomplicated appearing umbilical hernia superficial to hernia mesh . Bones: No acute osseous finding. IMPRESSION: Chronic, small left pleural effusion with pleural thickening and adjacent rounded atelectasis. No acute abdominopelvic process detected. Reviewed, dictated and finalized at location K. IMPRESSION: Chronic, small left pleural effusion with pleural thickening and adjacent round ed atelectasis. No acute abdominopelvic process detected.
--- NOTE | ~2023-12-17 | CT_ITS ---
EXAMINATION: CT brain wo con DATE: 12/17/2023 21:21 INDICATION: Syncope . TECHNIQUE: Computed tomography (CT) of the head was performed without intravenous contrast. The mA wa s adjusted according to patient size. Iterative reconstruction technique was employed. The dose-lengt h product was 681.00 mGy-cm. COMPARISON: None. FINDINGS: No acute intracranial hemorrhage or extra-axial fluid collection. No hydrocephalus, mass, or herniation. No acute ischemic infarct. Unremarkable dural venous sinus attenuation. No acute osseous abnormality. The aerated spaces are clear. Moderate atrophy and chronic white matter change. Atherosclerotic intracranial calcification. IMPRESSION: No acute intracranial process. Reviewed, dictated and finalized at location K.
--- NOTE | ~2023-12-17 | XR_ITS ---
EXAMINATION: XR chest 1V Exam Date/Time: 12/17/2023 21:15 CDT HISTORY: Weakness Comparison: CT abdomen pelvis, same date; x-ray chest 05/17/2022, 01/11/2022, 02/06/2021; CTPA 12/27/2019 . RESULT: Lines, tubes, and devices: None. Lungs and pleura: Multiple calcified hematomas. Mild left costophrenic angle blunting. Segmental lef t lower lung opacification. Cardiomediastinal silhouette: Stable. Multiple calcified nodes Other: No acute osseous or upper abdominal finding. IMPRESSION: Segmental left lower lung airspace disease, demonstrated to represent rounded atelectasis in the prio r CT. Chronic small left pleural effusion. Reviewed, dictated and finalized at location K. IMPRESSION: Segmental left lower lung airspace disease, demonstrated to represent rounded a telectasis in the prior CT. Chronic small left pleural effusion.
--- NOTE | 2023-12-17 20:42 | ECG_ITS ---
Test Date: 2023-12-17 20:44:04 Measurements Intervals [place] Rate: 71 P: 40 DE: 284 QRS: -64 QRSD: 160 T: 27 QT: 457 QTc: 497 Interpretive Statements SINUS RHYTHM WITH FIRST DEGREE AV BLOCK WITH OCCASIONAL SUPRAVENTRICULAR PREMATURE COMPLEXES RIGHT BUNDLE BRANCH BLOCK [120+ ms QRS DURATION, UPRIGHT V1, 40+ ms S IN I/aVL/V4/V5/V6] LEFT ANTERIOR FASCICULAR BLOCK [QRS AXIS <= -45, QR IN I, RS IN II] ABNORMAL ELECTROCARDIOGRAM No previous ECG available for comparison Electronically Signed On 12-18-2023 12:46:59 CDT by Henry Araujo M.D.
[2023-12-17 21:02] VITALS: BP 151/72; PULSE 72; RESP 22; TEMP 36.2; O2SAT 97
--- NOTE | 2023-12-17 21:21 | ED.GENADULT ---
HPI - General Adult General Chief complaint: Weakness Stated complaint: syncope Time Seen by Provider: 12/17/23 20:41 History of Present Illness HPI narrative: Patient is a 83-year-old gentleman who presents emergency department with chief complaint of lethargy and vomiting patient reports he has been feeling very weak and has had discomfort in his abdomen patient reports that passed out after vomiting patient receives Related Data Home Medications Medication Instructions Recorded Confirmed venlafaxine 75 mg capsule,extended 75 mg PO BID 12/26/19 05/18/22 release 24 hr levothyroxine 75 mcg tablet 75 mcg PO DAILY 05/30/20 05/18/22 pravastatin 40 mg tablet 40 mg PO DAILY 05/30/20 05/18/22 tamsulosin 0.4 mg capsule 0.4 mg PO DAILY 05/30/20 05/18/22 furosemide 20 mg tablet 20 mg PO DAILY 01/11/22 05/18/22 cholecalciferol (vitamin D3) 50 1 unit PO DAILY 05/18/22 05/18/22 mcg (2,000 unit) capsule (Vitamin D3) ipratropium 20 mcg-albuterol 100 2 puff inhalation QID PRN 05/18/22 05/18/22 mcg/actuation mist for inhalation Shortness Of Breath Or Wheezing (Combivent Respimat) metformin 500 mg tablet 1,000 mg PO BID 05/18/22 05/18/22 quetiapine 25 mg tablet 25 mg PO HS 05/18/22 05/18/22 Allergies Allergy/AdvReac Type Severity Reaction Status Date / Time No Known Allergies Allergy Verified 05/17/22 14:41 Review of Systems Review of Systems: A 10 system review of systems was completed on the patient and is negative except for what is stated in the HPI. Nursing and ancillary documentation was reviewed. [facility] Past Medical History Medical History Benign prostatic hyperplasia Chronic anemia Chronic kidney disease Chronic obstructive pulmonary disease Depression with anxiety Diastolic dysfunction Hyperlipidemia Hypertension Hypothyroidism Obstructive sleep apnea on CPAP Type 2 diabetes mellitus Surgical History Surgical History History of appendectomy History of hydrocelectomy Family History Family History Mother Natural Father Natural with unknown cause Social History Social History Social History: The patient lives in his own home in [place]. He is and has 5 children. He was a social smoker and quit well over 20 years ago though he still has an occasional cigarette here there. He drinks alcohol rarely and in moderation. No illicit substance abuse. He designates his brother Brayden Rosen as his surrogate decision maker new wishes to be a full code. Smoking packs per day: 0.5 Smoking cigarettes per day: 10.0 Years smoked: 15 Smoking pack-years: 7.50 Smoking status: Former smoker Tobacco type: cigarettes Second hand tobacco smoke exposure: No Alcohol intake: former Drinks per week: 1 Substance use: never Substance use type: does not use Lack of Transportation: No Lack of Food: Never True Current Housing: I Have Housing Concerned About Future Housing: No Difficulty Paying Gas/Electric Bills: No Difficulty Paying for Meds: No Currently Unemployed: No Education: High School Diploma/GED Difficulty w/ Childcare or Family Care: No Spiritual care concerns: No Exam Narrative: GENERAL: Well-appearing, well-nourished, and in no acute distress. HEAD: Normocephalic, atraumatic. EYES: PERRLA and EOMI. ENT: Nares clear, no rhinorrhea or epistaxis. Mucous membranes moist. NECK: Supple. CHEST: Clear to auscultation. No respiratory distress. HEART: Regular rate and rhythm. No murmur heard. Normal peripheral pulses. ABDOMEN: Soft, diffuse mild tenderness, nondistended, normal active bowel sounds. EXTREMITIES: Normal range of motion. No edema. SKIN: Warm, dry, no rash. NEURO: No focal defic
[2023-12-17 21:39] LABS: Basophils Absolute Auto 0.1 K/mm3 (0.0-0.1); Basophils Percent Auto 0.7 % (0.2-1.2); Eosinophils Absolute Auto 0.1 K/mm3 (0-0.3); Eosinophils Percent Auto 0.5 % (0-4.4); Hematocrit 33.4 % (42.0-52.0); Immature Granulocyte Absolute 0.06 K/mm3 (0.00-0.031); Immature Granulocyte Percent A 0.6 % (0-0.5); Lymphocytes Absolute Auto 0.88 K/mm3 (0.9-3.2); Mean Corpuscular HGB Conc 29.9 g/dl (32-36); Mean Corpuscular Hemoglobin 25.1 pg (26-34); Mean Corpuscular Volume 83.7 fl (80-100); Mean Platelet Volume 9.3 fl (7.4-10.4); Monocytes Absolute Auto 0.6 K/mm3 (0.1-0.6); Monocytes Percent Auto 5.7 % (2.6-8.5); Neutrophils Absolute Auto 8.2 K/mm3 (1.3-6.7); Neutrophils Percent Auto 83.5 % (45.5-73.1); Platelet Count Result 644 k/mm3 (150-375); Red Blood Count 3.99 M/mm3 (4.6-6.20); Red Cell Distribution Width 17.3 % (11.5-14.5); White Blood Count 9.8 K/mm3 (4.5-10.0)
[2023-12-17 21:51] LABS: Lactic Acid Reflex 1.5 mmol/L (0.7-2.0)
[2023-12-17] MEDS: ONDANSETRON INJ 4 MG/2 ML VIAL IV PUSH (21:52)
[2023-12-17] MEDS: SODIUM CHLORIDE 0.9% IV 1,000 ML 999 ML IV CONT (21:52)
[2023-12-17 21:53] LABS: Magnesium 1.7 mg/dL (1.6-2.3)
[2023-12-17 22:04] LABS: Troponin I < 0.012 ng/mL (0.000-0.034)
[2023-12-17 22:13] LABS: Anisocytosis 1+; Hypochromasia 1+; Platelet Estimate Increased (Adequate)
[2023-12-17 22:14] LABS: Schistocytes None Seen
[2023-12-17 22:38] VITALS: PULSE 79
[2023-12-17 22:38] LABS: Procalcitonin 0.1 ng/mL
[2023-12-17 22:43] VITALS: BP 151/89; PULSE 79; RESP 16; TEMP 36.2; O2SAT 99
[2023-12-17 22:54] LABS: Add Urine Microscopic? YES; Appearance Urine Clear (Clear); Bacteria Urine None Seen /hpf; Bilirubin Urine Negative (Negative); Blood Urine Negative (Negative); Color Urine Yellow (Yellow); Glucose Urine UA 3+ mg/dL (Negative); Ketones Urine Negative (Negative); Leukocyte Esterase Ur 1+ LEU/UL (Negative); Nitrate Urine Negative (Negative); Protein Urine 3+ mg/dL (Negative); RBC Urine 0-2 /hpf (0-2); Specific Grav Ur 1.014 (1.001-1.035); Squamous Epithelial Cell Urine Occasional /hpf (Few); WBC Urine 51-100 /hpf (0-3); pH Urine 5.5 (5.0-9.0)
[2023-12-17 23:03] LABS: Alanine Aminotransferase 10 U/L (6-50); Alkaline Phosphatase 80 U/L (38-126); Anion Gap 8 mmol/L (4-12); Aspartate Amino Transferase 17 U/L (17-59); Bilirubin,Total 0.3 mg/dL (0.2-1.3); Blood Urea Nitrogen 37 mg/dL (9-20); Calcium 8.2 mg/dL (8.4-10.2); Carbon Dioxide 25 mmol/L (22-30); Chloride 101 mmol/L (98-107); Estimated CRCL calculation 36 ml/min; Estimated Glomerular Filt Rate 38; Glucose 143 mg/dL (65-110); Lipase 231 U/L (23-300); Potassium 3.8 mmol/L (3.4-5.0); Sodium 134 mmol/L (137-145)
[2023-12-18] VITALS (16 sets, daily range): BP systolic 114–186; BP diastolic 45–95; PULSE 16–97; RESP 14–99; TEMP 35.8–37.2; O2SAT 94–101
--- NOTE | 2023-12-18 01:27 | PM.IMHP ---
H&P: HPI History of Present Illness Date/Time: 12/18/23 01:27 Chief Complaint: syncope Narrative: This is an 83-year-old male with past medical history significant for diabetes mellitus, chronic kidney disease, COPD, depression with anxiety, diastolic dysfunction, obstructive sleep apnea on CPAP, type diabetes mellitus, chronic anemia, benign prostatic hyperplasia. Patient presents to the emergency room after having a spell of nausea vomiting followed by a syncopal episode. In emergency room patient was found to have a urinalysis with numerous WBCs present, at the time of my visit patient was in mild distress vomiting unable to really contribute in a meaningful way to history taking. EXAMINATION: CT brain wo con DATE: 12/17/2023 21:21 INDICATION: Syncope . TECHNIQUE: Computed tomography (CT) of the head was performed without intravenous contrast. The mA was adjusted according to patient size. Iterative reconstruction technique was employed. The dose-length product was 681.00 mGy-cm. COMPARISON: None. FINDINGS: No acute intracranial hemorrhage or extra-axial fluid collection. No hydrocephalus, mass, or herniation. No acute ischemic infarct. Unremarkable dural venous sinus attenuation. No acute osseous abnormality. The aerated spaces are clear. Moderate atrophy and chronic white matter change. Atherosclerotic intracranial calcification. IMPRESSION: No acute intracranial process. EXAMINATION: CT abdomen pelvis wo con DATE: 12/17/2023 21:21 INDICATION: Abdominal pain nausea vomiting TECHNIQUE: Computed tomography (CT) of the abdomen and pelvis was performed without intravenous contrast. Automated exposure control and iterative reconstruction technique were employed. The dose-length product was 681.00 mGy-cm. COMPARISON: X-ray chest, same date and 05/17/2022; CTPA 12/27/2019. FINDINGS: Lower thorax: Moderate bilateral gynecomastia. Coronary artery calcifications. Multiple calcified granulomas. Small left pleural effusion, with pleural thickening. Dependent left lower lobe rounded atelectasis. Calcified hilar nodes. Liver: Normal. Biliary/Gallbladder: Gallbladder is normal. No bile duct dilation. Pancreas: No mass or duct dilation. Spleen: Normal. Adrenals:2.1 cm right adrenal adenoma. Kidneys: Bilateral perinephric stranding. Bilateral cortical thinning. Renal sinus lipomatosis. Multiple bilateral simple cysts. GI tract: No small or large bowel dilation. Appendix not confidently visualized. Diverticulosis without diverticulitis. Mesentery/Peritoneum: No ascites, mass, or free air. Retroperitoneum: No mass. Atherosclerotic abdominal aortic and/or arterial calcifications. Small saccular infrarenal abdominal aortic aneurysm measuring 2.9 x 3.1 cm. Pelvis: Pelvic organs are within normal limits. Soft Tissues: Small bilateral fat-containing ventral hernias. Uncomplicated fat-containing supraumbilical hernia. Small fat-containing uncomplicated appearing umbilical hernia superficial to hernia mesh. Bones: No acute osseous finding. IMPRESSION: Chronic, small left pleural effusion with pleural thickening and adjacent rounded atelectasis. No acute abdominopelvic process detected. EXAMINATION: XR chest 1V Exam Date/Time: 12/17/2023 21:15 CDT HISTORY: Weakness Comparison: CT abdomen pelvis, same date; x-ray chest 05/17/2022, 01/11/2022, 02/06/2021; CTPA 12/27/2019. RESULT: Lines, tubes, and devices: None. Lungs and pleura: Multiple calcified hematomas. Mild left costophrenic angle blunting. Segmental left lower lung opacification. Cardiomediastinal silhouette: Stable. Multiple calcified nodes Other: No acute osseous or upper abdominal finding. IMPRESSION: Segmental left lower lung airspace disease, demonstrated to represent rounded atelectasis in the prior CT. Chronic small left pleural effusion. Review of Systems Review of Systems: syncope, n/v PMFSH Past Medical History Me
[2023-12-18] MEDS: ONDANSETRON INJ 4 MG/2 ML VIAL IV PUSH ×2 (05:35→09:40)
--- NOTE | 2023-12-18 05:51 | ADMGEN ---
This patient, Gianfranco Rosen, was admitted to 3 [facility] S[facility] Room 316-02. Patient/family oriented to hospital policies and general routines including ID bracelet, bed and alarms, visiting hours, pain management, procedures, bathroom and other care routines, personal items, smoking policy, room service/diet, and visiting hours. Information on how to activate the Rapid Response Team has been discussed. Patient/Family are encouraged to report perceived risks to care and to ask questions if they do not understand what they are told or what they should do.
--- NOTE | 2023-12-18 05:51 | PC.NURSE ---
Attempted to call Laura (patients spouse) and Celsa (POA) and was unable to reach them at this time. Pt unsure of his home medications. Remainder of admission will be attempted.
[2023-12-18] MEDS: MEROPENEM 1 GM/NS 100 ML 1 GM/100 ML BAG IVPB (06:29)
[2023-12-18] MEDS: SODIUM CHLORIDE 0.9% IV 1,000 ML 100 ML IV CONT ×2 (06:30→17:20)
--- NOTE | 2023-12-18 09:44 | PM.IMPN ---
Progress Note: A&P Assessment and Plan (1) Syncope: Code(s): R55 - Syncope and collapse Status: Acute Assessment and Plan: He states he does not remembering having a syncopal episode and rather notes that he just felt whirly and lightheaded . Denies biting his tongue, incontinence or increased confusion. He is unsure if he had recently stood up prior to feeling this way. Possible that he vagaled secondary to vomiting. - Orthostatics positive, holding hydralazine. Possible that patients blood pressures were getting too low as he does not check his BP. - No longer reporting nausea/vomiting - Monitor (2) Acute UTI: Code(s): N39.0 - Urinary tract infection, site not specified Status: Acute Assessment and Plan: - UA: clear appearance with 3+ protein, 3+ glucose, 1+ leukocytes, 51-100 WBC, occasional squamous epithelial cells. Possible contaminant. - UC obtained on 12/17: pending - previous micro reviewed 01/11/22: klebsiella pneumoniae pansensitive - started on rocephin on 12/17 (3) Type 2 diabetes mellitus: Code(s): E11.9 - Type 2 diabetes mellitus without complications Status: Acute Assessment and Plan: - hypoglycemia protocol - POC blood glucose ACHS - home medication - metformin - correct regimen ordered - low dose TIDWM - A1C ordered (4) HTN (hypertension): Code(s): I10 - Essential (primary) hypertension Status: Chronic Assessment and Plan: Chronic, however patient noted to have positive orthostatic blood pressures Continue amlodipine 10 mg daily, enalapril 20 mg daily, lasix 20 mg daily Holding hydralazine 25 mg QID Monitor (5) Hypothyroidism: Code(s): E03.9 - Hypothyroidism, unspecified Status: Chronic Assessment and Plan: Chronic, continue home medications. - Synthroid daily Time Spent With Patient Time with patient: 25 - 35 minutes Subjective Date/time seen: 12/18/23 09:44 Interval history: 83-year-old male with COPD, hypertension, type 2 diabetes mellitus, congestive heart failure, hypothyroidism, and sleep apnea presented to hospital for lethargy and a possible syncopal episode after vomiting. Patient is pleasant lying comfortably in bed. Patient is a poor historian. He states he does not remembering having a syncopal episode and rather notes that he just felt whirly and lightheaded . He denies biting his tongue, incontinence and increased confusion. He is unsure if he had recently stood up prior to feeling this way. He does remember vomiting, but does not know if there was hematemesis. Patient was started on supplemental oxygen in on the ambulance for a O2 saturation of 92%. Will continue to wean him at this time. Patient denies chest pain, shortness of breath, nausea/vomiting and changes in bowel and bladder. Remains on rocephin. Review of Systems Review of Systems: All systems reviewed & are unremarkable except as noted in HPI and below Exam Narrative: AF HR 80 RR 20 SpO2 99 BP 137/55 General: male in no acute respiratory distress who is nontoxic appearing, lying semi recumbent in bed. HEENT: Normocephalic. Atraumatic. Pupils equal round reactive to light. Extraocular movement intact. Sclera clear and anicteric. No facial asymmetry. Chest: Lungs are clear to auscultation bilaterally. No wheezes or crackles. CV: Heart was regular rate and rhythm. S1/S2. No murmurs, gallops, or rubs. Abd: Abdomen was soft. Nontender. Nondistended. Positive bowel sounds. No organomegaly or masses. Ext: No clubbing, cyanosis, or edema. 2+ DP pulses bilaterally. Neuro: Patient is alert and oriented x4. Cranial nerves 2-12 are intact. Speech is clear. Psych: Normal mood and affect. Patient is pleasant and cooperative. Skin: Warm and dry. No rashes noted. Objective Data Vital Signs Vital Signs: Vital Signs - 24 hr 12/17/23 21:02 12/17/23 22:38 12/17/23 22:43 Temperature 97.1 F L 97.1 F L Pulse Rate 72 79 79 Resp
[2023-12-18 10:32] LABS: Basophils Percent Auto 0.4 % (0.2-1.2); Eosinophils Percent Auto 0.3 % (0-4.4); Hematocrit 31.4 % (42.0-52.0); Hemoglobin 9.5 g/dL (14.0-18.0); Immature Granulocyte Absolute 0.05 K/mm3 (0.00-0.031); Immature Granulocyte Percent A 0.5 % (0-0.5); Lymphocytes Absolute Auto 0.59 K/mm3 (0.9-3.2); Lymphocytes Percent Auto 6.4 % (18.3-44.2); Mean Corpuscular HGB Conc 30.3 g/dl (32-36); Mean Corpuscular Hemoglobin 25.1 pg (26-34); Mean Corpuscular Volume 83.1 fl (80-100); Mean Platelet Volume 9.4 fl (7.4-10.4); Monocytes Absolute Auto 0.6 K/mm3 (0.1-0.6); Neutrophils Absolute Auto 7.9 K/mm3 (1.3-6.7); Neutrophils Percent Auto 86.4 % (45.5-73.1); Platelet Count Result 721 k/mm3 (150-375); Red Blood Count 3.78 M/mm3 (4.6-6.20); Red Cell Distribution Width 17.3 % (11.5-14.5); White Blood Count 9.2 K/mm3 (4.5-10.0)
[2023-12-18 10:41] LABS: Alanine Aminotransferase 10 U/L (6-50); Alkaline Phosphatase 71 U/L (38-126); Anion Gap 7 mmol/L (4-12); Aspartate Amino Transferase 25 U/L (17-59); Bilirubin,Total 0.4 mg/dL (0.2-1.3); Blood Urea Nitrogen 33 mg/dL (9-20); Carbon Dioxide 26 mmol/L (22-30); Chloride 102 mmol/L (98-107); Estimated CRCL calculation 34 ml/min; Estimated Glomerular Filt Rate 36; Glucose 147 mg/dL (65-110); Potassium 3.6 mmol/L (3.4-5.0); Sodium 135 mmol/L (137-145)
[2023-12-18] MEDS: VENLAFAXINE HCL XR 75 MG CAP.ER.24H PO (17:21)
[2023-12-18 19:01] LABS: Glucose Point of Care 108 mg/dl (65-105)
[2023-12-18] MEDS: TOLNAFTATE 1% POWDER 45 GM BTL 1 APPLIC TOPICAL (20:25)
[2023-12-18 21:07] LABS: Glucose Point of Care 140 mg/dl (65-105)
[2023-12-18] MEDS: ACETAMINOPHEN 325 MG TABLET 650 MG PO (21:34)
[2023-12-19] VITALS (14 sets, daily range): BP systolic 117–178; BP diastolic 62–110; PULSE 70–94; RESP 18; TEMP 36.2–36.6; O2SAT 93–100
[2023-12-19] MEDS: LEVOTHYROXINE SODIUM 75 MCG TABLET PO (05:28)
[2023-12-19 07:17] LABS: Basophils Absolute Auto 0.1 K/mm3 (0.0-0.1); Basophils Percent Auto 0.8 % (0.2-1.2); Eosinophils Absolute Auto 0.1 K/mm3 (0-0.3); Eosinophils Percent Auto 1.2 % (0-4.4); Hematocrit 32.7 % (42.0-52.0); Hemoglobin 9.8 g/dL (14.0-18.0); Immature Granulocyte Absolute 0.04 K/mm3 (0.00-0.031); Immature Granulocyte Percent A 0.5 % (0-0.5); Lymphocytes Absolute Auto 0.86 K/mm3 (0.9-3.2); Lymphocytes Percent Auto 11.7 % (18.3-44.2); Mean Corpuscular Hemoglobin 25.3 pg (26-34); Mean Corpuscular Volume 84.3 fl (80-100); Mean Platelet Volume 9.8 fl (7.4-10.4); Monocytes Absolute Auto 0.5 K/mm3 (0.1-0.6); Monocytes Percent Auto 7.1 % (2.6-8.5); Neutrophils Absolute Auto 5.8 K/mm3 (1.3-6.7); Neutrophils Percent Auto 78.7 % (45.5-73.1); Platelet Count Result 710 k/mm3 (150-375); Red Blood Count 3.88 M/mm3 (4.6-6.20); Red Cell Distribution Width 17.2 % (11.5-14.5); White Blood Count 7.3 K/mm3 (4.5-10.0)
[2023-12-19 07:24] LABS: Alanine Aminotransferase 9 U/L (6-50); Albumin Level 2.9 g/dL (3.5-5.1); Alkaline Phosphatase 75 U/L (38-126); Anion Gap 7 mmol/L (4-12); Aspartate Amino Transferase 18 U/L (17-59); Bilirubin,Total 0.3 mg/dL (0.2-1.3); Blood Urea Nitrogen 27 mg/dL (9-20); Calcium 7.9 mg/dL (8.4-10.2); Carbon Dioxide 22 mmol/L (22-30); Chloride 104 mmol/L (98-107); Estimated CRCL calculation 36 ml/min; Estimated Glomerular Filt Rate 38; Glucose 104 mg/dL (65-110); Potassium 3.5 mmol/L (3.4-5.0); Sodium 133 mmol/L (137-145)
[2023-12-19 07:36] LABS: Hemoglobin A1C 6.2 % (<5.7)
[2023-12-19 07:53] LABS: Glucose Point of Care 109 mg/dl (65-105)
--- NOTE | 2023-12-19 09:33 | PM.IMPN ---
Progress Note: A&P Assessment and Plan (1) Syncope: Code(s): R55 - Syncope and collapse Status: Acute Assessment and Plan: He states he does not remembering having a syncopal episode and rather notes that he just felt whirly and lightheaded . Denies biting his tongue, incontinence or increased confusion. He is unsure if he had recently stood up prior to feeling this way. Possible that he vagaled secondary to vomiting. - Orthostatics positive, holding hydralazine. Possible that patients blood pressures were getting too low as he does not check his BP. - No longer reporting nausea/vomiting - Monitor 12/18: Patients orthostatics remain positive, but the pressures also remain elevated. He denies dizziness/lightheadedness when ambulating throughout his room. His fluids were discontinued as he continues to have hypertension with them. (2) Acute UTI: Code(s): N39.0 - Urinary tract infection, site not specified Status: Acute Assessment and Plan: - UA: clear appearance with 3+ protein, 3+ glucose, 1+ leukocytes, 51-100 WBC, occasional squamous epithelial cells. Possible contaminant. - UC obtained on 12/17: preliminary- coag neg staph, not saprophyti - previous micro reviewed 01/11/22: klebsiella pneumoniae pansensitive - started on rocephin on 12/17 (3) Type 2 diabetes mellitus: Code(s): E11.9 - Type 2 diabetes mellitus without complications Status: Acute Assessment and Plan: - hypoglycemia protocol - POC blood glucose ACHS - home medication - metformin - correct regimen ordered - low dose TIDWM - A1C 6.2 (4) HTN (hypertension): Code(s): I10 - Essential (primary) hypertension Status: Chronic Assessment and Plan: Chronic, however patient noted to have positive orthostatic blood pressures Continue amlodipine 10 mg daily, enalapril 20 mg daily, lasix 20 mg daily Holding hydralazine 25 mg QID Discontinue IV fluids Monitor (5) Hypothyroidism: Code(s): E03.9 - Hypothyroidism, unspecified Status: Chronic Assessment and Plan: Chronic, continue home medications. - Synthroid daily Time Spent With Patient Time with patient: 25 - 35 minutes Subjective Date/time seen: 12/19/23 09:33 Interval history: 83-year-old male with COPD, hypertension, type 2 diabetes mellitus, congestive heart failure, hypothyroidism, and sleep apnea presented to hospital for lethargy and a possible syncopal episode after vomiting. Patient is pleasant lying comfortably in bed. He does appear a bit short of breath, but he notes that he had just gotten done ambulating throughout his room. He was able to be weaned off the O2 today and denies shortness of breath. He continues to have positve orthostatic vital signs, however he denies dizziness/lightheadedness during them. Discussed with him the importance of slow position changes. Patient denies urinary symptoms and remains on rocephin at this time. Review of Systems Review of Systems: All systems reviewed & are unremarkable except as noted in HPI and below Exam Narrative: AF HR 92 RR 18 SpO2 98 RA BP 131/110 General: male in no acute respiratory distress who is nontoxic appearing, lying semi recumbent in bed. Chest: Lungs are clear to auscultation bilaterally. No wheezes or crackles. CV: Heart was regular rate and rhythm. S1/S2. No murmurs, gallops, or rubs. Abd: Abdomen was soft. Nontender. Nondistended. Positive bowel sounds. No organomegaly or masses. Ext: No clubbing, cyanosis, or edema. 2+ DP pulses bilaterally. Neuro: Patient is alert and oriented x4. Cranial nerves 2-12 are intact. Speech is clear. Psych: Normal mood and affect. Patient is pleasant and cooperative. Skin: Warm and dry. No rashes noted. Objective Data Vital Signs Vital Signs: Vital Signs - 24 hr 12/18/23 12:30 12/18/23 12:00 12/18/23 12:32 Temperature Pulse Rate 82 80 84 Respiratory Rate Blood Pressure 152/57 H 14
[2023-12-19] MEDS: SODIUM CHLORIDE 0.9% IV 1,000 ML 100 ML IV CONT (10:17)
[2023-12-19] MEDS: FUROSEMIDE 20 MG TABLET PO (10:18)
[2023-12-19] MEDS: amLODIPine BESYLATE 10 MG TABLET PO (10:18)
[2023-12-19] MEDS: TAMSULOSIN HCL 0.4 MG CAPSULE PO (10:18)
[2023-12-19] MEDS: PRAVASTATIN SODIUM 20 MG TABLET 40 MG PO (10:18)
[2023-12-19] MEDS: ENALAPRIL MALEATE 10 MG TABLET 20 MG PO (10:18)
[2023-12-19] MEDS: VENLAFAXINE HCL XR 75 MG CAP.ER.24H PO ×2 (10:19→17:59)
[2023-12-19] MEDS: TOLNAFTATE 1% POWDER 45 GM BTL 1 APPLIC TOPICAL ×2 (10:19→22:01)
[2023-12-19 11:32] LABS: Glucose Point of Care 121 mg/dl (65-105)
[2023-12-19 16:41] LABS: Glucose Point of Care 140 mg/dl (65-105)
--- NOTE | 2023-12-19 18:26 | PC.NURSE ---
On 12/19/23, the PREVENTIVE MEDICINE PHYSICIAN, Marina Olivera, provided care and completed [employer] documentation on this patient. I have reviewed the PREVENTIVE MEDICINE PHYSICIAN's documentation and agree with the findings.
[2023-12-20] VITALS (9 sets, daily range): BP systolic 124–162; BP diastolic 54–70; PULSE 58–90; RESP 18–20; TEMP 36.3–37.3; O2SAT 96–100
[2023-12-20] MEDS: LEVOTHYROXINE SODIUM 75 MCG TABLET PO (05:52)
[2023-12-20 06:36] LABS: Basophils Absolute Auto 0.1 K/mm3 (0.0-0.1); Eosinophils Absolute Auto 0.1 K/mm3 (0-0.3); Eosinophils Percent Auto 1.4 % (0-4.4); Hemoglobin 9.8 g/dL (14.0-18.0); Immature Granulocyte Absolute 0.05 K/mm3 (0.00-0.031); Immature Granulocyte Percent A 0.7 % (0-0.5); Lymphocytes Absolute Auto 0.88 K/mm3 (0.9-3.2); Lymphocytes Percent Auto 12.3 % (18.3-44.2); Mean Corpuscular HGB Conc 30.6 g/dl (32-36); Mean Corpuscular Hemoglobin 25.1 pg (26-34); Mean Corpuscular Volume 82.1 fl (80-100); Mean Platelet Volume 9.2 fl (7.4-10.4); Monocytes Absolute Auto 0.5 K/mm3 (0.1-0.6); Monocytes Percent Auto 6.8 % (2.6-8.5); Neutrophils Absolute Auto 5.6 K/mm3 (1.3-6.7); Neutrophils Percent Auto 77.8 % (45.5-73.1); Platelet Count Result 717 k/mm3 (150-375); Red Cell Distribution Width 17.2 % (11.5-14.5); White Blood Count 7.2 K/mm3 (4.5-10.0)
[2023-12-20 06:44] LABS: Alanine Aminotransferase 11 U/L (6-50); Albumin Level 2.8 g/dL (3.5-5.1); Alkaline Phosphatase 66 U/L (38-126); Anion Gap 8 mmol/L (4-12); Aspartate Amino Transferase 20 U/L (17-59); Bilirubin,Total 0.2 mg/dL (0.2-1.3); Blood Urea Nitrogen 24 mg/dL (9-20); Carbon Dioxide 25 mmol/L (22-30); Chloride 101 mmol/L (98-107); Estimated CRCL calculation 36 ml/min; Estimated Glomerular Filt Rate 38; Glucose 114 mg/dL (65-110); Potassium 3.5 mmol/L (3.4-5.0); Sodium 134 mmol/L (137-145)
[2023-12-20 08:06] LABS: Glucose Point of Care 116 mg/dl (65-105)
[2023-12-20] MEDS: VENLAFAXINE HCL XR 75 MG CAP.ER.24H PO ×2 (08:45→17:18)
[2023-12-20] MEDS: PRAVASTATIN SODIUM 20 MG TABLET 40 MG PO (08:45)
[2023-12-20] MEDS: amLODIPine BESYLATE 10 MG TABLET PO (08:46)
[2023-12-20] MEDS: ENALAPRIL MALEATE 10 MG TABLET 20 MG PO (08:46)
[2023-12-20] MEDS: TAMSULOSIN HCL 0.4 MG CAPSULE PO (08:46)
[2023-12-20] MEDS: TOLNAFTATE 1% POWDER 45 GM BTL 1 APPLIC TOPICAL ×2 (08:46→20:21)
[2023-12-20] MEDS: FUROSEMIDE 20 MG TABLET PO (08:46)
[2023-12-20 11:29] LABS: Glucose Point of Care 134 mg/dl (65-105)
[2023-12-20 16:19] LABS: Glucose Point of Care 146 mg/dl (65-105)
--- NOTE | 2023-12-20 16:22 | PM.IMPN ---
Progress Note: A&P Assessment and Plan (1) Syncope: Code(s): R55 - Syncope and collapse Status: Acute Assessment and Plan: He states he does not remembering having a syncopal episode and rather notes that he just felt whirly and lightheaded . Denies biting his tongue, incontinence or increased confusion. He is unsure if he had recently stood up prior to feeling this way. Possible that he vagaled secondary to vomiting. - Orthostatics positive, holding hydralazine. Possible that patients blood pressures were getting too low as he does not check his BP. - No longer reporting nausea/vomiting - Monitor 12/18: Patients orthostatics remain positive, but the pressures also remain elevated. He denies dizziness/lightheadedness. His fluids were discontinued as he continues to have hypertension with them. 12/19: Patients orthostatics are negative. He denies dizziness/lightheadedness. (2) Acute UTI: Code(s): N39.0 - Urinary tract infection, site not specified Status: Acute Assessment and Plan: - UA: clear appearance with 3+ protein, 3+ glucose, 1+ leukocytes, 51-100 WBC, occasional squamous epithelial cells. Possible contaminant. - UC obtained on 12/17: preliminary- coag neg staph, not saprophyti - previous micro reviewed 01/11/22: klebsiella pneumoniae pansensitive - started on Rocephin on 12/17, discontinued on 12/19 as culture is likely contaminant and patient is asymptomatic (3) Type 2 diabetes mellitus: Code(s): E11.9 - Type 2 diabetes mellitus without complications Status: Acute Assessment and Plan: - hypoglycemia protocol - POC blood glucose ACHS - home medication - metformin - correct regimen ordered - low dose TIDWM - A1C 6.2 (4) HTN (hypertension): Code(s): I10 - Essential (primary) hypertension Status: Chronic Assessment and Plan: Chronic, however patient noted to have positive orthostatic blood pressures Continue amlodipine 10 mg daily, enalapril 20 mg daily, lasix 20 mg daily Holding hydralazine 25 mg QID Discontinue IV fluids Monitor (5) Hypothyroidism: Code(s): E03.9 - Hypothyroidism, unspecified Status: Chronic Assessment and Plan: Chronic, continue home medications. - Synthroid daily (6) Weakness: Code(s): R53.1 - Weakness Status: Acute Assessment and Plan: He was wishing to go home and I attempted to have patient ambulate throughout his room to ensure safety upon discharge, however he had increased difficulty standing on the side of his bed. He required assistance and was unable to stand for an extended period of time. Discussed with patient that he needs to have PT evaluate him to ensure he is safe to go home vs home health vs SNF. - PT ordered Time Spent With Patient Time with patient: 25 - 35 minutes Subjective Date/time seen: 12/20/23 16:22 Interval history: 83-year-old male with COPD, hypertension, type 2 diabetes mellitus, congestive heart failure, hypothyroidism, and sleep apnea presented to hospital for lethargy and a possible syncopal episode after vomiting. Patient is pleasant sitting on the side of the bed. He has no complaints at this time, denying chest pain, shortness of breath, nausea/vomiting and changes in bowel/bladder. He had orthostatic vital signs done today which were negative. He denies dizziness and lightheadedness. Patient had not been seen by PT/OT. He was wishing to go home and I attempted to have patient ambulate throughout his room to ensure safety upon discharge, however he had increased difficulty standing on the side of his bed. He required assistance and was unable to stand for an extended period of time. Discussed with patient that he needs to have PT evaluate him to ensure he is safe to go home vs home health vs SNF. He states understanding. Review of Systems Review of Systems: All systems reviewed & are unremarkable except as noted in HPI and below Exam Narra
[2023-12-20 20:41] LABS: Glucose Point of Care 145 mg/dl (65-105)
[2023-12-21] VITALS (10 sets, daily range): BP systolic 90–166; BP diastolic 68–81; PULSE 65–88; RESP 16–20; TEMP 36.4–36.7; O2SAT 96–98
[2023-12-21] MEDS: LEVOTHYROXINE SODIUM 75 MCG TABLET PO (06:06)
[2023-12-21 07:41] LABS: Glucose Point of Care 106 mg/dl (65-105)
[2023-12-21 07:50] LABS: Basophils Absolute Auto 0.1 K/mm3 (0.0-0.1); Eosinophils Absolute Auto 0.2 K/mm3 (0-0.3); Eosinophils Percent Auto 2.1 % (0-4.4); Hematocrit 30.2 % (42.0-52.0); Hemoglobin 9.5 g/dL (14.0-18.0); Immature Granulocyte Absolute 0.09 K/mm3 (0.00-0.031); Immature Granulocyte Percent A 1.2 % (0-0.5); Lymphocytes Absolute Auto 1.04 K/mm3 (0.9-3.2); Lymphocytes Percent Auto 13.4 % (18.3-44.2); Mean Corpuscular HGB Conc 31.5 g/dl (32-36); Mean Corpuscular Hemoglobin 25.3 pg (26-34); Mean Corpuscular Volume 80.5 fl (80-100); Mean Platelet Volume 9.6 fl (7.4-10.4); Monocytes Absolute Auto 0.6 K/mm3 (0.1-0.6); Monocytes Percent Auto 7.3 % (2.6-8.5); Neutrophils Absolute Auto 5.9 K/mm3 (1.3-6.7); Platelet Count Result 759 k/mm3 (150-375); Red Blood Count 3.75 M/mm3 (4.6-6.20); Red Cell Distribution Width 17.1 % (11.5-14.5); White Blood Count 7.8 K/mm3 (4.5-10.0)
[2023-12-21 08:09] LABS: Alanine Aminotransferase 14 U/L (6-50); Albumin Level 2.9 g/dL (3.5-5.1); Alkaline Phosphatase 66 U/L (38-126); Anion Gap 7 mmol/L (4-12); Aspartate Amino Transferase 26 U/L (17-59); Bilirubin,Total 0.2 mg/dL (0.2-1.3); Blood Urea Nitrogen 22 mg/dL (9-20); Carbon Dioxide 27 mmol/L (22-30); Chloride 100 mmol/L (98-107); Estimated CRCL calculation 34 ml/min; Estimated Glomerular Filt Rate 36; Glucose 96 mg/dL (65-110); Potassium 3.3 mmol/L (3.4-5.0); Sodium 134 mmol/L (137-145)
[2023-12-21] MEDS: ENALAPRIL MALEATE 10 MG TABLET 20 MG PO (08:12)
[2023-12-21] MEDS: TOLNAFTATE 1% POWDER 45 GM BTL 1 APPLIC TOPICAL (08:12)
[2023-12-21] MEDS: amLODIPine BESYLATE 10 MG TABLET PO (08:12)
[2023-12-21] MEDS: VENLAFAXINE HCL XR 75 MG CAP.ER.24H PO ×2 (08:12→16:24)
[2023-12-21] MEDS: PRAVASTATIN SODIUM 20 MG TABLET 40 MG PO (08:12)
[2023-12-21] MEDS: TAMSULOSIN HCL 0.4 MG CAPSULE PO (08:12)
[2023-12-21] MEDS: FUROSEMIDE 20 MG TABLET PO (08:12)
[2023-12-21] MEDS: POTASSIUM CHLORIDE 20 MEQ ER TABLET 40 MEQ PO (09:00)
--- NOTE | 2023-12-21 09:16 | PCPTNOTE ---
Patient refused therapy evaluation at this time stating he did not feel up to getting up or moving around, despite encouragement from therapist. Will follow.
[2023-12-21 11:30] LABS: Glucose Point of Care 143 mg/dl (65-105)
[2023-12-21 16:36] LABS: Glucose Point of Care 126 mg/dl (65-105)
--- NOTE | 2023-12-21 16:52 | PM.DS ---
DS: Admitting Diagnosis Discharge Date 12/21/2023 Admitting Diagnosis Syncope Acute UTI Type 2 DM HTN Hypothyroidism Weakness DS: Discharge Diagnosis Discharge Diagnosis (1) Syncope: Code(s): R55 - Syncope and collapse Status: Acute (2) Acute UTI: Code(s): N39.0 - Urinary tract infection, site not specified Status: Acute (3) Type 2 diabetes mellitus: Code(s): E11.9 - Type 2 diabetes mellitus without complications Status: Acute (4) HTN (hypertension): Code(s): I10 - Essential (primary) hypertension Status: Chronic (5) Hypothyroidism: Code(s): E03.9 - Hypothyroidism, unspecified Status: Chronic (6) Weakness: Code(s): R53.1 - Weakness Status: Acute DS: Summary Hospital Course Reason for hospitalization: Syncope Acute UTI Type 2 DM HTN Hypothyroidism Weakness Hospital Course: 83-year-old male with COPD, hypertension, type 2 diabetes mellitus, congestive heart failure, hypothyroidism, and sleep apnea presented to hospital for lethargy and a possible syncopal episode after vomiting. He states he does not remembering having a syncopal episode and rather notes that he just felt whirly and lightheaded . Denies biting his tongue, incontinence or increased confusion. He is unsure if he had recently stood up prior to feeling this way. Possible that he vagaled secondary to vomiting. UA was concerning for UTI and patient was started on antibiotics. Urine culture was contaminant only and antibiotics were discontinued. Orthostatics were positive at time of admission, however his blood pressures remained elevated and never became hypotensive. He remained on all all of his antihypertensives besides hydralazine due to this. His orthostatics then became negative and his blood pressure remained stable without hydralazine. Will discontinue this medication at time of discharge. Patient denied nausea and vomiting throughout inpatient stay. Patient was to be discharged yesterday, however I attempted to have patient ambulate throughout his room to ensure safety upon discharge and he had increased difficulty standing on the side of his bed. He required assistance and was unable to stand for an extended period of time. Discussed with patient that he needs to have PT evaluate him to ensure he is safe to go home vs home health vs SNF. Patient refused PT this morning but was able to work with OT. At that time patient was a min to mod assist with transfer. He denied dizziness/lightheadedness at that time. OT recommended SNF, however patient refused. Care coordination spoke with patients significant other and daughter/POA about patients discharge plan. All family members are reporting that patient is at baseline and only walks short distances with his walker in the home. Patient and family are uninterested in SNF placement at this time. Will have him continue therapy with home health. Prior to discharge patient denied chest pain, shortness of breath, nausea/vomiting and changes in bowel/bladder. Patient discharged in stable condition with home health. He is to follow up with his PCP in 1 week. Status at Discharge Functional status at discharge: wheelchair bound (takes about 5 steps ) Time Spent with Patient Time attestation: Total time spent providing and/or coordinating discharge services: Time spent: Greater than 30 minutes Exam Narrative: AF HR 88 RR 19 SpO2 97 BP 124/81 General: male in no acute respiratory distress who is nontoxic appearing, lying semi recumbent in bed. Chest: Lungs are clear to auscultation bilaterally. No wheezes or crackles. CV: Heart was regular rate and rhythm. S1/S2. No murmurs, gallops, or rubs. Abd: Abdomen was soft. Nontender. Nondistended. Positive bowel sounds. No organomegaly or masses. Ext: No clubbing, cyanosis, or edema. 2+ DP pulses bilaterally. Neuro: Patient is alert and oriented x3. Cranial nerves 2-12 are intact. Speech is clear. Ambulation:
--- NOTE | 2023-12-22 07:16 | P.CDI_ITS ---
Chronic, unknown CDI Query Clarification Request Please specify type and acuity of heart failure if known. Clinical Indicators: Required oxygen supplementation, documented as a history of CHF Treatment: PO lasix * Acute * Chronic * Acute on Chronic * Unknown * Systolic * Diastolic * Combined Systolic and Diastolic * Unknown
--- NOTE | 2023-12-22 07:16 | WPDCDIQUERY2 ---
CDI Query Clarification Request Please specify type and acuity of heart failure if known. Clinical Indicators: Required oxygen supplementation, documented as a history of CHF Treatment: PO lasix Acute Chronic Acute on Chronic Unknown Systolic Diastolic Combined Systolic and Diastolic Unknown
== END 2023-12-21 17:30 | disposition home health service (06) | DRG 312 ==
LOC: ANHED 23:46 → ANH3MEDSUR 12-18 00:55
PROVIDERS: Admitting Provider Internal Medicine; Emergency Provider Emergency Medicine; PCP Family Medicine Sports Medicine; Visit Provider Student in an Organized Health Care Education/Training Program
DX: R55 Syncope and collapse (principal); I13.0 Hypertensive heart and chronic kidney disease with heart failure and stage 1 through stage 4 chronic kidney disease, or unspecified chronic kidney disease; I50.32 Chronic diastolic (congestive) heart failure; E11.22 Type 2 diabetes mellitus with diabetic chronic kidney disease; N18.9 Chronic kidney disease, unspecified; E03.9 Hypothyroidism, unspecified; N40.0 Benign prostatic hyperplasia without lower urinary tract symptoms; D64.9 Anemia, unspecified; J44.9 Chronic obstructive pulmonary disease, unspecified; F41.8 Other specified anxiety disorders; E78.5 Hyperlipidemia, unspecified; G47.33 Obstructive sleep apnea (adult) (pediatric); Z90.49 Acquired absence of other specified parts of digestive tract; Z87.891 Personal history of nicotine dependence; E66.9 Obesity, unspecified; Z68.31 Body mass index [BMI] 31.0-31.9, adult
CPT/HCPCS: 36415; 70450; 71045; 74176; 80053; 81001; 82948; 83036; 83605; 83690; 83735; 84145; 84484; 85025; 87040; 87077; 87086; 87088; 87181; 93005; 96361; 96365; 96366; 96367; 96375; 96376; 97166; 99285; A9270; G0378; J0696; J2185; J2405; J7030

== ENCOUNTER 2024-03-03 22:51 | Inpatient (IN) | payer MEDICARE, SELFPAY ==
[2024-03-03] VITALS (7 sets, daily range): BP systolic 158; BP diastolic 75; PULSE 65–93; RESP 14–22; TEMP 35.8; O2SAT 95–99
--- NOTE | ~2024-03-03 | CT_ITS ---
History: Altered mental status PROCEDURE: CT head without contrast. COMPARISON: 12/17/2023 TECHNIQUE: Axial imaging of the head performed from the skull base to the vertex without IV contrast. Sagittal a nd coronal reformations obtained. DLP: 681 mGy-cm FINDINGS: The ventricles are normal in size, shape and position, for a patient of this age. There is no mass, mass effect or midline shift. Decreased attenuation within the periventricular white matter, findings suggesting microvascular isch emic disease There is no abnormal extra-axial fluid collection or intracranial hemorrhage. Visualized paranasal sinuses are clear. The mastoid air cells are well aerated. No acute displaced fractures within the overlying cranium. Impression: No acute intracranial hemorrhage or suspicious mass effect. Reviewed, dictated and finalized at location [facility]. [facility] Impression: No acute intracranial hemorrhage or suspicious mass effect.
--- NOTE | 2024-03-03 22:58 | ECG_ITS ---
Test Date: 2024-03-03 22:59:27 Measurements Intervals [place] Rate: 65 P: -57 AR: 114 QRS: -56 QRSD: 111 T: -24 QT: 431 QTc: 451 Interpretive Statements SINUS RHYTHM WITH FIRST DEGREE AV BLOCK RIGHT BUNDLE BRANCH BLOCK LEFT ANTERIOR FASCICULAR BLOCK ANTEROLATERAL INFARCT, AGE INDETERMINATE BASELINE ARTIFACT- I, II, III, AVR, AVL, AVF, V1-V6 ABNORMAL ECG Compared to ECG 12/17/2023 20:44:04 NO SIGNIFICANT CHANGE Electronically Signed On 03-04-2024 06:22:08 NET PROGRAMMER by Js Abad D.O.
--- NOTE | 2024-03-03 23:20 | ED.AMS ---
HPI - Altered Mental Status General Chief Complaint: Altered Mental Status Stated Complaint: AMS Time Seen by Provider: 03/03/24 23:08 History of Present Illness HPI narrative: 83-year-old male with a past medical history of hypertension, diabetes, hypothyroidism and CHF. He has a history of recurrent urinary tract infections. Presents to the emergency department via EMS for concern of transient altered mental status while at home. EMS was called for lift assist and patient was answering questions x1. Normally is alert oriented x3. Noted that patient smell of urine and potential urinary infection. Blood sugar was normal. Upon loading the patient to the truck he returned back to normal mentation was answering all questions appropriately. Patient states he feels that his normal self and has no concerns presently. Denies any headache, vision change, abdominal pain, back pain, fever, chills, chest pain, shortness a breath, urinary complaints. Denies any weakness or fatigue. States he feels at his normal self as answering all my questions appropriately x4. Following commands easily. Related Data Home Medications Medication Instructions Recorded Confirmed venlafaxine 75 mg capsule,extended 75 mg PO BID 12/26/19 12/18/23 release 24 hr levothyroxine 75 mcg tablet 75 mcg PO DAILY 05/30/20 12/18/23 pravastatin 40 mg tablet 40 mg PO DAILY 05/30/20 12/18/23 tamsulosin 0.4 mg capsule 0.4 mg PO DAILY 05/30/20 12/18/23 furosemide 20 mg tablet 20 mg PO DAILY 01/11/22 12/18/23 cholecalciferol (vitamin D3) 50 1 unit PO DAILY 05/18/22 12/18/23 mcg (2,000 unit) capsule (Vitamin D3) ipratropium 20 mcg-albuterol 100 2 puff inhalation QID PRN 05/18/22 12/18/23 mcg/actuation mist for inhalation Shortness Of Breath Or Wheezing (Combivent Respimat) metformin 500 mg tablet 1,000 mg PO BID 05/18/22 12/18/23 Allergies Allergy/AdvReac Type Severity Reaction Status Date / Time No Known Allergies Allergy Verified 05/17/22 14:41 Review of Systems Review of Systems: As reviewed above in HPI [facility] Past Medical History Medical History Benign prostatic hyperplasia Chronic anemia Chronic kidney disease Chronic obstructive pulmonary disease Depression with anxiety Diastolic dysfunction Hyperlipidemia Hypertension Hypothyroidism Obstructive sleep apnea on CPAP Type 2 diabetes mellitus Surgical History Surgical History History of appendectomy History of hydrocelectomy Family History Family History Mother Natural Father Natural with unknown cause Social History Social History Social History: The patient lives in his own home in [place]. He is and has 5 children. He was a social smoker and quit well over 20 years ago though he still has an occasional cigarette here there. He drinks alcohol rarely and in moderation. No illicit substance abuse. He designates his brother Brayden Rosen as his surrogate decision maker new wishes to be a full code. Smoking packs per day: 0.5 Smoking cigarettes per day: 10.0 Years smoked: 15 Smoking pack-years: 7.50 Smoking status: Former smoker Tobacco type: cigarettes Second hand tobacco smoke exposure: No Alcohol intake: former Drinks per week: 1 Substance use: never Substance use type: does not use Do You Feel Safe in your Home?: Yes Lack of Transportation: No Lack of Food: Never True Current Housing: I Have Housing Concerned About Future Housing: No Difficulty Paying Gas/Electric Bills: No Difficulty Paying for Meds: No Currently Unemployed: No Education: Associate Degree Difficulty w/ Childcare or Family Care: No Spiritual care concerns: No Exam Narrative: GENERAL: [Well-appearing, well-nourished, and in no acute distress.] HEAD: [Normocephalic, atraumatic.] EYES: [PERRLA and EOMI.] ENT: Nares clear, no rhinorrhea or epistaxis. Mucous membranes moist. NECK: Supple. CHEST: [Clear to auscultation. No respiratory distress.] HEART: [Regular rate and rhythm]. No murmur heard. [Normal peripheral pulses.] ABDOMEN: [Soft, nondistended], [nontender], [No rigidity or guarding] EXTREMITIES: Normal range of motion. [No edema.] SKIN: Warm, dry, no rash. NEURO: [No focal deficits]. Alert and oriented [x3.] Full strength and sensation bilateral upper and lower extremities, no ataxia, extraocular movements are full. No facial asymmetry. No drift in the arms or legs. NIH stroke scale 0 PSYCH: [Normal mood and affect.] Course Vital Signs Vital signs: Vital Signs Temperature 35.8 C L 03/03/24 22:53 Pulse Rate 93 03/03/24 22:53 Respiratory Rate 22 H 03/03/24 22:53 Pulse Oximetry 99 03/03/24 22:53 Oxygen Delivery Room Air 03/03/24 22:53 Temperature 35.8 C L 03/03/24 22:53 Pulse Rate 82 03/04/24 02:40 Respiratory Rate 16 03/04/24 02:40 Blood Pressure 191/98 H 03/04/24 02:40 Pulse Oximetry 98 03/04/24 02:40 Oxygen Delivery Room Air 03/03/24 23:18 MDM - Altered Mental Status MDM Narrative Medical decision making narrative: 83-year-old male presenting to the ER for concerns of transient altered mental status. He has a history of frequent urinary tract infections, hypertension, diabetes, CHF and hypothyroidism. Patient had returned back to his normal baseline and normal mentation when EMS arrived at the scene. Patient's transient altered mental status occurred approximately 1 hour prior to my evaluation. He is awake alert oriented answering all my questions appropriately. Has no focal deficits, NIH Stroke Scale of 0. Blood pressure is 158/78 but has a history of hypertension. Normal oxygen status. Very slightly hypothermic with 35.8? C. Denies any rigors or chills. Differential diagnosis is broad but given his age and risk factors could be infectious process such as UTI, electrolyte disturbances, hypothyroidism, or potential intracranial process given the mental status changes. Low suspicion for stroke or TIA. Workup was ordered CBC, CMP, PT, PTT, urinalysis, EKG, CT of the head without contrast and a TSH level. Patient was placed on monitor and storage bin tender. Patient's workup revealed a urinary tract infection with nitrite positive bacteria as well as yeast. No leukocyte esterase, slightly contaminated sample. No leukocytosis or anemia worse than his baseline. TSH normal. Electrolytes normal. He has a chronic kidney disease with no acute kidney injury present. Repeat vital signs stable. At this time we will treat him for urinary infection given a dose of Rocephin as well as fluconazole. We will send the patient home with a combination of Bactrim and fluconazole to treat both bacteria and yeast. Patient remained hemodynamically stable and mentation has been stable here in the emergency department. He is stable for discharge with regular outpatient primary care provider follow-up. Patient was informed of this and agreeable for discharge at this time. Medical Records Attestation: I reviewed the patient's medical records. Lab Data Attestation: I reviewed the patient's lab results. 03/03/24 23:45 03/03/24 23:44 Labs: Lab Results 03/03/24 03/03/24 03/04/24 Range/Units 23:44 23:45 03:00 WBC 9.3 (4.5-10.0) K/mm3 RBC 4.51 L (4.6-6.20) M/mm3 Hgb 12.3 L (14.0-18.0) g/dL Hct 38.3 L (42.0-52.0) % MCV 84.9 (80-100) fl MCH 27.3 (26-34) pg MCHC 32.1 (32-36) g/dl RDW 18.6 H (11.5-14.5) % Plt Count 611 H (150-375) k/mm3 MPV 10.2 (7.4-10.4) fl Immature Gran % (Auto) 0.3 (0-0.5) % Neut % (Auto) 81.6 H (45.5-73.1) % Lymph % (Auto) 9.9 L (18.3-44.2) % S[place] % (Auto) 5.6 (2.6-8.5) % Eos % (Auto) 1.7 (0-4.4) % Baso % (Auto) 0.9 (0.2-1.2) % Lymph # (Auto) 0.92 (0.9-3.2) K/mm3 [place] # (Auto) 0.5 (0.1-0.6) K/mm3 Eos # (Auto) 0.2 (0-0.3) K/mm3 Baso # (Auto) 0.1 (0.0-0.1) K/mm3 Abs Immat Gran (auto) 0.03 (0.00-0.031) K/mm3 Absolute Neuts (auto) 7.6 H (1.3-6.7) K/mm3 Absolute Nucleated RBC 0.000 (0.0-0.012) K/mm3 Nucleated RBC % 0.0 (0.0-0.2) % PT 15.2 H (11.1-14.7) Seconds INR 1.2 APTT 36.4 (22.3-36.8) Seconds Sodium 136 L (137-145) mmol/L Potassium 3.8 (3.4-5.0) mmol/L Chloride 102 (98-107) mmol/L Carbon Dioxide 26 (22-30) mmol/L Anion Gap 8 (4-12) mmol/L BUN 16 (9-20) mg/dL Creatinine 1.70 H (0.7-1.3) mg/dL Estim Creat Clear Calc 30 ml/min Estimated GFR 38 L (59 - ) Glucose 126 H (65-110) mg/dL Calcium 8.7 (8.4-10.2) mg/dL Total Bilirubin 0.6 (0.2-1.3) mg/dL AST 23 (17-59) U/L ALT 11 (6-50) U/L Alkaline Phosphatase 71 (38-126) U/L Total Protein 7.0 (6.3-8.2) g/dL Albumin 3.4 L (3.5-5.1) g/dL TSH (Reflex) 3.060 (0.465-4.68) uIU/mL Urine Color Yellow (Yellow) Urine Appearance Clear (Clear) Urine pH 5.5 (5.0-9.0) Ur Specific [place] 1.027 (1.001-1.035) Urine Protein 4+ H (Negative) mg/dL Urine Glucose (UA) 3+ H (Negative) mg/dL Urine Ketones Trace H (Negative) mg/dL Ur Blood (Man) Negative (Negative) Urine Nitrate Positive H (Negative) Urine Bilirubin Negative (Negative) Urine Urobilinogen 0.2 (<2.0) mg/dL Add Ur Microanalysis Reviewed Leukocyte Esterase Rfl Negative (Negative) BUD/UL Urine RBC 0-2 (0-2) /hpf Urine WBC 21-50 H (0-3) /hpf Ur Squamous Epith Cells Occasional (Few) /hpf Urine Bacteria None seen /hpf Urine Casts 3-5 Hyaline Casts Present (None) /lpf Urine Yeast (Budding) Present H (None) /hpf Imaging Data Attestation: I personally reviewed and interpreted this imaging study as follows: Radiologist's impression: Impressions Head CT 03/03/24 23:37 Impression: No acute intracranial hemorrhage or suspicious mass effect. Discharge Plan Discharge Clinical Impression: Acute UTI, Yeast cystitis Patient Disposition: Home, Self-Care Condition: Stable Instructions: Antibiotic Form, Yeast Infection (ED), Urinary Tract Infection in Older Adults (ED) Additional Instructions: We will treat you for both a yeast and urinary tract infection. Follow-up with your primary care provider. Return with any new or worsening concerns at any time. Prescriptions: New sulfamethoxazole-trimethoprim [Bactrim DS] 800-160 mg tablet 1 tablet PO Q12H Qty: 14 0RF fluconazole 200 mg tablet 200 mg PO DAILY 14 Days Qty: 14 0RF No Action venlafaxine 75 mg capsule,extended release 24hr 75 mg PO BID pravastatin 40 mg tablet 40 mg PO DAILY levothyroxine 75 mcg tablet 75 mcg PO DAILY tamsulosin 0.4 mg capsule 0.4 mg PO DAILY enalapril maleate 20 mg tablet 20 mg PO DAILY Qty: 30 0RF furosemide 20 mg tablet 20 mg PO DAILY acetaminophen [Mapap (acetaminophen)] 325 mg Tablet 650 mg PO Q6H PRN (Reason: Mild Pain (1-3) Or Fever) Qty: 30 0RF cholecalciferol (vitamin D3) [Vitamin D3] 50 mcg (2,000 unit) capsule 1 unit PO DAILY Combivent Respimat 20-100 mcg/actuation mist 2 puff INHALATION QID PRN (Reason: Shortness Of Breath Or Wheezing) Rx Instructions: 2-4 times a day. As needed. metformin 500 mg tablet 1,000 mg PO BID amlodipine [Norvasc] 5 mg Tablet 10 mg PO QAM Qty: 30 0RF Follow-up/Referrals: Nash,Brayden Dominugez MD [Primary Care Provider] - Time of Disposition: 03:44
[2024-03-04] VITALS (16 sets, daily range): BP systolic 126–212; BP diastolic 60–108; PULSE 63–97; RESP 13–22; TEMP 36.1–36.8; O2SAT 95–100; BMI 27.9
[2024-03-04 00:09] LABS: Basophils Absolute Auto 0.1 K/mm3 (0.0-0.1); Basophils Percent Auto 0.9 % (0.2-1.2); Eosinophils Absolute Auto 0.2 K/mm3 (0-0.3); Eosinophils Percent Auto 1.7 % (0-4.4); Hematocrit 38.3 % (42.0-52.0); Hemoglobin 12.3 g/dL (14.0-18.0); Immature Granulocyte Absolute 0.03 K/mm3 (0.00-0.031); Immature Granulocyte Percent A 0.3 % (0-0.5); Lymphocytes Absolute Auto 0.92 K/mm3 (0.9-3.2); Lymphocytes Percent Auto 9.9 % (18.3-44.2); Mean Corpuscular HGB Conc 32.1 g/dl (32-36); Mean Corpuscular Hemoglobin 27.3 pg (26-34); Mean Corpuscular Volume 84.9 fl (80-100); Mean Platelet Volume 10.2 fl (7.4-10.4); Monocytes Absolute Auto 0.5 K/mm3 (0.1-0.6); Monocytes Percent Auto 5.6 % (2.6-8.5); Neutrophils Absolute Auto 7.6 K/mm3 (1.3-6.7); Neutrophils Percent Auto 81.6 % (45.5-73.1); Platelet Count Result 611 k/mm3 (150-375); Red Blood Count 4.51 M/mm3 (4.6-6.20); Red Cell Distribution Width 18.6 % (11.5-14.5); White Blood Count 9.3 K/mm3 (4.5-10.0)
[2024-03-04 00:21] LABS: INR 1.2; Prothrombin Time 15.2 Seconds (11.1-14.7)
[2024-03-04 00:22] LABS: Alanine Aminotransferase 11 U/L (6-50); Albumin Level 3.4 g/dL (3.5-5.1); Alkaline Phosphatase 71 U/L (38-126); Anion Gap 8 mmol/L (4-12); Aspartate Amino Transferase 23 U/L (17-59); Bilirubin,Total 0.6 mg/dL (0.2-1.3); Blood Urea Nitrogen 16 mg/dL (9-20); Calcium 8.7 mg/dL (8.4-10.2); Carbon Dioxide 26 mmol/L (22-30); Chloride 102 mmol/L (98-107); Estimated CRCL calculation 30 ml/min; Estimated Glomerular Filt Rate 38; Glucose 126 mg/dL (65-110); Potassium 3.8 mmol/L (3.4-5.0); Sodium 136 mmol/L (137-145)
[2024-03-04 00:22] LABS: Partial Thromboplastin Time 36.4 Seconds (22.3-36.8)
--- NOTE | 2024-03-04 00:32 | PC.NURSE ---
Addendum entered by Flora Oglesby RN 03/04/24 00:58: Provider notified Original Note: Attempted to straight cath pt with coude catheter with Ivonne CHAVEZ after Alcides Crump attempted with regular straight cath. Unable to advance catheter and obtain urine sample
[2024-03-04] MEDS: LACTATED RINGERS 1,000 ML 999 ML IV CONT (01:36)
[2024-03-04 03:18] LABS: Add Urine Microscopic? YES; Appearance Urine Clear (Clear); Bacteria Urine None Seen /hpf; Bilirubin Urine Negative (Negative); Blood Urine Negative (Negative); Budding Yeast Urine Present /hpf; Color Urine Yellow (Yellow); Glucose Urine UA 3+ mg/dL (Negative); Hyaline Casts Urine Present /lpf; Ketones Urine Trace mg/dL (Negative); Leukocyte Esterase Ur Negative LEU/UL (Negative); Need Manual Microscopic Reviewed; Nitrate Urine Positive (Negative); Protein Urine 4+ mg/dL (Negative); RBC Urine 0-2 /hpf (0-2); Specific Grav Ur 1.027 (1.001-1.035); Squamous Epithelial Cell Urine Occasional /hpf (Few); Urobilinogen Urine 0.2 mg/dL (<2.0); WBC Urine 21-50 /hpf (0-3); pH Urine 5.5 (5.0-9.0)
[2024-03-04] MEDS: FLUCONAZOLE 150 MG TABLET PO (03:59)
--- NOTE | 2024-03-04 05:26 | ADMGEN ---
This patient, Gianfranco Rosen, was admitted to 3 [facility] Surg Room 315-01 @ 0450. Patient/family oriented to hospital policies and general routines including ID bracelet, bed and alarms, visiting hours, pain management, procedures, bathroom and other care routines, personal items, smoking policy, room service/diet, and visiting hours. Information on how to activate the Rapid Response Team has been discussed. Patient/Family are encouraged to report perceived risks to care and to ask questions if they do not understand what they are told or what they should do.
[2024-03-04] MEDS: hydrALAZINE HCL 20 MG/ML VIAL 10 MG IV PUSH (05:37)
[2024-03-04] MEDS: amLODIPine BESYLATE 5 MG TABLET PO (05:38)
--- NOTE | 2024-03-04 07:50 | PM.IMHP ---
H&P: HPI History of Present Illness Date/Time: 03/04/24 07:50 Chief Complaint: AMS Narrative: 83-year-old male with a past medical history of hypertension, diabetes, hypothyroidism and CHF. He has a history of recurrent urinary tract infections. Presents to the emergency department via EMS for concern of transient altered mental status while at home. EMS was called for lift assist and patient was answering questions x1. Normally is alert oriented x3. Noted that patient smell of urine and potential urinary infection. Blood sugar was normal. Upon loading the patient to the truck he returned back to normal mentation was answering all questions appropriately. Patient states he feels that his normal self and has no concerns presently. Denies any headache, vision change, abdominal pain, back pain, fever, chills, chest pain, shortness a breath, urinary complaints. Denies any weakness or fatigue. States he feels at his normal self as answering all my questions appropriately x4. Following commands easily. Upon discharge from ER, nursing staff noted that upon discharge waiting for transportation home patient was again altered. Was alert x1 and to his name but not any acute distress. Vital signs were reassuring without any blood pressure concerns, tachycardia, fever or hypoxia. His examination on re-evaluation was nonfocal besides the questions that he was answering incorrectly. He knew his name and thinks where at [facility] and thinks it is 2000. Repeat neuro exam showed no focal deficits or facial asymmetry. Glucose normal. Previous head CT was unremarkable. Patient likely has some component encephalopathy secondary to his urinary infection versus potential underlying dementia. Possible delirium given the waxing and waning nature of his mental status. His workup previously was largely unremarkable aside from a urinary tract infection and yeast infection.Discussed with hospitalist who accepts admission. [facility] Past Medical History Medical History Benign prostatic hyperplasia Chronic anemia Chronic kidney disease Chronic obstructive pulmonary disease Depression with anxiety Diastolic dysfunction Hyperlipidemia Hypertension Hypothyroidism Obstructive sleep apnea on CPAP Type 2 diabetes mellitus Surgical History Surgical History History of appendectomy History of hydrocelectomy Family History Family History Mother Natural Father Natural with unknown cause Social History Social History Social History: The patient lives in his own home in [place]. He is and has 5 children. He was a social smoker and quit well over 20 years ago though he still has an occasional cigarette here there. He drinks alcohol rarely and in moderation. No illicit substance abuse. He designates his brother Brayden Rosen as his surrogate decision maker new wishes to be a full code. Smoking packs per day: 0.5 Smoking cigarettes per day: 10.0 Years smoked: 15 Smoking pack-years: 7.50 Smoking status: Former smoker Tobacco type: cigarettes Second hand tobacco smoke exposure: No Alcohol intake: former Drinks per week: 1 Substance use: never Substance use type: does not use Do You Feel Safe in your Home?: Yes Lack of Transportation: No Lack of Food: Never True Current Housing: I Have Housing Concerned About Future Housing: No Difficulty Paying Gas/Electric Bills: No Difficulty Paying for Meds: No Currently Unemployed: No Education: Associate Degree Difficulty w/ Childcare or Family Care: No Spiritual care concerns: No Meds Home Medications and Allergies Home Medications Medication Instructions Recorded Confirmed Type venlafaxine 75 mg capsule,extended 75 mg PO DAILY 12/26/19 03/04/24 History release 24 hr levothyroxine 75 mcg tablet 75 mcg PO DAILY 05/30/20 03/04/24 History pravastatin 40 mg tablet 40 mg PO DAILY 05/30/20 03/04/24 History tamsulosin 0.4 mg capsule 0.4 mg PO DAILY 05/30/20 03/04/24 History enalapril maleate 20 mg tablet 20 mg PO DAILY #30 tabs 02/07/21 03/04/24 Rx furosemide 20 mg tablet 20 mg PO DAILY 01/11/22 03/04/24 History acetaminophen 325 mg tablet (Mapap 650 mg PO Q6H PRN Mild Pain (1-3) 01/14/22 03/04/24 Rx (acetaminophen)) Or Fever #30 tabs cholecalciferol (vitamin D3) 50 1 unit PO DAILY 05/18/22 03/04/24 History mcg (2,000 unit) capsule (Vitamin D3) metformin 500 mg tablet 1,000 mg PO BID 05/18/22 03/04/24 History amlodipine 5 mg tablet (Norvasc) 10 mg PO QAM #30 tabs 05/22/22 03/04/24 Rx quetiapine 25 mg tablet 25 mg PO DAILY 03/04/24 03/04/24 History sulfamethoxazole 800 1 tablet PO Q12H #14 tabs 03/04/24 Rx mg-trimethoprim 160 mg tablet (Bactrim DS) Allergies Allergy/AdvReac Type Severity Reaction Status Date / Time No Known Allergies Allergy Verified 05/17/22 14:41 Vital Signs Vital Signs - 24 hr 03/03/24 22:53 03/03/24 22:59 03/03/24 23:15 Temperature 96.5 F L Pulse Rate 93 65 Respiratory Rate 22 H Blood Pressure 158/75 H Pulse Oximetry 99 Oxygen Delivery Room Air 03/03/24 23:18 03/03/24 22:58 03/03/24 23:31 Temperature Pulse Rate 68 72 Respiratory Rate 14 16 Blood Pressure 158/75 H Pulse Oximetry 98 96 98 Oxygen Delivery Room Air 03/03/24 23:46 03/04/24 00:00 03/04/24 00:15 Temperature Pulse Rate 77 66 65 Respiratory Rate 18 16 16 Blood Pressure Pulse Oximetry 95 98 98 Oxygen Delivery 03/04/24 00:30 03/04/24 01:01 03/04/24 02:40 Temperature Pulse Rate 68 63 82 Respiratory Rate 20 19 16 Blood Pressure 191/98 H Pulse Oximetry 98 96 98 Oxygen Delivery 03/04/24 04:07 03/04/24 04:11 03/04/24 05:59 Temperature 98.2 F Pulse Rate 84 91 97 Respiratory Rate 16 14 22 H Blood Pressure 126/108 H 179/84 H 212/98 H Pulse Oximetry 96 100 100 Oxygen Delivery 03/04/24 06:01 Temperature 98.2 F Pulse Rate 97 Respiratory Rate 22 H Blood Pressure 212/98 H Pulse Oximetry Oxygen Delivery H&P: Results Labs Labs: Short CBC 03/03/24 Range/Units 23:45 WBC 9.3 (4.5-10.0) K/mm3 Hgb 12.3 L (14.0-18.0) g/dL Hct 38.3 L (42.0-52.0) % Plt Count 611 H (150-375) k/mm3 BMP 03/03/24 23:44 Sodium 136 L Potassium 3.8 Chloride 102 Carbon Dioxide 26 BUN 16 Creatinine 1.70 H Glucose 126 H Calcium 8.7 Liver Function 03/03/24 Range/Units 23:44 Total Bilirubin 0.6 (0.2-1.3) mg/dL AST 23 (17-59) U/L ALT 11 (6-50) U/L Alkaline Phosphatase 71 (38-126) U/L Albumin 3.4 L (3.5-5.1) g/dL Urine 03/04/24 Range/Units 03:00 Urine Color Yellow (Yellow) Urine Appearance Clear (Clear) Urine pH 5.5 (5.0-9.0) Ur Specific [place] 1.027 (1.001-1.035) Urine Protein 4+ H (Negative) mg/dL Urine Glucose (UA) 3+ H (Negative) mg/dL Assessment and Plan Assessment and plan (1) Acute UTI: Code(s): N39.0 - Urinary tract infection, site not specified Status: Acute (2) Yeast cystitis: Code(s): B37.41 - Candidal cystitis and urethritis Status: Acute (3) Acute UTI: Code(s): N39.0 - Urinary tract infection, site not specified Status: Acute (4) Chronic kidney disease: Code(s): N18.9 - Chronic kidney disease, unspecified Status: Acute Plan Metabolic Encephalopathy 2/2 UTI vs Dementia UA reviewed UC Pending Ceftriaxone IV daily One dose Fluconazole received in ED Electrolytes reviewed CT Head:No acute intracranial hemorrhage or suspicious mass effect. TSH ,ammonia,and B12 ordered [place] placed in ER Hypertension Continue amlodipine Continue enalapril BPH Continue tamsulosin Dementia/ Insomnia Venlafaxine 75 mg p.o. q.d. Seroquel 25 mg p.o. q.d. Hyperlipidemia Atorvastatin Hospitalist MIPS Advance Care Plan I have confirmed that the patient's Advanced Care Plan is present, code status is documented, or surrogate decision maker is listed in patient medical record.: Yes Medication Reconciliation I have utilized all available resources to obtain, update and review the patients current medications (includes all prescriptions, OTC, herbals, cannabis, and nutritional supplements).: Yes
[2024-03-04 08:22] LABS: Glucose Point of Care 114 mg/dl (65-105)
[2024-03-04] MEDS: LEVOTHYROXINE SODIUM 75 MCG TABLET PO (08:35)
[2024-03-04] MEDS: VENLAFAXINE HCL XR 75 MG CAP.ER.24H PO (08:35)
[2024-03-04] MEDS: TAMSULOSIN HCL 0.4 MG CAPSULE PO (08:35)
[2024-03-04] MEDS: CHOLECALCIFEROL 1,000 UNITS TABLET 2000 UNITS PO (08:35)
[2024-03-04] MEDS: FUROSEMIDE 20 MG TABLET PO (08:35)
[2024-03-04 10:04] LABS: Ammonia < 9 umol/L (9-30)
[2024-03-04 11:28] LABS: Glucose Point of Care 150 mg/dl (65-105)
[2024-03-04] MEDS: PRAVASTATIN SODIUM 20 MG TABLET 40 MG PO (20:38)
[2024-03-04] MEDS: QUEtiapine FUMARATE 25 MG TABLET PO (20:39)
[2024-03-05] VITALS (11 sets, daily range): BP systolic 99–160; BP diastolic 56–70; PULSE 73–93; RESP 13–26; TEMP 36.2–37.2; O2SAT 92–98; BMI 10.0
[2024-03-05] MEDS: LEVOTHYROXINE SODIUM 75 MCG TABLET PO (05:55)
[2024-03-05] MEDS: VENLAFAXINE HCL XR 75 MG CAP.ER.24H PO (08:28)
[2024-03-05] MEDS: CHOLECALCIFEROL 1,000 UNITS TABLET 2000 UNITS PO (08:28)
[2024-03-05] MEDS: amLODIPine BESYLATE 10 MG TABLET PO (08:28)
[2024-03-05] MEDS: ENALAPRIL MALEATE 10 MG TABLET 20 MG PO (08:28)
[2024-03-05] MEDS: FUROSEMIDE 20 MG TABLET PO (08:28)
[2024-03-05] MEDS: TAMSULOSIN HCL 0.4 MG CAPSULE PO (08:28)
[2024-03-05 10:01] LABS: Hematocrit 31.9 % (42.0-52.0); Hemoglobin 10.4 g/dL (14.0-18.0); Mean Corpuscular HGB Conc 32.6 g/dl (32-36); Mean Corpuscular Hemoglobin 27.7 pg (26-34); Mean Corpuscular Volume 85.1 fl (80-100); Mean Platelet Volume 9.8 fl (7.4-10.4); Platelet Count Result 483 k/mm3 (150-375); Red Blood Count 3.75 M/mm3 (4.6-6.20); Red Cell Distribution Width 19.2 % (11.5-14.5); White Blood Count 7.7 K/mm3 (4.5-10.0)
[2024-03-05 10:30] LABS: Alanine Aminotransferase 9 U/L (6-50); Albumin Level 2.9 g/dL (3.5-5.1); Alkaline Phosphatase 58 U/L (38-126); Anion Gap 6 mmol/L (4-12); Aspartate Amino Transferase 17 U/L (17-59); Bilirubin,Total 0.5 mg/dL (0.2-1.3); Blood Urea Nitrogen 17 mg/dL (9-20); Calcium 8.3 mg/dL (8.4-10.2); Carbon Dioxide 26 mmol/L (22-30); Chloride 103 mmol/L (98-107); Estimated CRCL calculation 29 ml/min; Estimated Glomerular Filt Rate 36; Glucose 118 mg/dL (65-110); Potassium 3.4 mmol/L (3.4-5.0); Sodium 135 mmol/L (137-145)
--- NOTE | 2024-03-05 10:48 | P.PNIM_ITS ---
Progress Note: A&P Assessment and Plan (1) Acute UTI: Code(s): N39.0 - Urinary tract infection, site not specified Status: Acute (2) Yeast cystitis: Code(s): B37.41 - Candidal cystitis and urethritis Status: Acute (3) Chronic kidney disease: Code(s): N18.9 - Chronic kidney disease, unspecified Status: Acute Plan Metabolic Encephalopathy 2/2 UTI vs Dementia UA reviewed UC Pending Ceftriaxone IV daily One dose Fluconazole received in ED Electrolytes reviewed CT Head:No acute intracranial hemorrhage or suspicious mass effect. TSH ,ammonia,and B12 ordered Valdez placed in ER Hypertension Continue amlodipine Continue enalapril BPH Continue tamsulosin Dementia/ Insomnia Venlafaxine 75 mg p.o. q.d. Seroquel 25 mg p.o. q.d. Hyperlipidemia Atorvastatin Subjective Date/time seen: 03/05/24 10:48 Interval history: Urine culture shows coagulase-negative Staphylococcus, not Staphylococcus saprophyticus. Will await for the sensitivity. Considering his age we will consider this as a complicated UTI. No evidence of pyelonephritis, urethritis,epididymitis, prostatitis. Patient denies any flank pain, suprapubic pain, nausea or fever Exam Narrative: GENERAL: [Well-appearing, well-nourished, and in no acute distress.] HEAD: [Normocephalic, atraumatic.] EYES: [PERRLA and EOMI.] ENT: Nares clear, no rhinorrhea or epistaxis. Mucous membranes moist. NECK: Supple. CHEST: [Clear to auscultation. No respiratory distress.] HEART: [Regular rate and rhythm]. No murmur heard. [Normal peripheral pulses.] ABDOMEN: [Soft, nondistended], [nontender], [No rigidity or guarding] EXTREMITIES: Normal range of motion. [No edema.] SKIN: Warm, dry, no rash. NEURO: [No focal deficits]. Alert and oriented [x3.] Full strength and se nsation bilateral upper and lower extremities, no ataxia, extraocular movements are full. No facial asymmetry. No drift in the arms or legs. NIH stroke scale 0 PSYCH: [Normal mood and affect.] Objective Data Vital Signs Vital Signs: Vital Signs - 24 hr 03/04/24 13:39 03/04/24 12:00 03/04/24 16:00 Temperature 96.9 F L Pulse Rate 80 73 76 Respiratory Rate 18 Blood Pressure 130/68 Pulse Oximetry 98 Oxygen Delivery 03/04/24 21:15 03/04/24 20:15 03/05/24 00:00 Temperature 97.4 F L Pulse Rate 75 74 76 Respiratory Rate 13 Blood Pressure 133/60 Pulse Oximetry 96 Oxygen Delivery 03/05/24 04:00 03/05/24 05:34 03/05/24 08:18 Temperature 97.1 F L Pulse Rate 82 81 78 Respiratory Rate 13 Blood Pressure 144/63 H 160/56 H Pulse Oximetry 93 98 Oxygen Delivery 03/05/24 09:10 03/05/24 08:00 Temperature Pulse Rate 77 Respiratory Rate Blood Pressure Pulse Oximetry Oxygen Delivery Room Air Intake/Output Intake/Output: Intake & Output 03/02/24 03/03/24 03/04/24 03/05/24 23:59 23:59 23:59 23:59 Intake Total 1290 440 Output Total 700 350 Balance 590 90 Meds/Results Medications: Active Medications Generic Name Dose Route Start Last Admin Trade Name Freq PRN Reason Stop Dose Admin Acetaminophen 650 mg 03/04/24 04:11 Acetaminophen 325 Mg Tablet PO Q4H PRN Mild Pain (1-3) or Fever Amlodipine Besylate 10 mg 03/04/24 09:00 03/05/24 08:28 Amlodipine Besylate 10 Mg Tablet PO 10 mg QAM LORI Administration Enalapril Maleate 20 mg 03/04/24 09:00 03/05/24 08:28 Enalapril Maleate 10 Mg Tablet PO 20 mg DAILY LORI Administration Furosemide 20 mg 03/04/24 09:00 03/05/24 08:28 Furosemide 20 Mg Tablet PO 20 mg DAILY LORI Administration Ceftriaxone Sodium 1 gm in 50 mls @ 100 mls/hr 03/05/24 06:00 03/05/24 05:55 Rocephin 1 Gm/Ns 50 Ml IVPB 100 mls/hr Q24H LORI Administration Levothyroxine Sodium 75 mcg 03/04/24 06:30 03/05/24 05:55 Levothyroxine Sodium 75 Mcg Tablet PO 75 mcg DAILY@0630 LORI Administration Pravastatin Sodium 40 mg 03/04/24 21:00 03/04/24 20:38 Pravastatin Sodium 20 Mg Tablet PO 40 mg HS LORI Administration Quetiapine Fumarate 25 mg 03/04/24 21:00 03/04/24 20:39 Quetiapine Fumarate 25 Mg Tablet PO 25 mg HS LORI Administration Tamsulosin HCl 0.4 mg 03/04/24 09:00 03/05/24 08:28 Tamsulosin Hcl 0.4 Mg Capsule PO 0.4 mg DAILY LORI Administration Venlafaxine HCl 75 mg 03/04/24 09:00 03/05/24 08:28 Venlafaxine Hcl Xr 75 Mg Cap.Er.24h PO 75 mg DAILY LORI Administration Vitamin D 2,000 units 03/04/24 09:00 03/05/24 08:28 Cholecalciferol 1,000 Units Tablet PO 2,000 units DAILY LORI Administration Radiology Results: ITS Impressions Head CT 03/03/24 23:37 Impression: No acute intracranial hemorrhage or suspicious mass effect. Labs Labs: Laboratory Results - last 24 hr 03/04/24 03/04/24 03/05/24 09:16 11:24 09:32 WBC 7.7 RBC 3.75 L Hgb 10.4 L Hct 31.9 L MCV 85.1 MCH 27.7 MCHC 32.6 RDW 19.2 H Plt Count 483 H MPV 9.8 Sodium 135 L Potassium 3.4 Chloride 103 Carbon Dioxide 26 Anion Gap 6 BUN 17 Creatinine 1.80 H Estim Creat Clear Calc 29 Estimated GFR 36 L Glucose 118 H POC Capillary Glucose 150 H Calcium 8.3 L Total Bilirubin 0.5 AST 17 ALT 9 Alkaline Phosphatase 58 Total Protein 6.0 L Albumin 2.9 L Vitamin B12 520.0 TSH (Reflex) 2.250 Hospitalist MIPS Advance Care Plan I have confirmed that the patient's Advanced Care Plan is present, code status is documented, or surrogate decision maker is listed in patient medical record.: Yes Medication Reconciliation I have utilized all available resources to obtain, update and review the patients current medications (includes all prescriptions, OTC, herbals, cannabis, and nutritional supplements).: Yes
[2024-03-06] VITALS: PULSE 80
[2024-03-06 04:00] VITALS: PULSE 81
[2024-03-06] MEDS: LEVOTHYROXINE SODIUM 75 MCG TABLET PO (05:36)
[2024-03-06 06:00] VITALS: BP 167/71; PULSE 83; RESP 20; TEMP 37.1; O2SAT 94
[2024-03-06 08:00] VITALS: PULSE 99
[2024-03-06] MEDS: ENALAPRIL MALEATE 10 MG TABLET 20 MG PO (08:16)
[2024-03-06] MEDS: TAMSULOSIN HCL 0.4 MG CAPSULE PO (08:16)
[2024-03-06] MEDS: VENLAFAXINE HCL XR 75 MG CAP.ER.24H PO (08:16)
[2024-03-06] MEDS: CHOLECALCIFEROL 1,000 UNITS TABLET 2000 UNITS PO (08:17)
[2024-03-06] MEDS: FUROSEMIDE 20 MG TABLET PO (08:17)
[2024-03-06] MEDS: amLODIPine BESYLATE 10 MG TABLET PO (08:17)
[2024-03-06] MEDS: ACETAMINOPHEN 325 MG TABLET 650 MG PO (08:21)
--- NOTE | 2024-03-06 09:55 | PM.IMPN ---
Progress Note: A&P Assessment and Plan (1) Acute UTI: Code(s): N39.0 - Urinary tract infection, site not specified Status: Acute (2) Yeast cystitis: Code(s): B37.41 - Candidal cystitis and urethritis Status: Acute (3) Chronic kidney disease: Code(s): N18.9 - Chronic kidney disease, unspecified Status: Acute Plan Metabolic Encephalopathy 2/2 UTI vs Dementia UA reviewed UC reviewed Levofloxacin q 48hrs x 5 days d/cCeftriaxone IV daily One dose Fluconazole received in ED Electrolytes reviewed CT Head:No acute intracranial hemorrhage or suspicious mass effect. TSH ,ammonia,and B12 ordered Valdez placed in ER Hypertension Continue amlodipine Continue enalapril BPH Continue tamsulosin Dementia/ Insomnia Venlafaxine 75 mg p.o. q.d. Seroquel 25 mg p.o. q.d. Hyperlipidemia Atorvastatin Subjective Date/time seen: 03/06/24 09:55 Interval history: Sensitivity is back. Ordered Levofloxacin for 5 days (every other day). Valdez placed in ER. No acute events reported. Exam Narrative: GENERAL: [Well-appearing, well-nourished, and in no acute distress.] HEAD: [Normocephalic, atraumatic.] EYES: [PERRLA and EOMI.] ENT: Nares clear, no rhinorrhea or epistaxis. Mucous membranes moist. NECK: Supple. CHEST: [Clear to auscultation. No respiratory distress.] HEART: [Regular rate and rhythm]. No murmur heard. [Normal peripheral pulses.] ABDOMEN: [Soft, nondistended], [nontender], [No rigidity or guarding] EXTREMITIES: Normal range of motion. [No edema.] SKIN: Warm, dry, no rash. NEURO: [No focal deficits]. Alert and oriented [x3.] Full strength and sensation bilateral upper and lower extremities, no ataxia, extraocular movements are full. No facial asymmetry. No drift in the arms or legs. NIH stroke scale 0 PSYCH: [Normal mood and affect.] Objective Data Vital Signs Vital Signs: Vital Signs - 24 hr 03/05/24 12:00 03/05/24 13:18 03/05/24 14:00 Temperature 97.2 F L Pulse Rate 85 93 Respiratory Rate 26 H Blood Pressure 99/62 L Pulse Oximetry 92 Oxygen Delivery Room Air 03/05/24 16:00 03/05/24 16:56 03/05/24 20:00 Temperature Pulse Rate 82 82 Respiratory Rate 26 H Blood Pressure 152/56 H Pulse Oximetry 92 Oxygen Delivery Room Air 03/05/24 20:00 03/05/24 22:00 03/06/24 00:00 Temperature 98.9 F Pulse Rate 76 73 80 Respiratory Rate 22 H Blood Pressure 138/70 Pulse Oximetry 93 Oxygen Delivery 03/06/24 04:00 03/06/24 06:00 Temperature 98.8 F Pulse Rate 81 83 Respiratory Rate 20 Blood Pressure 167/71 H Pulse Oximetry 94 Oxygen Delivery Intake/Output Intake/Output: Intake & Output 03/03/24 03/04/24 03/05/24 03/06/24 23:59 23:59 23:59 23:59 Intake Total 1290 708 50 Output Total 700 650 Balance 590 58 50 Meds/Results Medications: Active Medications Generic Name Dose Route Start Last Admin Trade Name Freq PRN Reason Stop Dose Admin Acetaminophen 650 mg 03/04/24 04:11 03/06/24 08:21 Acetaminophen 325 Mg Tablet PO 650 mg Q4H PRN Administration Mild Pain (1-3) or Fever Amlodipine Besylate 10 mg 03/04/24 09:00 03/06/24 08:17 Amlodipine Besylate 10 Mg Tablet PO 10 mg QAM LORI Administration Enalapril Maleate 20 mg 03/04/24 09:00 03/06/24 08:16 Enalapril Maleate 10 Mg Tablet PO 20 mg DAILY LORI Administration Furosemide 20 mg 03/04/24 09:00 03/06/24 08:17 Furosemide 20 Mg Tablet PO 20 mg DAILY LORI Administration Ceftriaxone Sodium 1 gm in 50 mls @ 100 mls/hr 03/05/24 06:00 03/06/24 06:06 Rocephin 1 Gm/Ns 50 Ml IVPB Infused Q24H LORI Infusion Levothyroxine Sodium 75 mcg 03/04/24 06:30 03/06/24 05:36 Levothyroxine Sodium 75 Mcg Tablet PO 75 mcg DAILY@0630 LORI Administration Pravastatin Sodium 40 mg 03/04/24 21:00 03/05/24 21:00 Pravastatin Sodium 20 Mg Tablet PO Not Given HS LORI Quetiapine Fumarate 25 mg 03/04/24 21:00 03/05/24 21:00 Quetiapine Fumarate 25 Mg Tablet PO Not Given HS LORI Tamsulosin HCl 0.4 mg 03/04/24 09:00 03/06/24 08:16 Tamsulosin Hcl 0.4 Mg Capsule PO 0.4 mg DAILY LORI Administration Venlafaxine HCl 75 mg 03/04/24 09:00 03/06/24 08:16 Venlafaxine Hcl Xr 75 Mg Cap.Er.24h PO 75 mg DAILY LORI Administration Vitamin D 2,000 units 03/04/24 09:00 03/06/24 08:17 Cholecalciferol 1,000 Units Tablet PO 2,000 units DAILY LORI Administration Radiology Results: ITS Impressions Head CT 03/03/24 23:37 Impression: No acute intracranial hemorrhage or suspicious mass effect. Labs Labs: Laboratory Results - last 24 hr 03/05/24 09:32 WBC 7.7 RBC 3.75 L Hgb 10.4 L Hct 31.9 L MCV 85.1 MCH 27.7 MCHC 32.6 RDW 19.2 H Plt Count 483 H MPV 9.8 Sodium 135 L Potassium 3.4 Chloride 103 Carbon Dioxide 26 Anion Gap 6 BUN 17 Creatinine 1.80 H Estim Creat Clear Calc 29 Estimated GFR 36 L Glucose 118 H Calcium 8.3 L Total Bilirubin 0.5 AST 17 ALT 9 Alkaline Phosphatase 58 Total Protein 6.0 L Albumin 2.9 L Hospitalist MIPS Advance Care Plan I have confirmed that the patient's Advanced Care Plan is present, code status is documented, or surrogate decision maker is listed in patient medical record.: Yes Medication Reconciliation I have utilized all available resources to obtain, update and review the patients current medications (includes all prescriptions, OTC, herbals, cannabis, and nutritional supplements).: Yes
[2024-03-06 12:00] VITALS: PULSE 91
[2024-03-06] MEDS: levoFLOXacin 750 MG TABLET PO (13:09)
--- NOTE | 2024-03-06 13:50 | PC.NURSE ---
talked to about pt ripping out IV. switched iv antibiotic to po. Talking about possible discharge.
[2024-03-06 14:00] VITALS: BP 160/60; PULSE 84; RESP 24; TEMP 35.8; O2SAT 95
--- NOTE | 2024-03-06 14:29 | P.DS_ITS ---
DS: Admitting Diagnosis Discharge Date 03/06/2024 Admitting Diagnosis Metabolic encephalopathy DS: Discharge Diagnosis Discharge Diagnosis (1) Acute UTI: Code(s): N39.0 - Urinary tract infection, site not specified Status: Acute (2) Yeast cystitis: Code(s): B37.41 - Candidal cystitis and urethritis Status: Acute (3) Chronic kidney disease: Code(s): N18.9 - Chronic kidney disease, unspecified Status: Acute DS: Summary Hospital Course Hospital Course: 83-year-old male with a past medical history of hypertension, diabetes, hypothyroidism and CHF. He has a history of recurrent urinary tract infections. Presents to the emergency department via EMS for concern of transient altered mental status while at home. EMS was called for lift assist and patient was answering questions x1. Normally is alert oriented x3. Noted that patient smell of urine and potential urinary infection. Blood sugar was normal. Upon loading the patient to the truck he returned back to normal mentation was answering all questions appropriately. Patient states he feels that his normal self and has no concerns presently. Denies any headache, vision change, abdominal pain, back pain, fever, chills, chest pain, shortness a breath, urinary complaints. Denies any weakness or fatigue. States he feels at his normal self as answering all my questions appropriately x4. Following commands easily. Upon discharge from ER, nursing staff noted that upon discharge waiting for transportation home patient was again altered. Was alert x1 and to his name but not any acute distress. Vital signs were reassuring without any blood pressure concerns, tachycardia, fever or hypoxia. His examination on re-evaluation was nonfocal besides the questions that he was answering incorrectly. He knew his name and thinks where at [facility] and thinks it is 2000. Repeat neuro exam showed no focal deficits or facial asymmetry. Glucose normal. Previous head CT was unremarkable. Patient likely has some component encephalopathy secondary to his urinary infection versus potential underlying dementia. Possible delirium given the waxing and waning nature of his mental status. His workup previously was largely unremarkable aside from a urinary tract infection and yeast infection.Other possiblity due to Metformin causing lactic acidosis.Spoke with his July who reports patient improved a lot compared when he came to hospital. Patient able to say who is the current elected president and able to say what he had for lunch but not able to recollect what year and month.Urine culture shows coagulase-negative Staphylococcus, not Staphylococcus saprophyticus.Advised to complete Levof loxacin 750mg every other day (03/08,03/10,03/12,03/14) for UTI.Metformin has been discontinued due to decrease kidney function.Started Jardiance 10mg and advise to follow up with PCP.In the event of fever,dysuria, or other concerning symptoms return to ED and have adult supervision to monitor any acute changes in mentation. Status at Discharge Cognitive/behavioral status at discharge: Stable Time Spent with Patient Time attestation: Total time spent providing and/or coordinating discharge services:45 mins Exam Narrative: GENERAL: [Well-appearing, well-nourished, and in no acute distress.] HEAD: [Normocephalic, atraumatic.] EYES: [PERRLA and EOMI.] ENT: Nares clear, no rhinorrhea or epistaxis. Mucous membranes moist. NECK: Supple. CHEST: [Clear to auscultation. No respiratory distress.] HEART: [Regular rate and rhythm]. No murmur heard. [Normal peripheral pulses.] ABDOMEN: [Soft, nondistended], [nontender], [No rigidity or guarding] EXTREMITIES: Normal range of motion. [No edema.] SKIN: Warm, dry, no rash. NEURO: [No focal deficits]. Alert and oriented [x2.] Full strength and sensation bilateral upper and lower extremities, no ataxia, extraocular movements are full. No facial asymmetry. No drift in the arms or legs. NIH stroke scale 0 PSYCH: [Normal mood and affect.] DS: Data Imaging Radiologist's impression: ITS Impressions Head CT 03/03/24 23:37 Impression: No acute intracranial hemorrhage or suspicious mass effect. Discharge Plan Discharge Attending physician on discharge: Manolo Valadez Discharging Clinician: Manolo Valadez Anticipated Discharge Date/Time: 03/06/24 14:10 Patient Disposition: Home, Self-Care Activity: as tolerated Diet: heart healthy Discharge Instructions: Complete Levofloxacin 750mg every other day (03/08,03/10,03/12,03/14) for UTI Metformin has been discontinued due to decrease kidney function Started Jardiance 10mg and advise to follow up with PCP In the event of fever,dysuria, or other concerning symptoms return to ED Have adult supervision to monitor any acute changes in mentation Patient Instructions: Antibiotic Form, Heart Failure (GEN), Urinary Tract Infection in Men (GEN) Stand Alone Forms: General Discharge Information Follow-up/Referrals: Jovani,Brayden Dominguez MD [Primary Care Provider] - 1 Week (Admitted for metabolic encephalopathy. Treated for UTI. Metformin has been discontinued due to decrease kidney function Started Jardiance 10mg and advise to follow up with PCP) Discharge Medications: New levofloxacin 750 mg tablet 750 mg PO Q48H Qty: 4 0RF Rx Instructions: Levofloxacin 750mg every other day (03/08,03/10,03/12,03/14) for UTI empagliflozin 10 mg tablet 10 mg PO DAILY Qty: 30 0RF Continued venlafaxine 75 mg capsule,extended release 24hr 75 mg PO DAILY pravastatin 40 mg tablet 40 mg PO DAILY levothyroxine 75 mcg tablet 75 mcg PO DAILY tamsulosin 0.4 mg capsule 0.4 mg PO DAILY enalapril maleate 20 mg tablet 20 mg PO DAILY Qty: 30 0RF furosemide 20 mg tablet 20 mg PO DAILY acetaminophen [Mapap (acetaminophen)] 325 mg Tablet 650 mg PO Q6H PRN (Reason: Mild Pain (1-3) Or Fever) Qty: 30 0RF cholecalciferol (vitamin D3) [Vitamin D3] 50 mcg (2,000 unit) capsule 1 unit PO DAILY amlodipine [Norvasc] 5 mg Tablet 10 mg PO QAM Qty: 30 0RF quetiapine 25 mg tablet 25 mg PO DAILY Discontinued metformin 500 mg tablet 1,000 mg PO BID Date of admission: 03/05/24 14:06 Primary Care Provider: Jovani*Brayden Brown Admitting Provider: Yung Pulliam V. Attending physician on admission: Yung Pulliam V. Condition: Stable
== END 2024-03-06 16:00 | disposition home or self-care (01) | DRG 728 ==
LOC: ANHED 03-04 04:07 → ANH3MEDSUR 03-04 04:34
PROVIDERS: Admitting Provider Internal Medicine; Emergency Provider Student in an Organized Health Care Education/Training Program; PCP Family Medicine Sports Medicine; Visit Provider General Practice
DX: B37.41 Candidal cystitis and urethritis (principal); I13.0 Hypertensive heart and chronic kidney disease with heart failure and stage 1 through stage 4 chronic kidney disease, or unspecified chronic kidney disease; I50.9 Heart failure, unspecified; N18.9 Chronic kidney disease, unspecified; J44.9 Chronic obstructive pulmonary disease, unspecified; E11.22 Type 2 diabetes mellitus with diabetic chronic kidney disease; E78.5 Hyperlipidemia, unspecified; E03.9 Hypothyroidism, unspecified; N40.0 Benign prostatic hyperplasia without lower urinary tract symptoms; G47.33 Obstructive sleep apnea (adult) (pediatric); F32.A Depression, unspecified; F41.9 Anxiety disorder, unspecified; Z87.891 Personal history of nicotine dependence
CPT/HCPCS: 36415; 70450; 80053; 81001; 82140; 82607; 82948; 84443; 85025; 85027; 85610; 85730; 87086; 87181; 93005; 96361; 96365; 96375; 97162; 97165; 99285; A9270; G0378; J0360; J0696; J7120

== ENCOUNTER 2024-05-21 10:45 | Inpatient (IN) | payer MEDICARE, SELFPAY ==
[2024-05-21] VITALS (7 sets, daily range): BP systolic 154–229; BP diastolic 66–93; PULSE 84–104; RESP 18–24; TEMP 36.3–36.6; O2SAT 97–100; BMI 28.4
--- NOTE | ~2024-05-21 | CT_ITS ---
History: Altered mental status PROCEDURE: CT head without contrast. COMPARISON: 03/03/2024 TECHNIQUE: Axial imaging of the head performed from the skull base to the vertex without IV contrast. Sagittal a nd coronal reformations obtained. DLP: 605 mGy-cm FINDINGS: The ventricles are enlarged. The dilatation of the ventricles is proportional to the degree of sulcal prominence, not uncommon in the senescent brain. Decreased attenuation is identified within the periventricular white matter, likely secondary to micr ovascular ischemic disease, in a patient of this age. There is no mass, mass effect or midline shift. There is no abnormal extra-axial fluid collection or intracranial hemorrhage. Visualized paranasal sinuses are clear. The mastoid air cells are well aerated. No acute displaced fractures within the overlying cranium. Impression: No acute intracranial hemorrhage or suspicious mass effect. Reviewed, dictated and finalized at location A. ICK KLEANER OPERATOR Impression: No acute intracranial hemorrhage or suspicious mass effect.
--- NOTE | ~2024-05-21 | US_ITS ---
Duplex Sonography of the bilateral lower extremities: Indication: Edema Sagittal and transverse B-mode images as well as color-flow imaging were performed on the right and l eft femoral and popliteal veins. B-mode examination was done without and with compression in the tra nsverse plane. There is good visualization of the bilateral common femoral, proximal profunda femora l, superficial femoral, greater saphenous, and popliteal veins. Normal flow was seen on color-flow im aging. Normal compressibility was demonstrated. Visualized calf veins are patent. Impression: No evidence of deep vein thrombosis involving the either lower extremity. Reviewed, dictated and finalized at location M. ECTOR PACKER Impression: No evidence of deep vein thrombosis involving the either lower extr emity.
--- NOTE | ~2024-05-21 | XR_ITS ---
CHEST RADIOGRAPH CLINICAL HISTORY: Weakness . COMPARISON: 12/17/2023 TECHNIQUE: Single portable view of the chest. FINDINGS The cardiomediastinal silhouette is partially obscured. Redemonstration of a left-sided pleural effusion, increased from previous examination. The right hemithorax is clear. IMPRESSION: Left-sided pleural effusion without focal infiltrate. Reviewed, dictated and finalized at location A. EMIC SUPPORT CENTER DIRECTOR
--- NOTE | ~2024-05-21 | CT_ITS ---
CLINICAL INDICATION: Altered mental status COMPARISON: 12/17/2023. TECHNIQUE: Multiple contiguous axial images of the abdomen and pelvis were performed following the ad ministration of with 100 mL Omnipaque-350 intravenous contrast The dose-length product (DLP) was 1042.39 mGy-cm. Automated exposure control and iterative reconstruction technique were employed. FINDINGS/OBSERVATIONS: Visualized lower thorax: Left-sided pleural effusion with adjacent compressive atelectasis. The heart is of normal size, without pericardial effusion. Liver: The liver enhances homogeneously, and is not enlarged measuring 14 cm in longitudinal dimension. Gallbladder and biliary system: The gallbladder is only minimally distended, and otherwise unremarkable. Pancreas: The pancreas enhances homogeneously without ductal dilatation. Spleen: Punctate calcifications identified within the splenic parenchyma, suggesting prior granulomatous dise ase. The remainder of the spleen otherwise enhances homogeneously and is not enlarged measuring 8 cm in lo ngitudinal dimension. Kidneys: Innumerable foci of decreased attenuation are identified within the bilateral kidneys, too s mall to characterize. The remainder of the bilateral kidneys enhance symmetrically without hydronephrosis or renal calculi. Adrenal glands: Unremarkable. Gastrointestinal tract: Colonic diverticulosis without surrounding inflammatory change. Appendix: The air-filled appendix is of normal caliber (axial series, images 89 through 112) Vasculature: Unremarkable. No aneurysmal dilatation or significant stenosis. Lymph nodes: No pathologically enlarged or morphologically suspicious lymph nodes within the retroperitoneum or at the root of the mesentery. Pelvic structures: The bladder is decompressed with a Valdez catheter, limiting its evaluation. The prostate gland is not enlarged. Body wall and musculoskeletal: Evidence of prior anterior abdominal wall hernia repair Trace degenerative disease within the lower thoracic and lumbosacral spines. IMPRESSION: No CT evidence of acute traumatic injury, as detailed above. Reviewed, dictated and finalized at location A. ORATE EVENTS DIRECTOR
[2024-05-21 11:01] LABS: Glucose Point of Care 121 mg/dl (65-105)
--- OUTSIDE RECORDS SUMMARY | 2024-05-21 12:39 | XMS_ITS | CONTINUITY OF CARE DOCUMENT ---
Author Name flakito fraga Address Unknown Organization [facility] Address [address] [place] [address] Phone [phone] Care Team Providers Care Blintze Roller Name Role Phone flakito fraga Unavailable Unavailable INSURANCE PROVIDERS Payer name Policy type / Coverage type [place] [employer] republic[employer] [id number] [place] [employer] Medicare [id number]
--- OUTSIDE RECORDS SUMMARY | 2024-05-21 12:39 | XMS_ITS ---
Author Organization [facility] Address Unknown Problems Problem Status Start Date End Date UNSPECIFIED DIASTOLIC (CONGE STIVE) HEART FAILURE (Primary) (I50.30 - ICD-10-CM) ACTIVE 05/22/2022 CHRONIC OBSTRUCTIVE PULMONAR Y DISEASE, UNSPECIFIED (J44.9 - ICD-10-CM) ACTIVE 05/22/2022 MORBID (SEVERE) OBESITY DUE TO EXCESS CALORIES (E66.01 - ICD-10-CM) ACTIVE 05/22/2022 TYPE 2 DIABETES MELLITUS WIT H DIABETIC CHRONIC KIDNEY DISEASE (E11.22 - ICD-10-CM) ACTIVE 05/22/2022 END STAGE RENAL DISEASE (N18.6 - ICD-10-CM) RESOLVED 01/14/2022 04/27/2022 COVID-19 (U07.1 - ICD-10-CM) ACTIVE 05/22/2022 ESSENTIAL (PRIMARY) HYPERTENSION (I10 - ICD-10-CM) ACT ROCKY 01/14/2022 HYPERLIPIDEMIA, UNSPECIFIED (E78.5 - ICD-10-CM) ACTIVE 05/22/2022 CHRONIC KIDNEY DISEASE, STAG E 3 UNSPECIFIED (N18.30 - ICD-10-CM) ACTIVE 05/22/2022 BENIGN PROSTATIC HYPERPLASIA WITH LOWER URINARY TRACT SYMPTOMS (N40.1 - ICD-10-CM) ACTIVE 05/22/2022 ANEMIA IN OTHER CHRONIC DISE ASES CLASSIFIED ELSEWHERE (D63.8 - ICD-10-CM) ACTIVE 05/22/2022 OBSTRUCTIVE SLEEP APNEA (LUPE LT) (PEDIATRIC) (G47.33 - ICD-10-CM) ACTIVE 01/14/2022 REPEATED FALLS (R29.6 - ICD-10-CM) ACTIVE 2021 OTHER ABNORMALITIES OF GAIT AND MOBILITY (R26.89 - ICD-10-CM) ACTIVE 05/22/2022 OTHER LACK OF COORDINATION (R27.8 - ICD-10-CM) RESOLVE D 01/14/2022 04/27/2022 COGNITIVE COMMUNICATION DEFICIT (R41.841 - ICD-10-CM) ACTIVE 05/22/2022 MUSCLE WEAKNESS (GENERALIZED) (M62.81 - ICD-10-CM) RES OLVED 01/14/2022 04/27/2022 UNSPECIFIED PROTEIN-CALORIE MALNUTRITION (E46 - ICD-10-CM) ACTIVE 05/22/2022 COGNITIVE COMMUNICATION DEFICIT (R41.841 - ICD-10-CM) RESOLVED 01/14/2022 04/27/2022 PNEUMONIA, UNSPECIFIED ORGANISM (J18.9 - ICD-10-CM) AC TIVE 05/22/2022 UNSTEADINESS ON FEET (R26.81 - ICD-10-CM) ACTIVE 05/22/2022 URINARY TRACT INFECTION, SIT E NOT SPECIFIED (N39.0 - ICD-10-CM) ACTIVE 05/22/2022 HYPOTHYROIDISM, UNSPECIFIED (E03.9 - ICD-10-CM) ACTIVE 05/22/2022 MAJOR DEPRESSIVE DISORDER, S SHERLYN EPISODE, 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, [place] [address] [facility] [address] Component Value Range Date GLUCOSE 115 01/20/2022 03:1 9 pm EDT CALCIUM 8.2 mg/dL 8.6-10.3mg/dL 01/20/2022 03: 19 pm EDT BILIRUBIN, TOTAL 0.4 mg/dL 0.2-1.2 01/20/2022 03:19 pm EDT * LIPID PROFILE w/calc LDL Performed by: [place] [address] [facility], [place] [address] [facility] [id number] Component Value Range Date CHOLESTEROL 147 mg/dL <200 01/20/2022 03:1 9 pm EDT TRIGLYCERIDE 207 mg/dL <150 01/20/2022 03:1 9 pm EDT HDL 29 mg/dL >40 01/20/2022 03:1 9 pm EDT LDL CALCULATED 77 mg/dL <100 01/20/2022 03 :19 pm EDT LDLc/HDL RATIO 2.6 <4:1 01/20/2022 03 :19 pm EDT * Individual Tests: CMP-COMPREHENSIVE METABOLIC PNL / LIPID PROFILE w/calc LDL / MAGNESIUM / GLYCO-HGBA1C / CBC W/DIFF / FOLATE (FOLIC ACID) / VITAMIN B12 / TSH 3-UL / VITAMIN D 25-OH TOTAL / PREALBUMIN Performed by: [address], [address] [address] Component Value Range Date VITAMIN B12 319 pg/mL 211-911 01/20/2022 03:1 9 pm EDT * GLYCO-HGBA1C Performed by: [address], [address] [address] Component Value Range Date eAG (Mean Glucose) 177 mg/dL <136 03:19 pm EDT * LIPID PROFILE w/calc LDL Performed by: [address], [address] [id number] Component Value Range Date VLDLc 41 mg/dL 5-40 01/20/2022 03:1 9 pm EDT * Individual Tests: CMP-COMPREHENSIVE METABOLIC PNL / LIPID PROFILE w/calc LDL / MAGNESIUM / GLYCO-HGBA1C / CBC W/DIFF / FOLATE (FOLIC ACID) / VITAMIN B12 / TSH 3-UL / VITAMIN D 25-OH TOTAL / PREALBUMIN Performed by: [address], [address] [address] Component Value Range Date FOLIC ACID 7.2 SEE BELOW 01/20/2022 03:1 9 pm EDT MAGNESIUM 1.8 mg/dL 1.5-2.5 01/20/2022 03:1 9 pm EDT VITAMIN D, 25-OH TOTAL 6 SEE BELOW 01/20 03:19 pm EDT * CMP-COMPREHENSIVE METABOLIC PNL Performed by: [address], [address] [address] Component Value Range Date CREATININE 2.1 mg/dL 0.7-1.3mg/dL 01/20/2022 03:1 9 pm EDT * CBC W/DIFF Performed by: [address], [address] [address] Component Value Range Date MPV 7.6 fL 6.5-12.0 01/20/2022 03:1 9 pm EDT * Individual Tests: CMP-COMPREHENSIVE METABOLIC PNL / LIPID PROFILE w/calc LDL / MAGNESIUM / GLYCO-HGBA1C / CBC W/DIFF / FOLATE (FOLIC ACID) / VITAMIN B12 / TSH 3-UL / VITAMIN D 25-OH TOTAL / PREALBUMIN Performed by: [address], [address] [address] Component Value Range Date PREALBUMIN 19 mg/dL 16-45 01/20/2022 03:1 9 pm EDT TSH 3-UL 2.737 uIU/mL 0.340-5.600 01/20/2022 03:1 9 pm EDT * CBC W/DIFF Performed by: [address], [address] [address] Component Value Range Date MCV 86.2 fL 80.0-100.0 01/20/2022 03:1 9 pm EDT LYMPHS (ABSOLUTE) 1.20 K/uL 0.90-5.50 01/20/2022 03:19 pm EDT * CMP-COMPREHENSIVE METABOLIC PNL Performed by: [address], [address] [address] Component Value Range Date A/G RATIO 1.3 0.8-2.0 01/20/2022 03:1 9 pm EDT * GLYCO-HGBA1C Performed by: [address], [address] [address] Component Value Range Date GLYCOHEMOGLOBIN-HGBA1C 7.8 % 4.1-6.1 01/20 03:19 pm EDT * CBC W/DIFF Performed by: [address], [address] [address] Component Value Range Date MONOCYTES (ABSOLUTE) 0.60 K/uL 0.15-1.10 022 03:19 pm EDT * CMP-COMPREHENSIVE METABOLIC PNL Performed by: [address], [address] [address] Component Value Range Date BUN/CREATININE RATIO 13 6-25 022 03:19 pm EDT * CBC W/DIFF Performed by: [address], [place] [id number] Component Value Range Date NEUTS (ABSOLUTE) 5.20 K/uL 1.50-7.60 01/20/2022 03:19 pm EDT EOS (ABSOLUTE) 0.20 K/uL 0.20-0.80 01/20/2022 03 :19 pm EDT BASO 1.4 % 0.0-2.0 01/20/2022 03:1 9 pm EDT EOS 3.2 % 0.0-8.0 01/20/2022 03:1 9 pm EDT MONOCYTES 8.6 % 2.0-12.0 01/20/2022 03:1 9 pm EDT LYMPHS 15.8 % 13.0-48.0 01/20/2022 03:1 9 pm EDT * CMP-COMPREHENSIVE METABOLIC PNL Performed by: [address], [place] [id number] Component Value Range Date GFR- 37 mL/min/1.73 m2 >60 03:19 pm EDT ZYA-[id number] 30 mL/min/1.73 m2 >60 01/20/2022 03:19 pm EDT * CBC W/DIFF Performed by: [address], [place] [address] Component Value Range Date NEUTROPHILS 71.0 % 40.0-80.0 01/20/2022 03:1 9 pm EDT BASO (ABSOLUTE) 0.10 K/uL 0.00-0.30 01/20/2022 0 3:19 pm EDT * CMP-COMPREHENSIVE METABOLIC PNL Performed by: [address], [place] [id number] Component Value Range Date ALKALINE PHOS 62 IU/L 34-136 01/20/2022 03: 19 pm EDT * CBC W/DIFF Performed by: [address], [place] [address] Component Value Range Date RDW 15.6 % 11.0-16.0 01/20/2022 03:1 9 pm EDT * CMP-COMPREHENSIVE METABOLIC PNL Performed by: [address], [place] [id number] Component Value Range Date PROTEIN, TOTAL 5.3 g/dL 6.0-8.3 01/20/2022 03 :19 pm EDT ALBUMIN 3.0 g/dL 3.5-5.5 01/20/2022 03:1 9 pm EDT * CBC W/DIFF Performed by: [address], [place] [id number] Component Value Range Date PLATELET 738 K/cmm 150-450 01/20/2022 03:1 9 pm EDT * CMP-COMPREHENSIVE METABOLIC PNL Performed by: [address], [place] [address] Component Value Range Date AST (SGOT) 18 IU/L 4-40 01/20/2022 03:1 9 pm EDT ALT (SGPT) 17 IU/L 4-55 01/20/2022 03:1 9 pm EDT * CBC W/DIFF Performed by: [address], [place] [id number] Component Value Range Date WBC 7.3 K/cmm 4.5-10.8 01/20/2022 03:1 9 pm EDT MCH 28.8 pg 26.0-35.0 01/20/2022 03:1 9 pm EDT HEMATOCRIT 35.4 % 42.0-54.0 01/20/2022 03:1 9 pm EDT RBC 4.11 M/cmm 4.00-6.60 01/20/2022 03:1 9 pm EDT MCHC 33.4 g/dL 31.0-36.5 01/20/2022 03:1 9 pm EDT * CMP-COMPREHENSIVE METABOLIC PNL Performed by: [address], [place] [id number] Component Value Range Date CHLORIDE 103 mEq/L 98-110 01/20/2022 03:1 9 pm EDT BUN (UREA NITROGEN) 27 mg/dL 7-25 01/21/20 22 03:19 pm EDT CARBON DIOXIDE (CO2) 31 mEq/L 21-33 09/26/2 022 03:19 pm EDT POTASSIUM 4.4 mEq/L 3.5-5.3 01/20/2022 03:1 9 pm EDT SODIUM 143 mEq/L 136-145 01/20/2022 03:1 9 pm EDT * CBC W/DIFF Performed by: [address], [address] [address] Component Value Range Date HEMOGLOBIN 11.8 g/dL 14.0-18.0 01/20/2022 03:1 9 pm EDT * CBC W/DIFF Performed by: [address], [place] [id number] Component Value Range Date HEMOGLOBIN 13.0 g/dL 14.0-18.0 01/16/2022 03:1 7 pm EDT * CMP-COMPREHENSIVE METABOLIC PNL Performed by: [address], [place] [id number] Component Value Range Date POTASSIUM 4.4 mEq/L 3.5-5.3 01/16/2022 03:1 7 pm EDT SODIUM 142 mEq/L 136-145 01/16/2022 03:1 7 pm EDT BUN (UREA NITROGEN) 37 mg/dL 7-25 01/17/20 03:17 pm EDT CARBON DIOXIDE (CO2) 30 mEq/L 21-33 022 03:17 pm EDT CHLORIDE 99 mEq/L 98-110 01/16/2022 03:1 7 pm EDT * CBC W/DIFF Performed by: [address], [place] [id number] Component Value Range Date RBC 4.53 M/cmm 4.00-6.60 01/16/2022 03:1 7 pm EDT MCHC 32.8 g/dL 31.0-36.5 01/16/2022 03:1 7 pm EDT MCH 28.8 pg 26.0-35.0 01/16/2022 03:1 7 pm EDT HEMATOCRIT 39.8 % 42.0-54.0 01/16/2022 03:1 7 pm EDT WBC 8.8 K/cmm 4.5-10.8 01/16/2022 03:1 7 pm EDT * CMP-COMPREHENSIVE METABOLIC PNL Performed by: [address], [place] [id number] Component Value Range Date ALT (SGPT) 20 IU/L 4-55 01/16/2022 03:1 7 pm EDT * CBC W/DIFF Performed by: [address], [place] [id number] Component Value Range Date PLATELET 829 K/cmm 150-450 01/16/2022 03:1 7 pm EDT * CMP-COMPREHENSIVE METABOLIC PNL Performed by: [address], [place] [id number] Component Value Range Date AST (SGOT) 24 IU/L 4-40 01/16/2022 03:1 7 pm EDT ALBUMIN 3.5 g/dL 3.5-5.5 01/16/2022 03:1 7 pm EDT PROTEIN, TOTAL 6.0 g/dL 6.0-8.3 01/16/2022 03 :17 pm EDT ALKALINE PHOS 67 IU/L 34-136 01/16/2022 03: 17 pm EDT * CBC W/DIFF Performed by: [address], [place] [address] Component Value Range Date RDW 16.0 % 11.0-16.0 01/16/2022 03:1 7 pm EDT NEUTROPHILS 73.7 % 40.0-80.0 01/16/2022 03:1 7 pm EDT BASO (ABSOLUTE) 0.10 K/uL 0.00-0.30 01/16/2022 0 3:17 pm EDT * CMP-COMPREHENSIVE METABOLIC PNL Performed by: [address], [place] [id number] Component Value Range Date AYA-[id number]-[id number] 29 mL/min/1.73 m2 >60 01/16/2022 03:17 pm EDT GFR- 35 mL/min/1.73 m2 >60 03:17 pm EDT * CBC W/DIFF Performed by: [address], [place] [id number] Component Value Range Date LYMPHS (ABSOLUTE) 1.30 K/uL 0.90-5.50 01/16/2022 03:17 pm EDT MONOCYTES 6.3 % 2.0-12.0 01/16/2022 03:1 7 pm EDT LYMPHS 15.0 % 13.0-48.0 01/16/2022 03:1 7 pm EDT BASO 1.3 % 0.0-2.0 01/16/2022 03:1 7 pm EDT EOS 3.7 % 0.0-8.0 01/16/2022 03:1 7 pm EDT NEUTS (ABSOLUTE) 6.50 K/uL 1.50-7.60 01/16/2022 03:17 pm EDT EOS (ABSOLUTE) 0.30 K/uL 0.20-0.80 01/16/2022 03 :17 pm EDT MONOCYTES (ABSOLUTE) 0.60 K/uL 0.15-1.10 022 03:17 pm EDT * CMP-COMPREHENSIVE METABOLIC PNL Performed by: [address], [place] [address] Component Value Range Date BUN/CREATININE RATIO 17 6-25 022 03:17 pm EDT A/G RATIO 1.4 0.8-2.0 01/16/2022 03:1 7 pm EDT * CBC W/DIFF Performed by: [address], [place] [address] Component Value Range Date MCV 87.9 fL 80.0-100.0 01/16/2022 03:1 7 pm EDT * Individual Tests: CMP-COMPREHENSIVE METABOLIC PNL / CBC W/DIFF / TSH 3-UL Performed by: [address], [place] [id number] Component Value Range Date TSH 3-UL 2.581 uIU/mL 0.340-5.600 01/16/2022 03:1 7 pm EDT * CBC W/DIFF Performed by: [address], [place] [address] Component Value Range Date MPV 7.6 fL 6.5-12.0 01/16/2022 03:1 7 pm EDT NUCLEATED RBC 0.2 NRBC/100 WBC <1.0 01/16/2022 03:17 pm EDT * CMP-COMPREHENSIVE METABOLIC PNL Performed by: [place] [address] [facility] [address], [place] [address] [facility] [address] Component Value Range Date CALCIUM 8.5 mg/dL 8.6-10.3mg/dL 01/16/2022 03: 17 pm EDT BILIRUBIN, TOTAL 0.4 mg/dL 0.2-1.2 01/16/2022 03:17 pm EDT CREATININE 2.2 mg/dL 0.7-1.3mg/dL 01/16/2022 03:1 7 pm EDT GLUCOSE 131 01/16/2022 03:1 7 pm EDT Encounters Encounter Performer Performer Role Encounter Diagnoses Location Date Discharge - Other - Private home/apt. with home health services [facility] 01/14/2022 09:00 pm EDT - 02/10/2022 05:44 pm EDT Discharge - Home - Other [facility] 05/22/2022 03:00 pm EST - 06/27/2022 04:43 pm EST Immunizations Vaccine Date SARS-COV-2 (COVID-19) 10/19/2020 01:00 a m EDT Social History
--- NOTE | 2024-05-21 15:15 | ECG_ITS ---
Test Date: 2024-05-21 15:41:02 Measurements Intervals [place] Rate: 97 P: 64 CT: 224 QRS: -62 QRSD: 157 T: 32 QT: 373 QTc: 476 Interpretive Statements SINUS RHYTHM WITH FIRST DEGREE AV BLOCK RIGHT BUNDLE BRANCH BLOCK [120+ ms QRS DURATION, UPRIGHT V1, 40+ ms S IN I/aVL/V4/V5/V6] LEFT ANTERIOR FASCICULAR BLOCK [QRS AXIS <= -45, QR IN I, RS IN II] Compared to ECG 03/03/2024 22:59:27 Myocardial infarct finding no longer present Electronically Signed On 05-21-2024 21:26:02 REGISTERED NURSE RENAL by Maile Huff M.D.
[2024-05-21 15:45] LABS: Basophils Percent Auto 0.4 % (0.2-1.2); Eosinophils Percent Auto 0.3 % (0-4.4); Hemoglobin 12.3 g/dL (14.0-18.0); Immature Granulocyte Absolute 0.06 K/mm3 (0.00-0.031); Immature Granulocyte Percent A 0.5 % (0-0.5); Lymphocytes Absolute Auto 0.88 K/mm3 (0.9-3.2); Mean Corpuscular HGB Conc 32.4 g/dl (32-36); Mean Corpuscular Hemoglobin 29.2 pg (26-34); Mean Corpuscular Volume 90.3 fl (80-100); Mean Platelet Volume 9.1 fl (7.4-10.4); Monocytes Absolute Auto 0.5 K/mm3 (0.1-0.6); Monocytes Percent Auto 4.9 % (2.6-8.5); Neutrophils Absolute Auto 9.4 K/mm3 (1.3-6.7); Neutrophils Percent Auto 85.9 % (45.5-73.1); Platelet Count Result 950 k/mm3 (150-375); Red Blood Count 4.21 M/mm3 (4.6-6.20); Red Cell Distribution Width 15.6 % (11.5-14.5)
[2024-05-21 15:56] LABS: Alanine Aminotransferase 13 U/L (6-50); Albumin Level 3.4 g/dL (3.5-5.1); Alkaline Phosphatase 91 U/L (38-126); Anion Gap 14 mmol/L (4-12); Aspartate Amino Transferase 43 U/L (17-59); Blood Urea Nitrogen 22 mg/dL (9-20); Calcium 8.6 mg/dL (8.4-10.2); Carbon Dioxide 24 mmol/L (22-30); Chloride 99 mmol/L (98-107); Creatine Kinase 331 U/L (55-170); Estimated CRCL calculation 37 ml/min; Estimated Glomerular Filt Rate 51; Glucose 81 mg/dL (65-110); Lactic Acid Reflex 2.3 mmol/L (0.7-2.0); Lipase 28 U/L (23-300); Magnesium 1.7 mg/dL (1.6-2.3); Phosphorus 2.4 mg/dL (2.5-4.5); Sodium 137 mmol/L (137-145)
[2024-05-21 15:58] LABS: INR 1.3; Prothrombin Time 16.4 Seconds (11.1-14.7)
[2024-05-21 15:59] LABS: Partial Thromboplastin Time 47.6 Seconds (22.3-36.8)
[2024-05-21 16:09] LABS: Troponin I 0.039 ng/mL (0.000-0.034)
--- NOTE | 2024-05-21 16:48 | PC.NURSE ---
Pt stating to RN How about I punch you in the lip . RN successfully de-escalated pt.
[2024-05-21] MEDS: LIDOCAINE 2% GEL UROJET 10 ML PKG (16:54)
--- NOTE | 2024-05-21 17:39 | ED_ITS ---
HPI - General Adult General Chief complaint: Wound/Laceration <Jovanni Rubio MD - Last Filed: 05/21/24 19:13> Stated complaint: bed sores <Jovanni Rubio MD - Last Filed: 05/21/24 19:13> Time Seen by Provider: 05/21/24 12:35 <Jovanni Rubio MD - Last Filed: 05/21/24 19:13> History of Present Illness HPI narrative: This is an 84-year-old male presenting to ED for scrotal erythema. Patient is A&O x1. He cannot provide any useful information was denying any complaints other than scrotal pain. Patient appears to be bed-bound and urinates on himself daily. No family is around to give more history about his home life is like. <Jovanni Rubio MD - Last Filed: 05/21/24 19:13> Related Data Home medications: Home Medications ?Medication ?Instructions ?Recorded ?Confirmed ?Last Taken ?Type venlafaxine 75 mg capsule,extended 75 mg PO DAILY 12/26/19 03/04/24 12/26/19 History release 24 hr levothyroxine 75 mcg tablet 75 mcg PO DAILY 05/30/20 03/04/24 Unknown History pravastatin 40 mg tablet 40 mg PO DAILY 05/30/20 03/04/24 Unknown History tamsulosin 0.4 mg capsule 0.4 mg PO DAILY 05/30/20 03/04/24 Unknown History furosemide 20 mg tablet 20 mg PO DAILY 01/11/22 03/04/24 Unknown History cholecalciferol (vitamin D3) 50 1 unit PO DAILY 05/18/22 03/04/24 Unknown History mcg (2,000 unit) capsule (Vitamin D3) quetiapine 25 mg tablet 25 mg PO DAILY 03/04/24 03/04/24 Unknown History <Jovanni Rubio MD - Last Filed: 05/21/24 19:13> Allergies/adverse reactions: Allergies Allergy/AdvReac Type Severity Reaction Status Date / Time No Known Allergies Allergy Verified 05/21/24 10:54 <Jovanni Rubio MD - Last Filed: 05/21/24 19:13> [facility] Past Medical History Medical History: Medical History Diastolic dysfunction Type 2 diabetes mellitus Chronic kidney disease Chronic anemia Obstructive sleep apnea on CPAP Chronic obstructive pulmonary disease Benign prostatic hyperplasia Hypothyroidism Hyperlipidemia Hypertension Depression with anxiety <Jovanni Rubio MD - Last Filed: 05/21/24 19:13> Surgical History Surgical History: Surgical History History of hydrocelectomy History of appendectomy <Jovanni Rubio MD - Last Filed: 05/21/24 19:13> Family History Family History: Family History Mother Natural Father Natural with unknown cause <Jovanni Rubio MD - Last Filed: 05/21/24 19:13> Social History Social History: Social History Social History: The patient lives in his own home in [place]. He is and has 5 children. He was a social smoker and quit well over 20 years ago though he still has an occasional cigarette here there. He drinks alcohol rarely and in moderation. No illicit substance abuse. He designates his brother Brayden Rosen as his surrogate decision maker new wishes to be a full code. Smoking packs per day: 0.5 Smoking cigarettes per day: 10.0 Years smoked: 15 Smoking pack-years: 7.50 Smoking status: Former smoker Tobacco type: cigarettes Second hand tobacco smoke exposure: No Alcohol intake: former Drinks per week: 1 Substance use: never Substance use type: does not use Do You Feel Safe in your Home?: Yes Lack of Transportation: No Lack of Food: Never True Current Housing: I Have Housing Concerned About Future Housing: No Difficulty Paying Gas/Electric Bills: No Difficulty Paying for Meds: No Currently Unemployed: No Education: Associate Degree Difficulty w/ Childcare or Family Care: No Spiritual care concerns: No <Jovanni Rubio MD - Last Filed: 05/21/24 19:13> Exam 2 Narrative: APPEARANCE: Patient is disheveled, A&Ox1 Head: atraumatic. EYES: EOMI, NOSE: Atraumatic NECK: Trachea midline RESPIRATORY: No increased rate of breathing CARDIOVASCULAR: RRR, ABDOMINAL: Non-distended and soft nontender General exam: Superficial excoriation and erythema in the groin and scrotum MUSCULOSKELETAl: No obvious deformities NEURO: Alert. Moving 4/4 extremities SKIN:: Warm, dry. Normal color PSYCHIATRIC: Normal affect <Jovanni Rubio MD - Last Filed: 05/21/24 19:13> Course Course Emergency Course: Patient signed out to me by previous physician pending admission and discussion with the hospitalist team. I spoke to Liz Faust, covering the hospitalist service and the mid-level provider at this time. Patient will be admitted for scrotal erythema and tissue maceration secondary to incontinence and urinary tract infection with increased confusion, failure to thrive type symptoms with urinary incontinence and being bed-bound likely requiring PT, OT and possible care home placement. CT scan shows no abscess formation or any deep tissue infection. Patient was treated with dose of antibiotics and cream. Please see previous provider note for dictation of care while here in the emergency department. Patient remains hemodynamically stable at this time but does have an elevated troponin with previous elevations noted on the EMR. Delta troponin is flat without any acute elevations, EKG without any acute changes and no ongoing chest pain. Patient will be admitted to a telemetry monitored bed at this time <Ermias Estrella MD - Last Filed: 05/21/24 19:52> Vital Signs Vital signs: Vital Signs Temperature 36.3 C L 05/21/24 10:49 Pulse Rate 96 05/21/24 10:49 Respiratory Rate 24 H 05/21/24 10:49 Blood Pressure 229/93 H 05/21/24 10:49 Pulse Oximetry 100 05/21/24 10:49 Oxygen Delivery Room Air 05/21/24 10:49 Temperature 36.3 C L 05/21/24 10:49 Pulse Rate 104 H 05/21/24 18:29 Respiratory Rate 20 05/21/24 18:29 Blood Pressure 182/83 H 05/21/24 18:29 Pulse Oximetry 99 05/21/24 18:29 Oxygen Delivery Room Air 05/21/24 10:49 <Jovanni Rubio MD - Last Filed: 05/21/24 19:13> Vital Signs Temperature 36.3 C L 05/21/24 10:49 Pulse Rate 96 05/21/24 10:49 Respiratory Rate 24 H 05/21/24 10:49 Blood Pressure 229/93 H 05/21/24 10:49 Pulse Oximetry 100 05/21/24 10:49 Oxygen Delivery Room Air 05/21/24 10:49 Temperature 36.3 C L 05/21/24 10:49 Pulse Rate 104 H 05/21/24 18:29 Respiratory Rate 20 05/21/24 18:29 Blood Pressure 182/83 H 05/21/24 18:29 Pulse Oximetry 99 05/21/24 18:29 Oxygen Delivery Room Air 05/21/24 10:49 <Ermias Estrella MD - Last Filed: 05/21/24 19:52> Medical Decision Making MDM Narrative Medical decision making narrative: -Course: This is an 84-year-old male who is A&O x1 presenting for scrotal erythema. Patient is a poor historian. The moment he is A&O x1, believes his 1994 and believes he still gets around via a motorcycle. I spoke with his significant other (July) who says that over last month he has stopped walking. She feels she is no longer capable taking care of him at home. He is far more confused than usual at this time. Additionally his started urinating on himself discuss significant erythema and maceration of the groin. [place] placed due to significant skin breakdown. Patient treated with miconazole cream. Urine indicative infection the patient has been placed on ceftriaxone. Patient be admitted to the hospital for further management of his altered mental status. Patient will need PT OT and a possible placement. -DDX includes but is not limited to: UTI sepsis dehydration Nile's cellulitis intertrigo pneumonia stroke -Independent interpretation of studies: White count 11. Hemoglobin 12.3. Platelets 950. Patient has chronically elevated platelets. Potassium 3.0 which has been repleted orally. Kidney function at baseline. Urinalysis with 2150 white blood cells and +1 leuk esterase. Started on ceftriaxone Initial troponin elevated at .039. will continue to trend. Independent EKG interpretation: Rhythm [sinus], Rate [97], [place] -[normal], MI -[normal], QRS [wide], QTC [normal], T waves -[negative for concerning inversions], ST Segments - [Negative for concerning elevations] Final interpretations: Normal Sinus Rhythm RBBB -Discussion of Management/Consultants:Sulma <Jovanni Rubio MD - Last Filed: 05/21/24 19:13> Vital Signs Vital Signs: Vital Signs Temperature 36.3 C L 05/21/24 10:49 Pulse Rate 96 05/21/24 10:49 Respiratory Rate 24 H 05/21/24 10:49 Blood Pressure 229/93 H 05/21/24 10:49 Pulse Oximetry 100 05/21/24 10:49 Oxygen Delivery Room Air 05/21/24 10:49 Temperature 36.3 C L 05/21/24 10:49 Pulse Rate 104 H 05/21/24 18:29 Respiratory Rate 20 05/21/24 18:29 Blood Pressure 182/83 H 05/21/24 18:29 Pulse Oximetry 99 05/21/24 18:29 Oxygen Delivery Room Air 05/21/24 10:49 <Jovanni Rubio MD - Last Filed: 05/21/24 19:13> Vital Signs Temperature 36.3 C L 05/21/24 10:49 Pulse Rate 96 05/21/24 10:49 Respiratory Rate 24 H 05/21/24 10:49 Blood Pressure 229/93 H 05/21/24 10:49 Pulse Oximetry 100 05/21/24 10:49 Oxygen Delivery Room Air 05/21/24 10:49 Temperature 36.3 C L 05/21/24 10:49 Pulse Rate 104 H 05/21/24 18:29 Respiratory Rate 20 05/21/24 18:29 Blood Pressure 182/83 H 05/21/24 18:29 Pulse Oximetry 99 05/21/24 18:29 Oxygen Delivery Room Air 05/21/24 10:49 <Ermias Estrella MD - Last Filed: 05/21/24 19:52> Lab Data Result diagrams: 05/21/24 15:37 05/21/24 15:37 <Jovanni Rubio MD - Last Filed: 05/21/24 19:13> Labs: Lab Results 05/21/24 05/21/24 05/21/24 Range/Units 10:59 15:37 17:55 WBC 11.0 H (4.5-10.0) K/mm3 RBC 4.21 L (4.6-6.20) M/mm3 Hgb 12.3 L (14.0-18.0) g/dL Hct 38.0 L (42.0-52.0) % MCV 90.3 (80-100) fl MCH 29.2 (26-34) pg MCHC 32.4 (32-36) g/dl RDW 15.6 H (11.5-14.5) % Plt Count 950 H D (150-375) k/mm3 MPV 9.1 (7.4-10.4) fl Immature Gran % (Auto) 0.5 (0-0.5) % Neut % (Auto) 85.9 H (45.5-73.1) % Lymph % (Auto) 8.0 L (18.3-44.2) % [place] % (Auto) 4.9 (2.6-8.5) % Eos % (Auto) 0.3 (0-4.4) % Baso % (Auto) 0.4 (0.2-1.2) % Lymph # (Auto) 0.88 L (0.9-3.2) K/mm3 [place] # (Auto) 0.5 (0.1-0.6) K/mm3 Eos # (Auto) 0.0 (0-0.3) K/mm3 Baso # (Auto) 0.0 (0.0-0.1) K/mm3 Abs Immat Gran (auto) 0.06 H (0.00-0.031) K/mm3 Absolute Neuts (auto) 9.4 H (1.3-6.7) K/mm3 Absolute Nucleated RBC 0.000 (0.0-0.012) K/mm3 Nucleated RBC % 0.0 (0.0-0.2) % PT 16.4 H (11.1-14.7) Seconds INR 1.3 APTT 47.6 H (22.3-36.8) Seconds Sodium 137 (137-145) mmol/L Potassium 3.0 L (3.4-5.0) mmol/L Chloride 99 (98-107) mmol/L Carbon Dioxide 24 (22-30) mmol/L Anion Gap 14 H (4-12) mmol/L BUN 22 H (9-20) mg/dL Creatinine 1.34 H (0.7-1.3) mg/dL Estim Creat Clear Calc 37 ml/min Estimated GFR 51 L (59 - ) Glucose 81 (65-110) mg/dL POC Capillary Glucose 121 H (65-105) mg/dl Lactic Acid 2.3 H (0.7-2.0) mmol/L Calcium 8.6 (8.4-10.2) mg/dL Phosphorus 2.4 L (2.5-4.5) mg/dL Magnesium 1.7 (1.6-2.3) mg/dL Total Bilirubin 1.0 (0.2-1.3) mg/dL AST 43 (17-59) U/L ALT 13 (6-50) U/L Alkaline Phosphatase 91 (38-126) U/L Total Creatine Kinase 331 H (55-170) U/L Troponin I 0.039 H* (0.000-0.034) ng/mL Total Protein 7.0 (6.3-8.2) g/dL Albumin 3.4 L (3.5-5.1) g/dL Lipase 28 (23-300) U/L TSH (Reflex) 3.230 (0.465-4.68) uIU/mL Urine Color Dark yellow (Yellow) Urine Appearance Clear (Clear) Urine pH 6.0 (5.0-9.0) Ur Specific [place] 1.021 (1.001-1.035) Urine Protein 4+ H (Negative) mg/dL Urine Glucose (UA) 2+ H (Negative) mg/dL Urine Ketones 1+ H (Negative) mg/dL Ur Blood (Man) 2+ H (Negative) Urine Nitrate Negative (Negative) Urine Bilirubin Negative (Negative) Urine Urobilinogen 1.0 (<2.0) mg/dL Add Ur Microanalysis Reviewed Leukocyte Esterase Rfl 1+ H (Negative) BUD/UL Urine RBC 0-2 (0-2) /hpf Urine WBC 21-50 H (0-3) /hpf Ur Squamous Epith Cells Occasional (Few) /hpf Urine Bacteria None seen /hpf Urine Casts 11-20 /25/25 Range/Units 18:24 WBC (4.5-10.0) K/mm3 RBC (4.6-6.20) M/mm3 Hgb (14.0-18.0) g/dL Hct (42.0-52.0) % MCV (80-100) fl MCH (26-34) pg MCHC (32-36) g/dl RDW (11.5-14.5) % Plt Count (150-375) k/mm3 MPV (7.4-10.4) fl Immature Gran % (Auto) (0-0.5) % Neut % (Auto) (45.5-73.1) % Lymph % (Auto) (18.3-44.2) % [place] % (Auto) (2.6-8.5) % Eos % (Auto) (0-4.4) % Baso % (Auto) (0.2-1.2) % Lymph # (Auto) (0.9-3.2) K/mm3 [place] # (Auto) (0.1-0.6) K/mm3 Eos # (Auto) (0-0.3) K/mm3 Baso # (Auto) (0.0-0.1) K/mm3 Abs Immat Gran (auto) (0.00-0.031) K/mm3 Absolute Neuts (auto) (1.3-6.7) K/mm3 Absolute Nucleated RBC (0.0-0.012) K/mm3 Nucleated RBC % (0.0-0.2) % PT (11.1-14.7) Seconds INR APTT (22.3-36.8) Seconds Sodium (137-145) mmol/L Potassium (3.4-5.0) mmol/L Chloride (98-107) mmol/L Carbon Dioxide (22-30) mmol/L Anion Gap (4-12) mmol/L BUN (9-20) mg/dL Creatinine (0.7-1.3) mg/dL Estim Creat Clear Calc ml/min Estimated GFR (59 - ) Glucose (65-110) mg/dL POC Capillary Glucose (65-105) mg/dl Lactic Acid (0.7-2.0) mmol/L Calcium (8.4-10.2) mg/dL Phosphorus (2.5-4.5) mg/dL Magnesium (1.6-2.3) mg/dL Total Bilirubin (0.2-1.3) mg/dL AST (17-59) U/L ALT (6-50) U/L Alkaline Phosphatase (38-126) U/L Total Creatine Kinase (55-170) U/L Troponin I 0.039 H* (0.000-0.034) ng/mL Total Protein (6.3-8.2) g/dL Albumin (3.5-5.1) g/dL Lipase (23-300) U/L TSH (Reflex) (0.465-4.68) uIU/mL Urine Color (Yellow) Urine Appearance (Clear) Urine pH (5.0-9.0) Ur Specific [place] (1.001-1.035) Urine Protein (Negative) mg/dL Urine Glucose (UA) (Negative) mg/dL Urine Ketones (Negative) mg/dL Ur Blood (Man) (Negative) Urine Nitrate (Negative) Urine Bilirubin (Negative) Urine Urobilinogen (<2.0) mg/dL Add Ur Microanalysis Leukocyte Esterase Rfl (Negative) BUD/UL Urine RBC (0-2) /hpf Urine WBC (0-3) /hpf Ur Squamous Epith Cells (Few) /hpf Urine Bacteria /hpf Urine Casts <Jovanni Rubio MD - Last Filed: 05/21/24 19:13> Lab Results 05/21/24 05/21/24 05/21/24 Range/Units 10:59 15:37 17:55 WBC 11.0 H (4.5-10.0) K/mm3 RBC 4.21 L (4.6-6.20) M/mm3 Hgb 12.3 L (14.0-18.0) g/dL Hct 38.0 L (42.0-52.0) % MCV 90.3 (80-100) fl MCH 29.2 (26-34) pg MCHC 32.4 (32-36) g/dl RDW 15.6 H (11.5-14.5) % Plt Count 950 H D (150-375) k/mm3 MPV 9.1 (7.4-10.4) fl Immature Gran % (Auto) 0.5 (0-0.5) % Neut % (Auto) 85.9 H (45.5-73.1) % Lymph % (Auto) 8.0 L (18.3-44.2) % [place] % (Auto) 4.9 (2.6-8.5) % Eos % (Auto) 0.3 (0-4.4) % Baso % (Auto) 0.4 (0.2-1.2) % Lymph # (Auto) 0.88 L (0.9-3.2) K/mm3 [place] # (Auto) 0.5 (0.1-0.6) K/mm3 Eos # (Auto) 0.0 (0-0.3) K/mm3 Baso # (Auto) 0.0 (0.0-0.1) K/mm3 Abs Immat Gran (auto) 0.06 H (0.00-0.031) K/mm3 Absolute Neuts (auto) 9.4 H (1.3-6.7) K/mm3 Absolute Nucleated RBC 0.000 (0.0-0.012) K/mm3 Nucleated RBC % 0.0 (0.0-0.2) % PT 16.4 H (11.1-14.7) Seconds INR 1.3 APTT 47.6 H (22.3-36.8) Seconds Sodium 137 (137-145) mmol/L Potassium 3.0 L (3.4-5.0) mmol/L Chloride 99 (98-107) mmol/L Carbon Dioxide 24 (22-30) mmol/L Anion Gap 14 H (4-12) mmol/L BUN 22 H (9-20) mg/dL Creatinine 1.34 H (0.7-1.3) mg/dL Estim Creat Clear Calc 37 ml/min Estimated GFR 51 L (59 - ) Glucose 81 (65-110) mg/dL POC Capillary Glucose 121 H (65-105) mg/dl Lactic Acid 2.3 H (0.7-2.0) mmol/L Calcium 8.6 (8.4-10.2) mg/dL Phosphorus 2.4 L (2.5-4.5) mg/dL Magnesium 1.7 (1.6-2.3) mg/dL Total Bilirubin 1.0 (0.2-1.3) mg/dL AST 43 (17-59) U/L ALT 13 (6-50) U/L Alkaline Phosphatase 91 (38-126) U/L Total Creatine Kinase 331 H (55-170) U/L Troponin I 0.039 H* (0.000-0.034) ng/mL Total Protein 7.0 (6.3-8.2) g/dL Albumin 3.4 L (3.5-5.1) g/dL Lipase 28 (23-300) U/L TSH (Reflex) 3.230 (0.465-4.68) uIU/mL Urine Color Dark yellow (Yellow) Urine Appearance Clear (Clear) Urine pH 6.0 (5.0-9.0) Ur Specific [place] 1.021 (1.001-1.035) Urine Protein 4+ H (Negative) mg/dL Urine Glucose (UA) 2+ H (Negative) mg/dL Urine Ketones 1+ H (Negative) mg/dL Ur Blood (Man) 2+ H (Negative) Urine Nitrate Negative (Negative) Urine Bilirubin Negative (Negative) Urine Urobilinogen 1.0 (<2.0) mg/dL Add Ur Microanalysis Reviewed Leukocyte Esterase Rfl 1+ H (Negative) BUD/UL Urine RBC 0-2 (0-2) /hpf Urine WBC 21-50 H (0-3) /hpf Ur Squamous Epith Cells Occasional (Few) /hpf Urine Bacteria None seen /hpf Urine Casts 11-20 05/21/24 Range/Units 18:24 WBC (4.5-10.0) K/mm3 RBC (4.6-6.20) M/mm3 Hgb (14.0-18.0) g/dL Hct (42.0-52.0) % MCV (80-100) fl MCH (26-34) pg MCHC (32-36) g/dl RDW (11.5-14.5) % Plt Count (150-375) k/mm3 MPV (7.4-10.4) fl Immature Gran % (Auto) (0-0.5) % Neut % (Auto) (45.5-73.1) % Lymph % (Auto) (18.3-44.2) % [place] % (Auto) (2.6-8.5) % Eos % (Auto) (0-4.4) % Baso % (Auto) (0.2-1.2) % Lymph # (Auto) (0.9-3.2) K/mm3 [place] # (Auto) (0.1-0.6) K/mm3 Eos # (Auto) (0-0.3) K/mm3 Baso # (Auto) (0.0-0.1) K/mm3 Abs Immat Gran (auto) (0.00-0.031) K/mm3 Absolute Neuts (auto) (1.3-6.7) K/mm3 Absolute Nucleated RBC (0.0-0.012) K/mm3 Nucleated RBC % (0.0-0.2) % PT (11.1-14.7) Seconds INR APTT (22.3-36.8) Seconds Sodium (137-145) mmol/L Potassium (3.4-5.0) mmol/L Chloride (98-107) mmol/L Carbon Dioxide (22-30) mmol/L Anion Gap (4-12) mmol/L BUN (9-20) mg/dL Creatinine (0.7-1.3) mg/dL Estim Creat Clear Calc ml/min Estimated GFR (59 - ) Glucose (65-110) mg/dL POC Capillary Glucose (65-105) mg/dl Lactic Acid (0.7-2.0) mmol/L Calcium (8.4-10.2) mg/dL Phosphorus (2.5-4.5) mg/dL Magnesium (1.6-2.3) mg/dL Total Bilirubin (0.2-1.3) mg/dL AST (17-59) U/L ALT (6-50) U/L Alkaline Phosphatase (38-126) U/L Total Creatine Kinase (55-170) U/L Troponin I 0.039 H* (0.000-0.034) ng/mL Total Protein (6.3-8.2) g/dL Albumin (3.5-5.1) g/dL Lipase (23-300) U/L TSH (Reflex) (0.465-4.68) uIU/mL Urine Color (Yellow) Urine Appearance (Clear) Urine pH (5.0-9.0) Ur Specific [place] (1.001-1.035) Urine Protein (Negative) mg/dL Urine Glucose (UA) (Negative) mg/dL Urine Ketones (Negative) mg/dL Ur Blood (Man) (Negative) Urine Nitrate (Negative) Urine Bilirubin (Negative) Urine Urobilinogen (<2.0) mg/dL Add Ur Microanalysis Leukocyte Esterase Rfl (Negative) BUD/UL Urine RBC (0-2) /hpf Urine WBC (0-3) /hpf Ur Squamous Epith Cells (Few) /hpf Urine Bacteria /hpf Urine Casts <Ermias Estrella MD - Last Filed: 05/21/24 19:52> Discharge Plan Discharge Clinical Impression: Intertrigo, Acute UTI, AMS (altered mental status), Adult failure to thrive <Jovanni Rubio MD - Last Filed: 05/21/24 19:13> Patient Language: Monegasque <Jovanni Rubio MD - Last Filed: 05/21/24 19:13> Prescriptions: No Action venlafaxine 75 mg capsule,extended release 24hr 75 mg PO DAILY pravastatin 40 mg tablet 40 mg PO DAILY levothyroxine 75 mcg tablet 75 mcg PO DAILY tamsulosin 0.4 mg capsule 0.4 mg PO DAILY enalapril maleate 20 mg tablet 20 mg PO DAILY Qty: 30 0RF furosemide 20 mg tablet 20 mg PO DAILY acetaminophen [Mapap (acetaminophen)] 325 mg Tablet 650 mg PO Q6H PRN (Reason: Mild Pain (1-3) Or Fever) Qty: 30 0RF cholecalciferol (vitamin D3) [Vitamin D3] 50 mcg (2,000 unit) capsule 1 unit PO DAILY amlodipine [Norvasc] 5 mg Tablet 10 mg PO QAM Qty: 30 0RF quetiapine 25 mg tablet 25 mg PO DAILY levofloxacin 750 mg tablet 750 mg PO Q48H Qty: 4 0RF Rx Instructions: Levofloxacin 750mg every other day (03/08,03/10,03/12,03/14) for UTI empagliflozin 10 mg tablet 10 mg PO DAILY Qty: 30 0RF <Jovanni Rubio MD - Last Filed: 05/21/24 19:13> Follow-up/Referrals: Nash,Brayden Dominguez MD [Primary Care Provider] - <Jovanni Rubio MD - Last Filed: 05/21/24 19:13>
--- NOTE | 2024-05-21 18:04 | ECG_ITS ---
Test Date: 2024-05-21 18:08:43 Measurements Intervals [place] Rate: 97 P: 63 VA: 227 QRS: -58 QRSD: 166 T: 32 QT: 372 QTc: 474 Interpretive Statements SINUS RHYTHM WITH FIRST DEGREE AV BLOCK RIGHT BUNDLE BRANCH BLOCK [120+ ms QRS DURATION, UPRIGHT V1, 40+ ms S IN I/aVL/V4/V5/V6] LEFT ANTERIOR FASCICULAR BLOCK [QRS AXIS <= -45, QR IN I, RS IN II] Compared to ECG 05/21/2024 15:41:02 No significant changes Electronically Signed On 05-21-2024 21:24:23 LOAN AND CREDIT MANAGER by Maile Huff M.D.
[2024-05-21] MEDS: POTASSIUM CHLORIDE 20 MEQ PACKET (FOR LIQUID) 40 MEQ PO (18:27)
[2024-05-21 18:33] LABS: Add Urine Microscopic? YES; Appearance Urine Clear (Clear); Bacteria Urine None Seen /hpf; Bilirubin Urine Negative (Negative); Blood Urine 2+ (Negative); Color Urine Dark Yellow (Yellow); Glucose Urine UA 2+ mg/dL (Negative); Ketones Urine 1+ mg/dL (Negative); Leukocyte Esterase Ur 1+ LEU/UL (Negative); Need Manual Microscopic Reviewed; Nitrate Urine Negative (Negative); Protein Urine 4+ mg/dL (Negative); RBC Urine 0-2 /hpf (0-2); Specific Grav Ur 1.021 (1.001-1.035); Squamous Epithelial Cell Urine Occasional /hpf (Few); WBC Urine 21-50 /hpf (0-3)
--- NOTE | 2024-05-21 18:34 | PC.NURSE ---
40 mEq potassium dissolved in 8oz of water. Pt drank 2/3 of the cup and stated I'm done, no more. RN attempted to educate pt on importance of drinking the rest of the cup and was unsuccessful. Pt stating I'm good. EDP aware
[2024-05-21 18:42] LABS: Reflex Lactic Acid Yes or No Add Lactic
[2024-05-21 18:51] LABS: Troponin I 0.039 ng/mL (0.000-0.034)
--- NOTE | 2024-05-21 19:35 | PC.NURSE ---
Report received from SCOTT Kirkland. Assumed care of patient at this time.
--- NOTE | 2024-05-21 19:50 | P.HP_ITS ---
H&P: HPI History of Present Illness Date/Time: 05/21/24 19:50 Chief Complaint: Bedsores. Narrative: This is an 84-year-old male with history of chronic obstructive pulmonary disease, hypertension, type 2 diabetes mellitus, congestive heart failure, hypothyroidism, obstructive sleep apnea, thrombocytosis, and frequent falls presented to the emergency department via EMS from home for evaluation of ?bedsores.? He is a poor historian and some of the following is supplemented via a review of his electronic medical records. His family is not present and I was unable to get a hold of her via phone. According to EMS, they are called to the patient's house frequently for lift assist. Today they were called as his was concerned that he had wounds on his buttocks. She apparently does not think she is able to care for him at home any longer either. The patient did not know why he was sent here and has no complaints aside from the fact that he does not want to be admitted. He denies headache, syncope, near syncope, fever, sinus congestion, sore throat, cough, chest pain, shortness of breath, abdominal pain, nausea, vomiting, diarrhea, and dysuria. He has no complaints of pain. In the ED: He was afebrile on arrival. Blood pressure was 229/93 but the remainder of his vital signs were stable. Labs are significant for WBC count of 11.0, hemoglobin 12.3, platelet 950 potassium 3.0, anion gap 14, BUN 22, creatinine 1.34, lactic acid 2.3, phosphorus 2.4, magnesium 1.7, total CK 331, troponin 0.039, TSH 2.230. Urinalysis is positive for 4+ blood, 2+ glucose +ketones, 2+ blood, 1+ leukocyte esterase, and 21 to [address] showed no acute findings. Chest x-ray showed left-sided pleural effusion without focal infiltrate. CT of the abdomen and pelvis showed no acute findings. He was given potassium chloride 40 mEq and magnesium sulfate 2 g and he is being admitted in this setting. Review of Systems Review of Systems: Unable to obtain accurately as he is a poor historian. [facility] Past Medical History Medical History Diastolic dysfunction Type 2 diabetes mellitus Chronic kidney disease Chronic anemia Obstructive sleep apnea on CPAP Chronic obstructive pulmonary disease Benign prostatic hyperplasia Hypothyroidism Hyperlipidemia Hypertension Depression with anxiety Surgical History Surgical History History of hydrocelectomy History of appendectomy Family History Family History Mother Natural Father Natural with unknown cause Social History Social History (Updated 05/21/24 @ 21:20 by Liz Gonzalez PA-C) Social History: Healthcare power of employment attorney: Celsa Velasquez, daughter ([phone]). Code status: Full code. Smoking packs per day: 0.5 Smoking cigarettes per day: 10.0 Years smoked: 15 Smoking pack-years: 7.50 Smoking status: Former smoker Tobacco type: cigarettes Second hand tobacco smoke exposure: No Alcohol intake: never Drinks per week: 1 Substance use: never Substance use type: does not use Do You Feel Safe in your Home?: Yes Lack of Transportation: No Lack of Food: Never True Current Housing: I Have Housing Concerned About Future Housing: No Difficulty Paying Gas/Electric Bills: No Difficulty Paying for Meds: No Currently Unemployed: No Education: Decline to Answer Difficulty w/ Childcare or Family Care: No Spiritual care concerns: No Meds Home Medications and Allergies Home Medications ?Medication ?Instructions ?Recorded ?Confirmed ?Type venlafaxine 75 mg capsule,extended 75 mg PO DAILY 12/26/19 03/04/24 History release 24 hr levothyroxine 75 mcg tablet 75 mcg PO DAILY 05/30/20 03/04/24 History pravastatin 40 mg tablet 40 mg PO DAILY 05/30/20 03/04/24 History tamsulosin 0.4 mg capsule 0.4 mg PO DAILY 05/30/20 03/04/24 History enalapril maleate 20 mg tablet 20 mg PO DAILY #30 tabs 02/07/21 03/04/24 Rx furosemide 20 mg tablet 20 mg PO DAILY 01/11/22 03/04/24 History acetaminophen 325 mg tablet (Mapap 650 mg (2 x 325 mg) PO Q6H PRN 01/14/22 03/04/24 Rx (acetaminophen)) Mild Pain (1-3) Or Fever #30 tabs cholecalciferol (vitamin D3) 50 1 unit PO DAILY 05/18/22 03/04/24 History mcg (2,000 unit) capsule (Vitamin D3) amlodipine 5 mg tablet (Norvasc) 10 mg (2 x 5 mg) PO QAM #30 tabs 05/22/22 03/04/24 Rx quetiapine 25 mg tablet 25 mg PO DAILY 03/04/24 03/04/24 History empagliflozin 10 mg tablet 10 mg PO DAILY #30 tabs 03/06/24 Rx levofloxacin 750 mg tablet 750 mg PO Q48H #4 tabs 03/06/24 Rx Allergies Allergy/AdvReac Type Severity Reaction Status Date / Time No Known Allergies Allergy Verified 05/21/24 10:54 Vital Signs Vital Signs - 24 hr 05/21/24 10:49 05/21/24 16:52 05/21/24 17:26 Temperature 97.3 F L Pulse Rate 96 98 98 Respiratory Rate 24 H 18 19 Blood Pressure 229/93 H 194/87 H 167/73 H Pulse Oximetry 100 100 99 Oxygen Delivery Room Air 05/21/24 18:29 Temperature Pulse Rate 104 H Respiratory Rate 20 Blood Pressure 182/83 H Pulse Oximetry 99 Oxygen Delivery Exam Narrative: General: Chronically ill-appearing gentleman sitting up in bed in no acute distress. A bit disheveled. Weight: 89.9 kg. BMI: 28.4. HEENT: Normocephalic, atraumatic. PERRL, EOMI. Sclera anicteric. Oral mucosa moist. Oropharynx carotid and not visualized. Neck: Supple. Respiratory: Lung sounds are diminished at the bases, greater on the left, otherwise clear to auscultation Cardiovascular: Regular rate and rhythm with S1-S2. Gastrointestinal: Abdomen is soft, obese, and nontender with positive bowel sounds. Genitourinary: Superficial excoriations and erythema in the groin and scrotum. Skin: Warm and dry. No rash or lesions on limited exam. Extremities: No cyanosis or clubbing. Trace pretibial edema. No palpable knots or cords. Peripheral pulses palpable. Neurological: Alert to name, age, date of . He is confused regarding situation. Cranial nerves 2-12 are grossly intact. Speech is clear. No facial asymmetry. Hand career developer and foot pushes equal bilaterally. No gross focal deficits. Psychiatric: Pleasantly confused and cooperative. Appropriate mood. H&P: Results Labs Labs: Short CBC 05/21/24 Range/Units 15:37 WBC 11.0 H (4.5-10.0) K/mm3 Hgb 12.3 L (14.0-18.0) g/dL Hct 38.0 L (42.0-52.0) % Plt Count 950 H D (150-375) k/mm3 BMP 05/21/24 15:37 Sodium 137 Potassium 3.0 L Chloride 99 Carbon Dioxide 24 BUN 22 H Creatinine 1.34 H Glucose 81 Calcium 8.6 Cardiac Enzymes 05/21/24 05/21/24 Range/Units 15:37 18:24 Total Creatine Kinase 331 H (55-170) U/L Troponin I 0.039 H* 0.039 H* (0.000-0.034) ng/mL Liver Function 05/21/24 Range/Units 15:37 Total Bilirubin 1.0 (0.2-1.3) mg/dL AST 43 (17-59) U/L ALT 13 (6-50) U/L Alkaline Phosphatase 91 (38-126) U/L Albumin 3.4 L (3.5-5.1) g/dL Urine 05/21/24 Range/Units 17:55 Urine Color Dark yellow (Yellow) Urine Appearance Clear (Clear) Urine pH 6.0 (5.0-9.0) Ur Specific [place] 1.021 (1.001-1.035) Urine Protein 4+ H (Negative) mg/dL Urine Glucose (UA) 2+ H (Negative) mg/dL Imagingh Chest X-Ray 05/21/24 16:55 IMPRESSION: Left-sided pleural effusion without focal infiltrate. Head CT 05/21/24 17:41 Impression: No acute intracranial hemorrhage or suspicious mass effect. Abdomen/Pelvis CT 05/21/24 18:02 IMPRESSION: No CT evidence of acute traumatic injury, as detailed above. Assessment and Plan Assessment and plan (1) Frequent falls: Code(s): R29.6 - Repeated falls Status: Acute (2) Failure to thrive: Status: Acute (3) Hypokalemia: Code(s): E87.6 - Hypokalemia Status: Acute (4) Elevated troponin: Code(s): R79.89 - Other specified abnormal findings of blood chemistry Status: Acute (5) Pyuria: Code(s): R82.81 - Pyuria Status: Acute (6) Chronic kidney disease: Code(s): N18.9 - Chronic kidney disease, unspecified Status: Acute (7) Thrombocytosis: Code(s): D75.839 - Thrombocytosis, unspecified Status: Acute (8) Hypertension: Code(s): I10 - Essential (primary) hypertension Status: Chronic (9) Diastolic dysfunction: Code(s): I51.89 - Other ill-defined heart diseases Status: Acute (10) Type 2 diabetes mellitus: Code(s): E11.9 - Type 2 diabetes mellitus without complications Status: Acute (11) Hypothyroidism: Code(s): E03.9 - Hypothyroidism, unspecified Status: Chronic Plan The patient presented to the emergency department via EMS from home with reports of bedsores. Labs, imaging, EKG, and all reports were personally reviewed. He has erythema and excoriations about the scrotum which is likely related to urinary incontinence. Urinalysis is positive for 1+ leukocyte esterase and 21 to 50 WBC however no bacteria were seen on microscopy. At this time will hold on antibiotics, pending urine culture as he denies symptoms of a urinary tract infection. Bladder scan to rule out urinary retention given ongoing issues with incontinence. Potassium will be replaced and monitored. He is having increasingly frequent falls at home and continues to lose weight. I suspect he probably has underlying dementia. It does not sound as though his family is able to care for him at home any longer and care coordination has been consulted for possible senior care placement. Initial troponin was mildly elevated and has remained flat. EKG shows no significant changes compared to prior tracings. Echocardiogram ordered and if no significant abnormalities, I do not think a further workup needs to be pursued. Initiate fall precautions. PT/OT consulted. Blood pressures were reviewed and they are stable. Check orthostatic vital signs. Renal function is stable on review of previous labs. His platelet count remains high but is nearing 1,000,000 thus will consult Hematology. Continue levothyroxine; TSH is within normal limits. His home medications will be reviewed and resumed as appropriate. Findings and treatment plan were discussed with the patient. Questions were solicited and answered to satisfaction. The patient's medical management will be taken over by the hospitalist team in a.m. Quality VTE Prophylaxis VTE prophylaxis: pharmacologic ordered The patient has been admitted under observation status. Hospitalist [facility] Advance Care Plan I have confirmed that the patient's Advanced Care Plan is present, code status is documented, or surrogate decision maker is listed in patient medical record.: Yes Medication Reconciliation I have utilized all available resources to obtain, update and review the patients current medications (includes all prescriptions, OTC, herbals, cannabis, and nutritional supplements).: Yes
[2024-05-21] MEDS: MAGNESIUM SULF 2 GM/WATER 50ML 2 GM/50 ML BAG IVPB (19:59)
--- NOTE | 2024-05-21 21:05 | ADMGEN ---
This patient, Gianfranco Rosen, was admitted to Medical Room 243-01. Patient/family oriented to hospital policies and general routines including ID bracelet, bed and alarms, visiting hours, pain management, procedures, bathroom and other care routines, personal items, smoking policy, room service/diet, and visiting hours. Information on how to activate the Rapid Response Team has been discussed. Patient/Family are encouraged to report perceived risks to care and to ask questions if they do not understand what they are told or what they should do.
[2024-05-21 22:57] LABS: Magnesium 1.6 mg/dL (1.6-2.3); Potassium 3.1 mmol/L (3.4-5.0)
[2024-05-21 23:03] LABS: Hemoglobin A1C 5.5 % (<5.7)
[2024-05-21] MEDS: MICONAZOLE NITRATE 2% CREAM 30 GM TUBE 1 APPLIC TOPICAL (23:07)
[2024-05-21 23:08] LABS: Glucose Point of Care 133 mg/dl (65-105)
[2024-05-22] VITALS (13 sets, daily range): BP systolic 140–169; BP diastolic 62–97; PULSE 8–98; RESP 16–20; TEMP 36.7–36.9; O2SAT 92–100
[2024-05-22] MEDS: POTASSIUM CHLORIDE 20 MEQ ER TABLET 40 MEQ PO (01:42)
[2024-05-22 05:25] LABS: Hematocrit 32.2 % (42.0-52.0); Hemoglobin 10.4 g/dL (14.0-18.0); Mean Corpuscular HGB Conc 32.3 g/dl (32-36); Mean Corpuscular Hemoglobin 28.7 pg (26-34); Mean Corpuscular Volume 88.7 fl (80-100); Mean Platelet Volume 9.1 fl (7.4-10.4); Platelet Count Result 792 k/mm3 (150-375); Red Blood Count 3.63 M/mm3 (4.6-6.20); Red Cell Distribution Width 15.2 % (11.5-14.5); White Blood Count 8.8 K/mm3 (4.5-10.0)
[2024-05-22 05:36] LABS: Anion Gap 5 mmol/L (4-12); Blood Urea Nitrogen 22 mg/dL (9-20); Calcium 7.9 mg/dL (8.4-10.2); Carbon Dioxide 25 mmol/L (22-30); Chloride 105 mmol/L (98-107); Creatine Kinase 381 U/L (55-170); Estimated CRCL calculation 34 ml/min; Estimated Glomerular Filt Rate 47; Glucose 104 mg/dL (65-110); Magnesium 2.1 mg/dL (1.6-2.3); Phosphorus 3.3 mg/dL (2.5-4.5); Potassium 3.4 mmol/L (3.4-5.0); Sodium 135 mmol/L (137-145)
[2024-05-22] MEDS: LEVOTHYROXINE SODIUM 75 MCG TABLET PO (06:14)
[2024-05-22 08:05] LABS: Glucose Point of Care 106 mg/dl (65-105)
[2024-05-22] MEDS: FUROSEMIDE 20 MG TABLET PO (08:44)
[2024-05-22] MEDS: TAMSULOSIN HCL 0.4 MG CAPSULE PO (08:44)
[2024-05-22] MEDS: PRAVASTATIN SODIUM 20 MG TABLET 40 MG PO (08:44)
[2024-05-22] MEDS: amLODIPine BESYLATE 10 MG TABLET PO (08:45)
[2024-05-22] MEDS: CHOLECALCIFEROL 1,000 UNITS TABLET 2000 UNITS PO (08:45)
[2024-05-22] MEDS: EMPAGLIFLOZIN 10 MG TABLET PO (08:45)
[2024-05-22] MEDS: VENLAFAXINE HCL XR 75 MG CAP.ER.24H PO (08:45)
[2024-05-22] MEDS: ENALAPRIL MALEATE 10 MG TABLET 20 MG PO (08:45)
[2024-05-22] MEDS: QUEtiapine FUMARATE 25 MG TABLET PO (08:45)
[2024-05-22] MEDS: ENOXAPARIN 40 MG/0.4 ML SYRINGE SUB-Q (08:46)
[2024-05-22] MEDS: MICONAZOLE NITRATE 2% CREAM 30 GM TUBE 1 APPLIC TOPICAL ×2 (08:46→20:35)
[2024-05-22 12:15] LABS: Glucose Point of Care 149 mg/dl (65-105)
--- NOTE | 2024-05-22 13:58 | PCPTNOTE ---
unable to perform PT evaluation due to pt lethargic. Discussed pt with SCOTT Quintana, stated pt has been lethargic all day and he is contacting
--- NOTE | 2024-05-22 14:07 | PCOTNOTE ---
Attempted to see pt. for occupational therapy evaluation. Pt. unable to stay awake. Nursing aware.
--- NOTE | 2024-05-22 14:50 | P.PNIM_ITS ---
Progress Note: A&P Assessment and Plan (1) Frequent falls: Code(s): R29.6 - Repeated falls Status: Acute Assessment and Plan: * Deconditioning, neuropathy, malnutrition, pharmaceuticals are all likely contributing factors. * Hold psychoactive medications. * 05/22 ABG pending to exclude obesity-hypoventilation. (2) Failure to thrive: Status: Acute Assessment and Plan: * Likely multifactoral (3) Hypokalemia: Code(s): E87.6 - Hypokalemia Status: Acute Assessment and Plan: * 05/22 resolved after replacement therapy, hold furosemide. (4) Elevated troponin: Code(s): R79.89 - Other specified abnormal findings of blood chemistry Status: Acute Assessment and Plan: * Flattened coulee secondary to his (5) Pyuria: Code(s): R82.81 - Pyuria Status: Acute Assessment and Plan: * Without signs or symptoms of urinary tract infection (6) Chronic kidney disease: Code(s): N18.9 - Chronic kidney disease, unspecified Status: Acute Assessment and Plan: * Creatinine 1.43 on 05/22/2024 is within usual baseline range (7) Thrombocytosis: Code(s): D75.839 - Thrombocytosis, unspecified Status: Acute Assessment and Plan: * Chronically elevated since at least 2019. * Essential thrombocytosis vs reactive. * 05/22/2024 platelet count 792K in is in his usual recent range. (8) Hypertension: Code(s): I10 - Essential (primary) hypertension Status: Chronic Assessment and Plan: 05/22/2023 140/62 (9) Diastolic dysfunction: Code(s): I51.89 - Other ill-defined heart diseases Status: Acute Assessment and Plan: * Clinically w/o acute chf (10) Type 2 diabetes mellitus: Code(s): E11.9 - Type 2 diabetes mellitus without complications Status: Acute Assessment and Plan: * 05/22 FBS 106 * Continue SSI (11) Hypothyroidism: Code(s): E03.9 - Hypothyroidism, unspecified Status: Chronic Assessment and Plan: * Continue levothyroxine 75 mcg daily (12) Pleural effusion: Code(s): J90 - Pleural effusion, not elsewhere classified Status: Acute Assessment and Plan: * Chronic small effusion on left with associated atelectasis. Subjective Date/time seen: 05/22/24 14:50 Interval history: 84-year-old gentleman was brought to the hospital emergency department yesterday because is no longer able to care for him at home. He has bed sores. He is confused. Today he is very drowsy but still cooperative. He denied pain except when his feet were touched. Remainder of the system review was unreliable. Review of Systems Review of Systems: ROS unobtainable: Yes unobtainable due to medical condition Exam Narrative: HEENT: PERRL, sclerae nonicteric, pharyngeal mucosa pink and intact NECK: No JVD CHEST: Clear to auscultation with decreased BS at bases. Normal effort. HEART: NL S1/S2, regular, no murmur audible. ABDOMEN: BS+, soft, nontender, no mass, no bruits. EXTREMITIES: No cyanosis, pitting edema, or clubbing. NEUROLOGIC: CN intact and symmetric to inspection. MUSCULOSKELETAL: Tone and strength symmetric. PSYCH: Drowsy. Oriented to person. Follows simple commands. Speech is low slow sparse and a bit slurred. Objective Data Vital Signs Vital Signs: Vital Signs - 24 hr 05/21/24 16:52 05/21/24 17:26 05/21/24 18:29 Temperature Pulse Rate 98 98 104 H Respiratory Rate 18 19 20 Blood Pressure 194/87 H 167/73 H 182/83 H Pulse Oximetry 100 99 99 Oxygen Delivery 05/21/24 20:14 05/21/24 20:22 05/21/24 21:00 Temperature Pulse Rate 92 90 Respiratory Rate 20 20 Blood Pressure 155/73 H 165/72 H Pulse Oximetry 97 98 Oxygen Delivery Room Air 05/21/24 21:58 05/22/24 00:00 05/22/24 00:29 Temperature 97.9 F 98.2 F Pulse Rate 84 86 78 Respiratory Rate 18 18 Blood Pressure 154/66 H 161/79 H Pulse Oximetry 98 100 Oxygen Delivery 05/22/24 04:00 05/22/24 06:00 05/22/24 08:00 Temperature 98.4 F Pulse Rate 72 81 88 Respiratory Rate 18 Blood Pressure 163/67 H 158/97 H Pulse Oximetry 92 Oxygen Delivery 05/22/24 08:24 05/22/24 08:46 05/22/24 08:46 Temperature Pulse Rate 90 85 Respiratory Rate Blood Pressure 169/72 H Pulse Oximetry 95 Oxygen Delivery Room Air 05/22/24 12:00 05/22/24 13:14 Temperature 98.1 F Pulse Rate 85 98 Respiratory Rate 16 Blood Pressure 140/62 Pulse Oximetry 98 Oxygen Delivery Intake/Output Intake/Output: Intake & Output 05/19/24 05/20/24 05/21/24 05/22/24 23:59 23:59 23:59 23:59 Intake Total 120 Output Total 8 480 Balance -8 -360 Meds/Results Medications: Active Medications Generic Name Dose Route Start Last Admin Trade Name Freq PRN Reason Stop Dose Admin Acetaminophen 650 mg 05/21/24 21:28 Acetaminophen 325 Mg Tablet PO Q6H PRN Mild Pain (1-3) or Fever Amlodipine Besylate 10 mg 05/22/24 09:00 05/22/24 08:45 Amlodipine Besylate 10 Mg Tablet PO 10 mg QAM LORI Administration Dextrose 12.5 gm 05/21/24 21:28 Dextrose 50% 25 Gm/50 Ml Syringe IV PUSH PRN PRN Hypoglycemia Protocol Empagliflozin 10 mg 05/22/24 09:00 05/22/24 08:45 Empagliflozin 10 Mg Tablet PO 10 mg DAILY LORI Administration Enalapril Maleate 20 mg 05/22/24 09:00 05/22/24 08:45 Enalapril Maleate 10 Mg Tablet PO 20 mg DAILY LORI Administration Enoxaparin Sodium 40 mg 05/22/24 09:00 05/22/24 08:46 Enoxaparin 40 Mg/0.4 Ml Syringe SUB-Q 40 mg DAILY LORI Administration Furosemide 20 mg 05/22/24 09:00 05/22/24 08:44 Furosemide 20 Mg Tablet PO 20 mg DAILY LORI Administration Glucagon 1 mg 05/21/24 21:28 Glucagon For Inj 1 Mg Vial IM PRN PRN Hypoglycemia Protocol Glucose 15 gm 05/21/24 21:28 Glucose Oral Gel 15 Gm Of Glucse In 37.5 Gm Tube PO PRN PRN Hypoglycemia Protocol Dextrose 1,000 mls @ 100 mls/hr 05/21/24 21:28 Dextrose 5% 1,000 Ml IVPB PRN PRN Hypoglycemia Protocol Insulin Aspart 3 - 6 units 05/22/24 08:00 05/22/24 13:08 Insulin Aspart (*Bkc) 100 Units/Ml SUB-Q Not Given TIDWM LORI Protocol Insulin Aspart 1 - 3 units 05/21/24 21:35 05/21/24 23:08 Insulin Aspart (*Bkc) 100 Units/Ml SUB-Q Not Given HS [facility] Protocol Levothyroxine Sodium 75 mcg 05/22/24 06:30 05/22/24 06:14 Levothyroxine Sodium 75 Mcg Tablet PO 75 mcg DAILY@0630 LORI Administration Miconazole Nitrate 1 applic 05/21/24 21:00 05/22/24 08:46 Miconazole Nitrate 2% Cream 30 Gm Tube TOPICAL 1 applic Q12HR LORI Administration Perflutren Lipid Microsphere 0 ml 05/21/24 21:28 Perflutren Lipid Microspheres 1.5 Ml Vial Diluted To 10 Ml Total Volume IV PUSH 05/24/24 21:29 ONCE PRN adequate visualization Protocol Pravastatin Sodium 40 mg 05/22/24 09:00 05/22/24 08:44 Pravastatin Sodium 20 Mg Tablet PO 40 mg DAILY LORI Administration Quetiapine Fumarate 25 mg 05/22/24 09:00 05/22/24 08:45 Quetiapine Fumarate 25 Mg Tablet PO 25 mg DAILY LORI Administration Tamsulosin HCl 0.4 mg 05/22/24 09:00 05/22/24 08:44 Tamsulosin Hcl 0.4 Mg Capsule PO 0.4 mg DAILY LORI Administration Venlafaxine HCl 75 mg 05/22/24 09:00 05/22/24 08:45 Venlafaxine Hcl Xr 75 Mg Cap.Er.24h PO 75 mg DAILY LORI Administration Vitamin D 2,000 units 05/22/24 09:00 05/22/24 08:45 Cholecalciferol 1,000 Units Tablet PO 2,000 units DAILY LORI Administration Radiology Results: ITS Impressions Chest X-Ray 05/21/24 16:55 IMPRESSION: Left-sided pleural effusion without focal infiltrate. Head CT 05/21/24 17:41 Impression: No acute intracranial hemorrhage or suspicious mass effect. Abdomen/Pelvis CT 05/21/24 18:02 IMPRESSION: No CT evidence of acute traumatic injury, as detailed above. Venous Doppler Study 05/22/24 12:21 Impression: No evidence of deep vein thrombosis involving the either lower extremity. Labs Labs: Laboratory Results - last 24 hr 05/21/24 05/21/24 05/21/24 15:37 17:55 18:24 WBC 11.0 H RBC 4.21 L Hgb 12.3 L Hct 38.0 L MCV 90.3 MCH 29.2 MCHC 32.4 RDW 15.6 H Plt Count 950 H D MPV 9.1 Immature Gran % (Auto) 0.5 Neut % (Auto) 85.9 H Lymph % (Auto) 8.0 L [place] % (Auto) 4.9 Eos % (Auto) 0.3 Baso % (Auto) 0.4 Lymph # (Auto) 0.88 L [place] # (Auto) 0.5 Eos # (Auto) 0.0 Baso # (Auto) 0.0 Abs Immat Gran (auto) 0.06 H Absolute Neuts (auto) 9.4 H Absolute Nucleated RBC 0.000 Nucleated RBC % 0.0 PT 16.4 H INR 1.3 APTT 47.6 H Sodium 137 Potassium 3.0 L 3.1 L Chloride 99 Carbon Dioxide 24 Anion Gap 14 H BUN 22 H Creatinine 1.34 H Estim Creat Clear Calc 37 Estimated GFR 51 L Glucose 81 POC Capillary Glucose Hemoglobin A1c 5.5 Lactic Acid 2.3 H Calcium 8.6 Phosphorus 2.4 L Magnesium 1.7 1.6 Total Bilirubin 1.0 AST 43 ALT 13 Alkaline Phosphatase 91 Total Creatine Kinase 331 H Troponin I 0.039 H* 0.039 H* Total Protein 7.0 Albumin 3.4 L Lipase 28 TSH (Reflex) 3.230 Urine Color Dark yellow Urine Appearance Clear Urine pH 6.0 Ur Specific [place] 1.021 Urine Protein 4+ H Urine Glucose (UA) 2+ H Urine Ketones 1+ H Ur Blood (Man) 2+ H Urine Nitrate Negative Urine Bilirubin Negative Urine Urobilinogen 1.0 Add Ur Microanalysis Reviewed Leukocyte Esterase Rfl 1+ H Urine RBC 0-2 Urine WBC 21-50 H Ur Squamous Epith Cells Occasional Urine Bacteria None seen Urine Casts 11-05/21/24 05/21/24 05/22/24 20:14 23:03 04:44 WBC 8.8 RBC 3.63 L Hgb 10.4 L Hct 32.2 L MCV 88.7 MCH 28.7 MCHC 32.3 RDW 15.2 H Plt Count 792 H MPV 9.1 Immature Gran % (Auto) Neut % (Auto) Lymph % (Auto) [place] % (Auto) Eos % (Auto) Baso % (Auto) Lymph # (Auto) [place] # (Auto) Eos # (Auto) Baso # (Auto) Abs Immat Gran (auto) Absolute Neuts (auto) Absolute Nucleated RBC Nucleated RBC % PT INR APTT Sodium 135 L Potassium 3.4 Chloride 105 Carbon Dioxide 25 Anion Gap 5 BUN 22 H Creatinine 1.43 H Estim Creat Clear Calc 34 Estimated GFR 47 L Glucose 104 POC Capillary Glucose 133 H Hemoglobin A1c Lactic Acid 1.0 Calcium 7.9 L Phosphorus 3.3 Magnesium 2.1 Total Bilirubin AST ALT Alkaline Phosphatase Total Creatine Kinase 381 H Troponin I Total Protein Albumin Lipase TSH (Reflex) Urine Color Urine Appearance Urine pH Ur Specific [place] Urine Protein Urine Glucose (UA) Urine Ketones Ur Blood (Man) Urine Nitrate Urine Bilirubin Urine Urobilinogen Add Ur Microanalysis Leukocyte Esterase Rfl Urine RBC Urine WBC Ur Squamous Epith Cells Urine Bacteria Urine Casts 05/22/24 05/22/24 07:56 12:05 WBC RBC Hgb Hct MCV MCH MCHC RDW Plt Count MPV Immature Gran % (Auto) Neut % (Auto) Lymph % (Auto) [place] % (Auto) Eos % (Auto) Baso % (Auto) Lymph # (Auto) [place] # (Auto) Eos # (Auto) Baso # (Auto) Abs Immat Gran (auto) Absolute Neuts (auto) Absolute Nucleated RBC Nucleated RBC % PT INR APTT Sodium Potassium Chloride Carbon Dioxide Anion Gap BUN Creatinine Estim Creat Clear Calc Estimated GFR Glucose POC Capillary Glucose 106 H 149 H Hemoglobin A1c Lactic Acid Calcium Phosphorus Magnesium Total Bilirubin AST ALT Alkaline Phosphatase Total Creatine Kinase Troponin I Total Protein Albumin Lipase TSH (Reflex) Urine Color Urine Appearance Urine pH Ur Specific [place] Urine Protein Urine Glucose (UA) Urine Ketones Ur Blood (Man) Urine Nitrate Urine Bilirubin Urine Urobilinogen Add Ur Microanalysis Leukocyte Esterase Rfl Urine RBC Urine WBC Ur Squamous Epith Cells Urine Bacteria Urine Casts
[2024-05-22 16:59] LABS: Alveolar/Arterial O2 Gradient 38.5 mmHg; Base Excess ABG -2.2 mEq/l (+/-2.0); Fractional Inspired Oxygen 21 %; HCO3 ABG 21.4 mEq/l (22.0-26.0); Oxygen Content ABG 13.8 %vol (16.0-22.0); Oxygen Saturation ABG 95.2 % (95.0-100.0); Oxyhemoglobin 94.7 % THb (90.0-100.0); PCO2 ABG 32.5 mmHg (35.0-45.0); PO2 ABG 72.3 mmHg (80.0-100.0); PO2 FiO2 Ratio Arterial Blood 3.44 %; Total Hemoglobin 10.3 g/dL (12.0-18.0); pH ABG 7.437 (7.350-7.450)
[2024-05-22 17:00] LABS: Device ROOM AIR; Modified Allen's Test Pass; Site Drawn RIGHT RADIAL
[2024-05-22 17:05] LABS: Glucose Point of Care 96 mg/dl (65-105)
[2024-05-22] MEDS: KCL 20 MEQ/LR 1,000 ML 100 ML IV CONT (17:24)
[2024-05-22 21:22] LABS: Glucose Point of Care 112 mg/dl (65-105)
[2024-05-23] VITALS (15 sets, daily range): BP systolic 151–177; BP diastolic 49–80; PULSE 79–87; RESP 18; TEMP 36.6–36.8; O2SAT 93–97
[2024-05-23] MEDS: KCL 20 MEQ/LR 1,000 ML 100 ML IV CONT (03:11)
[2024-05-23] MEDS: LEVOTHYROXINE SODIUM 75 MCG TABLET PO (06:10)
[2024-05-23 08:03] LABS: Glucose Point of Care 106 mg/dl (65-105)
--- NOTE | 2024-05-23 08:42 | P.PNIM_ITS ---
Progress Note: A&P Assessment and Plan (1) Type 2 diabetes mellitus: Code(s): E11.9 - Type 2 diabetes mellitus without complications Status: Acute (2) Hypothyroidism: Code(s): E03.9 - Hypothyroidism, unspecified Status: Chronic (3) Adult failure to thrive: Code(s): R62.7 - Adult failure to thrive Status: Acute (4) COPD (chronic obstructive pulmonary disease): Code(s): J44.9 - Chronic obstructive pulmonary disease, unspecified Status: Chronic (5) Pleural effusion: Code(s): J90 - Pleural effusion, not elsewhere classified Status: Acute (6) Frequent falls: Code(s): R29.6 - Repeated falls Status: Acute (7) Weakness: Code(s): R53.1 - Weakness Status: Acute Plan (1) Frequent falls: Code(s): R29.6 - Repeated falls Status: Acute Assessment and Plan: * Deconditioning, neuropathy, malnutrition, pharmaceuticals are all likely contributing factors. * Hold psychoactive medications. * 05/22 ABG pending to exclude obesity-hypoventilation. ABG does not show CO2 retention, PaO2 72.3 (2) Failure to thrive: Status: Acute Assessment and Plan: * Likely multifactor Consult dietitian (3) Hypokalemia: Code(s): E87.6 - Hypokalemia Status: Acute Assessment and Plan: * 05/22 resolved after replacement therapy, hold furosemide. Corrected now (4) Elevated troponin: Code(s): R79.89 - Other specified abnormal findings of blood chemistry Status: Acute Assessment and Plan: Margin high troponin, no chest pain, close baseline Acute metabolic encephalopathy Upon arrival patient was confused Possible due to physical deconditioning is by a poor intake UTI, electrolyte abnormality Neuro check Mental status improving UTI 84-year-old gentleman with Pyuria white blood cell 20 1-50 Consistent with UTI, possible resulting in general weakness Start ceftriaxone 1 g IV daily Pending urine culture (6) Chronic kidney disease: Code(s): N18.9 - Chronic kidney disease, unspecified Status: Acute Assessment and Plan: * Creatinine 1.43 on 05/22/2024 is within usual baseline range (7) Thrombocytosis: Code(s): D75.839 - Thrombocytosis, unspecified Status: Acute Assessment and Plan: * Chronically elevated since at least 2019. * Essential thrombocytosis vs reactive. * 05/22/2024 platelet count 792K in is in his usual recent range. Also pseudocyst with chronic anemia Consult heme oncologist for evaluation treatment Chronic anemia Follow-up stool guaiac, ferritin, iron panel reticulocyte (8) Hypertension: Code(s): I10 - Essential (primary) hypertension Status: Chronic Assessment and Plan: 05/22/2023 140/62 (9) Diastolic dysfunction: Code(s): I51.89 - Other ill-defined heart diseases Status: Acute Assessment and Plan: * Clinically w/o acute chf (10) Type 2 diabetes mellitus: Code(s): E11.9 - Type 2 diabetes mellitus without complications Status: Acute Assessment and Plan: * 05/22 FBS 106 * Continue SSI(11) Hypothyroidism: Code(s): E03.9 - Hypothyroidism, unspecified Status: Chronic Assessment and Plan: * Continue levothyroxine 75 mcg daily * (12) Pleural effusion: Code(s): J90 - Pleural effusion, not elsewhere classified Status: Acute Assessment and Plan: * Chronic small effusion on left with associated atelectasis. Consult PT OT career coach for evaluation and assisting placement. Patient came from home, may benefit from rehab in long-term Subjective Date/time seen: 05/23/24 08:42 Interval history: I saw exam patient today, patient mental status continue to improve, patient is alert, oriented to place, not oriented to time, patient states she came in from home lives with her significant. Appetite improving. Patient cannot ambulate or move out of bed by himself. Patient denies chest pain abdomen pain nausea vomiting diarrhea. Patient is afebrile, blood pressure is not well controlled Exam Narrative: GENERAL: Pleasant, in no acute distress. Well-nourished. - EYES: EOMI. Anicteric. - HENT: Moist mucous membranes. - LUNGS: Clear to auscultation bilateral ly, no wheezing, rhonchi, or rales. - CARDIOVASCULAR: Regular rate and rhyth m. No murmur. No JVD. - ABDOMEN: Soft, non-tender and non-dist ended. No palpable masses. - EXTREMITIES: No edema. Peripheral puls es 2+. Non-tender. - NEUROLOGIC: No focal neurological defi cits. CN II-XII grossly intact. - PSYCHIATRIC: Awake, Alert and oriented to place. Appropriate mood and affect. General weakness - SKIN: No rashes or lesions. Warm. - LYMPH: No cervical lymphadenopathy. Objective Data Vital Signs Vital Signs: Vital Signs - 24 hr 05/22/24 08:46 05/22/24 08:46 05/22/24 12:00 Temperature Pulse Rate 85 85 Respiratory Rate Blood Pressure Pulse Oximetry 95 Oxygen Delivery Room Air 05/22/24 13:14 05/22/24 16:00 05/22/24 20:00 Temperature 98.1 F Pulse Rate 98 88 85 Respiratory Rate 16 Blood Pressure 140/62 Pulse Oximetry 98 Oxygen Delivery 05/22/24 20:26 05/22/24 20:49 05/23/24 00:00 Temperature 98.5 F Pulse Rate 84 8 L 85 Respiratory Rate 20 20 Blood Pressure 142/64 H Pulse Oximetry 96 96 Oxygen Delivery Room Air 05/23/24 04:00 05/23/24 05:10 Temperature 98 F Pulse Rate 80 79 Respiratory Rate 18 Blood Pressure 155/57 H Pulse Oximetry 93 Oxygen Delivery Intake/Output Intake/Output: Intake & Output 05/20/24 05/21/24 05/22/24 05/23/24 23:59 23:59 23:59 23:59 Intake Total 120 1028.3 Output Total 8 630 150 Balance -8 -510 878.3 Meds/Results Medications: Active Medications Generic Name Dose Route Start Last Admin Trade Name Freq PRN Reason Stop Dose Admin Acetaminophen 650 mg 05/21/24 21:28 Acetaminophen 325 Mg Tablet PO Q6H PRN Mild Pain (1-3) or Fever Amlodipine Besylate 10 mg 05/22/24 09:00 05/22/24 08:45 Amlodipine Besylate 10 Mg Tablet PO 10 mg QAM LORI Administration Dextrose 12.5 gm 05/21/24 21:28 Dextrose 50% 25 Gm/50 Ml Syringe IV PUSH PRN PRN Hypoglycemia Protocol Empagliflozin 10 mg 05/22/24 09:00 05/22/24 08:45 Empagliflozin 10 Mg Tablet PO 10 mg DAILY LORI Administration Enalapril Maleate 20 mg 05/22/24 09:00 05/22/24 08:45 Enalapril Maleate 10 Mg Tablet PO 20 mg DAILY LORI Administration Enoxaparin Sodium 40 mg 05/22/24 09:00 05/22/24 08:46 Enoxaparin 40 Mg/0.4 Ml Syringe SUB-Q 40 mg DAILY LORI Administration Glucagon 1 mg 05/21/24 21:28 Glucagon For Inj 1 Mg Vial IM PRN PRN Hypoglycemia Protocol Glucose 15 gm 05/21/24 21:28 Glucose Oral Gel 15 Gm Of Glucse In 37.5 Gm Tube PO PRN PRN Hypoglycemia Protocol Dextrose 1,000 mls @ 100 mls/hr 05/21/24 21:28 Dextrose 5% 1,000 Ml IVPB PRN PRN Hypoglycemia Protocol Potassium Cl/Dextrose/Lact Ringer's 1,000 mls @ 100 mls/hr 05/22/24 16:40 05/23/24 03:11 Kcl 20 Meq/Lr IV CONT 100 mls/hr .Q10H LORI Administration Insulin Aspart 3 - 6 units 05/22/24 08:00 05/22/24 17:27 Insulin Aspart (*Bkc) 100 Units/Ml SUB-Q Not Given TIDWM LORI Protocol Insulin Aspart 1 - 3 units 05/21/24 21:35 05/22/24 20:33 Insulin Aspart (*Bkc) 100 Units/Ml SUB-Q Not Given HS LORI Protocol Levothyroxine Sodium 75 mcg 05/22/24 06:30 05/23/24 06:10 Levothyroxine Sodium 75 Mcg Tablet PO 75 mcg DAILY@0630 LORI Administration Miconazole Nitrate 1 applic 05/21/24 21:00 05/22/24 20:35 Miconazole Nitrate 2% Cream 30 Gm Tube TOPICAL 1 applic Q12HR LORI Administration Perflutren Lipid Microsphere 0 ml 05/21/24 21:28 Perflutren Lipid Microspheres 1.5 Ml Vial Diluted To 10 Ml Total Volume IV PUSH 05/24/24 21:29 ONCE PRN adequate visualization Protocol Pravastatin Sodium 40 mg 05/22/24 09:00 05/22/24 08:44 Pravastatin Sodium 20 Mg Tablet PO 40 mg DAILY LORI Administration Tamsulosin HCl 0.4 mg 05/22/24 09:00 05/22/24 08:44 Tamsulosin Hcl 0.4 Mg Capsule PO 0.4 mg DAILY LORI Administration Vitamin D 2,000 units 05/22/24 09:00 05/22/24 08:45 Cholecalciferol 1,000 Units Tablet PO 2,000 units DAILY LORI Administration Radiology Results: ITS Impressions Chest X-Ray 05/21/24 16:55 IMPRESSION: Left-sided pleural effusion without focal infiltrate. Head CT 05/21/24 17:41 Impression: No acute intracranial hemorrhage or suspicious mass effect. Abdomen/Pelvis CT 05/21/24 18:02 IMPRESSION: No CT evidence of acute traumatic injury, as detailed above. Venous Doppler Study 05/22/24 12:21 Impression: No evidence of deep vein thrombosis involving the either lower extremity. Labs Labs: Laboratory Results - last 24 hr 05/22/24 05/22/24 05/22/24 12:05 16:46 16:58 Puncture Site Right radial ABG pH 7.437 ABG pCO2 32.5 L ABG pO2 72.3 L ABG PO2/FiO2 Ratio 3.44 ABG HCO3 21.4 L ABG O2 Saturation 95.2 ABG O2 Content 13.8 L ABG Base Excess -2.2 A-a Gradient 38.5 Oxyhemoglobin 94.7 Total Hemoglobin 10.3 L O2 Delivery Device Room air O2 Liters/Min Not Reportable FiO2 21 POC Capillary Glucose 149 H 96 05/22/24 05/23/24 20:29 07:57 Puncture Site ABG pH ABG pCO2 ABG pO2 ABG PO2/FiO2 Ratio ABG HCO3 ABG O2 Saturation ABG O2 Content ABG Base Excess A-a Gradient Oxyhemoglobin Total Hemoglobin O2 Delivery Device O2 Liters/Min FiO2 POC Capillary Glucose 112 H 106 H
--- NOTE | 2024-05-23 09:02 | PCPTNOTE ---
OT reported poor tolerance of patient with evaluation and patient just assisted back to bed 0900. Will follow.
[2024-05-23] MEDS: EMPAGLIFLOZIN 10 MG TABLET PO (09:11)
[2024-05-23] MEDS: CHOLECALCIFEROL 1,000 UNITS TABLET 2000 UNITS PO (09:11)
[2024-05-23] MEDS: ENALAPRIL MALEATE 10 MG TABLET 20 MG PO (09:11)
[2024-05-23] MEDS: amLODIPine BESYLATE 10 MG TABLET PO (09:11)
[2024-05-23] MEDS: TAMSULOSIN HCL 0.4 MG CAPSULE PO (09:11)
[2024-05-23] MEDS: PRAVASTATIN SODIUM 20 MG TABLET 40 MG PO (09:11)
[2024-05-23] MEDS: ENOXAPARIN 40 MG/0.4 ML SYRINGE SUB-Q (09:12)
[2024-05-23] MEDS: MICONAZOLE NITRATE 2% CREAM 30 GM TUBE 1 APPLIC TOPICAL (09:12)
[2024-05-23 09:26] LABS: Basophils Absolute Auto 0.1 K/mm3 (0.0-0.1); Basophils Percent Auto 1.2 % (0.2-1.2); Eosinophils Absolute Auto 0.1 K/mm3 (0-0.3); Eosinophils Percent Auto 1.6 % (0-4.4); Hematocrit 32.2 % (42.0-52.0); Hemoglobin 10.3 g/dL (14.0-18.0); Immature Granulocyte Absolute 0.14 K/mm3 (0.00-0.031); Immature Granulocyte Percent A 1.6 % (0-0.5); Immature Reticulocyte Fraction 16.4 % (3.0-15.9); Lymphocytes Absolute Auto 0.97 K/mm3 (0.9-3.2); Lymphocytes Percent Auto 11.3 % (18.3-44.2); Mean Corpuscular Hemoglobin 29.4 pg (26-34); Monocytes Absolute Auto 0.5 K/mm3 (0.1-0.6); Monocytes Percent Auto 5.7 % (2.6-8.5); Neutrophils Absolute Auto 6.8 K/mm3 (1.3-6.7); Neutrophils Percent Auto 78.6 % (45.5-73.1); Platelet Count Result 781 k/mm3 (150-375); Red Cell Distribution Width 15.5 % (11.5-14.5); Reticulocyte Hemoglobin Conten 30.3 pg (28.2-36.6); Reticulocyte Percent 1.41 % (0.7-4.3); Reticulocytes Absolute 0.05 10^6/uL (0.02-0.10); White Blood Count 8.6 K/mm3 (4.5-10.0)
[2024-05-23 09:39] LABS: Anion Gap 9 mmol/L (4-12); Blood Urea Nitrogen 24 mg/dL (9-20); Carbon Dioxide 22 mmol/L (22-30); Chloride 105 mmol/L (98-107); Estimated CRCL calculation 29 ml/min; Estimated Glomerular Filt Rate 38; Glucose 98 mg/dL (65-110); Potassium 3.9 mmol/L (3.4-5.0); Sodium 136 mmol/L (137-145)
[2024-05-23 09:49] LABS: Iron 52 ug/dL (49-181)
[2024-05-23 09:58] LABS: Percent Iron Saturation 26 % (20-50)
[2024-05-23] MEDS: hydrALAZINE HCL 20 MG/ML VIAL 10 MG IV PUSH ×2 (11:54→20:27)
[2024-05-23 12:05] LABS: Glucose Point of Care 115 mg/dl (65-105)
[2024-05-23 16:53] LABS: Glucose Point of Care 137 mg/dl (65-105)
[2024-05-23 20:44] LABS: Glucose Point of Care 117 mg/dl (65-105)
--- NOTE | 2024-05-23 21:29 | ECHO_ITS ---
Patient Info Name: Gianfranco Rosen Age: 84 years : 1940 Gender: Male Ht: 70 in Wt: 198 lbs BSA: 2.12 m2 BP: 155 / 57 mmHg Technical Quality: Good Exam Date: 05/23/2024 11:17 AM Exam Location: Echo Lab Patient Status: Outpatient Admit Date: 05/21/2024 Staff Ordering Physician: Liz Gonzalez PA-C Resident Care Coordinator: Milagros Branham RDCS Attending Provider: Melodie Watson MD Referring Physician: Carlos POPE; Exam Type: CA echo doppler color flow Study Info Indications - elevated troponin Complete two-dimensional, color flow and Doppler transthoracic echocardiogram is performed. Summary 1. Complete two-dimensional, color flow and Doppler transthoracic echocardiogram is performed. 2. Left ventricular systolic function is normal, estimated at >70%. 3. There is moderately increased left ventricular wall thickness. 4. There is mild mitral valve regurgitation. 5. There is mild tricuspid valve regurgitation. 6. Moderate pulmonary hypertension, estimated pulmonary arterial systolic pressure is 48 mmHg. Left Ventricle Left ventricular chamber dimension is normal. Left ventricular systolic function is normal, estimated at >70%. There is moderately increased left ventricular wall thickness. Left ventricular septal wall motion is normal. The left ventricular diastolic function is abnormal. Right Ventricle Right ventricular chamber dimension is normal. Right ventricular systolic function is normal. Left Atria Left atrial chamber dimension is normal. Right Atria Right atrial chamber dimension is normal. Atrial Septum Intact interatrial septum visualized by color flow imaging. Aortic Valve The aortic valve is trileaflet. There is mild aortic valve sclerosis. There is no aortic valve stenosis. There is no aortic valve regurgitation. Pulmonic Valve The pulmonic valve is normal. There is no pulmonic valve stenosis. There is no pulmonic regurgitation. Mitral Valve The mitral valve has normal leaflets. There is no mitral valve stenosis. There is mild mitral valve regurgitation. Tricuspid Valve The tricuspid valve leaflets are normal. There is no significant tricuspid valve stenosis. There is mild tricuspid valve regurgitation. Moderate pulmonary hypertension, estimated pulmonary arterial systolic pressure is 48 mmHg. Pericardium/Pleural The pericardium appears normal. There is no pericardial effusion. Inferior Vena Cava Normal inferior vena cava with >50% collapse upon inspiration consistent with Empty right atrial pressure, 5 mmHg. Aorta The aortic root size at the sinus of Valsalva is normal. The prox ascending aorta size is normal. Left Ventricular Outflow Tract Name Value Normal LVOT 2D LVOT Diameter 1.9 cm LVOT Doppler LVOT Peak Gradient 7 mmHg LVOT Mean Gradient 4 mmHg LVOT VTI 27 cm LVOT VTI/AV VTI Ratio 0.9 LVOT Stroke Volume 80 ml LVOT CO 6.4 l/min LVOT CI 3.0 l/min/m2 Pulmonic Valve Name Value Normal RVOT Doppler RVOT Peak Gradient 5 mmHg PV Doppler PV Peak Gradient 6 mmHg Mitral Valve Name Value Normal MV Doppler MV [place] 1,145 cm/s2 MV PHT 37 ms MV Area (PHT) 6.0 cm2 4.0-5.0 MV Diastolic Function MV E Peak Velocity 144 cm/s MV A Peak Velocity 0 cm/s MV E/A 321.0 MV Decel Time 126 ms Tricuspid Valve Name Value Normal TV Regurgitation Doppler TR Peak Velocity 327 cm/s TR Peak Gradient 43 mmHg Estimated PAP/RSVP RA Pressure 5 mmHg <=5 PA Systolic Pressure 48 mmHg <36 RV Systolic Pressure 48 mmHg <36 Aorta Name Value Normal Ascending Aorta Ao Root Diameter (MM) 3.5 cm Ao Root Diam Index (MM) 1.6 cm/m2 Aortic Valve Name Value Normal AV Doppler AV Peak Velocity 148 cm/s AV Peak Gradient 9 mmHg AV Mean Gradient 6 mmHg AV VTI 30 cm AV Area (Cont Eq VTI) 2.6 cm2 >=3.0 AV Area (Cont Eq Thang) 2.7 cm2 AV Regurgitation 2D LVOT Area 3.0 cm2 Ventricles Name Value Normal LV Dimensions 2D/MM IVS Diastolic Thickness (2D) 1.1 cm 0.6-1.0 LVID Diastole (2D) 3.6 cm 4.2-5.8 LVIW Diastolic Thickness (2D) 1.1 cm 0.6-1.0 LVID Systole (2D) 1.8 cm 2.5-4.0 LVOT Diameter 1.9 cm LV Mass (2D Cubed) 122.83 g 88.00-224.00 LV Mass Index (2D Cubed) 58 g/m2 49-115 Relative Wall Thickness (2D) 0.59 LV Fractional Shortening/Ejection Fraction 2D/MM LV Fractional Shortening (2D) 51 % 25-43 LV EF (2D Teicholz) 83 % 52-72 LV Diastolic Volume (4C MOD) 97 ml LV EF (4C MOD) 64 % LV Diastolic Volume (2C MOD) 68 ml LV EF (2C MOD) 64 % LV Diastolic Volume (BP MOD) 81 ml 62-150 LV Diastolic Volume Index (BP MOD) 38 ml/m2 34-74 LV Systolic Volume (BP MOD) 30 ml 21-61 LV Systolic Volume Index (BP MOD) 14 ml/m2 11-31 LV EF (BP MOD) 63 % 52-72 LV Diastolic Length (4C) 9.6 cm LV Systolic Length (4C) 7.3 cm LV Stroke Volume (4C MOD) 62 ml Atria Name Value Normal LA Dimensions LA Dimension (MM) 4.2 cm 3.0-4.1 LA Volume (4C A-L) 83 ml LA Volume (BP A-L) 70 ml RA Dimensions RA Area (4C) 21.0 cm2 <=18.0 Report Signatures
[2024-05-24] VITALS (12 sets, daily range): BP systolic 145–184; BP diastolic 50–67; PULSE 75–96; RESP 16–20; TEMP 36.5–36.9; O2SAT 83–98
[2024-05-24] MEDS: LEVOTHYROXINE SODIUM 75 MCG TABLET PO (05:34)
[2024-05-24 05:35] LABS: Basophils Absolute Auto 0.1 K/mm3 (0.0-0.1); Basophils Percent Auto 1.1 % (0.2-1.2); Eosinophils Absolute Auto 0.1 K/mm3 (0-0.3); Eosinophils Percent Auto 2.1 % (0-4.4); Hematocrit 28.5 % (42.0-52.0); Hemoglobin 8.9 g/dL (14.0-18.0); Immature Granulocyte Absolute 0.21 K/mm3 (0.00-0.031); Immature Granulocyte Percent A 3.2 % (0-0.5); Lymphocytes Absolute Auto 0.65 K/mm3 (0.9-3.2); Lymphocytes Percent Auto 9.9 % (18.3-44.2); Mean Corpuscular HGB Conc 31.2 g/dl (32-36); Mean Corpuscular Hemoglobin 28.4 pg (26-34); Mean Corpuscular Volume 91.1 fl (80-100); Mean Platelet Volume 8.9 fl (7.4-10.4); Monocytes Absolute Auto 0.4 K/mm3 (0.1-0.6); Monocytes Percent Auto 6.4 % (2.6-8.5); Neutrophils Absolute Auto 5.1 K/mm3 (1.3-6.7); Neutrophils Percent Auto 77.3 % (45.5-73.1); Platelet Count Result 675 k/mm3 (150-375); Red Blood Count 3.13 M/mm3 (4.6-6.20); Red Cell Distribution Width 15.2 % (11.5-14.5); White Blood Count 6.6 K/mm3 (4.5-10.0)
[2024-05-24 05:45] LABS: Anion Gap 6 mmol/L (4-12); Blood Urea Nitrogen 26 mg/dL (9-20); Calcium 7.7 mg/dL (8.4-10.2); Carbon Dioxide 23 mmol/L (22-30); Chloride 106 mmol/L (98-107); Estimated CRCL calculation 30 ml/min; Estimated Glomerular Filt Rate 39; Glucose 97 mg/dL (65-110); Potassium 3.5 mmol/L (3.4-5.0); Sodium 135 mmol/L (137-145)
[2024-05-24 08:22] LABS: Glucose Point of Care 91 mg/dl (65-105)
--- NOTE | 2024-05-24 08:23 | P.PNIM_ITS ---
Progress Note: A&P Assessment and Plan (1) Type 2 diabetes mellitus: Code(s): E11.9 - Type 2 diabetes mellitus without complications Status: Acute (2) Hypothyroidism: Code(s): E03.9 - Hypothyroidism, unspecified Status: Chronic (3) Adult failure to thrive: Code(s): R62.7 - Adult failure to thrive Status: Acute (4) COPD (chronic obstructive pulmonary disease): Code(s): J44.9 - Chronic obstructive pulmonary disease, unspecified Status: Chronic (5) Pleural effusion: Code(s): J90 - Pleural effusion, not elsewhere classified Status: Acute (6) Frequent falls: Code(s): R29.6 - Repeated falls Status: Acute (7) Weakness: Code(s): R53.1 - Weakness Status: Acute Plan (1) Frequent falls: Code(s): R29.6 - Repeated falls Status: Acute Assessment and Plan: * Deconditioning, neuropathy, malnutrition, pharmaceuticals are all likely contributing factors. * Hold psychoactive medications. * 05/22 ABG pending to exclude obesity-hypoventilation. ABG does not show CO2 retention, PaO2 72.3 (2) Failure to thrive: Status: Acute Assessment and Plan: * Likely multifactor Consult dietitian (3) Hypokalemia: Code(s): E87.6 - Hypokalemia Status: Acute Assessment and Plan: * 05/22 resolved after replacement therapy, hold furosemide. Corrected now (4) Elevated troponin: Code(s): R79.89 - Other specified abnormal findings of blood chemistry Status: Acute Assessment and Plan: Margin high troponin, no chest pain, close baseline Acute metabolic encephalopathy Upon arrival patient was confused Possible due to physical deconditioning is by a poor intake UTI, electrolyte abnormality Neuro check Mental status improving possible at a baseline UTI 84-year-old gentleman with Pyuria white blood cell 20 1-50 Consistent with UTI, possible resulting in general weakness Start ceftriaxone 1 g IV daily urine culture: No growth Chronic kidney disease: Code(s): N18.9 - Chronic kidney disease, unspecified Status: Acute Assessment and Plan: * Creatinine 1.43 on 05/22/2024 is within usual baseline range Kidney function is stable (7) Thrombocytosis: Code(s): D75.839 - Thrombocytosis, unspecified Status: Acute Assessment and Plan: * Chronically elevated since at least 2019. * Essential thrombocytosis vs reactive. * 05/22/2024 platelet count 792K in is in his usual recent range. Also pseudocyst with chronic anemia Consult heme oncologist for evaluation treatment Chronic anemia Follow-up stool guaiac, ferritin, iron panel reticulocyte Hypertension: Code(s): I10 - Essential (primary) hypertension Status: Chronic Assessment and Plan: Continue amlodipine 10 mg daily p.o., enalapril 20 mg daily p.o., for (9) Diastolic dysfunction: Code(s): I51.89 - Other ill-defined heart diseases Status: Acute Assessment and Plan: * Clinically w/o acute chf (10) Type 2 diabetes mellitus: Code(s): E11.9 - Type 2 diabetes mellitus without complications Status: Acute Assessment and Plan: * 05/22 FBS 106 * Continue SSI(11) Hypothyroidism: Code(s): E03.9 - Hypothyroidism, unspecified Status: Chronic Assessment and Plan: * Continue levothyroxine 75 mcg daily * (12) Pleural effusion: Code(s): J90 - Pleural effusion, not elsewhere classified Status: Acute Assessment and Plan: * Chronic small effusion on left with associated atelectasis. Consult PT OT childcare attendant for evaluation and assisting placement. Patient cannot ambulate without assistance. Patient came from home, may benefit from rehab in residential Subjective Date/time seen: 05/24/24 08:23 Interval history: I saw examined the patient today. No new issue even overnight. No change of mental status over the night. Patient can not engage conversation, not oriented to time. Patient cannot ambulate without assistance. Appetite improving, he denies chest pain abdomen pain nausea vomiting diarrhea. Patient is afebrile, blood pressure is not well controlled. Labs reviewed, kidney function continue to improve. Hemoglobin is trending down, thrombocytosis persists Exam Narrative: GENERAL: Pleasant, in no acute distress. Well-nourished. - EYES: EOMI. Anicteric. - HENT: Moist mucous membranes. - LUNGS: Clear to auscultation bilateral ly, no wheezing, rhonchi, or rales. - CARDIOVASCULAR: Regular rate and rhyth m. No murmur. No JVD. - ABDOMEN: Soft, non-tender and non-dist ended. No palpable masses. - EXTREMITIES: No edema. Peripheral puls es 2+. Non-tender. - NEUROLOGIC: No focal neurological defi cits. CN II-XII grossly intact. - PSYCHIATRIC: Awake, Alert and oriented to place. Appropriate mood and affect. General weakness - SKIN: No rashes or lesions. Warm. - LYMPH: No cervical lymphadenopathy. Objective Data Vital Signs Vital Signs: Vital Signs - 24 hr 05/23/24 08:29 05/23/24 09:09 05/23/24 09:12 Temperature 98.1 F Pulse Rate 83 Respiratory Rate 18 Blood Pressure 169/77 H Pulse Oximetry 97 97 Oxygen Delivery Room Air Room Air 05/23/24 09:12 05/23/24 09:18 05/23/24 09:19 Temperature Pulse Rate 79 80 84 Respiratory Rate Blood Pressure 167/57 H 170/80 H Pulse Oximetry Oxygen Delivery 05/23/24 11:45 05/23/24 12:00 05/23/24 12:15 Temperature 98.2 F Pulse Rate 83 82 Respiratory Rate 18 Blood Pressure 164/65 H Pulse Oximetry 97 Oxygen Delivery 05/23/24 13:30 05/23/24 16:00 05/23/24 20:00 Temperature Pulse Rate 87 Respiratory Rate Blood Pressure 151/52 H Pulse Oximetry Oxygen Delivery Room Air 05/23/24 20:00 05/23/24 20:20 05/23/24 21:46 Temperature 97.9 F Pulse Rate 82 83 Respiratory Rate 18 Blood Pressure 177/66 H 160/49 H Pulse Oximetry 95 Oxygen Delivery 05/24/24 00:00 05/24/24 04:00 05/24/24 05:50 Temperature 97.8 F Pulse Rate 80 75 76 Respiratory Rate 18 Blood Pressure 156/59 H Pulse Oximetry 98 Oxygen Delivery Intake/Output Intake/Output: Intake & Output 05/21/24 05/22/24 05/23/24 05/24/24 23:59 23:59 23:59 23:59 Intake Total 120 2159.3 150 Output Total 8 630 500 450 Balance -8 -510 1659.3 -300 Meds/Results Medications: Active Medications Generic Name Dose Route Start Last Admin Trade Name Freq PRN Reason Stop Dose Admin Acetaminophen 650 mg 05/21/24 21:28 Acetaminophen 325 Mg Tablet PO Q6H PRN Mild Pain (1-3) or Fever Amlodipine Besylate 10 mg 05/22/24 09:00 05/23/24 09:11 Amlodipine Besylate 10 Mg Tablet PO 10 mg QAM LORI Administration Dextrose 12.5 gm 05/21/24 21:28 Dextrose 50% 25 Gm/50 Ml Syringe IV PUSH PRN PRN Hypoglycemia Protocol Empagliflozin 10 mg 05/22/24 09:00 05/23/24 09:11 Empagliflozin 10 Mg Tablet PO 10 mg DAILY LORI Administration Enalapril Maleate 20 mg 05/22/24 09:00 05/23/24 09:11 Enalapril Maleate 10 Mg Tablet PO 20 mg DAILY LORI Administration Enoxaparin Sodium 40 mg 05/22/24 09:00 05/23/24 09:12 Enoxaparin 40 Mg/0.4 Ml Syringe SUB-Q 40 mg DAILY LORI Administration Glucagon 1 mg 05/21/24 21:28 Glucagon For Inj 1 Mg Vial IM PRN PRN Hypoglycemia Protocol Glucose 15 gm 05/21/24 21:28 Glucose Oral Gel 15 Gm Of Glucse In 37.5 Gm Tube PO PRN PRN Hypoglycemia Protocol Hydralazine HCl 10 mg 05/23/24 10:22 05/23/24 20:27 Hydralazine Hcl 20 Mg/Ml Vial IV PUSH 10 mg Q6H PRN Administration Blood Pressure - High Dextrose 1,000 mls @ 100 mls/hr 05/21/24 21:28 Dextrose 5% 1,000 Ml IVPB PRN PRN Hypoglycemia Protocol Ceftriaxone Sodium 1 gm in 50 mls @ 100 mls/hr 05/23/24 09:00 05/23/24 09:50 Rocephin 1 Gm/Ns 50 Ml IVPB Infused Q24H LORI Infusion Insulin Aspart 3 - 6 units 05/22/24 08:00 05/23/24 17:59 Insulin Aspart (*Bkc) 100 Units/Ml SUB-Q Not Given TIDWM [facility] Protocol Insulin Aspart 1 - 3 units 05/21/24 21:35 05/23/24 20:24 Insulin Aspart (*Bkc) 100 Units/Ml SUB-Q Not Given HS [facility] Protocol Levothyroxine Sodium 75 mcg 05/22/24 06:30 05/24/24 05:34 Levothyroxine Sodium 75 Mcg Tablet PO 75 mcg DAILY@0630 LORI Administration Perflutren Lipid Microsphere 0 ml 05/21/24 21:28 Perflutren Lipid Microspheres 1.5 Ml Vial Diluted To 10 Ml Total Volume IV PUSH 05/24/24 21:29 ONCE PRN adequate visualization Protocol Polyethylene Glycol 17 gm 05/24/24 09:00 Polyethylene Glycol 3350 17 Gm Powd.Pack PO QAM LORI Pravastatin Sodium 40 mg 05/22/24 09:00 05/23/24 09:11 Pravastatin Sodium 20 Mg Tablet PO 40 mg DAILY LORI Administration Tamsulosin HCl 0.4 mg 05/22/24 09:00 05/23/24 09:11 Tamsulosin Hcl 0.4 Mg Capsule PO 0.4 mg DAILY LORI Administration Vitamin D 2,000 units 05/22/24 09:00 05/23/24 09:11 Cholecalciferol 1,000 Units Tablet PO 2,000 units DAILY LORI Administration Radiology Results: ITS Impressions Chest X-Ray 05/21/24 16:55 IMPRESSION: Left-sided pleural effusion without focal infiltrate. Head CT 05/21/24 17:41 Impression: No acute intracranial hemorrhage or suspicious mass effect. Abdomen/Pelvis CT 05/21/24 18:02 IMPRESSION: No CT evidence of acute traumatic injury, as detailed above. Venous Doppler Study 05/22/24 12:21 Impression: No evidence of deep vein thrombosis involving the either lower extremity. Labs Labs: Laboratory Results - last 24 hr 05/23/24 05/23/24 05/23/24 09:02 11:43 16:40 WBC 8.6 RBC 3.50 L Hgb 10.3 L Hct 32.2 L MCV 92.0 MCH 29.4 MCHC 32.0 RDW 15.5 H Plt Count 781 H MPV 9.0 Immature Gran % (Auto) 1.6 H Neut % (Auto) 78.6 H Lymph % (Auto) 11.3 L [place] % (Auto) 5.7 Eos % (Auto) 1.6 Baso % (Auto) 1.2 Lymph # (Auto) 0.97 [place] # (Auto) 0.5 Eos # (Auto) 0.1 Baso # (Auto) 0.1 Abs Immat Gran (auto) 0.14 H Absolute Neuts (auto) 6.8 H Absolute Nucleated RBC 0.000 Nucleated RBC % 0.0 Absolute Retic 0.05 Percent Retic 1.41 Immature Retic Fraction 16.4 H Retic Hgb Content 30.3 Sodium 136 L Potassium 3.9 Chloride 105 Carbon Dioxide 22 Anion Gap 9 BUN 24 H Creatinine 1.73 H Estim Creat Clear Calc 29 Estimated GFR 38 L Glucose 98 POC Capillary Glucose 115 H 137 H Calcium 8.0 L Iron 52 TIBC 197 L % Saturation 26 Ferritin 109.00 05/23/24 05/24/24 05/24/24 20:23 04:56 08:12 WBC 6.6 RBC 3.13 L Hgb 8.9 L Hct 28.5 L MCV 91.1 MCH 28.4 MCHC 31.2 L RDW 15.2 H Plt Count 675 H MPV 8.9 Immature Gran % (Auto) 3.2 H Neut % (Auto) 77.3 H Lymph % (Auto) 9.9 L [place] % (Auto) 6.4 Eos % (Auto) 2.1 Baso % (Auto) 1.1 Lymph # (Auto) 0.65 L [place] # (Auto) 0.4 Eos # (Auto) 0.1 Baso # (Auto) 0.1 Abs Immat Gran (auto) 0.21 H Absolute Neuts (auto) 5.1 Absolute Nucleated RBC 0.000 Nucleated RBC % 0.0 Absolute Retic Percent Retic Immature Retic Fraction Retic Hgb Content Sodium 135 L Potassium 3.5 Chloride 106 Carbon Dioxide 23 Anion Gap 6 BUN 26 H Creatinine 1.66 H Estim Creat Clear Calc 30 Estimated GFR 39 L Glucose 97 POC Capillary Glucose 117 H 91 Calcium 7.7 L Iron TIBC % Saturation Ferritin
--- NOTE | 2024-05-24 08:47 | PCPTNOTE ---
attempted PT eval, pt refused to get out of bed, oriented to person/place/time but not situation, slow to answer questions, pt stated he does not like being asked questions and then reported he had right sided abdominal pain when PT removed blankets to get pt out of bed (RN made aware), PT asked pt how he plans to go home if he can't get out of bed and pt stated he will get a bunch of 16 year old girls to get him out of bed, will follow
[2024-05-24] MEDS: TAMSULOSIN HCL 0.4 MG CAPSULE PO (09:28)
[2024-05-24] MEDS: EMPAGLIFLOZIN 10 MG TABLET PO (09:28)
[2024-05-24] MEDS: ENOXAPARIN 40 MG/0.4 ML SYRINGE SUB-Q (09:29)
[2024-05-24] MEDS: PRAVASTATIN SODIUM 20 MG TABLET 40 MG PO (09:29)
[2024-05-24] MEDS: CHOLECALCIFEROL 1,000 UNITS TABLET 2000 UNITS PO (09:29)
[2024-05-24] MEDS: amLODIPine BESYLATE 10 MG TABLET PO (09:29)
[2024-05-24] MEDS: ENALAPRIL MALEATE 10 MG TABLET 20 MG PO (09:29)
[2024-05-24] MEDS: polyethylene glycoL 3350 17 GM POWD.PACK PO (09:30)
[2024-05-24 11:46] LABS: Glucose Point of Care 197 mg/dl (65-105)
--- NOTE | 2024-05-24 16:13 | P.CONONC_ITS ---
Assessment and Plan Assessment and plan (1) Thrombocytosis: Code(s): D75.839 - Thrombocytosis, unspecified Status: Acute Assessment and Plan: thrombocytosis. Patient is the 84-year-old male with multiple comorbidities including diabetes, hypertension, COPD, CHF and frequent fall came into the hospital with bedsores. He was also diagnosed with UTI. Platelet count was quite elevated at 975,000.. Patient was also found to be anemic. Kidney function was low but iron studies were normal. Thrombocytosis could be reactive due to the bedsores and UTI versus possibility of essential thrombocythemia. I will order the workup that will include JAK2 mutation, CRP and sedimentation rate. Anemia is likely secondary to chronic kidney disease. Patient may require growth factor support with Procrit as an outpatient. I will check vitamin B12 level and folic acid level as well. I will hold on starting hydroxyurea for essential thrombocythemia until he recovers from the infections. I would like to see him back in the office for further management and review of the labs that has been ordered today. HPI Data of Consult Date/Time: 05/24/24 16:13 Requesting Physician: Melodie Watson MD Primary Care Provider: Brayden CaoMD Consult Narrative Narrative: Gianfranco Rosen is a 84 year old male , sleep apnea, congestive heart failure, diabetes, hypothyroidism came into the hospital with bedsores. He has been dealing with frequent falls. Patient is a poor historian. He was diagnosed with UTI. CT scan showed no acute findings. Doppler study showed no evidence of DVT. Labs showed elevated platelet counts. Patient is a poor historian. Iron studies showed normal iron studies. Creatinine was elevated at 1.6. Review of Systems 2 Review of Systems: review of system as per HPI otherwise negative [facility] Past Medical History Medical History Diastolic dysfunction Type 2 diabetes mellitus Chronic kidney disease Chronic anemia Obstructive sleep apnea on CPAP Chronic obstructive pulmonary disease Benign prostatic hyperplasia Hypothyroidism Hyperlipidemia Hypertension Depression with anxiety Surgical History Surgical History History of hydrocelectomy History of appendectomy Family History Family History Mother Natural Father Natural with unknown cause Social History Social History (Updated 05/21/24 @ 21:20 by Liz Gonzalez PA-C) Social History: Healthcare power of real estate associate attorney: Celsa Velasquez, daughter ([phone]). Code status: Full code. Smoking packs per day: 0.5 Smoking cigarettes per day: 10.0 Years smoked: 15 Smoking pack-years: 7.50 Smoking status: Former smoker Tobacco type: cigarettes Second hand tobacco smoke exposure: No Alcohol intake: never Drinks per week: 1 Substance use: never Substance use type: does not use Do You Feel Safe in your Home?: Yes Lack of Transportation: No Lack of Food: Never True Current Housing: I Have Housing Concerned About Future Housing: No Difficulty Paying Gas/Electric Bills: No Difficulty Paying for Meds: No Currently Unemployed: No Education: Decline to Answer Difficulty w/ Childcare or Family Care: No Spiritual care concerns: No Meds Home Medications and Allergies Home Medications ?Medication ?Instructions ?Recorded ?Confirmed ?Type venlafaxine 75 mg capsule,extended 75 mg PO DAILY 12/26/19 05/21/24 History release 24 hr levothyroxine 75 mcg tablet 75 mcg PO DAILY 05/30/20 05/21/24 History pravastatin 40 mg tablet 40 mg PO DAILY 05/30/20 05/21/24 History tamsulosin 0.4 mg capsule 0.4 mg PO DAILY 05/30/20 05/21/24 History enalapril maleate 20 mg tablet 20 mg PO DAILY #30 tabs 02/07/21 05/21/24 Rx furosemide 20 mg tablet 20 mg PO DAILY 01/11/22 05/21/24 History acetaminophen 325 mg tablet (Mapap 650 mg (2 x 325 mg) PO Q6H PRN 01/14/22 05/21/24 Rx (acetaminophen)) Mild Pain (1-3) Or Fever #30 tabs cholecalciferol (vitamin D3) 50 1 unit PO DAILY 05/18/22 05/21/24 History mcg (2,000 unit) capsule (Vitamin D3) amlodipine 5 mg tablet (Norvasc) 10 mg (2 x 5 mg) PO QAM #30 tabs 05/22/22 05/21/24 Rx quetiapine 25 mg tablet 25 mg PO DAILY 03/04/24 05/21/24 History empagliflozin 10 mg tablet 10 mg PO DAILY #30 tabs 03/06/24 05/21/24 Rx Allergies Allergy/AdvReac Type Severity Reaction Status Date / Time No Known Allergies Allergy Verified 05/21/24 10:54 Vital Signs Vital Signs - 24 hr 05/23/24 20:00 05/23/24 20:00 05/23/24 20:20 Temperature 36.6 C Pulse Rate 82 83 Respiratory Rate 18 Blood Pressure 177/66 H Pulse Oximetry 95 Oxygen Delivery Room Air 05/23/24 21:46 05/24/24 00:00 05/24/24 04:00 Temperature Pulse Rate 80 75 Respiratory Rate Blood Pressure 160/49 H Pulse Oximetry Oxygen Delivery 05/24/24 05:50 05/24/24 09:26 05/24/24 09:32 Temperature 36.6 C 36.5 C Pulse Rate 76 95 Respiratory Rate 18 16 Blood Pressure 156/59 H 158/54 H Pulse Oximetry 98 98 98 Oxygen Delivery Room Air 05/24/24 09:32 05/24/24 14:00 Temperature 36.6 C Pulse Rate 78 83 Respiratory Rate 18 Blood Pressure 145/50 H Pulse Oximetry 98 Oxygen Delivery Exam 2 Narrative: lungs are clear to auscultation bilaterally cardiovascular regular rate rhythm no murmurs abdomen soft nontender nondistended bowel sounds are positive extremities no edema Results Labs 05/24/24 04:56 05/24/24 04:56 Labs: Short CBC 05/24/24 Range/Units 04:56 WBC 6.6 (4.5-10.0) K/mm3 Hgb 8.9 L (14.0-18.0) g/dL Hct 28.5 L (42.0-52.0) % Plt Count 675 H (150-375) k/mm3 BMP 05/24/24 04:56 Sodium 135 L Potassium 3.5 Chloride 106 Carbon Dioxide 23 BUN 26 H Creatinine 1.66 H Glucose 97 Calcium 7.7 L
[2024-05-24 17:13] LABS: Glucose Point of Care 132 mg/dl (65-105)
[2024-05-24 17:20] LABS: Erythrocyte Sedimentation Rate 119 mm/hr (0-20)
[2024-05-24] MEDS: SENNA/DOCUSATE SODIUM TABLET 2 TAB PO (17:26)
[2024-05-24 22:00] LABS: Glucose Point of Care 156 mg/dl (65-105)
[2024-05-25 04:25] VITALS: BP 188/54; PULSE 83; RESP 20; TEMP 36.5; O2SAT 96
[2024-05-25] MEDS: LEVOTHYROXINE SODIUM 75 MCG TABLET PO (06:10)
[2024-05-25 07:06] LABS: Basophils Percent Auto 0.7 % (0.2-1.2); Eosinophils Absolute Auto 0.1 K/mm3 (0-0.3); Eosinophils Percent Auto 0.8 % (0-4.4); Hematocrit 28.1 % (42.0-52.0); Hemoglobin 9.1 g/dL (14.0-18.0); Immature Granulocyte Absolute 0.23 K/mm3 (0.00-0.031); Immature Granulocyte Percent A 3.8 % (0-0.5); Lymphocytes Absolute Auto 0.47 K/mm3 (0.9-3.2); Lymphocytes Percent Auto 7.8 % (18.3-44.2); Mean Corpuscular HGB Conc 32.4 g/dl (32-36); Mean Corpuscular Volume 89.5 fl (80-100); Mean Platelet Volume 8.7 fl (7.4-10.4); Monocytes Absolute Auto 0.5 K/mm3 (0.1-0.6); Monocytes Percent Auto 8.8 % (2.6-8.5); Neutrophils Absolute Auto 4.7 K/mm3 (1.3-6.7); Neutrophils Percent Auto 78.1 % (45.5-73.1); Platelet Count Result 553 k/mm3 (150-375); Red Blood Count 3.14 M/mm3 (4.6-6.20); Red Cell Distribution Width 15.1 % (11.5-14.5)
[2024-05-25 07:15] LABS: Anion Gap 2 mmol/L (4-12); Blood Urea Nitrogen 21 mg/dL (9-20); Calcium 8.3 mg/dL (8.4-10.2); Carbon Dioxide 26 mmol/L (22-30); Chloride 106 mmol/L (98-107); Estimated CRCL calculation 31 ml/min; Estimated Glomerular Filt Rate 42; Glucose 103 mg/dL (65-110); Potassium 3.7 mmol/L (3.4-5.0); Sodium 134 mmol/L (137-145)
--- NOTE | 2024-05-25 07:40 | PM.IMPN ---
Progress Note: A&P Assessment and Plan (1) Type 2 diabetes mellitus: Code(s): E11.9 - Type 2 diabetes mellitus without complications Status: Acute (2) Hypothyroidism: Code(s): E03.9 - Hypothyroidism, unspecified Status: Chronic (3) Adult failure to thrive: Code(s): R62.7 - Adult failure to thrive Status: Acute (4) COPD (chronic obstructive pulmonary disease): Code(s): J44.9 - Chronic obstructive pulmonary disease, unspecified Status: Chronic (5) Pleural effusion: Code(s): J90 - Pleural effusion, not elsewhere classified Status: Acute (6) Frequent falls: Code(s): R29.6 - Repeated falls Status: Acute (7) Weakness: Code(s): R53.1 - Weakness Status: Acute Plan (1) Frequent falls: Code(s): R29.6 - Repeated falls Status: Acute Assessment and Plan: Deconditioning, neuropathy, malnutrition, pharmaceuticals are all likely contributing factors. Hold psychoactive medications. 05/22 ABG pending to exclude obesity-hypoventilation. ABG does not show CO2 retention, PaO2 72.3 (2) Failure to thrive: Status: Acute Assessment and Plan: Likely multifactor Consult dietitian (3) Hypokalemia: Code(s): E87.6 - Hypokalemia Status: Acute Assessment and Plan: 05/22 resolved after replacement therapy, hold furosemide. Corrected now Elevated troponin: Code(s): R79.89 - Other specified abnormal findings of blood chemistry Status: Acute Assessment and Plan: Margin high troponin, no chest pain, close baseline Acute metabolic encephalopathy Upon arrival patient was confused Possible due to physical deconditioning is by a poor intake UTI, electrolyte abnormality Neuro check Mental status improving possible at a baseline UTI 84-year-old gentleman with Pyuria white blood cell 20 1-50 Consistent with UTI, possible resulting in general weakness Start ceftriaxone 1 g IV daily urine culture: No growth Chronic kidney disease: Code(s): N18.9 - Chronic kidney disease, unspecified Status: Acute Assessment and Plan: Creatinine 1.43 on 05/22/2024 is within usual baseline range Kidney function is stable Thrombocytosis: Code(s): D75.839 - Thrombocytosis, unspecified Status: Acute Assessment and Plan: Chronically elevated since at least 2019. Essential thrombocytosis vs reactive. 05/22/2024 platelet count 792K in is in his usual recent range. Also pseudocyst with chronic anemia Consult heme oncologist for evaluation treatment Appreciate service crew leader consultation suspecting acute infection and chronic comorbidities Further management per service crew leader Chronic anemia Follow-up stool guaiac ferritin, iron panel reticulocyte within normal limit Further management per service crew leader Hypertension: Code(s): I10 - Essential (primary) hypertension Status: Chronic Assessment and Plan: Continue amlodipine 10 mg daily p.o., enalapril 20 mg daily p.o., for (9) Diastolic dysfunction: Code(s): I51.89 - Other ill-defined heart diseases Status: Acute Assessment and Plan: Clinically w/o acute chf (10) Type 2 diabetes mellitus: Code(s): E11.9 - Type 2 diabetes mellitus without complications Status: Acute Assessment and Plan: 05/22 FBS 106 Continue SSI(11) Hypothyroidism: Code(s): E03.9 - Hypothyroidism, unspecified Status: Chronic Assessment and Plan: Continue levothyroxine 75 mcg daily (12) Pleural effusion: Code(s): J90 - Pleural effusion, not elsewhere classified Status: Acute Assessment and Plan: Chronic small effusion on left with associated atelectasis. Consult PT OT zoo caretaker for evaluation and assisting placement. Patient cannot ambulate without assistance. Patient came from home, may benefit from rehab in long term May discharge patient to long term tomorrow if patient condition continued to improve Subjective Date/time seen: 05/25/24 07:40 Interval history: I saw examined the patient today. Patient can engage brief conversation, not oriented to time patient has a poor appetite. he denies chest pain abdomen pain nausea vomiting diarrhea. Patient is afebrile, blood pressure is not well controlled. Labs reviewed, kidney function continue to improve. Hemoglobin is trending down, thrombocytosis persists Exam Narrative: GENERAL: Pleasant, in no acute distress. Well-nourished. - EYES: EOMI. Anicteric. - HENT: Moist mucous membranes. - LUNGS: Clear to auscultation bilaterally, no wheezing, rhonchi, or rales. - CARDIOVASCULAR: Regular rate and rhythm. No murmur. No JVD. - ABDOMEN: Soft, non-tender and non-distended. No palpable masses. - EXTREMITIES: No edema. Peripheral pulses 2+. Non-tender. - NEUROLOGIC: No focal neurological deficits. CN II-XII grossly intact. - PSYCHIATRIC: Awake, Alert and oriented to place. Appropriate mood and affect. General weakness - SKIN: No rashes or lesions. Warm. - LYMPH: No cervical lymphadenopathy. Objective Data Vital Signs Vital Signs: Vital Signs - 24 hr 05/24/24 09:26 05/24/24 09:32 05/24/24 09:32 Temperature 97.7 F Pulse Rate 95 78 Respiratory Rate 16 Blood Pressure 158/54 H Pulse Oximetry 98 98 Oxygen Delivery Room Air 05/24/24 14:00 05/24/24 20:00 05/24/24 20:00 Temperature 97.8 F 98.4 F Pulse Rate 83 96 Respiratory Rate 18 20 Blood Pressure 145/50 H 182/67 H Pulse Oximetry 98 83 L Oxygen Delivery Room Air 05/24/24 20:01 05/24/24 20:14 05/24/24 20:15 Temperature 98.4 F Pulse Rate 96 Respiratory Rate 20 Blood Pressure 182/67 H 182/67 H 184/56 H Pulse Oximetry 83 L Oxygen Delivery 05/24/24 22:45 05/24/24 22:49 05/25/24 04:25 Temperature 97.7 F Pulse Rate 83 Respiratory Rate 20 Blood Pressure 188/54 H Pulse Oximetry 93 93 96 Oxygen Delivery Room Air Intake/Output Intake/Output: Intake & Output 05/22/24 05/23/24 05/24/24 05/25/24 23:59 23:59 23:59 23:59 Intake Total 120 2159.3 800 300 Output Total 630 500 900 350 Balance -510 1659.3 -100 -50 Meds/Results Medications: Active Medications Generic Name Dose Route Start Last Admin Trade Name Freq PRN Reason Stop Dose Admin Acetaminophen 650 mg 05/21/24 21:28 Acetaminophen 325 Mg Tablet PO Q6H PRN Mild Pain (1-3) or Fever Amlodipine Besylate 10 mg 05/22/24 09:00 05/24/24 09:29 Amlodipine Besylate 10 Mg Tablet PO 10 mg QAM LORI Administration Dextrose 12.5 gm 05/21/24 21:28 Dextrose 50% 25 Gm/50 Ml Syringe IV PUSH PRN PRN Hypoglycemia Protocol Empagliflozin 10 mg 05/22/24 09:00 05/24/24 09:28 Empagliflozin 10 Mg Tablet PO 10 mg DAILY LORI Administration Enalapril Maleate 20 mg 05/22/24 09:00 05/24/24 09:29 Enalapril Maleate 10 Mg Tablet PO 20 mg DAILY LORI Administration Enoxaparin Sodium 40 mg 05/22/24 09:00 05/24/24 09:29 Enoxaparin 40 Mg/0.4 Ml Syringe SUB-Q 40 mg DAILY LORI Administration Glucagon 1 mg 05/21/24 21:28 Glucagon For Inj 1 Mg Vial IM PRN PRN Hypoglycemia Protocol Glucose 15 gm 05/21/24 21:28 Glucose Oral Gel 15 Gm Of Glucse In 37.5 Gm Tube PO PRN PRN Hypoglycemia Protocol Hydralazine HCl 10 mg 05/23/24 10:22 05/23/24 20:27 Hydralazine Hcl 20 Mg/Ml Vial IV PUSH 10 mg Q6H PRN Administration Blood Pressure - High Dextrose 1,000 mls @ 100 mls/hr 05/21/24 21:28 Dextrose 5% 1,000 Ml IVPB PRN PRN Hypoglycemia Protocol Ceftriaxone Sodium 1 gm in 50 mls @ 100 mls/hr 05/23/24 09:00 05/24/24 10:02 Rocephin 1 Gm/Ns 50 Ml IVPB Infused Q24H LORI Infusion Insulin Aspart 3 - 6 units 05/22/24 08:00 05/24/24 17:22 Insulin Aspart (*Bkc) 100 Units/Ml SUB-Q Not Given TIDWM [facility] Protocol Insulin Aspart 1 - 3 units 05/21/24 21:35 05/24/24 20:11 Insulin Aspart (*Bkc) 100 Units/Ml SUB-Q Not Given HS [facility] Protocol Levothyroxine Sodium 75 mcg 05/22/24 06:30 05/25/24 06:10 Levothyroxine Sodium 75 Mcg Tablet PO 75 mcg DAILY@0630 LORI Administration Polyethylene Glycol 17 gm 05/24/24 09:00 05/24/24 09:30 Polyethylene Glycol 3350 17 Gm Powd.Pack PO 17 gm QAM LORI Administration Pravastatin Sodium 40 mg 05/22/24 09:00 05/24/24 09:29 Pravastatin Sodium 20 Mg Tablet PO 40 mg DAILY LORI Administration Senna/Docusate Sodium 2 tab 05/24/24 17:00 05/24/24 17:26 Senna/Docusate Sodium Tablet PO 2 tab BID LORI Administration Tamsulosin HCl 0.4 mg 05/22/24 09:00 05/24/24 09:28 Tamsulosin Hcl 0.4 Mg Capsule PO 0.4 mg DAILY LORI Administration Vitamin D 2,000 units 05/22/24 09:00 05/24/24 09:29 Cholecalciferol 1,000 Units Tablet PO 2,000 units DAILY LORI Administration Radiology Results: ITS Impressions Chest X-Ray 05/21/24 16:55 IMPRESSION: Left-sided pleural effusion without focal infiltrate. Head CT 05/21/24 17:41 Impression: No acute intracranial hemorrhage or suspicious mass effect. Abdomen/Pelvis CT 05/21/24 18:02 IMPRESSION: No CT evidence of acute traumatic injury, as detailed above. Venous Doppler Study 05/22/24 12:21 Impression: No evidence of deep vein thrombosis involving the either lower extremity. Labs Labs: Laboratory Results - last 24 hr 05/24/24 05/24/24 05/24/24 08:12 11:32 16:35 WBC RBC Hgb Hct MCV MCH MCHC RDW Plt Count MPV Immature Gran % (Auto) Neut % (Auto) Lymph % (Auto) [place] % (Auto) Eos % (Auto) Baso % (Auto) Lymph # (Auto) [place] # (Auto) Eos # (Auto) Baso # (Auto) Abs Immat Gran (auto) Absolute Neuts (auto) Absolute Nucleated RBC Nucleated RBC % ESR 119 H Sodium Potassium Chloride Carbon Dioxide Anion Gap BUN Creatinine Estim Creat Clear Calc Estimated GFR Glucose POC Capillary Glucose 91 197 H Calcium 05/24/24 05/24/24 05/25/24 16:55 20:00 06:57 WBC 6.0 RBC 3.14 L Hgb 9.1 L Hct 28.1 L MCV 89.5 MCH 29.0 MCHC 32.4 RDW 15.1 H Plt Count 553 H MPV 8.7 Immature Gran % (Auto) 3.8 H Neut % (Auto) 78.1 H Lymph % (Auto) 7.8 L [place] % (Auto) 8.8 H Eos % (Auto) 0.8 Baso % (Auto) 0.7 Lymph # (Auto) 0.47 L [place] # (Auto) 0.5 Eos # (Auto) 0.1 Baso # (Auto) 0.0 Abs Immat Gran (auto) 0.23 H Absolute Neuts (auto) 4.7 Absolute Nucleated RBC 0.000 Nucleated RBC % 0.0 ESR Sodium 134 L Potassium 3.7 Chloride 106 Carbon Dioxide 26 Anion Gap 2 L BUN 21 H Creatinine 1.57 H Estim Creat Clear Calc 31 Estimated GFR 42 L Glucose 103 POC Capillary Glucose 132 H 156 H Calcium 8.3 L
[2024-05-25 08:23] LABS: Glucose Point of Care 105 mg/dl (65-105)
[2024-05-25] MEDS: SENNA/DOCUSATE SODIUM TABLET 2 TAB PO ×2 (09:21→17:18)
[2024-05-25] MEDS: CHOLECALCIFEROL 1,000 UNITS TABLET 2000 UNITS PO (09:21)
[2024-05-25] MEDS: TAMSULOSIN HCL 0.4 MG CAPSULE PO (09:21)
[2024-05-25] MEDS: ENALAPRIL MALEATE 10 MG TABLET 20 MG PO (09:22)
[2024-05-25] MEDS: EMPAGLIFLOZIN 10 MG TABLET PO (09:22)
[2024-05-25] MEDS: amLODIPine BESYLATE 10 MG TABLET PO (09:22)
[2024-05-25] MEDS: ENOXAPARIN 40 MG/0.4 ML SYRINGE SUB-Q (09:22)
[2024-05-25] MEDS: PRAVASTATIN SODIUM 20 MG TABLET 40 MG PO (09:22)
[2024-05-25] MEDS: polyethylene glycoL 3350 17 GM POWD.PACK PO (09:22)
[2024-05-25 11:57] VITALS: BMI 11.0
[2024-05-25 12:11] LABS: Glucose Point of Care 107 mg/dl (65-105)
[2024-05-25] MEDS: ACETAMINOPHEN 325 MG TABLET 650 MG PO (12:25)
[2024-05-25 14:00] VITALS: BP 160/64; PULSE 81; RESP 20; TEMP 36.6; O2SAT 94
--- NOTE | 2024-05-25 14:02 | PCPTNOTE ---
Patient refused 1359- despite encouragement from therapist that therapy would help him feel better, patient stated multiple times he did not want to participate at this time. Some agitation when told therapist would need to come back again later.
[2024-05-25 16:04] VITALS: BP 162/65; PULSE 79
[2024-05-25 16:08] VITALS: BP 159/65; PULSE 76
[2024-05-25 17:17] LABS: Glucose Point of Care 118 mg/dl (65-105)
[2024-05-25 20:00] VITALS: BP 165/67; BP 171/66; PULSE 75; PULSE 77; RESP 18; RESP 20; TEMP 36.8; O2SAT 96
[2024-05-25] MEDS: hydrALAZINE HCL 20 MG/ML VIAL 10 MG IV PUSH (20:33)
[2024-05-25 20:48] LABS: Glucose Point of Care 106 mg/dl (65-105)
[2024-05-25 21:44] VITALS: BP 161/55; PULSE 77; RESP 20; TEMP 36.8; O2SAT 97
[2024-05-26] VITALS (8 sets, daily range): BP systolic 138–178; BP diastolic 48–103; PULSE 82–102; RESP 20–22; TEMP 36.5–37.4; O2SAT 92–97; BMI 10.0
[2024-05-26] MEDS: hydrALAZINE HCL 20 MG/ML VIAL 10 MG IV PUSH (05:25)
[2024-05-26] MEDS: LEVOTHYROXINE SODIUM 75 MCG TABLET PO (05:25)
[2024-05-26] MEDS: CHOLECALCIFEROL 1,000 UNITS TABLET 2000 UNITS PO (08:28)
[2024-05-26] MEDS: PRAVASTATIN SODIUM 20 MG TABLET 40 MG PO (08:28)
[2024-05-26] MEDS: EMPAGLIFLOZIN 10 MG TABLET PO (08:28)
[2024-05-26] MEDS: SENNA/DOCUSATE SODIUM TABLET 2 TAB PO ×2 (08:28→17:40)
[2024-05-26] MEDS: amLODIPine BESYLATE 10 MG TABLET PO (08:29)
[2024-05-26] MEDS: ENALAPRIL MALEATE 10 MG TABLET 20 MG PO (08:29)
[2024-05-26] MEDS: TAMSULOSIN HCL 0.4 MG CAPSULE PO (08:29)
[2024-05-26] MEDS: ENOXAPARIN 40 MG/0.4 ML SYRINGE SUB-Q (08:30)
[2024-05-26] MEDS: polyethylene glycoL 3350 17 GM POWD.PACK PO (08:30)
[2024-05-26 08:54] LABS: Basophils Absolute Auto 0.1 K/mm3 (0.0-0.1); Basophils Percent Auto 0.8 % (0.2-1.2); Eosinophils Percent Auto 0.3 % (0-4.4); Hemoglobin 9.5 g/dL (14.0-18.0); Immature Granulocyte Absolute 0.32 K/mm3 (0.00-0.031); Immature Granulocyte Percent A 4.9 % (0-0.5); Lymphocytes Percent Auto 7.7 % (18.3-44.2); Mean Corpuscular HGB Conc 31.7 g/dl (32-36); Mean Corpuscular Hemoglobin 28.4 pg (26-34); Mean Corpuscular Volume 89.8 fl (80-100); Mean Platelet Volume 9.2 fl (7.4-10.4); Monocytes Absolute Auto 0.5 K/mm3 (0.1-0.6); Monocytes Percent Auto 8.3 % (2.6-8.5); Neutrophils Absolute Auto 5.1 K/mm3 (1.3-6.7); Platelet Count Result 556 k/mm3 (150-375); Red Blood Count 3.34 M/mm3 (4.6-6.20); Red Cell Distribution Width 15.1 % (11.5-14.5); White Blood Count 6.5 K/mm3 (4.5-10.0)
[2024-05-26 09:01] LABS: Glucose Point of Care 93 mg/dl (65-105)
[2024-05-26 09:13] LABS: Anion Gap 6 mmol/L (4-12); Blood Urea Nitrogen 19 mg/dL (9-20); Calcium 8.4 mg/dL (8.4-10.2); Carbon Dioxide 24 mmol/L (22-30); Chloride 104 mmol/L (98-107); Estimated CRCL calculation 34 ml/min; Estimated Glomerular Filt Rate 46; Glucose 91 mg/dL (65-110); Magnesium 1.8 mg/dL (1.6-2.3); Potassium 3.8 mmol/L (3.4-5.0); Sodium 134 mmol/L (137-145)
[2024-05-26 10:48] LABS: IFOB Positive Control Positive; Immunochemical Fecal Occult Bl Negative (N)
[2024-05-26 11:52] LABS: Glucose Point of Care 111 mg/dl (65-105)
--- NOTE | 2024-05-26 12:19 | PM.IMPN ---
Progress Note: A&P Assessment and Plan (1) Noncompliance with medication regimen: Code(s): Z91.14 - Patient's other noncompliance with medication regimen Status: Acute (2) Hypertension: Code(s): I10 - Essential (primary) hypertension Status: Chronic (3) Congestive heart failure: Qualifiers: Heart failure chronicity: acute on chronic Heart failure type: unspecified Qualified Code(s): I50.9 - Heart failure, unspecified Code(s): I50.9 - Heart failure, unspecified Status: Acute (4) DM2 (diabetes mellitus, type 2): Code(s): E11.9 - Type 2 diabetes mellitus without complications Status: Chronic (5) Hypothyroidism: Code(s): E03.9 - Hypothyroidism, unspecified Status: Chronic (6) Adult failure to thrive: Code(s): R62.7 - Adult failure to thrive Status: Acute (7) CKD stage 3 due to type 2 diabetes mellitus: Code(s): E11.22 - Type 2 diabetes mellitus with diabetic chronic kidney disease; N18.30 - Chronic kidney disease, stage 3 unspecified Status: Acute (8) Weakness: Code(s): R53.1 - Weakness Status: Acute Plan 84-year-old male with history of chronic obstructive pulmonary disease, hypertension, type 2 diabetes mellitus, congestive heart failure, hypothyroidism, obstructive sleep apnea, thrombocytosis, and frequent falls presented to the emergency department via EMS from home for evaluation of ?bedsores.? According to EMS, they are called to the patient's house frequently for lift assist. Today they were called as his was concerned that he had wounds on his buttocks. She apparently does not think she is able to care for him at home any longer either. Head CT showed no acute findings. Chest x-ray showed left-sided pleural effusion without focal infiltrate. CT of the abdomen and pelvis showed no acute findings. 1. Recurrent falls: Unable to take care of himself at home, is unable to take care of him at home as well PT/OT Patient does not participate in PT here as well UTI has been ruled out, we will discontinue antibiotic Electrolytes are within normal limits today 2. History of hypertension: Continue with Norvasc, enalapril P.r.n. IV hydralazine 3. Diabetes mellitus: Blood glucose checked t.i.d. a.c. and HS Continue sliding scale insulin Continue with Jardiance 4. History of CKD: Kidney function at baseline Avoid nephrotoxins Recheck BMP in a.m. 5. History of hypothyroidism: Continue with home dose levothyroxine 6. Code status: Full 7. DVT prophylaxis: Lovenox 8. Disposition: Patient has been accepted to [facility], pending insurance authorization. Time Spent With Patient Time: Moderate complexity Time spent: 36 minutes Subjective Date/time seen: 05/26/24 12:19 Interval history: Blood pressure high overnight, received IV hydralazine Patient has no complaints this morning Review of Systems Review of Systems: All systems reviewed & are unremarkable except as noted in HPI and below Exam Narrative: GENERAL: Pleasant, in no acute distress. Well-nourished. - EYES: EOMI. Anicteric. - HENT: Moist mucous membranes. - LUNGS: Clear to auscultation bilaterally, no wheezing, rhonchi, or rales. - CARDIOVASCULAR: Regular rate and rhythm. No murmur. No JVD. - ABDOMEN: Soft, non-tender and non-distended. No palpable masses. - EXTREMITIES: No edema. Peripheral pulses 2+. Non-tender. - NEUROLOGIC: No focal neurological deficits. CN II-XII grossly intact. - PSYCHIATRIC: Awake, Alert and oriented to place. Appropriate mood and affect. General weakness - SKIN: No rashes or lesions. Warm. - LYMPH: No cervical lymphadenopathy. Objective Data Vital Signs Vital Signs: Vital Signs - 24 hr 05/25/24 14:00 05/25/24 16:04 05/25/24 16:08 Temperature 97.8 F Pulse Rate 81 79 76 Respiratory Rate 20 Blood Pressure 160/64 H 162/65 H 159/65 H Pulse Oximetry 94 Oxygen Delivery 05/25/24 20:00 05/25/24 20:00 05/25/24 20:25 Temperature 98.2 F 98.2 F Pulse Rate 75 77 Respiratory Rate 18 20 Blood Pressure 165/67 H 171/66 H Pulse Oximetry 96 96 Oxygen Delivery Room Air 05/25/24 21:44 05/26/24 06:00 05/26/24 06:25 Temperature 98.3 F 98.8 F Pulse Rate 77 83 Respiratory Rate 20 22 H Blood Pressure 161/55 H 159/103 H 164/60 H Pulse Oximetry 97 94 Oxygen Delivery 05/26/24 08:00 05/26/24 08:30 05/26/24 09:45 Temperature Pulse Rate 87 Respiratory Rate 20 Blood Pressure 156/76 H Pulse Oximetry 92 94 Oxygen Delivery Room Air Room Air 05/26/24 10:44 Temperature Pulse Rate 102 H Respiratory Rate Blood Pressure 138/99 H Pulse Oximetry 97 Oxygen Delivery Intake/Output Intake/Output: Intake & Output 05/23/24 05/24/24 05/25/24 05/26/24 23:59 23:59 23:59 23:59 Intake Total 2159.3 800 642 50 Output Total 500 900 900 825 Balance 1659.3 -100 -258 -775 Meds/Results Medications: Active Medications Generic Name Dose Route Start Last Admin Trade Name Freq PRN Reason Stop Dose Admin Acetaminophen 650 mg 05/21/24 21:28 05/25/24 12:25 Acetaminophen 325 Mg Tablet PO 650 mg Q6H PRN Administration Mild Pain (1-3) or Fever Amlodipine Besylate 10 mg 05/22/24 09:00 05/26/24 08:29 Amlodipine Besylate 10 Mg Tablet PO 10 mg QAM LORI Administration Dextrose 12.5 gm 05/21/24 21:28 Dextrose 50% 25 Gm/50 Ml Syringe IV PUSH PRN PRN Hypoglycemia Protocol Empagliflozin 10 mg 05/22/24 09:00 05/26/24 08:28 Empagliflozin 10 Mg Tablet PO 10 mg DAILY LORI Administration Enalapril Maleate 20 mg 05/22/24 09:00 05/26/24 08:29 Enalapril Maleate 10 Mg Tablet PO 20 mg DAILY LORI Administration Enoxaparin Sodium 40 mg 05/22/24 09:00 05/26/24 08:30 Enoxaparin 40 Mg/0.4 Ml Syringe SUB-Q 40 mg DAILY LORI Administration Glucagon 1 mg 05/21/24 21:28 Glucagon For Inj 1 Mg Vial IM PRN PRN Hypoglycemia Protocol Glucose 15 gm 05/21/24 21:28 Glucose Oral Gel 15 Gm Of Glucse In 37.5 Gm Tube PO PRN PRN Hypoglycemia Protocol Hydralazine HCl 10 mg 05/23/24 10:22 05/26/24 05:25 Hydralazine Hcl 20 Mg/Ml Vial IV PUSH 10 mg Q6H PRN Administration Blood Pressure - High Dextrose 1,000 mls @ 100 mls/hr 05/21/24 21:28 Dextrose 5% 1,000 Ml IVPB PRN PRN Hypoglycemia Protocol Insulin Aspart 3 - 6 units 05/22/24 08:00 05/26/24 11:53 Insulin Aspart (*Bkc) 100 Units/Ml SUB-Q Not Given TIDWM [facility]ORI Protocol Insulin Aspart 1 - 3 units 05/21/24 21:35 05/25/24 20:25 Insulin Aspart (*Bkc) 100 Units/Ml SUB-Q Not Given HS [facility] Protocol Levothyroxine Sodium 75 mcg 05/22/24 06:30 05/26/24 05:25 Levothyroxine Sodium 75 Mcg Tablet PO 75 mcg DAILY@0630 LORI Administration Polyethylene Glycol 17 gm 05/24/24 09:00 05/26/24 08:30 Polyethylene Glycol 3350 17 Gm Powd.Pack PO 17 gm QAM LORI Administration Pravastatin Sodium 40 mg 05/22/24 09:00 05/26/24 08:28 Pravastatin Sodium 20 Mg Tablet PO 40 mg DAILY LORI Administration Senna/Docusate Sodium 2 tab 05/24/24 17:00 05/26/24 08:28 Senna/Docusate Sodium Tablet PO 2 tab BID LORI Administration Tamsulosin HCl 0.4 mg 05/22/24 09:00 05/26/24 08:29 Tamsulosin Hcl 0.4 Mg Capsule PO 0.4 mg DAILY LORI Administration Vitamin D 2,000 units 05/22/24 09:00 05/26/24 08:28 Cholecalciferol 1,000 Units Tablet PO 2,000 units DAILY LORI Administration Radiology Results: ITS Impressions Chest X-Ray 05/21/24 16:55 IMPRESSION: Left-sided pleural effusion without focal infiltrate. Head CT 05/21/24 17:41 Impression: No acute intracranial hemorrhage or suspicious mass effect. Abdomen/Pelvis CT 05/21/24 18:02 IMPRESSION: No CT evidence of acute traumatic injury, as detailed above. Venous Doppler Study 05/22/24 12:21 Impression: No evidence of deep vein thrombosis involving the either lower extremity. Labs Labs: Laboratory Results - last 24 hr 05/25/24 05/25/24 05/25/24 06:55 16:44 20:24 WBC RBC Hgb Hct MCV MCH MCHC RDW Plt Count MPV Immature Gran % (Auto) Neut % (Auto) Lymph % (Auto) [place] % (Auto) Eos % (Auto) Baso % (Auto) Lymph # (Auto) [place] # (Auto) Eos # (Auto) Baso # (Auto) Abs Immat Gran (auto) Absolute Neuts (auto) Absolute Nucleated RBC Nucleated RBC % Sodium Potassium Chloride Carbon Dioxide Anion Gap BUN Creatinine Estim Creat Clear Calc Estimated GFR Glucose POC Capillary Glucose 118 H 106 H Calcium Magnesium C-Reactive Protein 5.0 H Stl Occult Blood (IFOB) 05/26/24 05/26/24 05/26/24 08:06 08:21 10:24 WBC 6.5 RBC 3.34 L Hgb 9.5 L Hct 30.0 L MCV 89.8 MCH 28.4 MCHC 31.7 L RDW 15.1 H Plt Count 556 H MPV 9.2 Immature Gran % (Auto) 4.9 H Neut % (Auto) 78.0 H Lymph % (Auto) 7.7 L [place] % (Auto) 8.3 Eos % (Auto) 0.3 Baso % (Auto) 0.8 Lymph # (Auto) 0.50 L [place] # (Auto) 0.5 Eos # (Auto) 0.0 Baso # (Auto) 0.1 Abs Immat Gran (auto) 0.32 H Absolute Neuts (auto) 5.1 Absolute Nucleated RBC 0.000 Nucleated RBC % 0.0 Sodium 134 L Potassium 3.8 Chloride 104 Carbon Dioxide 24 Anion Gap 6 BUN 19 Creatinine 1.46 H Estim Creat Clear Calc 34 Estimated GFR 46 L Glucose 91 POC Capillary Glucose 93 Calcium 8.4 Magnesium 1.8 C-Reactive Protein Stl Occult Blood (IFOB) Negative 05/26/24 11:40 WBC RBC Hgb Hct MCV MCH MCHC RDW Plt Count MPV Immature Gran % (Auto) Neut % (Auto) Lymph % (Auto) [place] % (Auto) Eos % (Auto) Baso % (Auto) Lymph # (Auto) [place] # (Auto) Eos # (Auto) Baso # (Auto) Abs Immat Gran (auto) Absolute Neuts (auto) Absolute Nucleated RBC Nucleated RBC % Sodium Potassium Chloride Carbon Dioxide Anion Gap BUN Creatinine Estim Creat Clear Calc Estimated GFR Glucose POC Capillary Glucose 111 H Calcium Magnesium C-Reactive Protein Stl Occult Blood (IFOB) Quality VTE Prophylaxis VTE prophylaxis: pharmacologic ordered
[2024-05-26 17:32] LABS: Glucose Point of Care 116 mg/dl (65-105)
[2024-05-26 21:07] LABS: Glucose Point of Care 128 mg/dl (65-105)
[2024-05-27] MEDS: LEVOTHYROXINE SODIUM 75 MCG TABLET PO (05:55)
[2024-05-27 06:00] VITALS: BP 164/64; PULSE 80; RESP 20; TEMP 36.6; O2SAT 93
[2024-05-27 08:11] LABS: Glucose Point of Care 101 mg/dl (65-105)
--- NOTE | 2024-05-27 08:16 | PM.IMPN ---
Progress Note: A&P Assessment and Plan (1) Noncompliance with medication regimen: Code(s): Z91.14 - Patient's other noncompliance with medication regimen Status: Acute (2) Hypertension: Code(s): I10 - Essential (primary) hypertension Status: Chronic (3) Congestive heart failure: Qualifiers: Heart failure chronicity: acute on chronic Heart failure type: unspecified Qualified Code(s): I50.9 - Heart failure, unspecified Code(s): I50.9 - Heart failure, unspecified Status: Acute (4) DM2 (diabetes mellitus, type 2): Code(s): E11.9 - Type 2 diabetes mellitus without complications Status: Chronic (5) Hypothyroidism: Code(s): E03.9 - Hypothyroidism, unspecified Status: Chronic (6) Adult failure to thrive: Code(s): R62.7 - Adult failure to thrive Status: Acute (7) CKD stage 3 due to type 2 diabetes mellitus: Code(s): E11.22 - Type 2 diabetes mellitus with diabetic chronic kidney disease; N18.30 - Chronic kidney disease, stage 3 unspecified Status: Acute (8) Weakness: Code(s): R53.1 - Weakness Status: Acute Plan 84-year-old male with history of chronic obstructive pulmonary disease, hypertension, type 2 diabetes mellitus, congestive heart failure, hypothyroidism, obstructive sleep apnea, thrombocytosis, and frequent falls presented to the emergency department via EMS from home for evaluation of ?bedsores.? According to EMS, they are called to the patient's house frequently for lift assist. Today they were called as his was concerned that he had wounds on his buttocks. She apparently does not think she is able to care for him at home any longer either. Head CT showed no acute findings. Chest x-ray showed left-sided pleural effusion without focal infiltrate. CT of the abdomen and pelvis showed no acute findings. # Recurrent falls: Unable to take care of himself at home, is unable to take care of him at home as well PT/OT Patient does not participate in PT here as well UTI has been ruled out, we will discontinue antibiotic Electrolytes are within normal limits today # acute metabolic encephalopathy but arrival patient was confused. Poor p.o. intake UTI electrolyte imp normality. CT head negative Mental status improving possibly at baseline # Concern for bedsores: Wound Care saw the patient maceration noted. # elevated troponin: Flat trend Echo with moderate pulmonary hypertension. LVEF more than 70%. # UTI: Treated with ceftriaxone urine culture no growth # pleural effusion chronic small pleural effusion with associated atelectasis # History of hypertension: Continue with Norvasc, enalapril P.r.n. IV hydralazine Blood pressure quite elevated on admission 229/93 # Diabetes mellitus: Blood glucose checked t.i.d. a.c. and HS Continue sliding scale insulin Continue with Jardiance # congestive heart failure chronic diastolic # History of CKD stage III: Kidney function at baseline Avoid nephrotoxins # chronic anemia thrombocytosis workup for essential thrombocythemia in process follow-up as an outpatient basis FOBT negative. H&H stable # History of hypothyroidism: Continue with home dose levothyroxine # Code status: Full # DVT prophylaxis: Lovenox # Disposition: Patient has been accepted to SNF, pending insurance authorization. Subjective Date/time seen: 05/27/24 08:16 Interval history: No overnight events. No new complaints. No shortness of breath or chest pain. Answers minimally sometimes does not Review of Systems Review of Systems: All systems reviewed & are unremarkable except as noted in HPI and below Exam Narrative: GENERAL: Pleasant, in no acute distress. Well-nourished. - EYES: EOMI. Anicteric. - HENT: Moist mucous membranes. - LUNGS: Clear to auscultation bilaterally, no wheezing, rhonchi, or rales. - CARDIOVASCULAR: Regular rate and rhythm. No murmur. No JVD. - ABDOMEN: Soft, non-tender and non-distended. No palpable masses. - EXTREMITIES: No edema. Peripheral pulses 2+. Non-tender. - NEUROLOGIC: No focal neurological deficits. CN II-XII grossly intact. - PSYCHIATRIC: Awake, Alert. General weakness - SKIN: No rashes or lesions. Warm. - LYMPH: No cervical lymphadenopathy. Objective Data Vital Signs Vital Signs: Vital Signs - 24 hr 05/26/24 08:30 05/26/24 09:45 05/26/24 10:44 Temperature Pulse Rate 102 H Respiratory Rate 20 Blood Pressure 138/99 H Pulse Oximetry 94 97 Oxygen Delivery Room Air Room Air 05/26/24 14:00 05/26/24 20:20 05/26/24 20:20 Temperature 97.7 F 99.4 F Pulse Rate 82 83 83 Respiratory Rate 22 H 20 Blood Pressure 152/48 H 156/57 H 156/57 H Pulse Oximetry 93 95 Oxygen Delivery 05/26/24 20:23 05/26/24 20:55 05/27/24 06:00 Temperature 98 F Pulse Rate 90 80 Respiratory Rate 20 Blood Pressure 178/67 H 164/64 H Pulse Oximetry 93 Oxygen Delivery Room Air Intake/Output Intake/Output: Intake & Output 05/24/24 05/25/24 05/26/24 05/27/24 23:59 23:59 23:59 23:59 Intake Total 800 642 290 150 Output Total 156 094 0556 650 Balance -100 -258 -1185 -500 Meds/Results Medications: Active Medications Generic Name Dose Route Start Last Admin Trade Name Freq PRN Reason Stop Dose Admin Acetaminophen 650 mg 05/21/24 21:28 05/25/24 12:25 Acetaminophen 325 Mg Tablet PO 650 mg Q6H PRN Administration Mild Pain (1-3) or Fever Amlodipine Besylate 10 mg 05/22/24 09:00 05/26/24 08:29 Amlodipine Besylate 10 Mg Tablet PO 10 mg QAM LORI Administration Dextrose 12.5 gm 05/21/24 21:28 Dextrose 50% 25 Gm/50 Ml Syringe IV PUSH PRN PRN Hypoglycemia Protocol Empagliflozin 10 mg 05/22/24 09:00 05/26/24 08:28 Empagliflozin 10 Mg Tablet PO 10 mg DAILY LORI Administration Enalapril Maleate 20 mg 05/22/24 09:00 05/26/24 08:29 Enalapril Maleate 10 Mg Tablet PO 20 mg DAILY LORI Administration Enoxaparin Sodium 40 mg 05/22/24 09:00 05/26/24 08:30 Enoxaparin 40 Mg/0.4 Ml Syringe SUB-Q 40 mg DAILY LORI Administration Glucagon 1 mg 05/21/24 21:28 Glucagon For Inj 1 Mg Vial IM PRN PRN Hypoglycemia Protocol Glucose 15 gm 05/21/24 21:28 Glucose Oral Gel 15 Gm Of Glucse In 37.5 Gm Tube PO PRN PRN Hypoglycemia Protocol Hydralazine HCl 10 mg 05/23/24 10:22 05/26/24 05:25 Hydralazine Hcl 20 Mg/Ml Vial IV PUSH 10 mg Q6H PRN Administration Blood Pressure - High Dextrose 1,000 mls @ 100 mls/hr 05/21/24 21:28 Dextrose 5% 1,000 Ml IVPB PRN PRN Hypoglycemia Protocol Insulin Aspart 3 - 6 units 05/22/24 08:00 05/26/24 16:50 Insulin Aspart (*Bkc) 100 Units/Ml SUB-Q Not Given TIDWM [facility] Protocol Insulin Aspart 1 - 3 units 05/21/24 21:35 05/26/24 20:57 Insulin Aspart (*Bkc) 100 Units/Ml SUB-Q Not Given HS [facility] Protocol Levothyroxine Sodium 75 mcg 05/22/24 06:30 05/27/24 05:55 Levothyroxine Sodium 75 Mcg Tablet PO 75 mcg DAILY@0630 LORI Administration Polyethylene Glycol 17 gm 05/24/24 09:00 05/26/24 08:30 Polyethylene Glycol 3350 17 Gm Powd.Pack PO 17 gm QAM LORI Administration Pravastatin Sodium 40 mg 05/22/24 09:00 05/26/24 08:28 Pravastatin Sodium 20 Mg Tablet PO 40 mg DAILY LORI Administration Senna/Docusate Sodium 2 tab 05/24/24 17:00 05/26/24 17:40 Senna/Docusate Sodium Tablet PO 2 tab BID LORI Administration Tamsulosin HCl 0.4 mg 05/22/24 09:00 05/26/24 08:29 Tamsulosin Hcl 0.4 Mg Capsule PO 0.4 mg DAILY LORI Administration Vitamin D 2,000 units 05/22/24 09:00 05/26/24 08:28 Cholecalciferol 1,000 Units Tablet PO 2,000 units DAILY LORI Administration Radiology Results: ITS Impressions Chest X-Ray 05/21/24 16:55 IMPRESSION: Left-sided pleural effusion without focal infiltrate. Head CT 05/21/24 17:41 Impression: No acute intracranial hemorrhage or suspicious mass effect. Abdomen/Pelvis CT 05/21/24 18:02 IMPRESSION: No CT evidence of acute traumatic injury, as detailed above. Venous Doppler Study 05/22/24 12:21 Impression: No evidence of deep vein thrombosis involving the either lower extremity. Labs Labs: Laboratory Results - last 24 hr 05/26/24 05/26/24 05/26/24 08:06 08:21 10:24 WBC 6.5 RBC 3.34 L Hgb 9.5 L Hct 30.0 L MCV 89.8 MCH 28.4 MCHC 31.7 L RDW 15.1 H Plt Count 556 H MPV 9.2 Immature Gran % (Auto) 4.9 H Neut % (Auto) 78.0 H Lymph % (Auto) 7.7 L [place] % (Auto) 8.3 Eos % (Auto) 0.3 Baso % (Auto) 0.8 Lymph # (Auto) 0.50 L [place] # (Auto) 0.5 Eos # (Auto) 0.0 Baso # (Auto) 0.1 Abs Immat Gran (auto) 0.32 H Absolute Neuts (auto) 5.1 Absolute Nucleated RBC 0.000 Nucleated RBC % 0.0 Sodium 134 L Potassium 3.8 Chloride 104 Carbon Dioxide 24 Anion Gap 6 BUN 19 Creatinine 1.46 H Estim Creat Clear Calc 34 Estimated GFR 46 L Glucose 91 POC Capillary Glucose 93 Calcium 8.4 Magnesium 1.8 Stl Occult Blood (IFOB) Negative 05/26/24 05/26/24 05/26/24 11:40 16:47 20:55 WBC RBC Hgb Hct MCV MCH MCHC RDW Plt Count MPV Immature Gran % (Auto) Neut % (Auto) Lymph % (Auto) [place] % (Auto) Eos % (Auto) Baso % (Auto) Lymph # (Auto) [place] # (Auto) Eos # (Auto) Baso # (Auto) Abs Immat Gran (auto) Absolute Neuts (auto) Absolute Nucleated RBC Nucleated RBC % Sodium Potassium Chloride Carbon Dioxide Anion Gap BUN Creatinine Estim Creat Clear Calc Estimated GFR Glucose POC Capillary Glucose 111 H 116 H 128 H Calcium Magnesium Stl Occult Blood (IFOB) 05/27/24 07:45 WBC RBC Hgb Hct MCV MCH MCHC RDW Plt Count MPV Immature Gran % (Auto) Neut % (Auto) Lymph % (Auto) [place] % (Auto) Eos % (Auto) Baso % (Auto) Lymph # (Auto) [place] # (Auto) Eos # (Auto) Baso # (Auto) Abs Immat Gran (auto) Absolute Neuts (auto) Absolute Nucleated RBC Nucleated RBC % Sodium Potassium Chloride Carbon Dioxide Anion Gap BUN Creatinine Estim Creat Clear Calc Estimated GFR Glucose POC Capillary Glucose 101 Calcium Magnesium Stl Occult Blood (IFOB)
[2024-05-27] MEDS: polyethylene glycoL 3350 17 GM POWD.PACK PO (09:05)
[2024-05-27] MEDS: SENNA/DOCUSATE SODIUM TABLET 2 TAB PO (09:07)
[2024-05-27] MEDS: ENALAPRIL MALEATE 10 MG TABLET 20 MG PO (09:08)
[2024-05-27] MEDS: CHOLECALCIFEROL 1,000 UNITS TABLET 2000 UNITS PO (09:08)
[2024-05-27] MEDS: PRAVASTATIN SODIUM 20 MG TABLET 40 MG PO (09:09)
[2024-05-27] MEDS: EMPAGLIFLOZIN 10 MG TABLET PO (09:10)
[2024-05-27] MEDS: TAMSULOSIN HCL 0.4 MG CAPSULE PO (09:10)
[2024-05-27] MEDS: ENOXAPARIN 40 MG/0.4 ML SYRINGE SUB-Q (09:10)
[2024-05-27] MEDS: amLODIPine BESYLATE 10 MG TABLET PO (09:10)
[2024-05-27 11:48] LABS: Glucose Point of Care 104 mg/dl (65-105)
--- NOTE | 2024-05-27 13:37 | PM.DS ---
DS: Admitting Diagnosis Discharge Date 05/27/2024 Admitting Diagnosis Failure to thrive DS: Discharge Diagnosis Discharge Diagnosis (1) Noncompliance with medication regimen: Code(s): Z91.14 - Patient's other noncompliance with medication regimen Status: Acute (2) Hypertension: Code(s): I10 - Essential (primary) hypertension Status: Chronic (3) Congestive heart failure: Qualifiers: Heart failure chronicity: acute on chronic Heart failure type: unspecified Qualified Code(s): I50.9 - Heart failure, unspecified Code(s): I50.9 - Heart failure, unspecified Status: Acute (4) DM2 (diabetes mellitus, type 2): Code(s): E11.9 - Type 2 diabetes mellitus without complications Status: Chronic (5) Hypothyroidism: Code(s): E03.9 - Hypothyroidism, unspecified Status: Chronic (6) Adult failure to thrive: Code(s): R62.7 - Adult failure to thrive Status: Acute (7) CKD stage 3 due to type 2 diabetes mellitus: Code(s): E11.22 - Type 2 diabetes mellitus with diabetic chronic kidney disease; N18.30 - Chronic kidney disease, stage 3 unspecified Status: Acute (8) Weakness: Code(s): R53.1 - Weakness Status: Acute DS: Summary Hospital Course Hospital Course: 84-year-old male with history of chronic obstructive pulmonary disease, hypertension, type 2 diabetes mellitus, congestive heart failure, hypothyroidism, obstructive sleep apnea, thrombocytosis, and frequent falls presented to the emergency department via EMS from home for evaluation of ?bedsores.? According to EMS, they are called to the patient's house frequently for lift assist. Today they were called as his was concerned that he had wounds on his buttocks. She apparently does not think she is able to care for him at home any longer either. Head CT showed no acute findings. Chest x-ray showed left-sided pleural effusion without focal infiltrate. CT of the abdomen and pelvis showed no acute findings. # Recurrent falls: Unable to take care of himself at home, is unable to take care of him at home as well PT/OT Patient does not participate in PT here as well UTI has been ruled out, antibiotics discontinued Electrolytes are within normal limits # acute metabolic encephalopathy but arrival patient was confused. Poor p.o. intake UTI electrolyte imp normality. CT head negative Mental status improving possibly at baseline # Concern for bedsores: Wound Care saw the patient maceration noted. Continue wound care # elevated troponin: Flat trend Echo with moderate pulmonary hypertension. LVEF more than 70%. # UTI: Treated with ceftriaxone urine culture no growth completed treatment in the hospital # pleural effusion chronic small pleural effusion with associated atelectasis # History of hypertension: Continue with Norvasc, enalapril .will increase to 20 mg bid. P.r.n. IV hydralazine Blood pressure quite elevated on admission 229/93 # Diabetes mellitus: Blood glucose checked t.i.d. a.c. and HS Continue sliding scale insulin Continue with Jardiance # congestive heart failure chronic diastolic # History of CKD stage III: Kidney function at baseline Avoid nephrotoxins # chronic anemia thrombocytosis workup for essential thrombocythemia in process follow-up as an outpatient basis FOBT negative. H&H stable. Follow-up with Oncology/Hematology as an outpatient basis # History of hypothyroidism: Continue with home dose levothyroxine # Code status: Full # DVT prophylaxis: Lovenox # Disposition: Patient has been accepted to SNF, insurance authorization after peer to peer. Going to rehabilitation Time Spent with Patient Time attestation: Total time spent providing and/or coordinating discharge services: 45 minute Exam Narrative: GENERAL: Pleasant, in no acute distress. Well-nourished. - EYES: EOMI. Anicteric. - HENT: Moist mucous membranes. - LUNGS: Clear to auscultation bilaterally, no wheezing, rhonchi, or rales. - CARDIOVASCULAR: Regular rate and rhythm. No murmur. No JVD. - ABDOMEN: Soft, non-tender and non-distended. No palpable masses. - EXTREMITIES: No edema. Peripheral pulses 2+. Non-tender. - NEUROLOGIC: No focal neurological deficits. CN II-XII grossly intact. - PSYCHIATRIC: Awake, Alert. General weakness - SKIN: No rashes or lesions. Warm. - LYMPH: No cervical lymphadenopathy. DS: Data Data Completed and Pending Labs on day of discharge: Labs from last 24 hours 05/27/24 05/27/24 05/26/24 11:36 07:45 20:55 POC Capillary Glucose 104 101 128 H 05/26/24 16:47 POC Capillary Glucose 116 H Imaging Radiologist's impression: ITS Impressions Chest X-Ray 05/21/24 16:55 IMPRESSION: Left-sided pleural effusion without focal infiltrate. Head CT 05/21/24 17:41 Impression: No acute intracranial hemorrhage or suspicious mass effect. Abdomen/Pelvis CT 05/21/24 18:02 IMPRESSION: No CT evidence of acute traumatic injury, as detailed above. Venous Doppler Study 05/22/24 12:21 Impression: No evidence of deep vein thrombosis involving the either lower extremity. Discharge Plan Discharge Attending physician on discharge: Sheldon Hirsch Consulting providers: Luan Benítez Discharging Clinician: Sheldon Hirsch Anticipated Discharge Date/Time: 05/27/24 13:38 Patient Disposition: SNF Activity: as tolerated Diet: heart healthy and diabetic Discharge Instructions: Anti fungal cream/Barrier Cream to the groin skin fold and sacrum/buttock Accu-Cheks AC and HS Labs in 1 week Vital daily PT OT to evaluate and treat Patient Instructions: Antibiotic Form Patient Language: [place] Stand Alone Forms: General Discharge Information, Retirement Discharge Follow-up/Referrals: Luan Benítez MD [Physician] - 4 Weeks [facility],Brayden Dominguez MD [Primary Care Provider] - 1 Week Discharge Medications: New polyethylene glycol 3350 [Miralax] 17 gram Powder In Packet 17 g PO QAM Qty: 30 0RF Continued venlafaxine 75 mg capsule,extended release 24hr 75 mg PO DAILY pravastatin 40 mg tablet 40 mg PO DAILY levothyroxine 75 mcg tablet 75 mcg PO DAILY tamsulosin 0.4 mg capsule 0.4 mg PO DAILY furosemide 20 mg tablet 20 mg PO DAILY acetaminophen [Mapap (acetaminophen)] 325 mg Tablet 650 mg PO Q6H PRN (Reason: Mild Pain (1-3) Or Fever) Qty: 30 0RF cholecalciferol (vitamin D3) [Vitamin D3] 50 mcg (2,000 unit) capsule 1 unit PO DAILY amlodipine [Norvasc] 5 mg Tablet 10 mg PO QAM Qty: 30 0RF empagliflozin 10 mg tablet 10 mg PO DAILY Qty: 30 0RF Changed enalapril maleate 20 mg tablet 20 mg PO BID Qty: 30 0RF Discontinued quetiapine 25 mg tablet 25 mg PO DAILY Other Ambulatory Orders: Basic Metabolic Panel (Routine) Timeframe: 1 Week Location: Determined by Patient Ordered By: Sheldon Hirsch Complete Blood Count with Diff (Routine) Timeframe: 1 Week Location: Determined by Patient Ordered By: Sheldon Hirsch Date of admission: 05/25/24 11:52 Primary Care Provider: JovaniBrayden Admitting Provider: Melodie Watson Attending physician on admission: Melodie Watson Condition: Improved Hospitalist MIPS Heart Failure (Exclusion) Patient has history of Heart Transplant or Left Ventricular Assistive Device?: No IF YES, STOP HERE Heart Failure (Qualifier) Patient has current or prior documentation of LVEF less than or equal to 40%, or mod/servere depressed LVSF?: No IF NO, STOP HERE
[2024-05-27 14:00] VITALS: BP 164/64; PULSE 81; RESP 18; TEMP 36.6; O2SAT 92
--- NOTE | 2024-05-27 15:39 | PC.NURSE ---
Report called to [facility] Oleary&, spoke with Raine at [phone]. All questions answered at length. No further needs. Ready for transfer to facility. Awaiting EMS transport.
[2024-06-01 18:19] LABS: Block/Specimen ID NG; Clinical Indication NG; JAK2 V617F Mutation NOT DETECTED (NOT DETECTED); Specimen Source LAVENDER
== END 2024-05-27 15:35 | DRG 71 ==
LOC: ANHED 12:37 → ANH2MED 20:07
PROVIDERS: Hospitalist; Internal Medicine; Internal Medicine Hematology & Oncology; Physician Assistant; Admitting Provider Internal Medicine; Emergency Provider Emergency Medicine; PCP Family Medicine Sports Medicine; Visit Provider Internal Medicine
DX: G93.41 Metabolic encephalopathy (principal); I13.0 Hypertensive heart and chronic kidney disease with heart failure and stage 1 through stage 4 chronic kidney disease, or unspecified chronic kidney disease; I50.32 Chronic diastolic (congestive) heart failure; L89.159 Pressure ulcer of sacral region, unspecified stage; R62.7 Adult failure to thrive; R82.81 Pyuria; D75.839 Thrombocytosis, unspecified; D63.1 Anemia in chronic kidney disease; E11.22 Type 2 diabetes mellitus with diabetic chronic kidney disease; E78.5 Hyperlipidemia, unspecified; E87.6 Hypokalemia; E03.9 Hypothyroidism, unspecified; F41.8 Other specified anxiety disorders; G47.33 Obstructive sleep apnea (adult) (pediatric); J44.9 Chronic obstructive pulmonary disease, unspecified; N18.30 Chronic kidney disease, stage 3 unspecified; N40.1 Benign prostatic hyperplasia with lower urinary tract symptoms; R29.6 Repeated falls; R33.8 Other retention of urine; Z79.84 Long term (current) use of oral hypoglycemic drugs; Z99.89 Dependence on other enabling machines and devices; Z74.01 Bed confinement status; Z91.148 Patient's other noncompliance with medication regimen for other reason; Z90.49 Acquired absence of other specified parts of digestive tract; Z87.891 Personal history of nicotine dependence
CPT/HCPCS: 36415; 36600; 70450; 71045; 74177; 80048; 80053; 81001; 81270; 82274; 82550; 82728; 82805; 82948; 83036; 83540; 83550; 83605; 83690; 83735; 84100; 84132; 84443; 84484; 85018; 85025; 85027; 85046; 85610; 85652; 85730; 86140; 87086; 93005; 93306; 93970; 96374; 97162; 97166; 97530; 99212; 99285; A9270; G0463; J0360; J0696; J1650; J3475; Q9967

== ENCOUNTER 2024-06-25 20:54 | Inpatient (IN) | payer MEDICARE, SELFPAY ==
--- NOTE | ~2024-06-25 | CT_ITS ---
CT head without contrast Indication: Status post fall COMPARISON: 05/21/2024 Technique: Serial scans were obtained through the brain without the administration of contrast. Dose reduction technique was used on this scan by utilizing automated exposure control and iterative recon struction technique. The dose-length product (DLP) was 681.00 mGy-cm. Findings: There is hypodense area with loss of buckner-white distinction involving the right occipital l obe, compatible with acute to subacute infarct. No intracranial hemorrhage. The ventricles and subar achnoid spaces are dilated, consistent with moderate atrophy. Low attenuation regions are seen withi n the periventricular white matter bilaterally, likely representing changes from chronic microvascula r ischemic disease. There is no evidence of edema, mass effect or midline shift. The visualized par anasal sinuses and mastoid air cells are clear. Impression: Acute to subacute infarct involving the right occipital lobe. This is new from prior exam. No intracranial hemorrhage. Atrophy and chronic white matter changes, as above. Reviewed, dictated and finalized at location . LAB TECHNICIAN Impression: Acute to subacute infarct involving the right occipital lobe. This is new from prior exam. No intracranial hemorrhage. Atrophy and chronic white matter changes, as above.
--- NOTE | ~2024-06-25 | CT_ITS ---
CT Facial Bones and Cervical Spine Clinical Indication: Status post fall Technique: Contiguous axial scans were obtained through the facial bones and cervical spine followed by coronal and sagittal reconstructions. Dose reduction technique was used on this scan by utilizing automated exposure control and iterative reconstruction technique. The dose-length product (DLP) was 403.04 mGy-cm. Findings: CT facial bones: No fractures are identified. The visualized paranasal sinuses are clear. Intraorbita l soft tissues appear normal. CT cervical spine: No fractures or subluxation. Unremarkable visualized bony structures. The interv ertebral disc spaces are preserved. There is reversal normal cervical lordosis. There are severe dege nerative disc narrowing from C3 to C7. There is advanced degenerative change at the articulation of t he odontoid process with the anterior arch of C1. There is extensive left facet arthropathy at C2-C3 with probable minimal left neural foraminal narrowing. There is disc osteophyte complex at C3-C4, angelito tral disc protrusion resulting in moderate canal stenosis and probable cord compression. There is lef t neural foraminal narrowing at this level. At C4-C5, there is disc osteophyte complex with mild canal stenosis. There is bilateral neural forami nal narrowing, left worse than right, with facet arthropathy. At C5-C6, there is disc ossify complex with probable moderate canal stenosis and element of cord comp ression. There is advanced bilateral neural foraminal narrowing with bilateral facet arthropathy. At C6-C7, there is mild disc bulge with probable mild canal stenosis. There is bilateral neural oscar inal narrowing. No prevertebral soft tissue swelling. Impression: No fracture is seen in the facial bones. No fracture or subluxation of the cervical spine. 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 Reviewed, dictated and finalized at [facility]. CTOR EXPORT Impression: No fracture is seen in the facial bones. No fracture or subluxation of the cervical spine. Severe degenerative spondylosis in the cervical spine with multilevel canal vic nosis and neural foraminal narrowing, as detailed above.
--- NOTE | ~2024-06-25 | US_ITS ---
CAROTID ULTRASOUND Ordering provider: Richie Arias MD History: . new stroke . Comparison: None. Technique: Grayscale and color Doppler ultrasound examination of the carotid and vertebral artery sys tems bilaterally. Maximum peak systolic velocity (PSV) / end diastolic velocity (EDV) measurements we re obtained. FINDINGS: RIGHT: --COMMON CAROTID ARTERY: PSV is 89.9 cm/s. EDV is 14.2 cm/s. --EXTERNAL CAROTID ARTERY: PSV is 199 cm/s. --INTERNAL CAROTID ARTERY PROXIMAL: PSV is 120.5 cm/s. EDV is 19.5 cm/s. --INTERNAL CAROTID ARTERY MID: PSV is 151.2 cm/s. EDV is 30.5 cm/s. --INTERNAL CAROTID ARTERY DISTAL: PSV is 155.5 cm/s. EDV is 30.5 cm/s. --VERTEBRAL ARTERY: PSV is 51.9 cm/s. Antegrade flow with normal waveform. --SYSTOLIC ICA/CCA: 1.7 --ATHEROMATOUS DISEASE: Mild. LEFT: --COMMON CAROTID ARTERY: PSV is 101.5 cm/s. EDV is 8.4 cm/s. --EXTERNAL CAROTID ARTERY: PSV is 94.8 cm/s. --INTERNAL CAROTID ARTERY PROXIMAL: PSV is 85.7 cm/s. EDV is 10.8 cm/s. --INTERNAL CAROTID ARTERY MID: PSV is 116.2 cm/s. EDV is 15.7 cm/s. --INTERNAL CAROTID ARTERY DISTAL: PSV is 73.1 cm/s. EDV is 10.7 cm/s. --VERTEBRAL ARTERY: PSV is 50.3 cm/s. Antegrade flow with normal waveform. --SYSTOLIC ICA/CCA: 1.1 --ATHEROMATOUS DISEASE: Mild. --OTHER: None. IMPRESSION: 1. Stenosis of the right internal carotid artery above about 50-69%. 2. Stenosis of the left internal carotid artery is Less than 50%. 2. Antegrade flow demonstrated within both vertebral arteries. Reviewed, dictated and finalized at location A. TION PROFESSIONAL
--- NOTE | ~2024-06-25 | MR_ITS ---
EXAMINATION: MR brain/brain stem wo/w con DATE: 06/27/2024 11:24 INDICATION: Right occipital lobe infarct. TECHNIQUE: Magnetic resonance imaging (MRI) of the brain and brainstem was performed without and with 16 mL ProHance intravenous contrast. COMPARISON: Head CT 06/25/2024, 05/21/2024 FINDINGS: There is acute infarct in the right temporal occipital region in the expected distribution of right posterior cerebral artery. There are scattered areas of nonspecific increased T2-weighted si gnal intensity in the cerebral white matter and weston. There is no intracranial hemorrhage or abnormal mass lesion. The ventricles are normal in size. The orbits are normal. There is mild mucosal thicken ing in the paranasal sinuses. There is a trace right mastoid effusion. IMPRESSION: 1. Acute infarct in the right temporal occipital region in the expected distribution of right posteri or cerebral artery. 2. Moderate nonspecific cerebral white matter disease and pontine disease, which likely represents ch ronic small vessel ischemic disease. Reviewed, dictated and finalized at location A. DUMPER IMPRESSION: 1. Acute infarct in the right temporal occipital region in the expected distrib ution of right posterior cerebral artery. 2. Moderate nonspecific cerebral white matter disease and pontine disease, whic h likely represents chronic small vessel ischemic disease.
[2024-06-25 20:56] VITALS: BP 155/58; PULSE 68; RESP 16; TEMP 36.6; O2SAT 98
--- OUTSIDE RECORDS SUMMARY | 2024-06-25 22:34 | XMS_ITS | CONTINUITY OF CARE DOCUMENT ---
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
--- NOTE | 2024-06-25 23:42 | ED.FALL ---
HPI - Fall General Chief Complaint: Fall Stated Complaint: FALL Time Seen by Provider: 06/25/24 22:11 History of Present Illness HPI Narrative: Patient is an 84-year-old male who presents emergency department this evening from his nursing facility due to an unwitnessed fall. Patient was getting out of bed and accidentally rolled onto the ground and hit his head on the floor. Patient denies any blood thinner use, does have a history of short-term memory loss. Currently he is alert and oriented to person, place, time and situation, denies any is symptoms or concerns, and is moving all extremities spontaneously, NIH score 0. Related Data Home Medications ?Medication ?Instructions ?Recorded ?Confirmed ?Last Taken ?Type venlafaxine 75 mg capsule,extended 75 mg PO DAILY 12/26/19 05/21/24 12/26/19 History release 24 hr levothyroxine 75 mcg tablet 75 mcg PO DAILY 05/30/20 05/21/24 Unknown History pravastatin 40 mg tablet 40 mg PO DAILY 05/30/20 05/21/24 Unknown History tamsulosin 0.4 mg capsule 0.4 mg PO DAILY 05/30/20 05/21/24 Unknown History furosemide 20 mg tablet 20 mg PO DAILY 01/11/22 05/21/24 Unknown History cholecalciferol (vitamin D3) 50 1 unit PO DAILY 05/18/22 05/21/24 Unknown History mcg (2,000 unit) capsule (Vitamin D3) Allergies Allergy/AdvReac Type Severity Reaction Status Date / Time No Known Allergies Allergy Verified 05/21/24 10:54 Review of Systems Review of Systems: All systems are reviewed and are negative unless stated otherwise in the HPI. [facility] Past Medical History Medical History Diastolic dysfunction Type 2 diabetes mellitus Chronic kidney disease Chronic anemia Obstructive sleep apnea on CPAP Chronic obstructive pulmonary disease Benign prostatic hyperplasia Hypothyroidism Hyperlipidemia Hypertension Depression with anxiety Surgical History Surgical History History of hydrocelectomy History of appendectomy Family History Family History Mother Natural Father Natural with unknown cause Social History Social History Social History: Healthcare power of assistant county attorney: Celsa Velasquez, daughter ([phone]). Code status: Full code. Smoking packs per day: 0.5 Smoking cigarettes per day: 10.0 Years smoked: 15 Smoking pack-years: 7.50 Smoking status: Former smoker Tobacco type: cigarettes Second hand tobacco smoke exposure: No Alcohol intake: never Drinks per week: 1 Substance use: never Substance use type: does not use Do You Feel Safe in your Home?: Yes Lack of Transportation: No Lack of Food: Never True Current Housing: I Have Housing Concerned About Future Housing: No Difficulty Paying Gas/Electric Bills: No Difficulty Paying for Meds: No Currently Unemployed: No Education: Decline to Answer Difficulty w/ Childcare or Family Care: No Spiritual care concerns: No Exam Narrative: General: Alert, awake, afebrile, in no acute distress. HEENT: PERRL, no rhinorrhea, no post nasal drip, oropharynx clear. Neck: Trachea midline, no JVD, no lymphadenopathy. Cardiovascular: Regular rate and rhythm, no murmurs, rubs or gallops, no peripheral edema. Respiratory: Clear to auscultation bilaterally, no tachypnea, no wheezing, no rhonchi, no rubs, no respiratory distress. Abdomen: Soft, nontender, nondistended, no rebound, no guarding, no peritoneal signs. Musculoskeletal: No joint swelling or deformity, normal muscle tone. Skin: No rashes or petechia, no signs of infection. Psychiatric: Alert and oriented, normal behavior and judgment for situation. Neurological: Alert and oriented to person, place, and time. Follows all commands, 5/5 motor strength in the bilateral upper and lower extremity, sensation intact and equal in the bilateral upper and lower extremity, cranial nerves 2-12 grossly intact. No focal deficits, speech is clear and fluent. Course Vital Signs Vital signs: Vital Signs Temperature 97.8 F 06/25/24 20:56 Pulse Rate 68 06/25/24 20:56 Respiratory Rate 16 06/25/24 20:56 Blood Pressure 155/58 H 06/25/24 20:56 Pulse Oximetry 98 06/25/24 20:56 Oxygen Delivery Room Air 06/25/24 20:56 Temperature 97.8 F 06/25/24 20:56 Pulse Rate 56 L 06/26/24 00:29 Respiratory Rate 16 06/26/24 00:29 Blood Pressure 155/66 H 06/26/24 00:29 Pulse Oximetry 100 06/26/24 00:29 Oxygen Delivery Room Air 06/25/24 20:56 MDM - Fall MDM Narrative Medical decision making narrative: The patient was evaluated by myself in the emergency department. History is obtained from patient who is an independent historian along with EMS report and physical exam was performed. External medical records were reviewed at this time. IV was established and pertinent tests were ordered. Laboratory results obtained revealing a creatinine of 1.98 and BUN of 36 which is around her baseline. Imaging studies obtained included CT brain and C-spine without IV contrast which was independently interpreted by me revealing hypoattenuation in the medial right OC PERRLA up and radiologist did call me with findings concerning for acute/subacute stroke. On repeat assessment of the patient, patient still has no neurological deficits, NIH score 0. Denies any history of strokes. At this time, case was discussed with the on-call neurologist Dr. Bishop who agreed to evaluate the patient in the morning. MRI with and without contrast was ordered at this time. Differential diagnosis considerations include intracranial hemorrhage, ischemic stroke, fractures, dislocations. Comorbidities impacting this visit include none. I have evaluated and discussed social determinants of health with the patient that could potentially impact subsequent diagnosis and treatment plans. On repeat assessment of the patient, reevaluation revealed that the patient is doing well and is in no acute distress. Patient symptoms have remained stable since he arrived to our emergency department. Repeat vital signs were all reviewed and noted to be stable. Differential diagnosis and treatment plan were discussed with the patient at bedside. Patient agrees with discussion and after shared medical decision making agrees with admission. All questions were answered to the patient's satisfaction. Case was discussed with the on-call hospitalist Dr. Sung at 0030 and he accepted admission. Lab Data 06/25/24 23:56 06/25/24 23:56 Labs: Lab Results 06/25/24 Range/Units 23:56 WBC 9.1 (4.5-10.0) K/mm3 RBC 3.73 L (4.6-6.20) M/mm3 Hgb 10.9 L (14.0-18.0) g/dL Hct 32.8 L (42.0-52.0) % MCV 87.9 (80-100) fl MCH 29.2 (26-34) pg MCHC 33.2 (32-36) g/dl RDW 15.1 H (11.5-14.5) % Plt Count 858 H D (150-375) k/mm3 MPV 9.1 (7.4-10.4) fl Immature Gran % (Auto) 0.4 (0-0.5) % Neut % (Auto) 79.8 H (45.5-73.1) % Lymph % (Auto) 11.1 L (18.3-44.2) % Moore % (Auto) 6.4 (2.6-8.5) % Eos % (Auto) 1.4 (0-4.4) % Baso % (Auto) 0.9 (0.2-1.2) % Lymph # (Auto) 1.01 (0.9-3.2) K/mm3 Moore # (Auto) 0.6 (0.1-0.6) K/mm3 Eos # (Auto) 0.1 (0-0.3) K/mm3 Baso # (Auto) 0.1 (0.0-0.1) K/mm3 Abs Immat Gran (auto) 0.04 H (0.00-0.031) K/mm3 Absolute Neuts (auto) 7.3 H (1.3-6.7) K/mm3 Absolute Nucleated RBC 0.000 (0.0-0.012) K/mm3 Nucleated RBC % 0.0 (0.0-0.2) % PT Pending INR Pending APTT Pending Sodium 135 L (137-145) mmol/L Potassium 3.5 (3.4-5.0) mmol/L Chloride 102 (98-107) mmol/L Carbon Dioxide 26 (22-30) mmol/L Anion Gap 7 (4-12) mmol/L BUN 36 H D (9-20) mg/dL Creatinine 1.98 H (0.7-1.3) mg/dL Estim Creat Clear Calc 25 ml/min Estimated GFR 32 L (59 - ) Glucose 116 H (65-110) mg/dL Calcium 8.7 (8.4-10.2) mg/dL Magnesium 1.9 (1.6-2.3) mg/dL Total Bilirubin 0.5 (0.2-1.3) mg/dL AST 26 (17-59) U/L ALT 15 (6-50) U/L Alkaline Phosphatase 65 (38-126) U/L Total Protein 6.0 L (6.3-8.2) g/dL Albumin 3.0 L (3.5-5.1) g/dL Discharge Plan Discharge Clinical Impression: Fall from ground level, Occipital stroke Patient Disposition: Still a Patient Condition: Stable Patient Language: Arabic Prescriptions: No Action venlafaxine 75 mg capsule,extended release 24hr 75 mg PO DAILY pravastatin 40 mg tablet 40 mg PO DAILY levothyroxine 75 mcg tablet 75 mcg PO DAILY tamsulosin 0.4 mg capsule 0.4 mg PO DAILY furosemide 20 mg tablet 20 mg PO DAILY acetaminophen [Mapap (acetaminophen)] 325 mg Tablet 650 mg PO Q6H PRN (Reason: Mild Pain (1-3) Or Fever) Qty: 30 0RF polyethylene glycol 3350 [Miralax] 17 gram Powder In Packet 17 g PO QAM Qty: 30 0RF enalapril maleate 20 mg tablet 20 mg PO BID Qty: 30 0RF cholecalciferol (vitamin D3) [Vitamin D3] 50 mcg (2,000 unit) capsule 1 unit PO DAILY amlodipine [Norvasc] 5 mg Tablet 10 mg PO QAM Qty: 30 0RF empagliflozin 10 mg tablet 10 mg PO DAILY Qty: 30 0RF Follow-up/Referrals: Nash,Brayden Dominguez MD [Primary Care Provider] - Time of Disposition: 00:45
[2024-06-26] VITALS (11 sets, daily range): BP systolic 127–155; BP diastolic 51–74; PULSE 56–83; RESP 16–20; TEMP 36–36.9; O2SAT 98–100; BMI 25.0
[2024-06-26 00:02] LABS: Basophils Absolute Auto 0.1 K/mm3 (0.0-0.1); Basophils Percent Auto 0.9 % (0.2-1.2); Eosinophils Absolute Auto 0.1 K/mm3 (0-0.3); Eosinophils Percent Auto 1.4 % (0-4.4); Hematocrit 32.8 % (42.0-52.0); Hemoglobin 10.9 g/dL (14.0-18.0); Immature Granulocyte Absolute 0.04 K/mm3 (0.00-0.031); Immature Granulocyte Percent A 0.4 % (0-0.5); Lymphocytes Absolute Auto 1.01 K/mm3 (0.9-3.2); Lymphocytes Percent Auto 11.1 % (18.3-44.2); Mean Corpuscular HGB Conc 33.2 g/dl (32-36); Mean Corpuscular Hemoglobin 29.2 pg (26-34); Mean Corpuscular Volume 87.9 fl (80-100); Mean Platelet Volume 9.1 fl (7.4-10.4); Monocytes Absolute Auto 0.6 K/mm3 (0.1-0.6); Monocytes Percent Auto 6.4 % (2.6-8.5); Neutrophils Absolute Auto 7.3 K/mm3 (1.3-6.7); Neutrophils Percent Auto 79.8 % (45.5-73.1); Platelet Count Result 858 k/mm3 (150-375); Red Blood Count 3.73 M/mm3 (4.6-6.20); Red Cell Distribution Width 15.1 % (11.5-14.5); White Blood Count 9.1 K/mm3 (4.5-10.0)
[2024-06-26 00:13] LABS: Alanine Aminotransferase 15 U/L (6-50); Alkaline Phosphatase 65 U/L (38-126); Anion Gap 7 mmol/L (4-12); Aspartate Amino Transferase 26 U/L (17-59); Bilirubin,Total 0.5 mg/dL (0.2-1.3); Blood Urea Nitrogen 36 mg/dL (9-20); Calcium 8.7 mg/dL (8.4-10.2); Carbon Dioxide 26 mmol/L (22-30); Chloride 102 mmol/L (98-107); Estimated CRCL calculation 25 ml/min; Estimated Glomerular Filt Rate 32; Glucose 116 mg/dL (65-110); Magnesium 1.9 mg/dL (1.6-2.3); Potassium 3.5 mmol/L (3.4-5.0); Sodium 135 mmol/L (137-145)
[2024-06-26 00:46] LABS: INR 1.2
[2024-06-26 00:47] LABS: Partial Thromboplastin Time 33.9 Seconds (22.3-36.8)
--- NOTE | 2024-06-26 01:29 | P.HP_ITS ---
H&P: HPI History of Present Illness Date/Time: 06/26/24 01:29 Chief Complaint: Fall Stroke-like symptoms Narrative: Gianfranco Rosen with a mHx significant for thrombocytosis, hypothyroidism, hypertension, Dyslipidemia, BPH, recurrent depression. [facility], he was brought in for evaluation after an unwitnessed fall; while at baseline, his gait is unstable, he was unable to give circumstantial information about the fall or how he got to the floor; with no known modifying factors, this was associated with a confused state compared to his baseline and a left visual field impairment noted on arrival in the ED. There were no associated findings of bowel/bladder incontinence, bleeding, head trauma, focal weakness or speech impairment. He does not smoke/chew tobacco, drink alcohol or consume recreational/illicit drugs. Work-up findings: WBC 9; Hb 10; PLT 858; INR 1.2 Na 135; K 3.5; Cl 102; CO2 26; Cr 1.9; BUN 36; GFR 32 HbA1c 5.4%; Unremarkable Lipid panel BNP 822; Troponin: <0.012 UA: 1+ LE; 11-20 WBC; no bacteria; -ve Nitrite UDS: Unremarkable Head CT: Chronic small vessel ischemic disease; Cerebral volume loss; Hypoattenuation in the medial right occipital lobe, concerning for acute or subacute infarct CT Facial: Trace fluid in the right mastoid cells. mild mucosal thickening in elroy ethmmodi cells CT cervical spine: No acute traumatic abnormaliity Gianfranco Rosen will be admitted, evaluated and managed for stroke-like symptoms Review of Systems Review of Systems: All systems reviewed & are unremarkable except as noted in HPI and below PMFSH Past Medical History Medical History Diastolic dysfunction Type 2 diabetes mellitus Chronic kidney disease Chronic anemia Obstructive sleep apnea on CPAP Chronic obstructive pulmonary disease Benign prostatic hyperplasia Hypothyroidism Hyperlipidemia Hypertension Depression with anxiety Surgical History Surgical History History of hydrocelectomy History of appendectomy Family History Family History Mother Natural Father Natural with unknown cause Social History Social History Social History: Healthcare power of child development associate teacher: Celsa Velasquez, daughter ([phone]). Code status: Full code. Smoking packs per day: 0.5 Smoking cigarettes per day: 10.0 Years smoked: 15 Smoking pack-years: 7.50 Smoking status: Former smoker Tobacco type: cigarettes Second hand tobacco smoke exposure: No Alcohol intake: never Drinks per week: 1 Substance use: never Substance use type: does not use Do You Feel Safe in your Home?: Yes Lack of Transportation: No Lack of Food: Never True Current Housing: I Have Housing Concerned About Future Housing: No Difficulty Paying Gas/Electric Bills: No Difficulty Paying for Meds: No Currently Unemployed: No Education: Decline to Answer Difficulty w/ Childcare or Family Care: No Spiritual care concerns: No Meds Home Medications and Allergies Home Medications ?Medication ?Instructions ?Recorded ?Confirmed ?Type venlafaxine 75 mg capsule,extended 75 mg PO DAILY 12/26/19 05/21/24 History release 24 hr levothyroxine 75 mcg tablet 75 mcg PO DAILY 05/30/20 05/21/24 History pravastatin 40 mg tablet 40 mg PO DAILY 05/30/20 05/21/24 History tamsulosin 0.4 mg capsule 0.4 mg PO DAILY 05/30/20 05/21/24 History furosemide 20 mg tablet 20 mg PO DAILY 01/11/22 05/21/24 History acetaminophen 325 mg tablet (Mapap 650 mg (2 x 325 mg) PO Q6H PRN 01/14/22 05/21/24 Rx (acetaminophen)) Mild Pain (1-3) Or Fever #30 tabs cholecalciferol (vitamin D3) 50 1 unit PO DAILY 05/18/22 05/21/24 History mcg (2,000 unit) capsule (Vitamin D3) amlodipine 5 mg tablet (Norvasc) 10 mg (2 x 5 mg) PO QAM #30 tabs 05/22/22 05/21/24 Rx empagliflozin 10 mg tablet 10 mg PO DAILY #30 tabs 03/06/24 05/21/24 Rx enalapril maleate 20 mg tablet 20 mg PO BID #30 tabs 05/27/24 05/21/24 Rx polyethylene glycol 3350 17 gram 17 g PO QAM #30 ea 05/27/24 Rx oral powder packet (Miralax) Allergies Allergy/AdvReac Type Severity Reaction Status Date / Time No Known Allergies Allergy Verified 06/26/24 05:48 Vital Signs Vital Signs - 24 hr 06/25/24 20:56 06/26/24 00:29 Temperature 97.8 F Pulse Rate 68 56 L Respiratory Rate 16 16 Blood Pressure 155/58 H 155/66 H Pulse Oximetry 98 100 Oxygen Delivery Room Air Exam Const: General: comfortable and no acute distress HENMT: Ears: TM's normal bilaterally Face/Nose/Sinus: Normal nares present Mouth: Yes moist mucous membranes Eyes: General: appearance normal, both eyes and all related structures Sclera: sclerae normal Pupils: Equal, round and reactive pupils present Neck: Neck: supple Resp: Effort & Inspection: normal respiratory effort Auscultation: clear to auscultation bilaterally, no crackles, no rales and no rhonchi Cardio: Rate: regular rate GI: GI Palp: Yes Soft to palpation Skin: General skin exam: normal color Neuro: General: No gait normal and deep tendon reflexes 2+ bilaterally Speech: normal speech Motor exam (neuro): 5/5 motor strength present throughout and Normal motor muscle tone present throughout Other: Left visual field hemineglect Extrem: General: normal to inspection Psych: Mental Status: mental status grossly abnormal (Confused with cognitive impairment) H&P: Results Labs Labs: Short CBC 06/25/24 Range/Units 23:56 WBC 9.1 (4.5-10.0) K/mm3 Hgb 10.9 L (14.0-18.0) g/dL Hct 32.8 L (42.0-52.0) % Plt Count 858 H D (150-375) k/mm3 BMP 06/25/24 23:56 Sodium 135 L Potassium 3.5 Chloride 102 Carbon Dioxide 26 BUN 36 H D Creatinine 1.98 H Glucose 116 H Calcium 8.7 Liver Function 06/25/24 Range/Units 23:56 Total Bilirubin 0.5 (0.2-1.3) mg/dL AST 26 (17-59) U/L ALT 15 (6-50) U/L Alkaline Phosphatase 65 (38-126) U/L Albumin 3.0 L (3.5-5.1) g/dL Assessment and Plan Assessment and plan (1) Stroke-like symptoms: Code(s): R29.90 - Unspecified symptoms and signs involving the nervous system Status: Acute Plan Acute and principal conditions 1. Stroke-like symptoms 2. Acute CVA, medial right occipital lobe; Visual impairment 3. UTI 4. Thrombocytosis Rx: A. MRI Brain B. NAIL EXPERT/PT/OT eval and Rx C. Ceftriaxone D. Neurology consult E. ECHO; DAPT Chronic stable condition 1. BPH. On Tamsulosin 2. Dyslipidemia. On Pravastatin 3. Recurrent depression. 4. Hypothyroidism. 5. Hypertension. Miscellaneous care. 1. Code status. Full 2. Nutrition. Heart healthy 3. VTE prophylaxis. SCDs Quality VTE Prophylaxis VTE prophylaxis: mechanical ordered and pharmacologic ordered Hospitalist MIPS Advance Care Plan I have confirmed that the patient's Advanced Care Plan is present, code status is documented, or surrogate decision maker is listed in patient medical record.: Yes Medication Reconciliation I have utilized all available resources to obtain, update and review the patients current medications (includes all prescriptions, OTC, herbals, cannabis, and nutritional supplements).: Yes The patient is not eligible for med reconciliation; the patient is in a emergent medical situation where delaying treatment would jeopardize the patients health.: Yes
[2024-06-26] MEDS: SODIUM CHLORIDE 0.9% IV 1,000 ML 75 ML IV CONT ×2 (01:43→16:06)
[2024-06-26 01:54] LABS: Add Urine Microscopic? YES; Appearance Urine Clear (Clear); Bacteria Urine None Seen /hpf; Bilirubin Urine Negative (Negative); Blood Urine Negative (Negative); Color Urine Yellow (Yellow); Glucose Urine UA 3+ mg/dL (Negative); Ketones Urine Negative (Negative); Leukocyte Esterase Ur 1+ LEU/UL (Negative); Nitrate Urine Negative (Negative); Protein Urine 3+ mg/dL (Negative); RBC Urine 0-2 /hpf (0-2); Specific Grav Ur 1.015 (1.001-1.035); Squamous Epithelial Cell Urine None Seen /hpf (Few)
[2024-06-26 02:07] LABS: Amphetamine Screen Urine Negative (Negative); Barbiturate Screen Urine Negative (Negative); Benzodiazepines Screen Urine Negative (Negative); Cannabinoid Screen Urine Negative (Negative); Cocaine Screen Urine Negative (Negative); Methadone Screen Urine Negative (Negative); Opiate Screen Urine Negative (Negative); Phencyclidine Screen Urine Negative (Negative)
[2024-06-26 02:30] LABS: Cholesterol 110 mg/dL (0-200); HDL Direct 27 mg/dL; Triglycerides 135 mg/dL (<150)
[2024-06-26 02:41] LABS: LDL Cholesterol Direct 47 mg/dL
[2024-06-26 02:44] LABS: NT Pro B Type Natriuretic Pept 822 pg/mL (19.9-100); Troponin I < 0.012 ng/mL (0.000-0.034)
[2024-06-26 03:00] LABS: Hemoglobin A1C 5.4 % (<5.7)
--- NOTE | 2024-06-26 05:51 | ECG_ITS ---
Test Date: 2024-06-26 06:26:12 Measurements Intervals [place] Rate: 61 P: 0 UT: 0 QRS: -64 QRSD: 167 T: 23 QT: 478 QTc: 483 Interpretive Statements PROBABLE SINUS RHYTHM WITH A FIRST-DEGREE AV BLOCK AND PREMATURE ATRIAL CONTRACTIONS BASELINE ARTIFACT LIMITS INTERPRETATION INTRAVENTRICULAR CONDUCTION DELAY [130+ ms QRS DURATION] LEFT ANTERIOR FASCICULAR BLOCK RIGHT BUNDLE BRANCH BLOCK ABNORMAL ECG Electronically Signed On 06-26-2024 08:00:20 SENIOR OPERATIONS MANAGER by Ronn Angel M.D.
--- NOTE | 2024-06-26 06:22 | ADMGEN ---
This patient, Gianfranco Rosen, was admitted to [facility] Surg Room 304-02. Patient/family oriented to hospital policies and general routines including ID bracelet, bed and alarms, visiting hours, pain management, procedures, bathroom and other care routines, personal items, smoking policy, room service/diet, and visiting hours. Information on how to activate the Rapid Response Team has been discussed. Patient/Family are encouraged to report perceived risks to care and to ask questions if they do not understand what they are told or what they should do.
[2024-06-26] MEDS: ASPIRIN 81 MG ENTERIC TABLET PO (06:50)
--- OUTSIDE RECORDS SUMMARY | 2024-06-26 07:28 | XMS_ITS | CONTINUITY OF CARE DOCUMENT ---
Author Name flakito fraga Address Unknown Organization [facility] Address [address] [place] [address] Phone [phone] Care Team Providers Care Pie Icer Machine Name Role Phone flakito fraga Unavailable Unavailable INSURANCE PROVIDERS Payer name Policy type / Coverage type [place] [employer] party ID [id number] [place] [employer] Medicare [id number]
--- NOTE | 2024-06-26 08:10 | P.PNIM_ITS ---
Progress Note: A&P Assessment and Plan (1) Stroke-like symptoms: Code(s): R29.90 - Unspecified symptoms and signs involving the nervous system Status: Acute Plan Acute conditions: 1. Stroke-like symptoms 2. Acute CVA, medial right occipital lobe; Visual impairment 3. UTI 4. Thrombocytosis Rx: A. MRI Brain-ordered B. 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 Ceftriaxone -continue D. Neurology consult E. ECHO; DAPT Chronic stable condition 1. BPH. On Tamsulosin 2. Dyslipidemia. On Pravastatin 3. Recurrent depression. 4. Hypothyroidism. 5. Hypertension. 1. Code status. Full 2. Nutrition. Heart healthy 3. VTE prophylaxis. SCDs Time Spent With Patient Time with patient: 25 - 35 minutes Subjective Date/time seen: 06/26/24 08:10 Interval history: Fall, stroke like symptoms Gianfranco Rosen with a PMH/o thrombocytosis, hypothyroidism, hypertension, Dyslipidemia, BPH, recurrent depression admitted for fall and evaluation and management of stroke-like symptoms Reported unwitnessed fall at his correction, reported his gait is unstable, he was unable to give circumstantial information about the fall or how he got to the floor. There were no associated findings of bowel/bladder incontinence, bleeding, head trauma, focal weakness or speech impairment. Work-up findings: WBC 9; Hb 10; PLT 858; INR 1.2 Na 135; K 3.5; Cl 102; CO2 26; Cr 1.9; BUN 36; GFR 32 HbA1c 5.4%; Unremarkable Lipid panel BNP 822; Troponin: <0.012 UA: 1+ LE; 11-20 WBC; no bacteria; -ve Nitrite UDS: Unremarkable Head CT: Chronic small vessel ischemic disease; Cerebral volume loss; Hypoattenuation in the medial right occipital lobe, concerning for acute or subacute infarct CT Facial: Trace fluid in the right mastoid cells. mild mucosal thickening in the ethmmodi cells CT cervical spine: No acute traumatic abnormality Pt is seen and examined Review of Systems Review of Systems: All systems reviewed & are unremarkable except as noted in HPI and below Exam Const: General: comfortable and no acute distress HENMT: Ears: TM's normal bilaterally Face/Nose/Sinus: Normal nares present Mouth: Yes moist mucous membranes Eyes: General: appearance normal, both eyes and all related structures Sclera: sclerae normal Pupils: Equal, round and reactive pupils present Neck: Neck: supple Resp: Effort & Inspection: normal respiratory effort Auscultation: clear to auscultation bilaterally, no crackles, no rales and no rhonchi Cardio: Rate: regular rate Skin: General skin exam: normal color Neuro: General: No gait normal and deep tendon reflexes 2+ bilaterally Cranial nerves: Yes Equal, round and reactive pupils present Speech: normal speech Motor exam (neuro): 5/5 motor strength present throughout and Normal motor muscle tone present throughout Other: Left visual field hemineglect Extrem: General: normal to inspection Psych: Mental Status: mental status grossly abnormal (Confused with cognitive impairment) Objective Data Vital Signs Vital Signs: Vital Signs - 24 hr 06/25/24 20:56 06/26/24 00:29 06/26/24 03:51 Temperature 97.8 F Pulse Rate 68 56 L 60 Respiratory Rate 16 16 19 Blood Pressure 155/58 H 155/66 H 132/54 L Pulse Oximetry 98 100 98 Oxygen Delivery Room Air 06/26/24 05:43 06/26/24 05:48 06/26/24 06:36 Temperature 96.8 F L Pulse Rate 74 70 63 Respiratory Rate 16 16 17 Blood Pressure 129/74 127/58 L 143/57 H Pulse Oximetry 100 100 100 Oxygen Delivery Meds/Results Medications: Active Medications Generic Name Dose Route Start Last Admin Trade Name Freq PRN Reason Stop Dose Admin Albuterol/Ipratropium 3 ml 06/26/24 01:25 Ipratropium 0.5 Mg/Albuterol Sulfate 2.5 Mg Ampul.Neb 3 Ml INHALATION Q4HRT PRN shortness of breath/Wheezing Aspirin 81 mg 06/26/24 06:00 06/26/24 06:50 Aspirin 81 Mg Enteric Tablet PO 81 mg QAM LORI Administration Clopidogrel Bisulfate 75 mg 06/26/24 09:00 Clopidogrel Bisulfate 75 Mg Tablet PO QAM LORI Guaifenesin/Dextromethorphan 10 ml 06/26/24 01:25 Guaifenesin/Dextromethorphan 10 Ml Udc PO Q4H PRN Cough Heparin Sodium (Porcine) 5,000 units 06/26/24 09:00 Heparin Sodium 5,000 Units/Ml Vial SUB-Q Q12HR LORI Sodium Chloride 1,000 mls @ 75 mls/hr 06/26/24 01:25 06/26/24 01:43 Normal Saline Iv IV CONT 75 mls/hr .[id number] LORI Administration Ceftriaxone Sodium 1 gm in 50 mls @ 100 mls/hr 06/26/24 06:00 06/26/24 06:50 Rocephin 1 Gm/Ns 50 Ml IVPB 07/01/24 05:59 100 mls/hr Q24H LORI Administration Melatonin 5 mg 06/26/24 01:25 Melatonin 5 Mg Tablet PO HS PRN Insomnia Perflutren Lipid Microsphere 0 ml 06/26/24 05:38 Perflutren Lipid Microspheres 1.5 Ml Vial Diluted To 10 Ml Total Volume IV PUSH 06/29/24 05:38 ONCE PRN adequate visualization Protocol Polyethylene Glycol 17 gm 06/26/24 01:25 Polyethylene Glycol 3350 17 Gm Powd.Pack PO QAM PRN Constipation Prochlorperazine Edisylate 10 mg 06/26/24 01:25 Prochlorperazine Edisylate 10 Mg/2 Ml Vial IV PUSH Q6H PRN Nausea And Vomiting Radiology Results: ITS Impressions Head CT 06/26/24 06:10 Impression: Acute to subacute infarct involving the right occipital lobe. This is new from prior exam. No intracranial hemorrhage. Atrophy and chronic white matter changes, as above. Head/Cervical Spine/Facial Bones CT 06/26/24 06:12 Impression: No fracture is seen in the facial bones. No fracture or subluxation of the cervical spine. 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 Labs Labs: Laboratory Results - last 24 hr 06/25/24 06/25/24 06/26/24 23:50 23:56 01:46 WBC 9.1 RBC 3.73 L Hgb 10.9 L Hct 32.8 L MCV 87.9 MCH 29.2 MCHC 33.2 RDW 15.1 H Plt Count 858 H D MPV 9.1 Immature Gran % (Auto) 0.4 Neut % (Auto) 79.8 H Lymph % (Auto) 11.1 L [place] % (Auto) 6.4 Eos % (Auto) 1.4 Baso % (Auto) 0.9 Lymph # (Auto) 1.01 [place] # (Auto) 0.6 Eos # (Auto) 0.1 Baso # (Auto) 0.1 Abs Immat Gran (auto) 0.04 H Absolute Neuts (auto) 7.3 H Absolute Nucleated RBC 0.000 Nucleated RBC % 0.0 PT 16.0 H INR 1.2 APTT 33.9 Sodium 135 L Potassium 3.5 Chloride 102 Carbon Dioxide 26 Anion Gap 7 BUN 36 H D Creatinine 1.98 H Estim Creat Clear Calc 25 Estimated GFR 32 L Glucose 116 H Hemoglobin A1c 5.4 Calcium 8.7 Magnesium 1.9 Total Bilirubin 0.5 AST 26 ALT 15 Alkaline Phosphatase 65 Troponin I < 0.012 NT-Pro-B Natriuret Pep 822 H Total Protein 6.0 L Albumin 3.0 L Triglycerides 135 Cholesterol 110 LDL Cholesterol Direct 47 HDL Direct 27 Urine Color Yellow Urine Appearance Clear Urine pH 6.0 Ur Specific [place] 1.015 Urine Protein 3+ H Urine Glucose (UA) 3+ H Urine Ketones Negative Ur Blood (Man) Negative Urine Nitrate Negative Urine Bilirubin Negative Urine Urobilinogen 1.0 Leukocyte Esterase Rfl 1+ H Urine RBC 0-2 Urine WBC 11-20 H Ur Squamous Epith Cells None seen Urine Bacteria None seen Urine Casts 3-5 Urine Opiates Screen Negative Urine Methadone Screen Negative Ur Barbiturates Screen Negative Ur Phencyclidine Scrn Negative Ur Amphetamine Screen Negative U Benzodiazepines Scrn Negative Urine Cocaine Screen Negative U Cannabinoids Screen Negative Quality VTE Prophylaxis VTE prophylaxis: mechanical ordered and pharmacologic ordered
[2024-06-26 09:09] LABS: Basophils Absolute Auto 0.1 K/mm3 (0.0-0.1); Eosinophils Absolute Auto 0.2 K/mm3 (0-0.3); Hematocrit 32.6 % (42.0-52.0); Hemoglobin 10.6 g/dL (14.0-18.0); Immature Granulocyte Absolute 0.06 K/mm3 (0.00-0.031); Immature Granulocyte Percent A 0.8 % (0-0.5); Lymphocytes Absolute Auto 1.04 K/mm3 (0.9-3.2); Lymphocytes Percent Auto 13.6 % (18.3-44.2); Mean Corpuscular HGB Conc 32.5 g/dl (32-36); Mean Corpuscular Hemoglobin 28.8 pg (26-34); Mean Corpuscular Volume 88.6 fl (80-100); Mean Platelet Volume 9.2 fl (7.4-10.4); Monocytes Absolute Auto 0.5 K/mm3 (0.1-0.6); Monocytes Percent Auto 6.7 % (2.6-8.5); Neutrophils Absolute Auto 5.8 K/mm3 (1.3-6.7); Neutrophils Percent Auto 75.9 % (45.5-73.1); Platelet Count Result 874 k/mm3 (150-375); Red Blood Count 3.68 M/mm3 (4.6-6.20); Red Cell Distribution Width 15.2 % (11.5-14.5); White Blood Count 7.7 K/mm3 (4.5-10.0)
[2024-06-26 09:15] LABS: Alanine Aminotransferase 14 U/L (6-50); Albumin Level 3.1 g/dL (3.5-5.1); Alkaline Phosphatase 54 U/L (38-126); Anion Gap 8 mmol/L (4-12); Aspartate Amino Transferase 24 U/L (17-59); Bilirubin,Total 0.6 mg/dL (0.2-1.3); Blood Urea Nitrogen 34 mg/dL (9-20); Calcium 8.3 mg/dL (8.4-10.2); Carbon Dioxide 23 mmol/L (22-30); Chloride 103 mmol/L (98-107); Estimated CRCL calculation 28 ml/min; Estimated Glomerular Filt Rate 37; Glucose 86 mg/dL (65-110); Potassium 3.6 mmol/L (3.4-5.0); Sodium 134 mmol/L (137-145)
[2024-06-26] MEDS: HEPARIN SODIUM 5,000 UNITS/ML VIAL 5000 UNITS SUB-Q ×2 (09:23→21:07)
[2024-06-26] MEDS: CLOPIDOGREL BISULFATE 75 MG TABLET PO (09:23)
--- NOTE | 2024-06-26 14:39 | WPDNEURCNPN ---
Assessment and Plan Assessment and plan (1) Occipital stroke: Code(s): I63.9 - Cerebral infarction, unspecified Status: Acute (2) Fall from ground level: Code(s): W18.30XA - Fall on same level, unspecified, initial encounter Status: Acute (3) Frequent falls: Code(s): R29.6 - Repeated falls Status: Acute Plan 1. History of fall unwitnessed the nursing facility with close head trauma 2. Mild ongoing dementia 3. Left visual field cut 4. Chronic renal disease plan is to obtain the MRI of the brain to Rule out the stroke and discuss about the cervical spine CT scan abnormalities whether needs to be pursued further because spinal stenosis or neural. but definitely needs to be discuss with the patient and the family and the nursing facility. Consult date: 06/26/24 HPI: Gianfranco Rosen is a 84 year old male Admitted to the hospital through the emergency room where he was transferred from the senior care facility secondary to unwitnessed fall reportedly was getting out of bed and accidentally rolled onto the ground hit his head on the floor patient does have ongoing history of short-term memory loss though he is at the time of initial evaluation he was alert oriented to person place and time and situation and was able to move all the extremities. His medications included venlafaxine 75mg daily, levothyroxine 75mcg daily, pravastatin 40mg p.o. daily, furosemide 20mg daily, he is not allergic to any medication, he has ongoing history of 1. Type 2 diabetes mellitus 2. Chronic renal disease 3. Chronic anemia 4. Obstructive sleep apnea on CPAP 5. Hypothyroidism 6. Hypertension and 7. Anxiety with depression, he has history of being a former smoker years smoked 15 pack per day 0.5 never alcohol intake. On initial exam in the emergency room his exam was nonfocal his vital signs were normal except blood pressure 155/66, CBC was with platelet count of 858 hemoglobin 10.9, BMP with BUN of 36 and creatinine 1.98 with blood sugar 116, last scans were normal, CT scan of the head and neck revealed no fracture subluxation but severe degenerative spondylosis in the cervical spine from C3-C7 with degenerative changes at the order and tight process articulation as well the disc and osteophyte complex C3-4 with central disc protrusion resulting in moderate canal stenosis and probable cord compression. CT scan of the head raised the question about acute to subacute infarct involving the right occipital lobe which was new from the prev Review of Systems Review of Systems: All systems reviewed & are unremarkable except as noted in HPI and below PMFSH Past Medical History Medical History Diastolic dysfunction Type 2 diabetes mellitus Chronic kidney disease Chronic anemia Obstructive sleep apnea on CPAP Chronic obstructive pulmonary disease Benign prostatic hyperplasia Hypothyroidism Hyperlipidemia Hypertension Depression with anxiety Surgical History Surgical History History of hydrocelectomy History of appendectomy Family History Family History Mother Natural Father Natural with unknown cause Social History Social History Social History: 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 Code status: Full code. Smoking packs per day: 0.5 Smoking cigarettes per day: 10.0 Years smoked: 15 Smoking pack-years: 7.50 Smoking status: Former smoker Tobacco type: cigarettes Alcohol intake: never Substance use: never Substance use type: does not use Do You Feel Safe in your Home?: Yes Lack of Transportation: No Lack of Food: Never True Current Housing: I Have Housing Concerned About Future Housing: No Difficulty Paying Gas/Electric Bills: No Difficulty Paying for Meds: No Currently Unemployed: No Education: Decline to Answer Difficulty w/ Childcare or Family Care: No Spiritual care concerns: No Meds Home Medications and Allergies Home Medications ?Medication ?Instructions ?Recorded ?Confirmed ?Type venlafaxine 75 mg capsule,extended 75 mg PO DAILY 12/26/19 06/26/24 History release 24 hr levothyroxine 75 mcg tablet 75 mcg PO DAILY 05/30/20 06/26/24 History pravastatin 40 mg tablet 40 mg PO DAILY 05/30/20 06/26/24 History tamsulosin 0.4 mg capsule 0.4 mg PO DAILY 05/30/20 06/26/24 History furosemide 20 mg tablet 20 mg PO DAILY 01/11/22 06/26/24 History acetaminophen 325 mg tablet (Mapap 650 mg (2 x 325 mg) PO Q6H PRN 01/14/22 06/26/24 Rx (acetaminophen)) Mild Pain (1-3) Or Fever #30 tabs cholecalciferol (vitamin D3) 50 1 unit PO DAILY 05/18/22 06/26/24 History mcg (2,000 unit) capsule (Vitamin D3) amlodipine 5 mg tablet (Norvasc) 10 mg (2 x 5 mg) PO QAM #30 tabs 05/22/22 06/26/24 Rx empagliflozin 10 mg tablet 10 mg PO DAILY #30 tabs 03/06/24 06/26/24 Rx enalapril maleate 20 mg tablet 20 mg PO BID #30 tabs 05/27/24 06/26/24 Rx polyethylene glycol 3350 17 gram 17 g PO QAM #30 ea 05/27/24 06/26/24 Rx oral powder packet (Miralax) quetiapine 25 mg tablet 25 mg PO HS 06/26/24 06/26/24 History Allergies Allergy/AdvReac Type Severity Reaction Status Date / Time No Known Allergies Allergy Verified 06/26/24 07:05 Vital Signs Vital Signs - 24 hr 06/25/24 20:56 06/26/24 00:29 06/26/24 03:51 Temperature 36.6 C Pulse Rate 68 56 L 60 Respiratory Rate 16 16 19 Blood Pressure 155/58 H 155/66 H 132/54 L Pulse Oximetry 98 100 98 Oxygen Delivery Room Air 06/26/24 05:43 06/26/24 05:48 06/26/24 06:36 Temperature 36.0 C L Pulse Rate 74 70 63 Respiratory Rate 16 16 17 Blood Pressure 129/74 127/58 L 143/57 H Pulse Oximetry 100 100 100 Oxygen Delivery 06/26/24 08:00 Temperature Pulse Rate 66 Respiratory Rate Blood Pressure Pulse Oximetry Oxygen Delivery Exam Narrative: Examination today revealed him to be awake alert cooperative in no obvious acute distress, head normocephalic with no cranial bruit, neck examination was negative for any murmur thyromegaly or lymphadenopathy though he complained of slight discomfort on movement of the neck in different directions, heart was regular with no murmur, lungs were clear to auscultation, abdomen soft nontender with normal bowel sounds, neurologically was awake alert he knew that he is in the hospital, his speech was not dysphasic not dysarthric not dysphonic, pupils are round regular, extraocular movements are full facial sensation was intact face symmetrical tongue midline motor examination revealed generally decreased strength 4/5 in upper and lower extremities sluggish reflexes and downgoing plantar responses. His visual examination revealed tendency to neglect on the left side. Results Labs 06/26/24 07:55 06/26/24 07:55 Labs: Short CBC 06/25/24 06/26/24 Range/Units 23:56 07:55 WBC 9.1 7.7 (4.5-10.0) K/mm3 Hgb 10.9 L 10.6 L (14.0-18.0) g/dL Hct 32.8 L 32.6 L (42.0-52.0) % Plt Count 858 H D 874 H (150-375) k/mm3 BMP 06/25/24 06/26/24 23:56 07:55 Sodium 135 L 134 L Potassium 3.5 3.6 Chloride 102 103 Carbon Dioxide 26 23 BUN 36 H D 34 H Creatinine 1.98 H 1.75 H Glucose 116 H 86 Calcium 8.7 8.3 L Cardiac Enzymes 06/25/24 Range/Units 23:50 Troponin I < 0.012 (0.000-0.034) ng/mL Liver Function 06/25/24 06/26/24 Range/Units 23:56 07:55 Total Bilirubin 0.5 0.6 (0.2-1.3) mg/dL AST 26 24 (17-59) U/L ALT 15 14 (6-50) U/L Alkaline Phosphatase 65 54 (38-126) U/L Albumin 3.0 L 3.1 L (3.5-5.1) g/dL Urine 06/26/24 Range/Units 01:46 Urine Color Yellow (Yellow) Urine Appearance Clear (Clear) Urine pH 6.0 (5.0-9.0) Ur Specific [place] 1.015 (1.001-1.035) Urine Protein 3+ H (Negative) mg/dL Urine Glucose (UA) 3+ H (Negative) mg/dL
--- NOTE | 2024-06-26 15:03 | PCSTNOTE ---
Please refer to the Bedside Swallow Evaluation in the EMR. Please note, silent aspiration cannot be ruled out at bedside. This cooperative 84 year old male was admitted to [facility] on 06/27/24 due to a fall and exhibiting stroke-like symptoms. The pt was evaluated at bedside to ensure swallowing safety during oral intake. The pt demonstrates appropriate range of mobility and strength for oral intake. The pt is missing some upper teeth, but this does not affect his ability to masticate. Trials of thin liquid (water/coke), mixed consistency (fruit cocktail), puree (pudding), and solids (mellissa cracker) were administered at bedside via spoon and straw. Throughout all trials of different consistencies, the pt demonstrated no s/s of aspiration. The pt?s vocal quality remained clear after all trials and the pt did not cough/throat clear. Oral transit was timely. No oral residue observed. Laryngeal elevation was adequate and timely for all swallows. Please note that silent aspiration cannot be ruled out at bedside. Given the results of this assessment, it is recommended this pt receive an oral diet of regular solids (IDDSI Level 7) and thin liquids (IDDSI Level 0). It is additionally recommended that the pt follow these standard swallowing precautions: Small bites/sips, sit upright during meals, and alternate solids/liquids. No further ST services are indicated at this time. Dr. Cool and SCOTT Garcia were notified of BSE results and recommendations. Thank you for this referral.
[2024-06-26] MEDS: polyethylene glycoL 3350 17 GM POWD.PACK PO (16:07)
[2024-06-26] MEDS: FUROSEMIDE 20 MG TABLET PO (16:08)
[2024-06-26] MEDS: PRAVASTATIN SODIUM 20 MG TABLET 40 MG PO (16:08)
[2024-06-26] MEDS: ENALAPRIL MALEATE 10 MG TABLET 20 MG PO (16:08)
[2024-06-26] MEDS: EMPAGLIFLOZIN 10 MG TABLET PO (16:08)
[2024-06-26] MEDS: CHOLECALCIFEROL 1,000 UNITS TABLET 2000 UNITS PO (16:08)
[2024-06-26] MEDS: TAMSULOSIN HCL 0.4 MG CAPSULE PO (16:08)
[2024-06-26] MEDS: amLODIPine BESYLATE 10 MG TABLET PO (16:08)
[2024-06-26] MEDS: VENLAFAXINE HCL XR 75 MG CAP.ER.24H PO (16:08)
[2024-06-26] MEDS: QUEtiapine FUMARATE 25 MG TABLET PO (21:07)
[2024-06-27] VITALS (8 sets, daily range): BP systolic 104–145; BP diastolic 44–69; PULSE 62–79; RESP 14–18; TEMP 35.6–37.2; O2SAT 96–100; BMI 25.0
[2024-06-27] MEDS: SODIUM CHLORIDE 0.9% IV 1,000 ML 75 ML IV CONT (05:13)
[2024-06-27] MEDS: LEVOTHYROXINE SODIUM 75 MCG TABLET PO (05:14)
[2024-06-27 06:38] LABS: Basophils Absolute Auto 0.1 K/mm3 (0.0-0.1); Eosinophils Absolute Auto 0.2 K/mm3 (0-0.3); Eosinophils Percent Auto 2.7 % (0-4.4); Hematocrit 29.5 % (42.0-52.0); Hemoglobin 9.6 g/dL (14.0-18.0); Immature Granulocyte Absolute 0.04 K/mm3 (0.00-0.031); Immature Granulocyte Percent A 0.7 % (0-0.5); Lymphocytes Absolute Auto 1.14 K/mm3 (0.9-3.2); Lymphocytes Percent Auto 19.5 % (18.3-44.2); Mean Corpuscular HGB Conc 32.5 g/dl (32-36); Mean Corpuscular Volume 89.1 fl (80-100); Mean Platelet Volume 9.3 fl (7.4-10.4); Monocytes Absolute Auto 0.4 K/mm3 (0.1-0.6); Neutrophils Percent Auto 69.1 % (45.5-73.1); Platelet Count Result 743 k/mm3 (150-375); Red Blood Count 3.31 M/mm3 (4.6-6.20); Red Cell Distribution Width 15.4 % (11.5-14.5); White Blood Count 5.9 K/mm3 (4.5-10.0)
[2024-06-27 06:49] LABS: Alanine Aminotransferase 13 U/L (6-50); Albumin Level 2.5 g/dL (3.5-5.1); Alkaline Phosphatase 55 U/L (38-126); Anion Gap 7 mmol/L (4-12); Aspartate Amino Transferase 25 U/L (17-59); Bilirubin,Total 0.3 mg/dL (0.2-1.3); Blood Urea Nitrogen 30 mg/dL (9-20); Calcium 7.9 mg/dL (8.4-10.2); Carbon Dioxide 22 mmol/L (22-30); Chloride 105 mmol/L (98-107); Estimated CRCL calculation 29 ml/min; Estimated Glomerular Filt Rate 38; Glucose 77 mg/dL (65-110); Potassium 3.2 mmol/L (3.4-5.0); Sodium 134 mmol/L (137-145)
[2024-06-27] MEDS: ENALAPRIL MALEATE 10 MG TABLET 20 MG PO ×2 (08:11→20:49)
[2024-06-27] MEDS: ASPIRIN 81 MG ENTERIC TABLET PO (08:11)
[2024-06-27] MEDS: CLOPIDOGREL BISULFATE 75 MG TABLET PO (08:11)
[2024-06-27] MEDS: FUROSEMIDE 20 MG TABLET PO (08:11)
[2024-06-27] MEDS: EMPAGLIFLOZIN 10 MG TABLET PO (08:11)
[2024-06-27] MEDS: CHOLECALCIFEROL 1,000 UNITS TABLET 2000 UNITS PO (08:11)
[2024-06-27] MEDS: VENLAFAXINE HCL XR 75 MG CAP.ER.24H PO (08:11)
[2024-06-27] MEDS: polyethylene glycoL 3350 17 GM POWD.PACK PO (08:11)
[2024-06-27] MEDS: PRAVASTATIN SODIUM 20 MG TABLET 40 MG PO (08:11)
[2024-06-27] MEDS: amLODIPine BESYLATE 10 MG TABLET PO (08:11)
[2024-06-27] MEDS: TAMSULOSIN HCL 0.4 MG CAPSULE PO (08:11)
[2024-06-27] MEDS: HEPARIN SODIUM 5,000 UNITS/ML VIAL 5000 UNITS SUB-Q ×2 (08:11→20:49)
--- NOTE | 2024-06-27 08:57 | P.PNIM_ITS ---
Progress Note: A&P Assessment and Plan (1) Occipital stroke: Code(s): I63.9 - Cerebral infarction, unspecified Status: Acute Assessment and Plan: Neurology consulted telemetry monitoring MRI pending ECHO pending DAPT PT OT eval and treat (2) CHF (congestive heart failure): Code(s): I50.9 - Heart failure, unspecified Status: Acute Assessment and Plan: Continue p.o. Lasix (3) Hypothyroidism: Code(s): E03.9 - Hypothyroidism, unspecified Status: Chronic Assessment and Plan: Continue home medications (4) Fall from ground level: Code(s): W18.30XA - Fall on same level, unspecified, initial encounter Status: Acute Assessment and Plan: PT OT evaluate treat (5) HTN (hypertension): Code(s): I10 - Essential (primary) hypertension Status: Chronic Assessment and Plan: Continue home medications (6) Acute UTI: Code(s): N39.0 - Urinary tract infection, site not specified Status: Acute Assessment and Plan: IV Rocephin (7) NELY (acute kidney injury): Code(s): N17.9 - Acute kidney failure, unspecified Status: Acute Assessment and Plan: Slowly improving, On CKD creatinine baseline 1.4 Continue gentle IVF, monitor for fluid overload Continue Lasix hold other nephrotoxic medications Plan Chronic stable condition 1. BPH. On Tamsulosin 2. Dyslipidemia. On Pravastatin 3. Recurrent depression. Continue med 1. Code status. Full 2. Nutrition. Heart healthy 3. VTE prophylaxis. SCDs Time Spent With Patient Time with patient: Greater than 35 minutes Subjective Date/time seen: 06/27/24 08:57 Interval history: Gianfranco Rosen with a PMH/o thrombocytosis, hypothyroidism, hypertension, Dyslipidemia, BPH, recurrent depression admitted for fall and evaluation and management of stroke-like symptoms and fall. Patient states that he did not have stroke-like symptoms he fell because he was messing around with every he is getting out of bed. MRI shows Acute infarct in the right temporal occipital region in the expected distribution of right posterior cerebral artery. Moderate nonspecific cerebral white matter disease and pontine disease, which likely represents chronic small vessel ischemic disease. Review of Systems Review of Systems: All systems reviewed & are unremarkable except as noted in HPI and below Exam Narrative: General: well appearing, appears stated age. HEENT: normocephalic, atraumatic. Mucous membranes moist. EOMI, PERRLA, bilateral sclera anicteric, no conjunctival injection. Neck supple without JVD, lymphadenopathy, or bruit. Respiratory: clear to ascultation bilaterally. No rales/rhonic/wheezes. Cardiovascular: Regular rate and rhythm, normal S1-S2 upon ascultation. No murmurs, rubs, or clicks. PMI is nondisplaced, capillary refill less than 3 second. Abdomen: Soft, round, no pulsatile masses, nondistended and nontender. No rebound, no guarding. No CVA tenderness, no hepatosplenomegaly. Bowel sounds present to all four quadrants. No high pitch or tinkling sounds, resonant to percussion. Extremities: No cyanosis, clubbing, or edema present. Pulses are palpable 2/2. Active ROM to all four extremities. Neuro: Alert and orientated x 3. PERRLA. Cranial nerves 2-12 intact without focal deficit. Skin: Warm, dry, and intact, without rash, erythema, or lesion. Psych: pleasant, cooperative, normal speech, normal affect, no hallucinations, no dysarthia Objective Data Vital Signs Vital Signs: Vital Signs - 24 hr 06/26/24 12:00 06/26/24 15:58 06/26/24 16:00 Temperature 97.2 F L Pulse Rate 69 75 74 Respiratory Rate 20 Blood Pressure 127/51 L Pulse Oximetry 100 06/26/24 20:00 06/26/24 20:20 06/27/24 00:00 Temperature 98.4 F 98.0 F Pulse Rate 83 73 66 Respiratory Rate 16 16 Blood Pressure 128/54 L 104/58 L Pulse Oximetry 100 97 06/27/24 00:00 06/27/24 04:00 06/27/24 04:00 Temperature 97.5 F L Pulse Rate 66 66 69 Respiratory Rate 16 Blood Pressure 128/54 L Pulse Oximetry 100 06/27/24 08:00 Temperature 96.3 F L Pulse Rate 66 Respiratory Rate 16 Blood Pressure 145/69 H Pulse Oximetry 100 Intake/Output Intake/Output: Intake & Output 06/24/24 06/25/24 06/26/24 06/27/24 23:59 23:59 23:59 23:59 Intake Total 1764 1583.8 Balance 1764 1583.8 Meds/Results Medications: Active Medications Generic Name Dose Route Start Last Admin Trade Name Freq PRN Reason Stop Dose Admin Acetaminophen 650 mg 06/26/24 13:25 Acetaminophen 325 Mg Tablet PO Q6H PRN Mild Pain (1-3) Or Fever Albuterol/Ipratropium 3 ml 06/26/24 01:25 Ipratropium 0.5 Mg/Albuterol Sulfate 2.5 Mg Ampul.Neb 3 Ml INHALATION Q4HRT PRN shortness of breath/Wheezing Amlodipine Besylate 10 mg 06/26/24 13:35 06/27/24 08:11 Amlodipine Besylate 10 Mg Tablet PO 10 mg QAM LORI Administration Aspirin 81 mg 06/26/24 06:00 06/27/24 08:11 Aspirin 81 Mg Enteric Tablet PO 81 mg QAM LORI Administration Clopidogrel Bisulfate 75 mg 06/26/24 09:00 06/27/24 08:11 Clopidogrel Bisulfate 75 Mg Tablet PO 75 mg QAM LORI Administration Empagliflozin 10 mg 06/26/24 13:35 06/27/24 08:11 Empagliflozin 10 Mg Tablet PO 10 mg DAILY LORI Administration Enalapril Maleate 20 mg 06/26/24 13:35 06/27/24 08:11 Enalapril Maleate 10 Mg Tablet PO 20 mg Q12HR LORI Administration Furosemide 20 mg 06/26/24 13:35 06/27/24 08:11 Furosemide 20 Mg Tablet PO 20 mg DAILY LORI Administration Guaifenesin/Dextromethorphan 10 ml 06/26/24 01:25 Guaifenesin/Dextromethorphan 10 Ml Udc PO Q4H PRN Cough Heparin Sodium (Porcine) 5,000 units 06/26/24 09:00 06/27/24 08:11 Heparin Sodium 5,000 Units/Ml Vial SUB-Q 5,000 units Q12HR LORI Administration Sodium Chloride 1,000 mls @ 75 mls/hr 06/26/24 01:25 06/27/24 05:13 Normal Saline Iv IV CONT 75 mls/hr .[id number] LORI Administration Ceftriaxone Sodium 1 gm in 50 mls @ 100 mls/hr 06/26/24 06:00 06/27/24 05:14 Rocephin 1 Gm/Ns 50 Ml IVPB 07/01/24 05:59 100 mls/hr Q24H LORI Administration Levothyroxine Sodium 75 mcg 06/27/24 06:30 06/27/24 05:14 Levothyroxine Sodium 75 Mcg Tablet PO 75 mcg DAILY@0630 LORI Administration Melatonin 5 mg 06/26/24 01:25 Melatonin 5 Mg Tablet PO HS PRN Insomnia Perflutren Lipid Microsphere 0 ml 06/26/24 05:38 Perflutren Lipid Microspheres 1.5 Ml Vial Diluted To 10 Ml Total Volume IV PUSH 06/29/24 05:38 ONCE PRN adequate visualization Protocol Polyethylene Glycol 17 gm 06/26/24 01:25 Polyethylene Glycol 3350 17 Gm Powd.Pack PO QAM PRN Constipation Polyethylene Glycol 17 gm 06/26/24 13:35 06/27/24 08:11 Polyethylene Glycol 3350 17 Gm Powd.Pack PO 17 gm QAM LORI Administration Pravastatin Sodium 40 mg 06/26/24 13:35 06/27/24 08:11 Pravastatin Sodium 20 Mg Tablet PO 40 mg DAILY LORI Administration Prochlorperazine Edisylate 10 mg 06/26/24 01:25 Prochlorperazine Edisylate 10 Mg/2 Ml Vial IV PUSH Q6H PRN Nausea And Vomiting Quetiapine Fumarate 25 mg 06/26/24 21:00 06/26/24 21:07 Quetiapine Fumarate 25 Mg Tablet PO 25 mg HS LORI Administration Tamsulosin HCl 0.4 mg 06/26/24 13:35 06/27/24 08:11 Tamsulosin Hcl 0.4 Mg Capsule PO 0.4 mg DAILY LORI Administration Venlafaxine HCl 75 mg 06/26/24 13:35 06/27/24 08:11 Venlafaxine Hcl Xr 75 Mg Cap.Er.24h PO 75 mg DAILY LORI Administration Vitamin D 2,000 units 06/26/24 13:35 06/27/24 08:11 Cholecalciferol 1,000 Units Tablet PO 2,000 units DAILY LORI Administration Radiology Results: ITS Impressions Head CT 06/26/24 06:10 Impression: Acute to subacute infarct involving the right occipital lobe. This is new from prior exam. No intracranial hemorrhage. Atrophy and chronic white matter changes, as above. Head/Cervical Spine/Facial Bones CT 06/26/24 06:12 Impression: No fracture is seen in the facial bones. No fracture or subluxation of the cervical spine. 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 Labs Labs: Laboratory Results - last 24 hr 06/26/24 06/27/24 07:55 06:00 WBC 7.7 5.9 RBC 3.68 L 3.31 L Hgb 10.6 L 9.6 L Hct 32.6 L 29.5 L MCV 88.6 89.1 MCH 28.8 29.0 MCHC 32.5 32.5 RDW 15.2 H 15.4 H Plt Count 874 H 743 H MPV 9.2 9.3 Immature Gran % (Auto) 0.8 H 0.7 H Neut % (Auto) 75.9 H 69.1 Lymph % (Auto) 13.6 L 19.5 [place] % (Auto) 6.7 7.0 Eos % (Auto) 2.0 2.7 Baso % (Auto) 1.0 1.0 Lymph # (Auto) 1.04 1.14 [place] # (Auto) 0.5 0.4 Eos # (Auto) 0.2 0.2 Baso # (Auto) 0.1 0.1 Abs Immat Gran (auto) 0.06 H 0.04 H Absolute Neuts (auto) 5.8 4.0 Absolute Nucleated RBC 0.000 0.000 Nucleated RBC % 0.0 0.0 Sodium 134 L 134 L Potassium 3.6 3.2 L Chloride 103 105 Carbon Dioxide 23 22 Anion Gap 8 7 BUN 34 H 30 H Creatinine 1.75 H 1.73 H Estim Creat Clear Calc 28 29 Estimated GFR 37 L 38 L Glucose 86 77 Calcium 8.3 L 7.9 L Total Bilirubin 0.6 0.3 AST 24 25 ALT 14 13 Alkaline Phosphatase 54 55 Total Protein 6.0 L 5.0 L Albumin 3.1 L 2.5 L Quality VTE Prophylaxis VTE prophylaxis: mechanical ordered and pharmacologic ordered
[2024-06-27] MEDS: POTASSIUM CHLORIDE 20 MEQ PACKET (FOR LIQUID) 40 MEQ PO (09:51)
[2024-06-27] MEDS: QUEtiapine FUMARATE 25 MG TABLET PO (20:49)
[2024-06-28] VITALS (9 sets, daily range): BP systolic 128–141; BP diastolic 52–78; PULSE 59–74; RESP 14–18; TEMP 35.7–37.1; O2SAT 98–99
--- NOTE | 2024-06-28 | ECHO_ITS ---
Patient Info Name: Gianfranco Rosen Age: 84 years : 1940 Gender: Male Ht: 70 in Wt: 184 lbs BSA: 2.04 m2 HR: 66 bpm BP: 132 / 56 mmHg Technical Quality: Fair Exam Date: 06/28/2024 11:52 AM Exam Location: Echo Lab Patient Status: Inpatient Admit Date: 06/27/2024 Staff Ordering Physician: Mendel Borges MD Monotype Operator: Trinity Drake RDCS Attending Provider: Mendel Borges MD Referring Physician: Katerina GARCIA; Exam Type: CA echo doppler w bubble study Study Info Indications - CVA Complete two-dimensional, color flow and Doppler transthoracic echocardiogram is performed with agitated saline. Contrast/Agitated Saline Contrast/Ag. Saline: Agitated Saline Amount: 20.00 ml Administered By: Milagros Branham RDCS Existing IV Access: Yes IV Access Condition: patent with no signs of infiltration Summary 1. Left ventricular chamber dimension is normal. 2. Left ventricular systolic function is normal, estimated at 65-70%. 3. There is moderately increased left ventricular wall thickness. 4. The left ventricular diastolic function is grade I diastolic dysfunction. 5. Right ventricular chamber dimension is mildly enlarged. 6. Right ventricular systolic function is normal. 7. Suspected patent foramen ovale visualized by agitated saline imaging. The bubble study is positive. 8. There is mild mitral valve regurgitation. 9. There is mild to moderate tricuspid valve regurgitation. Left Ventricle Left ventricular chamber dimension is normal. Left ventricular systolic function is normal, estimated at 65-70%. There is moderately increased left ventricular wall thickness. The left ventricular diastolic function is grade I diastolic dysfunction. Right Ventricle Right ventricular chamber dimension is mildly enlarged. Right ventricular systolic function is normal. Left Atria Left atrial chamber dimension is normal. Right Atria Right atrial chamber dimension is normal. Atrial Septum Suspected patent foramen ovale visualized by agitated saline imaging. The bubble study is positive. Aortic Valve The aortic valve is trileaflet. There is no aortic valve stenosis. There is no aortic valve regurgitation. Pulmonic Valve The pulmonic valve is not well visualized. Mitral Valve There is mild mitral valve regurgitation. Tricuspid Valve There is mild to moderate tricuspid valve regurgitation. Pericardium/Pleural There is no pericardial effusion. Inferior Vena Cava Normal inferior vena cava with >50% collapse upon inspiration consistent with normal right atrial pressure, 3 mmHg. Aorta The aortic root size at the sinus of Valsalva is normal. Left Ventricular Outflow Tract Name Value Normal LVOT 2D LVOT Diameter 1.9 cm LVOT Doppler LVOT Peak Gradient 9 mmHg Mitral Valve Name Value Normal MV Doppler MV Decel [place] 361 cm/s2 MV PHT 51 ms MV Area (PHT) 4.3 cm2 4.0-5.0 MV Diastolic Function MV E Peak Velocity 64 cm/s MV A Peak Velocity 96 cm/s MV E/A 0.7 MV Decel Time 177 ms MV Annular TDI MV E/e' (Septal) 12.1 <=8.0 MV E/e' (Lateral) 10.1 <=8.0 MV E/e' (Average) 11.1 Tricuspid Valve Name Value Normal TV Regurgitation Doppler TR Peak Velocity 239 cm/s TR Peak Gradient 23 mmHg Estimated PAP/RSVP RA Pressure 3 mmHg <=5 PA Systolic Pressure 26 mmHg <36 RV Systolic Pressure 26 mmHg <36 Aorta Name Value Normal Ascending Aorta Ao Root Diameter (MM) 3.3 cm Ao Root Diam Index (MM) 1.6 cm/m2 Aortic Valve Name Value Normal AV Doppler AV Peak Velocity 154 cm/s AV Peak Gradient 9 mmHg AV Area (Cont Eq Thang) 2.8 cm2 AV Regurgitation 2D LVOT Area 2.9 cm2 Ventricles Name Value Normal LV Dimensions 2D/MM IVS Diastolic Thickness (2D) 1.5 cm 0.6-1.0 LVID Diastole (2D) 4.1 cm 4.2-5.8 LVIW Diastolic Thickness (2D) 1.5 cm 0.6-1.0 LVID Systole (2D) 3.0 cm 2.5-4.0 LVOT Diameter 1.9 cm LV Mass (2D Cubed) 239.40 g 88.00-224.00 LV Mass Index (2D Cubed) 117 g/m2 49-115 Relative Wall Thickness (2D) 0.73 LV Fractional Shortening/Ejection Fraction 2D/MM LV Fractional Shortening (2D) 27 % 25-43 LV EF (2D Teicholz) 53 % 52-72 LV Diastolic Volume (4C MOD) 97 ml LV EF (4C MOD) 64 % LV Diastolic Volume (2C MOD) 74 ml LV EF (2C MOD) 59 % LV Diastolic Volume (BP MOD) 84 ml 62-150 LV Diastolic Volume Index (BP MOD) 41 ml/m2 34-74 LV Systolic Volume (BP MOD) 32 ml 21-61 LV Systolic Volume Index (BP MOD) 16 ml/m2 11-31 LV EF (BP MOD) 61 % 52-72 LV Diastolic Length (4C) 8.6 cm LV Systolic Length (4C) 6.5 cm LV Stroke Volume (4C MOD) 63 ml Atria Name Value Normal LA Dimensions LA Dimension (MM) 3.6 cm 3.0-4.1 LA Volume (4C A-L) 50 ml LA Volume (BP A-L) 53 ml RA Dimensions RA Area (4C) 20.3 cm2 <=18.0 Report Signatures
[2024-06-28] MEDS: LEVOTHYROXINE SODIUM 75 MCG TABLET PO (06:16)
[2024-06-28 06:49] LABS: Basophils Absolute Auto 0.1 K/mm3 (0.0-0.1); Basophils Percent Auto 1.2 % (0.2-1.2); Eosinophils Absolute Auto 0.2 K/mm3 (0-0.3); Eosinophils Percent Auto 2.6 % (0-4.4); Hematocrit 29.6 % (42.0-52.0); Hemoglobin 9.6 g/dL (14.0-18.0); Immature Granulocyte Absolute 0.06 K/mm3 (0.00-0.031); Immature Granulocyte Percent A 0.8 % (0-0.5); Lymphocytes Absolute Auto 1.19 K/mm3 (0.9-3.2); Lymphocytes Percent Auto 16.1 % (18.3-44.2); Mean Corpuscular HGB Conc 32.4 g/dl (32-36); Mean Corpuscular Hemoglobin 29.8 pg (26-34); Mean Corpuscular Volume 91.9 fl (80-100); Mean Platelet Volume 9.2 fl (7.4-10.4); Monocytes Absolute Auto 0.5 K/mm3 (0.1-0.6); Neutrophils Absolute Auto 5.3 K/mm3 (1.3-6.7); Neutrophils Percent Auto 72.3 % (45.5-73.1); Platelet Count Result 799 k/mm3 (150-375); Red Blood Count 3.22 M/mm3 (4.6-6.20); Red Cell Distribution Width 15.6 % (11.5-14.5); White Blood Count 7.4 K/mm3 (4.5-10.0)
[2024-06-28 07:01] LABS: Alanine Aminotransferase 13 U/L (6-50); Albumin Level 2.7 g/dL (3.5-5.1); Alkaline Phosphatase 51 U/L (38-126); Anion Gap 8 mmol/L (4-12); Aspartate Amino Transferase 24 U/L (17-59); Bilirubin,Total 0.4 mg/dL (0.2-1.3); Blood Urea Nitrogen 30 mg/dL (9-20); Carbon Dioxide 22 mmol/L (22-30); Chloride 105 mmol/L (98-107); Estimated CRCL calculation 31 ml/min; Estimated Glomerular Filt Rate 41; Glucose 81 mg/dL (65-110); Potassium 3.8 mmol/L (3.4-5.0); Sodium 135 mmol/L (137-145)
[2024-06-28] MEDS: polyethylene glycoL 3350 17 GM POWD.PACK PO (08:01)
[2024-06-28] MEDS: amLODIPine BESYLATE 10 MG TABLET PO (08:01)
[2024-06-28] MEDS: HEPARIN SODIUM 5,000 UNITS/ML VIAL 5000 UNITS SUB-Q ×2 (08:01→21:10)
[2024-06-28] MEDS: CLOPIDOGREL BISULFATE 75 MG TABLET PO (08:01)
[2024-06-28] MEDS: ENALAPRIL MALEATE 10 MG TABLET 20 MG PO ×2 (08:01→21:10)
[2024-06-28] MEDS: CHOLECALCIFEROL 1,000 UNITS TABLET 2000 UNITS PO (08:01)
[2024-06-28] MEDS: EMPAGLIFLOZIN 10 MG TABLET PO (08:01)
[2024-06-28] MEDS: ASPIRIN 81 MG ENTERIC TABLET PO (08:01)
[2024-06-28] MEDS: PRAVASTATIN SODIUM 20 MG TABLET 40 MG PO (08:01)
[2024-06-28] MEDS: FUROSEMIDE 20 MG TABLET PO (08:01)
[2024-06-28] MEDS: TAMSULOSIN HCL 0.4 MG CAPSULE PO (08:01)
[2024-06-28] MEDS: VENLAFAXINE HCL XR 75 MG CAP.ER.24H PO (08:01)
--- NOTE | 2024-06-28 08:43 | PM.IMPN ---
Progress Note: A&P Assessment and Plan (1) Occipital stroke: Code(s): I63.9 - Cerebral infarction, unspecified Status: Acute Assessment and Plan: Neurology consulted telemetry monitoring MRI Acute infarct in the right temporal occipital region in the expected distribution of right posterior cerebral artery. ECHO Left ventricular systolic function is normal, estimated at >70%. Moderate pulmonary hypertension, estimated pulmonary arterial systolic pressure is 48 mmHg. mild mitral and tricuspid valve regurgitation. DAPT PT OT eval and treat over the past month patient has not progressed in physical therapy, will need sniff placement (2) CHF (congestive heart failure): Code(s): I50.9 - Heart failure, unspecified Status: Acute Assessment and Plan: Continue p.o. Lasix (3) Hypothyroidism: Code(s): E03.9 - Hypothyroidism, unspecified Status: Chronic Assessment and Plan: Continue home medications (4) Fall from ground level: Code(s): W18.30XA - Fall on same level, unspecified, initial encounter Status: Acute Assessment and Plan: PT OT evaluate treat (5) HTN (hypertension): Code(s): I10 - Essential (primary) hypertension Status: Chronic Assessment and Plan: Continue home medications (6) Acute UTI: Code(s): N39.0 - Urinary tract infection, site not specified Status: Acute Assessment and Plan: Culture negative, DC Rocephin (7) NELY (acute kidney injury): Code(s): N17.9 - Acute kidney failure, unspecified Status: Acute Assessment and Plan: Slowly improving, On CKD creatinine baseline 1.4 Continue Lasix hold other nephrotoxic medications Plan Chronic stable condition 1. BPH. On Tamsulosin 2. Dyslipidemia. On Pravastatin 3. Recurrent depression. Continue med 1. Code status. Full 2. Nutrition. Heart healthy 3. VTE prophylaxis. SCDs Patient is close to being medically ready he will need placement Time Spent With Patient Time with patient: Greater than 35 minutes Subjective Date/time seen: 06/28/24 08:43 Interval history: Gianfranco Rosen with a PMH/o thrombocytosis, hypothyroidism, hypertension, Dyslipidemia, BPH, recurrent depression admitted for fall and evaluation and management of stroke-like symptoms and fall. Patient states that he did not have stroke-like symptoms he fell because he was messing around with every he is getting out of bed. MRI shows Acute infarct in the right temporal occipital region in the expected distribution of right posterior cerebral artery. Moderate nonspecific cerebral white matter disease and pontine disease, which likely represents chronic small vessel ischemic disease. Due to patient using Meseret lift prior to hospitalization at rehab and sometimes refusing physical therapy he is no longer being approved for rehab and will need SNF placement. Review of Systems Review of Systems: All systems reviewed & are unremarkable except as noted in HPI and below Exam Narrative: General: well appearing, appears stated age. Drowsy HEENT: normocephalic, atraumatic. Mucous membranes moist. EOMI, PERRLA, bilateral sclera anicteric, no conjunctival injection. Neck supple without JVD, lymphadenopathy, or bruit. Respiratory: clear to ascultation bilaterally. No rales/rhonic/wheezes. Cardiovascular: Regular rate and rhythm, normal S1-S2 upon ascultation. No murmurs, rubs, or clicks. PMI is nondisplaced, capillary refill less than 3 second. Abdomen: Soft, round, no pulsatile masses, nondistended and nontender. No rebound, no guarding. No CVA tenderness, no hepatosplenomegaly. Bowel sounds present to all four quadrants. No high pitch or tinkling sounds, resonant to percussion. Extremities: No cyanosis, clubbing, or edema present. Pulses are palpable 2/2. Active ROM to all four extremities. Neuro: Alert and orientated x 3. PERRLA. Cranial nerves 2-12 intact without focal deficit. Skin: Warm, dry, and intact, without rash, erythema, or lesion. Psych: pleasant, cooperative, normal speech, normal affect, no hallucinations, no dysarthia Objective Data Vital Signs Vital Signs: Vital Signs - 24 hr 06/27/24 08:45 06/27/24 08:56 06/27/24 12:00 Temperature 96.1 F L Pulse Rate 65 Respiratory Rate 16 Blood Pressure 113/49 L Pulse Oximetry 100 Oxygen Delivery Room Air Room Air 06/27/24 12:00 06/27/24 16:00 06/27/24 16:00 Temperature 97.5 F L Pulse Rate 69 66 72 Respiratory Rate 18 Blood Pressure 125/52 L Pulse Oximetry 97 Oxygen Delivery 06/27/24 20:00 06/27/24 20:32 06/27/24 23:56 Temperature 98.1 F 98.9 F Pulse Rate 79 67 69 Respiratory Rate 16 14 Blood Pressure 127/44 L 132/56 L Pulse Oximetry 96 98 Oxygen Delivery 06/28/24 00:00 06/28/24 04:00 06/28/24 05:36 Temperature 98.8 F Pulse Rate 74 59 L 64 Respiratory Rate 18 Blood Pressure 128/78 Pulse Oximetry 98 Oxygen Delivery 06/28/24 07:59 06/28/24 08:00 Temperature 96.5 F L Pulse Rate 70 69 Respiratory Rate 16 Blood Pressure 141/54 H Pulse Oximetry 99 Oxygen Delivery Intake/Output Intake/Output: Intake & Output 06/25/24 06/26/24 06/27/24 06/28/24 23:59 23:59 23:59 23:59 Intake Total 1764 2553.8 550 Balance 1764 2553.8 550 Meds/Results Medications: Active Medications Generic Name Dose Route Start Last Admin Trade Name Freq PRN Reason Stop Dose Admin Acetaminophen 650 mg 06/26/24 13:25 Acetaminophen 325 Mg Tablet PO Q6H PRN Mild Pain (1-3) Or Fever Albuterol/Ipratropium 3 ml 06/26/24 01:25 Ipratropium 0.5 Mg/Albuterol Sulfate 2.5 Mg Ampul.Neb 3 Ml INHALATION Q4HRT PRN shortness of breath/Wheezing Amlodipine Besylate 10 mg 06/26/24 13:35 06/28/24 08:01 Amlodipine Besylate 10 Mg Tablet PO 10 mg QAM LORI Administration Aspirin 81 mg 06/26/24 06:00 06/28/24 08:01 Aspirin 81 Mg Enteric Tablet PO 81 mg QAM LORI Administration Clopidogrel Bisulfate 75 mg 06/26/24 09:00 06/28/24 08:01 Clopidogrel Bisulfate 75 Mg Tablet PO 75 mg QAM LORI Administration Empagliflozin 10 mg 06/26/24 13:35 06/28/24 08:01 Empagliflozin 10 Mg Tablet PO 10 mg DAILY LORI Administration Enalapril Maleate 20 mg 06/26/24 13:35 06/28/24 08:01 Enalapril Maleate 10 Mg Tablet PO 20 mg Q12HR LORI Administration Furosemide 20 mg 06/26/24 13:35 06/28/24 08:01 Furosemide 20 Mg Tablet PO 20 mg DAILY LROI Administration Guaifenesin/Dextromethorphan 10 ml 06/26/24 01:25 Guaifenesin/Dextromethorphan 10 Ml Udc PO Q4H PRN Cough Heparin Sodium (Porcine) 5,000 units 06/26/24 09:00 06/28/24 08:01 Heparin Sodium 5,000 Units/Ml Vial SUB-Q 5,000 units Q12HR LORI Administration Sodium Chloride 1,000 mls @ 75 mls/hr 06/26/24 01:25 06/27/24 05:13 Normal Saline Iv IV CONT 75 mls/hr .[id number] LORI Administration Ceftriaxone Sodium 1 gm in 50 mls @ 100 mls/hr 06/26/24 06:00 06/28/24 06:15 Rocephin 1 Gm/Ns 50 Ml IVPB 07/01/24 05:59 100 mls/hr Q24H LORI Administration Levothyroxine Sodium 75 mcg 06/27/24 06:30 06/28/24 06:16 Levothyroxine Sodium 75 Mcg Tablet PO 75 mcg DAILY@0630 LORI Administration Melatonin 5 mg 06/26/24 01:25 Melatonin 5 Mg Tablet PO HS PRN Insomnia Perflutren Lipid Microsphere 0 ml 06/26/24 05:38 Perflutren Lipid Microspheres 1.5 Ml Vial Diluted To 10 Ml Total Volume IV PUSH 06/29/24 05:38 ONCE PRN adequate visualization Protocol Polyethylene Glycol 17 gm 06/26/24 01:25 Polyethylene Glycol 3350 17 Gm Powd.Pack PO QAM PRN Constipation Polyethylene Glycol 17 gm 06/26/24 13:35 06/28/24 08:01 Polyethylene Glycol 3350 17 Gm Powd.Pack PO 17 gm QAM LORI Administration Pravastatin Sodium 40 mg 06/26/24 13:35 06/28/24 08:01 Pravastatin Sodium 20 Mg Tablet PO 40 mg DAILY LORI Administration Prochlorperazine Edisylate 10 mg 06/26/24 01:25 Prochlorperazine Edisylate 10 Mg/2 Ml Vial IV PUSH Q6H PRN Nausea And Vomiting Quetiapine Fumarate 25 mg 06/26/24 21:00 06/27/24 20:49 Quetiapine Fumarate 25 Mg Tablet PO 25 mg HS LORI Administration Tamsulosin HCl 0.4 mg 06/26/24 13:35 06/28/24 08:01 Tamsulosin Hcl 0.4 Mg Capsule PO 0.4 mg DAILY LORI Administration Venlafaxine HCl 75 mg 06/26/24 13:35 06/28/24 08:01 Venlafaxine Hcl Xr 75 Mg Cap.Er.24h PO 75 mg DAILY LORI Administration Vitamin D 2,000 units 06/26/24 13:35 06/28/24 08:01 Cholecalciferol 1,000 Units Tablet PO 2,000 units DAILY LORI Administration Radiology Results: ITS Impressions Head CT 06/26/24 06:10 Impression: Acute to subacute infarct involving the right occipital lobe. This is new from prior exam. No intracranial hemorrhage. Atrophy and chronic white matter changes, as above. Head/Cervical Spine/Facial Bones CT 06/26/24 06:12 Impression: No fracture is seen in the facial bones. No fracture or subluxation of the cervical spine. 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 Brain MRI 06/27/24 11:45 IMPRESSION: 1. Acute infarct in the right temporal occipital region in the expected distribution of right posterior cerebral artery. 2. Moderate nonspecific cerebral white matter disease and pontine disease, which likely represents chronic small vessel ischemic disease. Labs Labs: Laboratory Results - last 24 hr 06/28/24 06:21 WBC 7.4 RBC 3.22 L Hgb 9.6 L Hct 29.6 L MCV 91.9 MCH 29.8 MCHC 32.4 RDW 15.6 H Plt Count 799 H MPV 9.2 Immature Gran % (Auto) 0.8 H Neut % (Auto) 72.3 Lymph % (Auto) 16.1 L [place] % (Auto) 7.0 Eos % (Auto) 2.6 Baso % (Auto) 1.2 Lymph # (Auto) 1.19 [place] # (Auto) 0.5 Eos # (Auto) 0.2 Baso # (Auto) 0.1 Abs Immat Gran (auto) 0.06 H Absolute Neuts (auto) 5.3 Absolute Nucleated RBC 0.000 Nucleated RBC % 0.0 Sodium 135 L Potassium 3.8 Chloride 105 Carbon Dioxide 22 Anion Gap 8 BUN 30 H Creatinine 1.60 H Estim Creat Clear Calc 31 Estimated GFR 41 L Glucose 81 Calcium 8.0 L Total Bilirubin 0.4 AST 24 ALT 13 Alkaline Phosphatase 51 Total Protein 5.0 L Albumin 2.7 L Quality VTE Prophylaxis VTE prophylaxis: mechanical ordered and pharmacologic ordered
[2024-06-28 11:45] LABS: Glucose Point of Care 100 mg/dl (65-105)
[2024-06-28] MEDS: QUEtiapine FUMARATE 25 MG TABLET PO (21:10)
[2024-06-29] VITALS (7 sets, daily range): BP systolic 140–165; BP diastolic 46–64; PULSE 58–69; RESP 14–16; TEMP 35.6–36.6; O2SAT 94–100
[2024-06-29] MEDS: LEVOTHYROXINE SODIUM 75 MCG TABLET PO (05:09)
[2024-06-29 06:25] LABS: Alanine Aminotransferase 12 U/L (6-50); Albumin Level 2.7 g/dL (3.5-5.1); Alkaline Phosphatase 59 U/L (38-126); Anion Gap 7 mmol/L (4-12); Aspartate Amino Transferase 20 U/L (17-59); Bilirubin,Total 0.3 mg/dL (0.2-1.3); Blood Urea Nitrogen 25 mg/dL (9-20); Calcium 8.2 mg/dL (8.4-10.2); Carbon Dioxide 22 mmol/L (22-30); Chloride 107 mmol/L (98-107); Estimated CRCL calculation 32 ml/min; Estimated Glomerular Filt Rate 43; Glucose 74 mg/dL (65-110); Potassium 3.6 mmol/L (3.4-5.0); Sodium 136 mmol/L (137-145)
[2024-06-29 06:31] LABS: Basophils Absolute Auto 0.1 K/mm3 (0.0-0.1); Basophils Percent Auto 1.3 % (0.2-1.2); Eosinophils Absolute Auto 0.3 K/mm3 (0-0.3); Eosinophils Percent Auto 3.7 % (0-4.4); Hematocrit 30.4 % (42.0-52.0); Hemoglobin 9.7 g/dL (14.0-18.0); Immature Granulocyte Absolute 0.06 K/mm3 (0.00-0.031); Immature Granulocyte Percent A 0.8 % (0-0.5); Lymphocytes Absolute Auto 1.05 K/mm3 (0.9-3.2); Lymphocytes Percent Auto 13.8 % (18.3-44.2); Mean Corpuscular HGB Conc 31.9 g/dl (32-36); Mean Corpuscular Hemoglobin 29.4 pg (26-34); Mean Corpuscular Volume 92.1 fl (80-100); Mean Platelet Volume 9.3 fl (7.4-10.4); Monocytes Absolute Auto 0.4 K/mm3 (0.1-0.6); Monocytes Percent Auto 5.8 % (2.6-8.5); Neutrophils Absolute Auto 5.7 K/mm3 (1.3-6.7); Neutrophils Percent Auto 74.6 % (45.5-73.1); Platelet Count Result 824 k/mm3 (150-375); Red Cell Distribution Width 15.6 % (11.5-14.5); White Blood Count 7.6 K/mm3 (4.5-10.0)
[2024-06-29] MEDS: ENALAPRIL MALEATE 10 MG TABLET 20 MG PO ×2 (09:56→21:54)
[2024-06-29] MEDS: FUROSEMIDE 20 MG TABLET PO (09:56)
[2024-06-29] MEDS: HEPARIN SODIUM 5,000 UNITS/ML VIAL 5000 UNITS SUB-Q ×2 (09:56→21:54)
[2024-06-29] MEDS: TAMSULOSIN HCL 0.4 MG CAPSULE PO (09:56)
[2024-06-29] MEDS: amLODIPine BESYLATE 10 MG TABLET PO (09:57)
[2024-06-29] MEDS: EMPAGLIFLOZIN 10 MG TABLET PO (09:57)
[2024-06-29] MEDS: ASPIRIN 81 MG ENTERIC TABLET PO (09:57)
[2024-06-29] MEDS: CLOPIDOGREL BISULFATE 75 MG TABLET PO (09:57)
[2024-06-29] MEDS: PRAVASTATIN SODIUM 20 MG TABLET 40 MG PO (09:57)
[2024-06-29] MEDS: CHOLECALCIFEROL 1,000 UNITS TABLET 2000 UNITS PO (09:57)
[2024-06-29] MEDS: polyethylene glycoL 3350 17 GM POWD.PACK PO (09:57)
[2024-06-29] MEDS: VENLAFAXINE HCL XR 75 MG CAP.ER.24H PO (09:58)
--- NOTE | 2024-06-29 16:09 | P.PNIM_ITS ---
Progress Note: A&P Assessment and Plan (1) Occipital stroke: Code(s): I63.9 - Cerebral infarction, unspecified Status: Acute Assessment and Plan: Neurology consulted telemetry monitoring MRI Acute infarct in the right temporal occipital region in the expected distribution of right posterior cerebral artery. ECHO Left ventricular systolic function is normal, estimated at >70%. Moderate pulmonary hypertension, estimated pulmonary arterial systolic pressure is 48 mmHg. mild mitral and tricuspid valve regurgitation. DAPT PT OT eval and treat over the past month patient has not progressed in physical therapy, will need sniff placement (2) CHF (congestive heart failure): Code(s): I50.9 - Heart failure, unspecified Status: Acute Assessment and Plan: Continue p.o. Lasix (3) Hypothyroidism: Code(s): E03.9 - Hypothyroidism, unspecified Status: Chronic Assessment and Plan: Continue home medications (4) Fall from ground level: Code(s): W18.30XA - Fall on same level, unspecified, initial encounter Status: Acute Assessment and Plan: PT OT evaluate treat (5) HTN (hypertension): Code(s): I10 - Essential (primary) hypertension Status: Chronic Assessment and Plan: Continue home medications (6) Acute UTI: Code(s): N39.0 - Urinary tract infection, site not specified Status: Acute Assessment and Plan: Culture negative, DC Rocephin (7) NELY (acute kidney injury): Code(s): N17.9 - Acute kidney failure, unspecified Status: Acute Assessment and Plan: Slowly improving, On CKD creatinine baseline 1.4 Continue Lasix hold other nephrotoxic medications Plan Chronic stable condition 1. BPH. On Tamsulosin 2. Dyslipidemia. On Pravastatin 3. Recurrent depression. Continue med 1. Code status. Full 2. Nutrition. Heart healthy 3. VTE prophylaxis. SCDs Patient is close to being medically ready he will need placement, waiting for authorization, will continue to monitor Subjective Date/time seen: 06/29/24 16:09 Interval history: Gianfranco Rosen with a PMH/o thrombocytosis, hypothyroidism, hypertension, Dyslipidemia, BPH, recurrent depression admitted for fall and evaluation and management of stroke-like symptoms and fall. Patient states that he did not have stroke-like symptoms he fell because he was messing around with every he is getting out of bed. MRI shows Acute infarct in the right temporal occipital region in the expected distribution of right posterior cerebral artery. Moderate nonspecific cerebral white matter disease and pontine disease, which likely represents chronic small vessel ischemic disease. Due to patient using Meseret lift prior to hospitalization at rehab and sometimes refusing physical therapy he is no longer being approved for rehab and will need SNF placement. patient is waiting for placement, will continue to monitor. Review of Systems Review of Systems: All systems reviewed & are unremarkable except as noted in HPI and below Exam Narrative: Elderly frail Patient is comfortable, NAD HEENT: eyes are clear and none icteric LUNGS:CTA HEART: RR S1S2 ABD: BS+, Soft and nontender Lower extremities: no edema SKIN: nonjaundiced Neuro: grossly intact. Objective Data Vital Signs Vital Signs: Vital Signs - 24 hr 06/28/24 20:00 06/28/24 20:00 06/29/24 00:00 Temperature 36.2 C L Pulse Rate 70 72 62 Respiratory Rate 14 Blood Pressure 133/52 L Pulse Oximetry 99 06/29/24 04:00 06/29/24 08:00 06/29/24 08:00 Temperature 35.6 C L Pulse Rate 67 68 67 Respiratory Rate 16 Blood Pressure 145/55 H Pulse Oximetry 98 06/29/24 11:57 Temperature 35.6 C L Pulse Rate 68 Respiratory Rate 16 Blood Pressure 165/58 H Pulse Oximetry 99 Intake/Output Intake/Output: Intake & Output 06/26/24 06/27/24 06/28/24 06/29/24 23:59 23:59 23:59 23:59 Intake Total 1764 2553.8 670 118 Balance 1764 2553.8 670 118 Meds/Results Medications: Active Medications Generic Name Dose Route Start Last Admin Trade Name Freq PRN Reason Stop Dose Admin Acetaminophen 650 mg 06/26/24 13:25 Acetaminophen 325 Mg Tablet PO Q6H PRN Mild Pain (1-3) Or Fever Albuterol/Ipratropium 3 ml 06/26/24 01:25 Ipratropium 0.5 Mg/Albuterol Sulfate 2.5 Mg Ampul.Neb 3 Ml INHALATION Q4HRT PRN shortness of breath/Wheezing Amlodipine Besylate 10 mg 06/26/24 13:35 06/29/24 09:57 Amlodipine Besylate 10 Mg Tablet PO 10 mg QAM LORI Administration Aspirin 81 mg 06/26/24 06:00 06/29/24 09:57 Aspirin 81 Mg Enteric Tablet PO 81 mg QAM LORI Administration Clopidogrel Bisulfate 75 mg 06/26/24 09:00 06/29/24 09:57 Clopidogrel Bisulfate 75 Mg Tablet PO 75 mg QAM LORI Administration Empagliflozin 10 mg 06/26/24 13:35 06/29/24 09:57 Empagliflozin 10 Mg Tablet PO 10 mg DAILY LORI Administration Enalapril Maleate 20 mg 06/26/24 13:35 06/29/24 09:56 Enalapril Maleate 10 Mg Tablet PO 20 mg Q12HR LORI Administration Furosemide 20 mg 06/26/24 13:35 06/29/24 09:56 Furosemide 20 Mg Tablet PO 20 mg DAILY LORI Administration Guaifenesin/Dextromethorphan 10 ml 06/26/24 01:25 Guaifenesin/Dextromethorphan 10 Ml Udc PO Q4H PRN Cough Heparin Sodium (Porcine) 5,000 units 06/26/24 09:00 06/29/24 09:56 Heparin Sodium 5,000 Units/Ml Vial SUB-Q 5,000 units Q12HR LORI Administration Levothyroxine Sodium 75 mcg 06/27/24 06:30 06/29/24 05:09 Levothyroxine Sodium 75 Mcg Tablet PO 75 mcg DAILY@0630 LORI Administration Melatonin 5 mg 06/26/24 01:25 Melatonin 5 Mg Tablet PO HS PRN Insomnia Polyethylene Glycol 17 gm 06/26/24 01:25 Polyethylene Glycol 3350 17 Gm Powd.Pack PO QAM PRN Constipation Polyethylene Glycol 17 gm 06/26/24 13:35 06/29/24 09:57 Polyethylene Glycol 3350 17 Gm Powd.Pack PO 17 gm QAM LORI Administration Pravastatin Sodium 40 mg 06/26/24 13:35 06/29/24 09:57 Pravastatin Sodium 20 Mg Tablet PO 40 mg DAILY LORI Administration Prochlorperazine Edisylate 10 mg 06/26/24 01:25 Prochlorperazine Edisylate 10 Mg/2 Ml Vial IV PUSH Q6H PRN Nausea And Vomiting Quetiapine Fumarate 25 mg 06/26/24 21:00 06/28/24 21:10 Quetiapine Fumarate 25 Mg Tablet PO 25 mg HS LORI Administration Tamsulosin HCl 0.4 mg 06/26/24 13:35 06/29/24 09:56 Tamsulosin Hcl 0.4 Mg Capsule PO 0.4 mg DAILY LORI Administration Venlafaxine HCl 75 mg 06/26/24 13:35 06/29/24 09:58 Venlafaxine Hcl Xr 75 Mg Cap.Er.24h PO 75 mg DAILY LORI Administration Vitamin D 2,000 units 06/26/24 13:35 06/29/24 09:57 Cholecalciferol 1,000 Units Tablet PO 2,000 units DAILY LORI Administration Radiology Results: ITS Impressions Head CT 06/26/24 06:10 Impression: Acute to subacute infarct involving the right occipital lobe. This is new from prior exam. No intracranial hemorrhage. Atrophy and chronic white matter changes, as above. Head/Cervical Spine/Facial Bones CT 06/26/24 06:12 Impression: No fracture is seen in the facial bones. No fracture or subluxation of the cervical spine. 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 Brain MRI 06/27/24 11:45 IMPRESSION: 1. Acute infarct in the right temporal occipital region in the expected distribution of right posterior cerebral artery. 2. Moderate nonspecific cerebral white matter disease and pontine disease, which likely represents chronic small vessel ischemic disease. Labs Labs: Laboratory Results - last 24 hr 06/29/24 05:22 WBC 7.6 RBC 3.30 L Hgb 9.7 L Hct 30.4 L MCV 92.1 MCH 29.4 MCHC 31.9 L RDW 15.6 H Plt Count 824 H MPV 9.3 Immature Gran % (Auto) 0.8 H Neut % (Auto) 74.6 H Lymph % (Auto) 13.8 L [place] % (Auto) 5.8 Eos % (Auto) 3.7 Baso % (Auto) 1.3 H Lymph # (Auto) 1.05 [place] # (Auto) 0.4 Eos # (Auto) 0.3 Baso # (Auto) 0.1 Abs Immat Gran (auto) 0.06 H Absolute Neuts (auto) 5.7 Absolute Nucleated RBC 0.000 Nucleated RBC % 0.0 Sodium 136 L Potassium 3.6 Chloride 107 Carbon Dioxide 22 Anion Gap 7 BUN 25 H Creatinine 1.54 H Estim Creat Clear Calc 32 Estimated GFR 43 L Glucose 74 Calcium 8.2 L Total Bilirubin 0.3 AST 20 ALT 12 Alkaline Phosphatase 59 Total Protein 5.0 L Albumin 2.7 L Quality VTE Prophylaxis VTE prophylaxis: mechanical ordered and pharmacologic ordered
[2024-06-29] MEDS: QUEtiapine FUMARATE 25 MG TABLET PO (21:54)
[2024-06-30] VITALS (11 sets, daily range): BP systolic 113–144; BP diastolic 38–55; PULSE 52–67; RESP 14–20; TEMP 36.2–36.6; O2SAT 97–100
[2024-06-30 07:52] LABS: Basophils Absolute Auto 0.1 K/mm3 (0.0-0.1); Basophils Percent Auto 1.1 % (0.2-1.2); Eosinophils Absolute Auto 0.2 K/mm3 (0-0.3); Eosinophils Percent Auto 2.9 % (0-4.4); Hematocrit 29.3 % (42.0-52.0); Hemoglobin 9.5 g/dL (14.0-18.0); Immature Granulocyte Absolute 0.05 K/mm3 (0.00-0.031); Immature Granulocyte Percent A 0.7 % (0-0.5); Lymphocytes Percent Auto 16.5 % (18.3-44.2); Mean Corpuscular HGB Conc 32.4 g/dl (32-36); Mean Corpuscular Hemoglobin 29.1 pg (26-34); Mean Corpuscular Volume 89.9 fl (80-100); Monocytes Absolute Auto 0.4 K/mm3 (0.1-0.6); Monocytes Percent Auto 6.1 % (2.6-8.5); Neutrophils Absolute Auto 5.3 K/mm3 (1.3-6.7); Neutrophils Percent Auto 72.7 % (45.5-73.1); Platelet Count Result 816 k/mm3 (150-375); Red Blood Count 3.26 M/mm3 (4.6-6.20); Red Cell Distribution Width 15.4 % (11.5-14.5); White Blood Count 7.3 K/mm3 (4.5-10.0)
[2024-06-30 08:04] LABS: Alanine Aminotransferase 11 U/L (6-50); Albumin Level 2.7 g/dL (3.5-5.1); Alkaline Phosphatase 61 U/L (38-126); Anion Gap 6 mmol/L (4-12); Aspartate Amino Transferase 18 U/L (17-59); Bilirubin,Total 0.4 mg/dL (0.2-1.3); Blood Urea Nitrogen 26 mg/dL (9-20); Calcium 8.3 mg/dL (8.4-10.2); Carbon Dioxide 25 mmol/L (22-30); Chloride 105 mmol/L (98-107); Estimated CRCL calculation 30 ml/min; Estimated Glomerular Filt Rate 40; Glucose 77 mg/dL (65-110); Potassium 3.6 mmol/L (3.4-5.0); Sodium 136 mmol/L (137-145)
[2024-06-30] MEDS: polyethylene glycoL 3350 17 GM POWD.PACK PO (08:16)
[2024-06-30] MEDS: ASPIRIN 81 MG ENTERIC TABLET PO (08:17)
[2024-06-30] MEDS: HEPARIN SODIUM 5,000 UNITS/ML VIAL 5000 UNITS SUB-Q ×2 (08:17→22:09)
[2024-06-30] MEDS: PRAVASTATIN SODIUM 20 MG TABLET 40 MG PO (08:17)
[2024-06-30] MEDS: CLOPIDOGREL BISULFATE 75 MG TABLET PO (08:17)
[2024-06-30] MEDS: CHOLECALCIFEROL 1,000 UNITS TABLET 2000 UNITS PO (08:17)
[2024-06-30] MEDS: VENLAFAXINE HCL XR 75 MG CAP.ER.24H PO (08:17)
[2024-06-30] MEDS: EMPAGLIFLOZIN 10 MG TABLET PO (08:18)
[2024-06-30] MEDS: ENALAPRIL MALEATE 10 MG TABLET 20 MG PO ×2 (08:18→22:09)
[2024-06-30] MEDS: TAMSULOSIN HCL 0.4 MG CAPSULE PO (08:18)
[2024-06-30] MEDS: FUROSEMIDE 20 MG TABLET PO (08:18)
[2024-06-30] MEDS: amLODIPine BESYLATE 10 MG TABLET PO (08:18)
--- NOTE | 2024-06-30 15:40 | P.PNIM_ITS ---
Progress Note: A&P Assessment and Plan (1) Occipital stroke: Code(s): I63.9 - Cerebral infarction, unspecified Status: Acute Assessment and Plan: Neurology consulted telemetry monitoring MRI Acute infarct in the right temporal occipital region in the expected distribution of right posterior cerebral artery. ECHO Left ventricular systolic function is normal, estimated at >70%. Moderate pulmonary hypertension, estimated pulmonary arterial systolic pressure is 48 mmHg. mild mitral and tricuspid valve regurgitation. DAPT PT OT eval and treat over the past month patient has not progressed in physical therapy, will need sniff placement (2) CHF (congestive heart failure): Code(s): I50.9 - Heart failure, unspecified Status: Acute Assessment and Plan: Continue p.o. Lasix (3) Hypothyroidism: Code(s): E03.9 - Hypothyroidism, unspecified Status: Chronic Assessment and Plan: Continue home medications (4) Fall from ground level: Code(s): W18.30XA - Fall on same level, unspecified, initial encounter Status: Acute Assessment and Plan: PT OT evaluate treat (5) HTN (hypertension): Code(s): I10 - Essential (primary) hypertension Status: Chronic Assessment and Plan: Continue home medications (6) Acute UTI: Code(s): N39.0 - Urinary tract infection, site not specified Status: Acute Assessment and Plan: Culture negative, DC Rocephin (7) NELY (acute kidney injury): Code(s): N17.9 - Acute kidney failure, unspecified Status: Acute Assessment and Plan: Slowly improving, On CKD creatinine baseline 1.4 Continue Lasix hold other nephrotoxic medications Plan Chronic stable condition 1. BPH. On Tamsulosin 2. Dyslipidemia. On Pravastatin 3. Recurrent depression. Continue med 1. Code status. Full 2. Nutrition. Heart healthy 3. VTE prophylaxis. SCDs Patient is close to being medically ready he will need placement, waiting for authorization, and insurance authorization, will continue to monitor Subjective Date/time seen: 06/30/24 15:40 Interval history: Gianfranco Rosen with a PMH/o thrombocytosis, hypothyroidism, hypertension, Dyslipidemia, BPH, recurrent depression admitted for fall and evaluation and management of stroke-like symptoms and fall. Patient states that he did not have stroke-like symptoms he fell because he was messing around with every he is getting out of bed. MRI shows Acute infarct in the right temporal occipital region in the expected distribution of right posterior cerebral artery. Moderate nonspecific cerebral white matter disease and pontine disease, which likely represents chronic small vessel ischemic disease. Due to patient using Meseret lift prior to hospitalization at rehab and sometimes refusing physical therapy he is no longer being approved for rehab and will need SNF placement. patient is waiting for placement, and insurance will continue to monitor. Review of Systems Review of Systems: All systems reviewed & are unremarkable except as noted in HPI and below Exam Narrative: Elderly frail Patient is comfortable, NAD HEENT: eyes are clear and none icteric LUNGS:CTA HEART: RR S1S2 ABD: BS+, Soft and nontender Lower extremities: no edema SKIN: nonjaundiced Neuro: grossly intact. Objective Data Vital Signs Vital Signs: Vital Signs - 24 hr 06/29/24 16:00 06/29/24 16:00 06/29/24 20:00 Temperature 36.6 C Pulse Rate 59 L 58 L 69 Respiratory Rate 16 14 Blood Pressure 143/64 H 140/46 L Pulse Oximetry 94 100 Oxygen Delivery 06/29/24 20:00 06/29/24 20:00 06/30/24 00:00 Temperature 36.2 C L Pulse Rate 67 63 Respiratory Rate 14 Blood Pressure 132/43 L Pulse Oximetry 97 Oxygen Delivery Room Air 06/30/24 00:00 06/30/24 04:00 06/30/24 08:00 Temperature 36.2 C L Pulse Rate 62 62 64 Respiratory Rate 18 Blood Pressure 138/53 L Pulse Oximetry 100 Oxygen Delivery 06/30/24 08:01 06/30/24 08:15 06/30/24 11:50 Temperature 36.5 C Pulse Rate 63 56 L Respiratory Rate 18 Blood Pressure 113/38 L Pulse Oximetry 100 Oxygen Delivery Room Air 06/30/24 12:03 Temperature Pulse Rate 58 L Respiratory Rate Blood Pressure Pulse Oximetry Oxygen Delivery Intake/Output Intake/Output: Intake & Output 06/27/24 06/28/24 06/29/24 06/30/24 23:59 23:59 23:59 23:59 Intake Total 2553.8 670 358 700 Balance 2553.8 670 358 700 Meds/Results Medications: Active Medications Generic Name Dose Route Start Last Admin Trade Name Freq PRN Reason Stop Dose Admin Acetaminophen 650 mg 06/26/24 13:25 Acetaminophen 325 Mg Tablet PO Q6H PRN Mild Pain (1-3) Or Fever Albuterol/Ipratropium 3 ml 06/26/24 01:25 Ipratropium 0.5 Mg/Albuterol Sulfate 2.5 Mg Ampul.Neb 3 Ml INHALATION Q4HRT PRN shortness of breath/Wheezing Amlodipine Besylate 10 mg 06/26/24 13:35 06/30/24 08:18 Amlodipine Besylate 10 Mg Tablet PO 10 mg QAM LOIR Administration Aspirin 81 mg 06/26/24 06:00 06/30/24 08:17 Aspirin 81 Mg Enteric Tablet PO 81 mg QAM LORI Administration Clopidogrel Bisulfate 75 mg 06/26/24 09:00 06/30/24 08:17 Clopidogrel Bisulfate 75 Mg Tablet PO 75 mg QAM LORI Administration Empagliflozin 10 mg 06/26/24 13:35 06/30/24 08:18 Empagliflozin 10 Mg Tablet PO 10 mg DAILY LORI Administration Enalapril Maleate 20 mg 06/26/24 13:35 06/30/24 08:18 Enalapril Maleate 10 Mg Tablet PO 20 mg Q12HR LORI Administration Furosemide 20 mg 06/26/24 13:35 06/30/24 08:18 Furosemide 20 Mg Tablet PO 20 mg DAILY LORI Administration Guaifenesin/Dextromethorphan 10 ml 06/26/24 01:25 Guaifenesin/Dextromethorphan 10 Ml Udc PO Q4H PRN Cough Heparin Sodium (Porcine) 5,000 units 06/26/24 09:00 06/30/24 08:17 Heparin Sodium 5,000 Units/Ml Vial SUB-Q 5,000 units Q12HR LORI Administration Levothyroxine Sodium 75 mcg 06/27/24 06:30 06/30/24 05:47 Levothyroxine Sodium 75 Mcg Tablet PO Not Given DAILY@0630 LORI Melatonin 5 mg 06/26/24 01:25 Melatonin 5 Mg Tablet PO HS PRN Insomnia Polyethylene Glycol 17 gm 06/26/24 01:25 Polyethylene Glycol 3350 17 Gm Powd.Pack PO QAM PRN Constipation Polyethylene Glycol 17 gm 06/26/24 13:35 06/30/24 08:16 Polyethylene Glycol 3350 17 Gm Powd.Pack PO 17 gm QAM LORI Administration Pravastatin Sodium 40 mg 06/26/24 13:35 06/30/24 08:17 Pravastatin Sodium 20 Mg Tablet PO 40 mg DAILY LORI Administration Prochlorperazine Edisylate 10 mg 06/26/24 01:25 Prochlorperazine Edisylate 10 Mg/2 Ml Vial IV PUSH Q6H PRN Nausea And Vomiting Quetiapine Fumarate 25 mg 06/26/24 21:00 06/29/24 21:54 Quetiapine Fumarate 25 Mg Tablet PO 25 mg HS LORI Administration Tamsulosin HCl 0.4 mg 06/26/24 13:35 06/30/24 08:18 Tamsulosin Hcl 0.4 Mg Capsule PO 0.4 mg DAILY LORI Administration Venlafaxine HCl 75 mg 06/26/24 13:35 06/30/24 08:17 Venlafaxine Hcl Xr 75 Mg Cap.Er.24h PO 75 mg DAILY LORI Administration Vitamin D 2,000 units 06/26/24 13:35 06/30/24 08:17 Cholecalciferol 1,000 Units Tablet PO 2,000 units DAILY LORI Administration Radiology Results: ITS Impressions Head CT 06/26/24 06:10 Impression: Acute to subacute infarct involving the right occipital lobe. This is new from prior exam. No intracranial hemorrhage. Atrophy and chronic white matter changes, as above. Head/Cervical Spine/Facial Bones CT 06/26/24 06:12 Impression: No fracture is seen in the facial bones. No fracture or subluxation of the cervical spine. 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 Brain MRI 06/27/24 11:45 IMPRESSION: 1. Acute infarct in the right temporal occipital region in the expected distribution of right posterior cerebral artery. 2. Moderate nonspecific cerebral white matter disease and pontine disease, which likely represents chronic small vessel ischemic disease. Labs Labs: Laboratory Results - last 24 hr 06/30/24 07:12 WBC 7.3 RBC 3.26 L Hgb 9.5 L Hct 29.3 L MCV 89.9 MCH 29.1 MCHC 32.4 RDW 15.4 H Plt Count 816 H MPV 9.0 Immature Gran % (Auto) 0.7 H Neut % (Auto) 72.7 Lymph % (Auto) 16.5 L [place] % (Auto) 6.1 Eos % (Auto) 2.9 Baso % (Auto) 1.1 Lymph # (Auto) 1.20 [place] # (Auto) 0.4 Eos # (Auto) 0.2 Baso # (Auto) 0.1 Abs Immat Gran (auto) 0.05 H Absolute Neuts (auto) 5.3 Absolute Nucleated RBC 0.000 Nucleated RBC % 0.0 Sodium 136 L Potassium 3.6 Chloride 105 Carbon Dioxide 25 Anion Gap 6 BUN 26 H Creatinine 1.64 H Estim Creat Clear Calc 30 Estimated GFR 40 L Glucose 77 Calcium 8.3 L Total Bilirubin 0.4 AST 18 ALT 11 Alkaline Phosphatase 61 Total Protein 5.0 L Albumin 2.7 L Quality VTE Prophylaxis VTE prophylaxis: mechanical ordered and pharmacologic ordered
--- NOTE | 2024-06-30 16:25 | WPDNEUROPN ---
Progress Note: A&P Assessment and Plan (1) Occipital stroke: Code(s): I63.9 - Cerebral infarction, unspecified Status: Acute Assessment and Plan: MRI of the brain performed on 06/27 20 5 shows acute infarct in the right upper in the distribution of right posterior cerebral artery. Moderate white matter changes were noted. Last LDL was 47 on 06/25/2024. (2) Hypertension: Code(s): I10 - Essential (primary) hypertension Status: Chronic (3) DM2 (diabetes mellitus, type 2): Code(s): E11.9 - Type 2 diabetes mellitus without complications Status: Chronic (4) Chronic kidney disease: Code(s): N18.9 - Chronic kidney disease, unspecified Status: Acute Plan The patient appears to have residual left homonymous hemianopsia and mild weakness of the left hand compared to the right side but appears to near normal strength in the left lower compared to the right side. Continued physical therapy and dual antiplatelets and statins are in place and should continue. A carotid Doppler study is recommended. Subjective Date/time seen: 06/30/24 16:25 Interval history: The patient is 84 years old with history of having had a fall at senior living. Now he has been found to have infarct in the right occipital area. He also has history of diabetes mellitus, chronic kidney disease. He is now on aspirin, Plavix and Lipitor. No new symptoms reported. Patient denies any headache. He does not appear to be reliable historian. Upon asking he states that he can walk and did not require any help. Review of Systems Review of Systems: All systems reviewed & are unremarkable except as noted in HPI and below Exam Narrative: Fully conscious alert and oriented to self. Unable to tell me name of 5 colors or 5 fast food restaurants. He has left him a numbness hemianopsia and mild weakness of the left upper limb normal strength in the left lower limb. No other additional new findings were noted. No involuntary movements seen. Objective Data Vital Signs Vital Signs: Vital Signs - 24 hr 06/29/24 20:00 06/29/24 20:00 06/29/24 20:00 Temperature 97.9 F Pulse Rate 69 67 Respiratory Rate 14 Blood Pressure 140/46 L Pulse Oximetry 100 Oxygen Delivery Room Air 06/30/24 00:00 06/30/24 00:00 06/30/24 04:00 Temperature 97.1 F L Pulse Rate 63 62 62 Respiratory Rate 14 Blood Pressure 132/43 L Pulse Oximetry 97 Oxygen Delivery 06/30/24 08:00 06/30/24 08:01 06/30/24 08:15 Temperature 97.1 F L Pulse Rate 64 63 Respiratory Rate 18 Blood Pressure 138/53 L Pulse Oximetry 100 Oxygen Delivery Room Air 06/30/24 11:50 06/30/24 12:03 06/30/24 15:59 Temperature 97.7 F 97.3 F L Pulse Rate 56 L 58 L 55 L Respiratory Rate 18 18 Blood Pressure 113/38 L 130/49 L Pulse Oximetry 100 100 Oxygen Delivery Intake/Output Intake/Output: Intake & Output 06/27/24 06/28/24 06/29/24 06/30/24 23:59 23:59 23:59 23:59 Intake Total 2553.8 670 358 900 Balance 2553.8 670 358 900 Meds/Results Medications: Active Medications Generic Name Dose Route Start Last Admin Trade Name Freq PRN Reason Stop Dose Admin Acetaminophen 650 mg 06/26/24 13:25 Acetaminophen 325 Mg Tablet PO Q6H PRN Mild Pain (1-3) Or Fever Albuterol/Ipratropium 3 ml 06/26/24 01:25 Ipratropium 0.5 Mg/Albuterol Sulfate 2.5 Mg Ampul.Neb 3 Ml INHALATION Q4HRT PRN shortness of breath/Wheezing Amlodipine Besylate 10 mg 06/26/24 13:35 06/30/24 08:18 Amlodipine Besylate 10 Mg Tablet PO 10 mg QAM LORI Administration Aspirin 81 mg 06/26/24 06:00 06/30/24 08:17 Aspirin 81 Mg Enteric Tablet PO 81 mg QAM LORI Administration Clopidogrel Bisulfate 75 mg 06/26/24 09:00 06/30/24 08:17 Clopidogrel Bisulfate 75 Mg Tablet PO 75 mg QAM LORI Administration Empagliflozin 10 mg 06/26/24 13:35 06/30/24 08:18 Empagliflozin 10 Mg Tablet PO 10 mg DAILY LORI Administration Enalapril Maleate 20 mg 06/26/24 13:35 06/30/24 08:18 Enalapril Maleate 10 Mg Tablet PO 20 mg Q12HR LORI Administration Furosemide 20 mg 06/26/24 13:35 06/30/24 08:18 Furosemide 20 Mg Tablet PO 20 mg DAILY LORI Administration Guaifenesin/Dextromethorphan 10 ml 06/26/24 01:25 Guaifenesin/Dextromethorphan 10 Ml Udc PO Q4H PRN Cough Heparin Sodium (Porcine) 5,000 units 06/26/24 09:00 06/30/24 08:17 Heparin Sodium 5,000 Units/Ml Vial SUB-Q 5,000 units Q12HR LORI Administration Levothyroxine Sodium 75 mcg 06/27/24 06:30 06/30/24 05:47 Levothyroxine Sodium 75 Mcg Tablet PO Not Given DAILY@0630 LORI Melatonin 5 mg 06/26/24 01:25 Melatonin 5 Mg Tablet PO HS PRN Insomnia Polyethylene Glycol 17 gm 06/26/24 01:25 Polyethylene Glycol 3350 17 Gm Powd.Pack PO QAM PRN Constipation Polyethylene Glycol 17 gm 06/26/24 13:35 06/30/24 08:16 Polyethylene Glycol 3350 17 Gm Powd.Pack PO 17 gm QAM LORI Administration Pravastatin Sodium 40 mg 06/26/24 13:35 06/30/24 08:17 Pravastatin Sodium 20 Mg Tablet PO 40 mg DAILY LORI Administration Prochlorperazine Edisylate 10 mg 06/26/24 01:25 Prochlorperazine Edisylate 10 Mg/2 Ml Vial IV PUSH Q6H PRN Nausea And Vomiting Quetiapine Fumarate 25 mg 06/26/24 21:00 06/29/24 21:54 Quetiapine Fumarate 25 Mg Tablet PO 25 mg HS LORI Administration Tamsulosin HCl 0.4 mg 06/26/24 13:35 06/30/24 08:18 Tamsulosin Hcl 0.4 Mg Capsule PO 0.4 mg DAILY LORI Administration Venlafaxine HCl 75 mg 06/26/24 13:35 06/30/24 08:17 Venlafaxine Hcl Xr 75 Mg Cap.Er.24h PO 75 mg DAILY LORI Administration Vitamin D 2,000 units 06/26/24 13:35 06/30/24 08:17 Cholecalciferol 1,000 Units Tablet PO 2,000 units DAILY LORI Administration Radiology Results: ITS Impressions Head CT 06/26/24 06:10 Impression: Acute to subacute infarct involving the right occipital lobe. This is new from prior exam. No intracranial hemorrhage. Atrophy and chronic white matter changes, as above. Head/Cervical Spine/Facial Bones CT 06/26/24 06:12 Impression: No fracture is seen in the facial bones. No fracture or subluxation of the cervical spine. 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 Brain MRI 06/27/24 11:45 IMPRESSION: 1. Acute infarct in the right temporal occipital region in the expected distribution of right posterior cerebral artery. 2. Moderate nonspecific cerebral white matter disease and pontine disease, which likely represents chronic small vessel ischemic disease. Labs Labs: Laboratory Results - last 24 hr 06/30/24 07:12 WBC 7.3 RBC 3.26 L Hgb 9.5 L Hct 29.3 L MCV 89.9 MCH 29.1 MCHC 32.4 RDW 15.4 H Plt Count 816 H MPV 9.0 Immature Gran % (Auto) 0.7 H Neut % (Auto) 72.7 Lymph % (Auto) 16.5 L [place] % (Auto) 6.1 Eos % (Auto) 2.9 Baso % (Auto) 1.1 Lymph # (Auto) 1.20 [place] # (Auto) 0.4 Eos # (Auto) 0.2 Baso # (Auto) 0.1 Abs Immat Gran (auto) 0.05 H Absolute Neuts (auto) 5.3 Absolute Nucleated RBC 0.000 Nucleated RBC % 0.0 Sodium 136 L Potassium 3.6 Chloride 105 Carbon Dioxide 25 Anion Gap 6 BUN 26 H Creatinine 1.64 H Estim Creat Clear Calc 30 Estimated GFR 40 L Glucose 77 Calcium 8.3 L Total Bilirubin 0.4 AST 18 ALT 11 Alkaline Phosphatase 61 Total Protein 5.0 L Albumin 2.7 L
[2024-06-30 19:43] LABS: Vitamin D 25 Hydroxy 25.8 ng/mL
[2024-06-30 20:39] LABS: Folic Acid 3.7 ng/mL (2.76->20)
[2024-06-30] MEDS: QUEtiapine FUMARATE 25 MG TABLET PO (22:09)
[2024-07-01] VITALS (7 sets, daily range): BP systolic 127–143; BP diastolic 43–53; PULSE 52–62; RESP 16–20; TEMP 36–36.7; O2SAT 96–100
[2024-07-01] MEDS: LEVOTHYROXINE SODIUM 75 MCG TABLET PO (06:27)
[2024-07-01 07:55] LABS: Basophils Absolute Auto 0.1 K/mm3 (0.0-0.1); Basophils Percent Auto 1.1 % (0.2-1.2); Eosinophils Absolute Auto 0.2 K/mm3 (0-0.3); Eosinophils Percent Auto 2.6 % (0-4.4); Hematocrit 28.9 % (42.0-52.0); Hemoglobin 9.5 g/dL (14.0-18.0); Immature Granulocyte Absolute 0.04 K/mm3 (0.00-0.031); Immature Granulocyte Percent A 0.6 % (0-0.5); Lymphocytes Absolute Auto 1.04 K/mm3 (0.9-3.2); Lymphocytes Percent Auto 14.9 % (18.3-44.2); Mean Corpuscular HGB Conc 32.9 g/dl (32-36); Mean Corpuscular Hemoglobin 29.5 pg (26-34); Mean Corpuscular Volume 89.8 fl (80-100); Mean Platelet Volume 9.1 fl (7.4-10.4); Monocytes Absolute Auto 0.4 K/mm3 (0.1-0.6); Monocytes Percent Auto 5.5 % (2.6-8.5); Neutrophils Absolute Auto 5.3 K/mm3 (1.3-6.7); Neutrophils Percent Auto 75.3 % (45.5-73.1); Platelet Count Result 757 k/mm3 (150-375); Red Blood Count 3.22 M/mm3 (4.6-6.20); Red Cell Distribution Width 15.4 % (11.5-14.5)
[2024-07-01 08:06] LABS: Alanine Aminotransferase 12 U/L (6-50); Albumin Level 2.6 g/dL (3.5-5.1); Alkaline Phosphatase 56 U/L (38-126); Anion Gap 5 mmol/L (4-12); Aspartate Amino Transferase 18 U/L (17-59); Bilirubin,Total 0.2 mg/dL (0.2-1.3); Blood Urea Nitrogen 29 mg/dL (9-20); Calcium 8.4 mg/dL (8.4-10.2); Carbon Dioxide 25 mmol/L (22-30); Chloride 104 mmol/L (98-107); Estimated CRCL calculation 29 ml/min; Estimated Glomerular Filt Rate 38; Glucose 109 mg/dL (65-110); Potassium 3.6 mmol/L (3.4-5.0); Sodium 134 mmol/L (137-145)
[2024-07-01] MEDS: PRAVASTATIN SODIUM 20 MG TABLET 40 MG PO (10:44)
[2024-07-01] MEDS: CHOLECALCIFEROL 1,000 UNITS TABLET 2000 UNITS PO (10:44)
[2024-07-01] MEDS: polyethylene glycoL 3350 17 GM POWD.PACK PO (10:44)
[2024-07-01] MEDS: ENALAPRIL MALEATE 10 MG TABLET 20 MG PO (10:45)
[2024-07-01] MEDS: CLOPIDOGREL BISULFATE 75 MG TABLET PO (10:45)
[2024-07-01] MEDS: ASPIRIN 81 MG ENTERIC TABLET PO (10:45)
[2024-07-01] MEDS: VENLAFAXINE HCL XR 75 MG CAP.ER.24H PO (10:45)
[2024-07-01] MEDS: EMPAGLIFLOZIN 10 MG TABLET PO (10:46)
[2024-07-01] MEDS: TAMSULOSIN HCL 0.4 MG CAPSULE PO (10:46)
[2024-07-01] MEDS: amLODIPine BESYLATE 10 MG TABLET PO (10:46)
[2024-07-01] MEDS: HEPARIN SODIUM 5,000 UNITS/ML VIAL 5000 UNITS SUB-Q (10:46)
[2024-07-01] MEDS: FUROSEMIDE 20 MG TABLET PO (10:46)
--- NOTE | 2024-07-01 13:01 | P.DS_ITS ---
DS: Summary Time Spent with Patient Time attestation: Total time spent providing and/or coordinating discharge services: DS: Data Data Completed and Pending Labs on day of discharge: Labs from last 24 hours 07/01/24 06/30/24 07:39 18:27 WBC 7.0 RBC 3.22 L Hgb 9.5 L Hct 28.9 L MCV 89.8 MCH 29.5 MCHC 32.9 RDW 15.4 H Plt Count 757 H MPV 9.1 Immature Gran % (Auto) 0.6 H Neut % (Auto) 75.3 H Lymph % (Auto) 14.9 L [place] % (Auto) 5.5 Eos % (Auto) 2.6 Baso % (Auto) 1.1 Lymph # (Auto) 1.04 [place] # (Auto) 0.4 Eos # (Auto) 0.2 Baso # (Auto) 0.1 Abs Immat Gran (auto) 0.04 H Absolute Neuts (auto) 5.3 Absolute Nucleated RBC 0.000 Nucleated RBC % 0.0 Sodium 134 L Potassium 3.6 Chloride 104 Carbon Dioxide 25 Anion Gap 5 BUN 29 H Creatinine 1.71 H Estim Creat Clear Calc 29 Estimated GFR 38 L Glucose 109 Calcium 8.4 Total Bilirubin 0.2 AST 18 ALT 12 Alkaline Phosphatase 56 Total Protein 5.0 L Albumin 2.6 L Vitamin B12 521.0 Vitamin D 25-Hydroxy 25.8 Folate 3.7 Discharge Plan Discharge Attending physician on discharge: Mendel Borges Consulting providers: Genaro Bishop Discharging Clinician: Snehal De Leon [facility] Activity: as tolerated Diet: heart healthy Discharge Instructions: patient to follow up with his primary care provider as soon as possible Patient Instructions: Antibiotic Form Patient Language: Upper Sorbian Stand Alone Forms: General Discharge Information Follow-up/Referrals: Nash,Brayden Dominguez MD [Primary Care Provider] - Discharge Medications: New melatonin 5 mg Tablet 5 mg PO HS PRN (Reason: Insomnia) Qty: 30 0RF Continued venlafaxine 75 mg capsule,extended release 24hr 75 mg PO DAILY pravastatin 40 mg tablet 40 mg PO DAILY levothyroxine 75 mcg tablet 75 mcg PO DAILY tamsulosin 0.4 mg capsule 0.4 mg PO DAILY furosemide 20 mg tablet 20 mg PO DAILY acetaminophen [Mapap (acetaminophen)] 325 mg Tablet 650 mg PO Q6H PRN (Reason: Mild Pain (1-3) Or Fever) Qty: 30 0RF polyethylene glycol 3350 [Miralax] 17 gram Powder In Packet 17 g PO QAM Qty: 30 0RF enalapril maleate 20 mg tablet 20 mg PO BID Qty: 30 0RF quetiapine 25 mg tablet 25 mg PO HS cholecalciferol (vitamin D3) [Vitamin D3] 50 mcg (2,000 unit) capsule 1 unit PO DAILY amlodipine [Norvasc] 5 mg Tablet 10 mg PO QAM Qty: 30 0RF empagliflozin 10 mg tablet 10 mg PO DAILY Qty: 30 0RF Date of admission: 06/27/24 15:38 Primary Care Provider: Nash,Brayden Dominguez Admitting Provider: Mendel Borges Attending physician on admission: Mendel Borges Condition: Stable
== END 2024-07-01 15:00 | DRG 65 ==
LOC: ANHED 06-26 00:45 → ANH3MEDSUR 06-26 07:26
PROVIDERS: Psychiatry & Neurology Neurology; Admitting Provider Internal Medicine; Emergency Provider Emergency Medicine; PCP Family Medicine Sports Medicine; Visit Provider Family Medicine
DX: I63.531 Cerebral infarction due to unspecified occlusion or stenosis of right posterior cerebral artery (principal); I13.0 Hypertensive heart and chronic kidney disease with heart failure and stage 1 through stage 4 chronic kidney disease, or unspecified chronic kidney disease; N17.9 Acute kidney failure, unspecified; N39.0 Urinary tract infection, site not specified; H53.462 Homonymous bilateral field defects, left side; I50.9 Heart failure, unspecified; N18.9 Chronic kidney disease, unspecified; E11.22 Type 2 diabetes mellitus with diabetic chronic kidney disease; E03.9 Hypothyroidism, unspecified; E78.5 Hyperlipidemia, unspecified; D75.839 Thrombocytosis, unspecified; J44.9 Chronic obstructive pulmonary disease, unspecified; N40.0 Benign prostatic hyperplasia without lower urinary tract symptoms; R29.6 Repeated falls; G47.33 Obstructive sleep apnea (adult) (pediatric); F32.A Depression, unspecified; F41.9 Anxiety disorder, unspecified; Z87.891 Personal history of nicotine dependence
CPT/HCPCS: 36415; 70450; 70486; 70553; 72125; 80053; 80061; 80307; 81001; 82306; 82607; 82746; 82948; 83036; 83735; 83880; 84484; 85025; 85610; 85730; 87086; 92610; 93005; 93306; 93880; 96361; 96365; 96372; 96375; 97110; 97161; 97167; 97530; 97535; 99212; 99285; A9270; A9579; G0378; G0463; J0696; J1644; J7030

== ENCOUNTER 2024-07-01 21:38 | Emergency (ER) | payer MEDICARE, SELFPAY ==
--- NOTE | ~2024-07-01 | CT_ITS ---
EXAMINATION: CT brain wo con DATE: 07/02/2024 02:31 INDICATION: Head injury. TECHNIQUE: Computed tomography (CT) of the head was performed without intravenous contrast. The mA wa s adjusted according to patient size. Iterative reconstruction technique was employed. The dose-lengt h product was 983.67 mGy-cm. COMPARISON: Head CT 06/25/2024, 05/21/2024, brain MRI 06/27/2024 FINDINGS: There is a subacute infarct in the right temporal occipital region in the expected distribu tion of right posterior cerebral artery. There are scattered areas of low attenuation in the cerebral white matter. There is no intracranial hemorrhage or abnormal mass lesion. The ventricles are normal in size. The orbits are normal. There is a left frontal scalp hematoma. There is mild mucosal thicke sunny in the ethmoid sinuses. The mastoid air cells are normal. IMPRESSION: 1. 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 2. Moderate nonspecific cerebral white matter disease, which likely represents chronic small vessel i schemic disease. Reviewed, dictated and finalized at location A. HERMAL TECHNICIAN IMPRESSION: 1. 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 2. Moderate nonspecific cerebral white matter disease, which likely represents chronic small vessel ischemic disease.
--- NOTE | ~2024-07-01 | CT_ITS ---
EXAMINATION: CT cervical spine wo con DATE: 07/02/2024 02:31 INDICATION: Head injury. TECHNIQUE: Computed tomography (CT) of the cervical spine was performed without intravenous contrast. Automated exposure control and iterative reconstruction technique were employed. The dose-length pro duct was 400.01 mGy-cm. COMPARISON: CT cervical spine 06/25/2024 FINDINGS: There is 10 degrees dextroscoliosis of cervical spine. There is kyphosis of cervical spine. Vertebral body heights are normal. There is severely decreased disc height from C3-C4 through C5-C6 and moderately decreased disc height at C6-C7. The following disc levels are specifically discussed: C2-C3: There is mild bilateral uncovertebral joint osteoarthritis. There is moderate right and severe left facet joint osteoarthritis. There is mild left neural foraminal stenosis. There is no central c anal stenosis. C3-C4: There is severe bilateral uncovertebral joint osteoarthritis. There is severe bilateral facet joint osteoarthritis. There is mild right and moderate left neural foraminal stenosis. There is mild central canal stenosis. C4-C5: There is moderate right and severe left uncovertebral joint osteoarthritis. There is moderate right and severe left facet joint osteoarthritis. There is mild right and moderate left neural forami nal stenosis. There is mild central canal stenosis. C5-C6: There is severe bilateral uncovertebral joint osteoarthritis. There is mild right and severe l eft facet joint osteoarthritis. There is moderate right and mild left neural foraminal stenosis. Ther e is mild central canal stenosis. C6-C7: There is severe bilateral uncovertebral joint osteoarthritis. There is severe bilateral facet joint osteoarthritis. There is mild bilateral neural foraminal stenosis. There is no central canal st enosis. C7-T1: There is no uncovertebral joint osteoarthritis. There is severe bilateral facet joint osteoart hritis. There is mild bilateral neural foraminal stenosis. There is no central canal stenosis. IMPRESSION: 1. No fracture. 2. Severe cervical spondylosis. 3. Cervical kyphosis and dextroscoliosis. Reviewed, dictated and finalized at location A. EGE ARCHIVIST
[2024-07-01 21:41] VITALS: BP 147/54; PULSE 72; RESP 16; TEMP 36.6; O2SAT 100
--- OUTSIDE RECORDS SUMMARY | 2024-07-01 21:41 | XMS_ITS ---
Author Organization [facility] Care Team Providers Care Slip Sheeter Name Role Phone Hope Kirk Unavailable Unavailable Ednison, Vick Amaya Unavailable Unavailligia Davenport, Kaia Lim Unavailable Unavaila ble Edin, Christian Michel Unavailable Unavailable Ampadu, Zahraa Unavailable Unavailable Diego, Jessica Unavailable Unavailable Allergies and adverse reactions No Known Allergies Care Team Name Role Address Phone Organization Dates Christian Jesus PCP [address] [place], [place], [facility], [facility] (Office): [facility] 05/22/2022 - 06/27/2022 Hope Kirk Attending Physician [address] (Office): [facility] [place] 05/22/2022 - 06/27/2022 Vick Neves Attending Physician [address] (Office): : [facility] [place] 05/22/2022 - 06/27/2022 Kaia Davenport Attending Physician [address] (Office): : [facility] 05/22/2022 - 06/27/2022 Zahraa Jesus Attending Physician [address] [place], [address], [place] (Office): : [facility] 05/22/2022 - 06/27/2022 Jessica Cortez Attending Physician [address] [place], [address], [place] (Office): [facility] 05/22/2022 - 06/27/2022 Immunizations Immunization Status Vaccine Details Vaccine Code CodeSystem Date Notes SARS-COV-2 (COVID-19) completed SARS-COV-2 (COVID-19) vaccine, mRNA, spike protein, LNP, preservative free, 100 mcg/0.5mL dose or 50 mcg/0.25mL dose Mfg: Moderna Step 1 of Multi-step with next step required 207 CVX created date: 07/15/2022 administere d date: 10/19/2020 1st dose Mental Status Section Date Assessment Total Score Description 06/27/2022 BIMS 11 moderate cognit chen impairment CAM 0 No delirium ind icated PHQ-9 09 mild depression 05/28/2022 BIMS 11 moderate cognit chen impairment CAM 0 No delirium ind icated PHQ-9 12 moderate depres lanec Problems Problem # Description Date of onset Resolved Date Code CodeSystem Concern Status 1 ANEMIA IN OTHER CHRONIC DISEASES CLASSIFIED ELSEWHERE [address] active 2 ANXIETY DISORDER, UNSPECIFIED [address] active 3 BENIGN PROSTATIC HYPERPLASIA WITH LOWER URINARY TRACT SYMPTOMS [address] active 4 CHRONIC KIDNEY DISEASE, STAGE 3 UNSPECIFIED [address] active 5 CHRONIC OBSTRUCTIVE PULMONARY DISEASE, UNSPECIFIED [address] active 6 COGNITIVE COMMUNICATION DEFICIT [address] active 7 COVID-[address] active 8 HYPERLIPIDEMIA, UNSPECIFIED [address] active 9 HYPOTHYROIDISM, UNSPECIFIED [address] active 10 MAJOR DEPRESSIVE DISORDER, SINGLE EPISODE, IN PARTIAL REMISSION [address] active 11 MORBID (SEVERE) OBESITY DUE TO EXCESS CALORIES [address] active 12 OTHER ABNORMALITIES OF GAIT AND MOBILITY [address] active 13 PNEUMONIA, UNSPECIFIED ORGANISM [address] active 14 TYPE 2 DIABETES MELLITUS WITH DIABETIC CHRONIC KIDNEY DISEASE [address] active 15 UNSPECIFIED DIASTOLIC (CONGESTIVE) HEART FAILURE [address] active 16 UNSPECIFIED PROTEIN-CALORIE MALNUTRITION [address] active 17 UNSTEADINESS ON FEET [address] active 18 URINARY TRACT INFECTION, SITE NOT SPECIFIED [address] active 19 VITAMIN D DEFICIENCY, UNSPECIFIED [address] active 20 COGNITIVE COMMUNICATION DEFICIT 2 04/27/[address] completed 21 END STAGE RENAL DISEASE 2 04/27/[address] completed 22 ESSENTIAL (PRIMARY) HYPERTENSION [address] active 23 MUSCLE WEAKNESS (GENERALIZED) 2 04/27/[address] completed 24 OBSTRUCTIVE SLEEP APNEA (ADULT) (PEDIATRIC) [address] active 25 OTHER LACK OF COORDINATION 2 04/27/[address] completed 26 REPEATED FALLS [address] active Reason for Referral No Reasons for Referral Entered Social History Social History Observation Description Start Date End Date Code Code System Current Smoking Status Tobacco smoking consumption unknown 051987939 SNOMED CT Sex Assigned At Male 1940 94470-1 [facility] Vital Signs Code Code System Vitals Name Values and Units Timing Information 15736-5 [facility] Pain Level Value=0.0 06/27/2022 2339-0 INC Blood Sugar Pwpbr=982.0 Units=mg/dL 06/27/2022 89561-0 LOINC Weight Dvcjk=168.7 Units=Lbs 05/2022 9279-1 [facility] Respiratory Rate Value=17.0 Units=/m in 05/28/2022 8310-5 [facility] Body Temperature Value=97.5 Units= F 05/28/2022 8867-4 [facility] Heart rate Value=71.0 Units=/min 04/2022 97242-6 [facility] O2 % BldC Oximetry Value=97.0 Units= % 05/28/2022 8462-4 [facility] Blood Pressure-Diastolic Value=76 Un its=mmHg 05/24/2022 8480-6 [facility] Blood Pressure-Systolic Juoam=436 Un its=mmHg 05/24/2022 8302-2 [facility] Height Value=70.0 Units=Inches 01/16/2022
--- OUTSIDE RECORDS SUMMARY | 2024-07-01 21:41 | XMS_ITS | CONTINUITY OF CARE DOCUMENT ---
Author Name flakito fraga Address Unknown Organization [facility] Address [address] [address] [place] [address] Phone [phone] Care Team Providers Care Customer Care Consultant Name Role Phone flakito fraga Unavailable Unavailable INSURANCE PROVIDERS Payer name Policy type / Coverage type [place] red democrat ID [id number] [place] [employer] Medicare [id number]
--- OUTSIDE RECORDS SUMMARY | 2024-07-02 02:03 | XMS_ITS | CONTINUITY OF CARE DOCUMENT ---
Author Name flakito fraga Address Unknown Organization [facility] Address [address] [address] [place] [address] Phone [phone] Care Team Providers Care Catalog Library Assistant Name Role Phone flakito fraga Unavailable Unavailable INSURANCE PROVIDERS Payer name Policy type / Coverage type [place] red libertarian ID [id number] [place] MEDIC[employer] Medicare [id number]
--- OUTSIDE RECORDS SUMMARY | 2024-07-02 02:03 | XMS_ITS ---
Author Organization [facility] Care Team Providers Care Attacher Name Role Phone Hope Kirk Unavailable Unavailable Edinson, Vick Amaya Unavailable Unavailligia Davenport, Kaia Lim Unavailable Unavaila ble Edin, Christian Michel Unavailable Unavailable Ampadu, Zahraa Unavailable Unavailable Diego, Jessica Unavailable Unavailable Allergies and adverse reactions No Known Allergies Care Team Name Role Address Phone Organization Dates Christian Jesus PCP [address] [place], [place], [facility], [facility] (Office): [facility] 05/22/2022 - 06/27/2022 Hope Kirk Attending Physician [address] (Office): [facility] [place] 05/22/2022 - 06/27/2022 Vick Neves Attending Physician [address] (Office): : [facility] [place] 05/22/2022 - 06/27/2022 Kaia Davenport Attending Physician [address] (Office): : [facility] 05/22/2022 - 06/27/2022 Zahraa Jesus Attending Physician [address] [place], [address], [place] (Office): : [facility] 05/22/2022 - 06/27/2022 Jessica Cortez Attending Physician [address] [place], [address], [place] (Office): [facility] 05/22/2022 - 06/27/2022 Immunizations Immunization Status Vaccine [...] delirium ind icated PHQ-9 12 moderate depres lance Problems Problem # Description Date of onset Resolved Date Code CodeSystem Concern Status 1 ANEMIA IN OTHER CHRONIC DISEASES CLASSIFIED ELSEWHERE [address] active 2 ANXIETY DISORDER, UNSPECIFIED [address] active 3 BENIGN PROSTATIC HYPERPLASIA WITH LOWER URINARY TRACT SYMPTOMS [address] active 4 CHRONIC KIDNEY DISEASE, STAGE 3 UNSPECIFIED [address] active 5 CHRONIC OBSTRUCTIVE PULMONARY DISEASE, UNSPECIFIED [address] active 6 COGNITIVE COMMUNICATION DEFICIT [address] active 7 COVID-[address] active 8 HYPERLIPIDEMIA, UNSPECIFIED [address] active 9 HYPOTHYROIDISM, UNSPECIFIED [address] active 10 MAJOR DEPRESSIVE DISORDER, SINGLE EPISODE, IN PARTIAL REMISSION [address] active 11 MORBID (SEVERE) OBESITY DUE TO EXCESS CALORIES [address] active 12 OTHER ABNORMALITIES OF GAIT AND MOBILITY [address] active 13 PNEUMONIA, UNSPECIFIED ORGANISM [address] active 14 TYPE 2 DIABETES MELLITUS WITH DIABETIC CHRONIC KIDNEY DISEASE [address] active 15 UNSPECIFIED DIASTOLIC (CONGESTIVE) HEART FAILURE [address] active 16 UNSPECIFIED PROTEIN-CALORIE MALNUTRITION [address] active 17 UNSTEADINESS ON FEET [address] active 18 URINARY TRACT INFECTION, SITE NOT SPECIFIED [address] active 19 VITAMIN D DEFICIENCY, UNSPECIFIED [address] active 20 COGNITIVE COMMUNICATION DEFICIT 2 04/27/[address] completed 21 END STAGE RENAL DISEASE 2 04/27/[address] completed 22 ESSENTIAL (PRIMARY) HYPERTENSION [address] active 23 MUSCLE WEAKNESS (GENERALIZED) 2 04/27/[address] completed 24 OBSTRUCTIVE SLEEP APNEA (ADULT) (PEDIATRIC) [address] active 25 OTHER LACK OF COORDINATION 2 04/27/[address] completed 26 REPEATED FALLS [address] active Reason for Referral No Reasons for Referral Entered Social History Social History Observation Description Start Date End Date Code Code System Current Smoking Status Tobacco smoking consumption unknown 000999179 SNOMED CT Sex Assigned At Male 1940 71087-3 [facility] Vital Signs Code Code System Vitals Name Values and Units Timing Information 29229-8 [facility] Pain Level Value=0.0 06/27/2022 2339-0 INC Blood Sugar Jspom=581.0 Units=mg/dL 06/27/2022 56280-1 LOINC Weight Pdnfm=802.7 Units=Lbs 05/2022 9279-1 [facility] Respiratory Rate Value=17.0 Units=/m in 05/28/2022 8310-5 [facility] Body Temperature Value=97.5 Units= F 05/28/2022 8867-4 [facility] Heart rate Value=71.0 Units=/min 04/2022 52243-1 [facility] O2 % BldC Oximetry Value=97.0 Units= % 05/28/2022 8462-4 [facility] Blood Pressure-Diastolic Value=76 Un its=mmHg 05/24/2022 8480-6 [facility] Blood Pressure-Systolic Jvrrg=227 Un its=mmHg 05/24/2022 8302-2 [facility] Height Value=70.0 Units=Inches 01/16/2022
[2024-07-02 03:02] VITALS: BP 141/63; PULSE 69; RESP 18; O2SAT 99
--- NOTE | 2024-07-02 03:05 | ED.GENADULT ---
HPI - General Adult General Chief complaint: Fall Stated complaint: fall Time Seen by Provider: 07/02/24 01:40 History of Present Illness HPI narrative: Patient is 84-year-old gentleman presents emergency department with chief complaint of fall out of bed. Patient had a ground level fall struck his head and has a hematoma on the left side of his head the patient states that currently he has no complaints Related Data Home Medications ?Medication ?Instructions ?Recorded ?Confirmed ?Last Taken ?Type venlafaxine 75 mg capsule,extended 75 mg PO DAILY 12/26/19 06/26/24 06/25/24 History release 24 hr levothyroxine 75 mcg tablet 75 mcg PO DAILY 05/30/20 06/26/24 06/25/24 History pravastatin 40 mg tablet 40 mg PO DAILY 05/30/20 06/26/24 06/25/24 History tamsulosin 0.4 mg capsule 0.4 mg PO DAILY 05/30/20 06/26/24 06/25/24 History furosemide 20 mg tablet 20 mg PO DAILY 01/11/22 06/26/24 06/25/24 History cholecalciferol (vitamin D3) 50 1 unit PO DAILY 05/18/22 06/26/24 06/25/24 History mcg (2,000 unit) capsule (Vitamin D3) quetiapine 25 mg tablet 25 mg PO HS 06/26/24 06/26/24 Unknown History Allergies Allergy/AdvReac Type Severity Reaction Status Date / Time No Known Allergies Allergy Verified 07/01/24 21:39 Review of Systems Review of Systems: A 10 system review of systems was completed on the patient and is negative except for what is stated in the HPI. Nursing and ancillary documentation was reviewed. [facility] Past Medical History Medical History Diastolic dysfunction Type 2 diabetes mellitus Chronic kidney disease Chronic anemia Obstructive sleep apnea on CPAP Chronic obstructive pulmonary disease Benign prostatic hyperplasia Hypothyroidism Hyperlipidemia Hypertension Depression with anxiety Surgical History Surgical History History of hydrocelectomy History of appendectomy Family History Family History Mother Natural Father Natural with unknown cause Social History Social History Social History: Healthcare power of insurance defense attorney: Celsa Velasquez, daughter ([phone]). Code status: Full code. Smoking packs per day: 0.5 Smoking cigarettes per day: 10.0 Years smoked: 15 Smoking pack-years: 7.50 Smoking status: Former smoker Tobacco type: cigarettes Alcohol intake: never Substance use: never Substance use type: does not use Do You Feel Safe in your Home?: Yes Lack of Transportation: No Lack of Food: Never True Current Housing: I Have Housing Concerned About Future Housing: No Difficulty Paying Gas/Electric Bills: No Difficulty Paying for Meds: No Currently Unemployed: No Education: Decline to Answer Difficulty w/ Childcare or Family Care: No Spiritual care concerns: No Exam Narrative: GENERAL: Well-appearing, well-nourished, and in no acute distress. HEAD: Normocephalic, bruise present to the left forehead. EYES: PERRLA and EOMI. ENT: Nares clear, no rhinorrhea or epistaxis. Mucous membranes moist. NECK: Supple. CHEST: Clear to auscultation. No respiratory distress. HEART: Regular rate and rhythm. No murmur heard. Normal peripheral pulses. ABDOMEN: Soft, nontender, nondistended, normal active bowel sounds. EXTREMITIES: Normal range of motion. No edema. SKIN: Warm, dry, no rash. NEURO: No focal deficits. Alert and oriented x3. PSYCH: Normal mood and affect. Course Vital Signs Vital signs: Vital Signs Temperature 36.6 C 07/01/24 21:41 Pulse Rate 72 07/01/24 21:41 Respiratory Rate 16 07/01/24 21:41 Blood Pressure 147/54 H 07/01/24 21:41 Pulse Oximetry 100 07/01/24 21:41 Oxygen Delivery Room Air 07/01/24 21:41 Temperature 36.6 C 07/01/24 21:41 Pulse Rate 69 07/02/24 03:02 Respiratory Rate 18 07/02/24 03:02 Blood Pressure 141/63 H 07/02/24 03:02 Pulse Oximetry 99 07/02/24 03:02 Oxygen Delivery Room Air 07/01/24 21:41 Medical Decision Making MDM Narrative Medical decision making narrative: Differential diagnosis includes intracranial hemorrhage, cervical spine fracture CT head CT C-spine were obtained showed no acute abnormality Vital Signs Vital Signs: Vital Signs Temperature 36.6 C 07/01/24 21:41 Pulse Rate 72 07/01/24 21:41 Respiratory Rate 16 07/01/24 21:41 Blood Pressure 147/54 H 07/01/24 21:41 Pulse Oximetry 100 07/01/24 21:41 Oxygen Delivery Room Air 07/01/24 21:41 Temperature 36.6 C 07/01/24 21:41 Pulse Rate 69 07/02/24 03:02 Respiratory Rate 18 07/02/24 03:02 Blood Pressure 141/63 H 07/02/24 03:02 Pulse Oximetry 99 07/02/24 03:02 Oxygen Delivery Room Air 07/01/24 21:41 Discharge Plan Discharge Clinical Impression: Accidental fall from bed, Head injury Patient Disposition: [place] Snf/Asst Living Condition: Stable Instructions: Antibiotic Form, Head Injury (ED) Patient Language: Palauan Prescriptions: No Action venlafaxine 75 mg capsule,extended release 24hr 75 mg PO DAILY pravastatin 40 mg tablet 40 mg PO DAILY levothyroxine 75 mcg tablet 75 mcg PO DAILY tamsulosin 0.4 mg capsule 0.4 mg PO DAILY furosemide 20 mg tablet 20 mg PO DAILY acetaminophen [Mapap (acetaminophen)] 325 mg Tablet 650 mg PO Q6H PRN (Reason: Mild Pain (1-3) Or Fever) Qty: 30 0RF polyethylene glycol 3350 [Miralax] 17 gram Powder In Packet 17 g PO QAM Qty: 30 0RF enalapril maleate 20 mg tablet 20 mg PO BID Qty: 30 0RF quetiapine 25 mg tablet 25 mg PO HS melatonin 5 mg Tablet 5 mg PO HS PRN (Reason: Insomnia) Qty: 30 0RF cholecalciferol (vitamin D3) [Vitamin D3] 50 mcg (2,000 unit) capsule 1 unit PO DAILY amlodipine [Norvasc] 5 mg Tablet 10 mg PO QAM Qty: 30 0RF empagliflozin 10 mg tablet 10 mg PO DAILY Qty: 30 0RF Follow-up/Referrals: Nash,Brayden Dominguez MD [Primary Care Provider] - Time of Disposition: :
--- NOTE | 2024-07-02 04:29 | PC.NURSE ---
This RN spoke with Simon CHAVEZ at [facility]. RN was updated with pt discharge and estimated arrival back to facility.
[2024-07-02 04:49] VITALS: BP 133/81; PULSE 68; RESP 16; O2SAT 97
[2024-07-02 04:50] VITALS: BP 133/81; PULSE 68; RESP 16; O2SAT 97
== END 2024-07-02 04:52 ==
PROVIDERS: Emergency Provider Emergency Medicine; PCP Family Medicine Sports Medicine
DX: S00.83XA Contusion of other part of head, initial encounter (principal); E11.22 Type 2 diabetes mellitus with diabetic chronic kidney disease; I12.9 Hypertensive chronic kidney disease with stage 1 through stage 4 chronic kidney disease, or unspecified chronic kidney disease; N18.9 Chronic kidney disease, unspecified; I11.9 Hypertensive heart disease without heart failure; G47.33 Obstructive sleep apnea (adult) (pediatric); D64.9 Anemia, unspecified; N40.0 Benign prostatic hyperplasia without lower urinary tract symptoms; E03.9 Hypothyroidism, unspecified; E78.5 Hyperlipidemia, unspecified; F41.8 Other specified anxiety disorders; Z87.891 Personal history of nicotine dependence; Z79.899 Other long term (current) drug therapy; W06.XXXA Fall from bed, initial encounter
CPT/HCPCS: 70450; 72125; 99284

== ENCOUNTER 2024-07-29 23:31 | Emergency (ER) | payer MEDICARE, SELFPAY ==
--- NOTE | ~2024-07-29 | XR_ITS ---
EXAMINATION: XR hip RT 2V w AP pelvis DATE: 07/30/2024 02:23 INDICATION: Right hip pain post fall from bed TECHNIQUE: Anteroposterior view of the pelvis and anteroposterior and frog-leg lateral views of the r ight hip were obtained. COMPARISON: None. FINDINGS: Bone alignment is normal. No fracture. Mild bilateral hip and sacroiliac osteoarthritis. Severe lower lumbar spondylosis. Postoperative change of prior ventral hernia repair. IMPRESSION: 1. No acute osseous abnormality. 2. Severe lower lumbar spondylosis and mild bilateral hip and sacroiliac osteoarthritis. Reviewed, dictated and finalized at location A. IMPRESSION: 1. No acute osseous abnormality. 2. Severe lower lumbar spondylosis and mild bilateral hip and sacroiliac osteoa rthritis.
--- NOTE | ~2024-07-29 | XR_ITS ---
EXAMINATION: XR wrist RT 2V DATE: 07/30/2024 02:23 INDICATION: Right upper limb pain post fall TECHNIQUE: Posteroanterior and lateral views of the right wrist were obtained. COMPARISON: none FINDINGS: Alignment is normal. No acute fracture. Polyarticular osteoarthritis, moderate severity at the trisca phe and first carpal metacarpal joints and mild at the wrist, distal radioulnar and first metacarpoph alangeal joints. Small ossicles near the tip the ulnar styloid process and the radial aspect of the t rapezium which could be either degenerative or sequela of old trauma. Mild soft tissue swelling at th e dorsal and ulnar aspect of the wrist. IMPRESSION: 1. No acute osseous abnormality with moderate osteoarthritis at the radial aspect of the carpus. Reviewed, dictated and finalized at location A. IMPRESSION: 1. No acute osseous abnormality with moderate osteoarthritis at the radial aspe ct of the carpus.
--- NOTE | ~2024-07-29 | CT_ITS ---
EXAMINATION: CT cervical spine wo con DATE: 07/30/2024 02:12 INDICATION: Fall from bed TECHNIQUE: Computed tomography (CT) of the cervical spine was performed without intravenous contrast. Automated exposure control and iterative reconstruction technique were employed. The dose-length pro duct was 383.85 mGy-cm. COMPARISON: 07/02/2024 FINDINGS: Unchanged mild cervical dextrocurvature and kyphosis. Vertebral body heights are normal. No acute fra cture. Severe disc height loss from C3-C4 through C5-C6 and moderate disc height loss at C6-C7. Poste rior disc osteophyte complexes contribute to multilevel mild central canal stenosis. Multilevel sever e cervical uncovertebral and moderate to severe facet osteoarthritis which contributes to mild and mo derate neural foraminal stenosis throughout the cervical spine. See previous report for level by abel packer. Atherosclerotic calcifications at the bilateral carotid bulbs. Cervical soft tissues are otherwise unremarkable. Mild emphysema at the right apex. IMPRESSION: 1. Stable appearance of severe cervical spondylosis with no acute osseous abnormality. Reviewed, dictated and finalized at location A. IMPRESSION: 1. Stable appearance of severe cervical spondylosis with no acute osseous abnor mality.
--- NOTE | ~2024-07-29 | CT_ITS ---
EXAMINATION: CT brain wo con DATE: 07/30/2024 02:12 INDICATION: Fall from bed TECHNIQUE: Computed tomography (CT) of the head was performed without intravenous contrast. Sagittal and coronal reconstructions were performed. The mA was adjusted according to patient size. Iterative reconstruction technique was employed. The dose-length product was 681.00 mGy-cm. COMPARISON: head CT dated 07/02/2024 FINDINGS: No fracture. Unchanged region of encephalomalacia at the medial right occipital lobe consistent with sequela of chronic infarct. No acute intracranial hemorrhage, acute infarction or abnormal extra axia l fluid collection. There is moderate scattered white matter hypoattenuation consistent with chronic small vessel ischemic disease. Symmetric prominence of the sulci and ventricles consistent with mild to moderate age-appropriate diffuse cerebral volume loss. No mass/mass effect. Prominent mucosal thic kening in right frontal, ethmoid and bilateral maxillary sinuses. The orbits and mastoid air cells ar e normal. IMPRESSION: 1. Chronic right temporal occipital infarct. No fracture or acute intracranial process. 2. Age-related changes including mild to moderate diffuse volume loss and moderate scattered white ma tter hypoattenuation consistent with chronic small vessel disease. Reviewed, dictated and finalized at location A. IMPRESSION: 1. Chronic right temporal occipital infarct. No fracture or acute intracranial process. 2. Age-related changes including mild to moderate diffuse volume loss and moder ate scattered white matter hypoattenuation consistent with chronic small vessel disease.
--- NOTE | ~2024-07-29 | XR_ITS ---
EXAMINATION: XR shoulder RT min 2V DATE: 07/30/2024 02:23 INDICATION: Fall from bed with right upper extremity pain TECHNIQUE: AP internally rotated and transscapular Y views of the right shoulder were obtained. COMPARISON: None FINDINGS: Normal alignment. No fracture.Mild glenohumeral and moderate acromioclavicular osteoarthritis. Small subacromial spur. Soft tissues are unremarkable. Small calcified nodule at the right costophrenic an gle consistent with old granulomatous disease. IMPRESSION: Mild right glenohumeral and moderate acromioclavicular osteoarthritis. No acute osseous abnormality. Reviewed, dictated and finalized at location A.
--- NOTE | ~2024-07-29 | XR_ITS ---
EXAMINATION: XR elbow RT 2V DATE: 07/30/2024 02:23 INDICATION: Right upper limb pain post fall TECHNIQUE: Anteroposterior and lateral views of the right elbow were obtained. COMPARISON: None. FINDINGS: Alignment is normal. No fracture or joint effusion. Mild osteoarthritis at the right elbow. Small cor ticated ossicle near the lateral epicondyle which could be due to old trauma or enthesopathy. Soft ti ssues are unremarkable. IMPRESSION: 1. Mild osteoarthritis at the right elbow. No acute osseous abnormality. Reviewed, dictated and finalized at location A.
[2024-07-29 23:32] VITALS: BP 125/63; PULSE 63; RESP 16; TEMP 36.6; O2SAT 100
[2024-07-29 23:46] VITALS: BP 135/63; PULSE 59; RESP 21; O2SAT 100
[2024-07-30] VITALS (9 sets, daily range): BP systolic 109–125; BP diastolic 48–68; PULSE 62–72; RESP 15–20; O2SAT 97–100
--- OUTSIDE RECORDS SUMMARY | 2024-07-30 00:18 | XMS_ITS | CONTINUITY OF CARE DOCUMENT ---
Author Name flakito fraga Address Unknown Organization [facility] Address [address] [place] [address] Phone [phone] Care Team Providers Care Certified Rehabilitation Counselor Name Role Phone flakito fraga Unavailable Unavailable INSURANCE PROVIDERS Payer name Policy type / Coverage type Lynch red libertarian ID [employer] [id number] [place] [employer] Medicare [id number]
--- NOTE | 2024-07-30 00:36 | ED_ITS ---
HPI - Fall General Chief Complaint: Fall Stated Complaint: fall no injury Time Seen by Provider: 07/30/24 00:04 Source: patient and RN notes reviewed Mode of arrival: EMS Limitations: other (Hx cognitive communication deficit) History of Present Illness HPI Narrative: [facility] from [facility] after reportedly falling from bed. Initially no injuries reported but is complaining of pain at right arm (entire thing), right shoulder, right hip, and reportedly told triage right sacroiliac. He repeatedly screams, I want water. Denies being on oxygen at the facility. Related Data Home Medications ?Medication ?Instructions ?Recorded ?Confirmed ?Last Taken ?Type venlafaxine 75 mg capsule,extended 75 mg PO DAILY 12/26/19 06/26/24 06/25/24 History release 24 hr levothyroxine 75 mcg tablet 75 mcg PO DAILY 05/30/20 06/26/24 06/25/24 History pravastatin 40 mg tablet 40 mg PO DAILY 05/30/20 06/26/24 06/25/24 History tamsulosin 0.4 mg capsule 0.4 mg PO DAILY 05/30/20 06/26/24 06/25/24 History furosemide 20 mg tablet 20 mg PO DAILY 01/11/22 06/26/24 06/25/24 History cholecalciferol (vitamin D3) 50 1 unit PO DAILY 05/18/22 06/26/24 06/25/24 History mcg (2,000 unit) capsule (Vitamin D3) quetiapine 25 mg tablet 25 mg PO HS 06/26/24 06/26/24 Unknown History Allergies Allergy/AdvReac Type Severity Reaction Status Date / Time No Known Allergies Allergy Verified 07/29/24 23:37 [facility] Past Medical History Medical History Other insomnia Cognitive communication deficit Anemia, unspecified Diastolic dysfunction Type 2 diabetes mellitus Chronic kidney disease Chronic anemia Obstructive sleep apnea on CPAP Chronic obstructive pulmonary disease Benign prostatic hyperplasia Hypothyroidism Hyperlipidemia Hypertension Depression with anxiety Surgical History Surgical History History of hydrocelectomy History of appendectomy Family History Family History Mother Natural Father Natural with unknown cause Social History Social History Social History: per residential documentation; Laura Rosen [phone] Healthcare power of attorney law clerk: Celsa Velasquez, daughter ([phone]). Code status: DNR per residential documentation but no POLST Smoking packs per day: 0.5 Smoking cigarettes per day: 10.0 Years smoked: 15 Smoking pack-years: 7.50 Smoking status: Former smoker Tobacco type: cigarettes Alcohol intake: never Substance use: never Substance use type: does not use Do You Feel Safe in your Home?: Yes Lack of Transportation: No Lack of Food: Never True Current Housing: I Have Housing Concerned About Future Housing: No Difficulty Paying Gas/Electric Bills: No Difficulty Paying for Meds: No Currently Unemployed: No Education: Decline to Answer Difficulty w/ Childcare or Family Care: No Additional living arrangements comments: [facility] since 05/27/24 Spiritual care concerns: No Exam 2 Narrative: GENERAL: Well-appearing, well-nourished HEAD: Normocephalic, atraumatic. EYES: Non injected, non icteric ENT: Nares clear, no rhinorrhea or epistaxis. NECK: Supple. CHEST: Speaking in full sentences. No respiratory distress. HEART: Regular rate and rhythm. . ABDOMEN: Soft, nondistended. EXTREMITIES: Normal range of motion. Able to move right arm. No TTP of R shoulder girdle or throughout R arm including humerus, elbow, forearm, wrist. No bony deformity or ecchymosis. SKIN: Warm, dry, no rash. NEURO: No focal deficits. Alert and oriented to self. PSYCH: Congruent mood and affect. Asking for water. Course Vital Signs Vital signs: Vital Signs Temperature 97.9 F 07/29/24 23:32 Pulse Rate 63 07/29/24 23:32 Respiratory Rate 16 07/29/24 23:32 Blood Pressure 125/63 07/29/24 23:32 Pulse Oximetry 100 07/29/24 23:32 Oxygen Delivery Nasal Cannula 07/29/24 23:32 Oxygen Flow Rate 2 07/29/24 23:32 Temperature 97.9 F 07/29/24 23:32 Pulse Rate 63 07/30/24 05:01 Respiratory Rate 18 07/30/24 05:01 Blood Pressure 120/54 L 07/30/24 05:01 Pulse Oximetry 97 07/30/24 05:01 Oxygen Delivery Nasal Cannula 07/29/24 23:32 Oxygen Flow Rate 2 07/29/24 23:32 MDM - Fall MDM Narrative Medical decision making narrative: Patient presents after reportedly falling from bed at facility where he resides. In the emergency department they are afebrile with vital signs within normal limits. Not on anticoagulation per review of residential documentation. He states he is not usually on oxygen via nasal cannula however he does have diagnosis of COPD and obstructive sleep apnea (on CPAP) listed on residential documentation/in EMR. Leukocytosis, anemia, and thrombocytosis. The leukocytosis is mild but new whereas the others are chronic and stable. Creatinine is stable consistent with known CKD. No acute process on imaging. Safe for DC back to facility with Rx for OTC analgesics. Advised f/u with PCP/ facility chief medical technologist. EMS transportation arranged. Differential Diagnosis Differential diagnosis: Likely dislocation of shoulder region, fracture of wrist, compression fracture and other (intracranial hemorrhage) Lab Data Attestation: I reviewed the patient's lab results. 07/30/24 01:20 07/30/24 01:20 Labs: Lab Results 07/30/24 Range/Units 01:20 WBC 11.9 H (4.5-10.0) K/mm3 RBC 3.78 L (4.6-6.20) M/mm3 Hgb 11.0 L (14.0-18.0) g/dL Hct 35.0 L (42.0-52.0) % MCV 92.6 (80-100) fl MCH 29.1 (26-34) pg MCHC 31.4 L (32-36) g/dl RDW 15.3 H (11.5-14.5) % Plt Count 741 H (150-375) k/mm3 MPV 9.3 (7.4-10.4) fl Immature Gran % (Auto) 0.7 H (0-0.5) % Neut % (Auto) 82.7 H (45.5-73.1) % Lymph % (Auto) 8.3 L (18.3-44.2) % [place] % (Auto) 5.9 (2.6-8.5) % Eos % (Auto) 1.6 (0-4.4) % Baso % (Auto) 0.8 (0.2-1.2) % Lymph # (Auto) 0.98 (0.9-3.2) K/mm3 [place]ford # (Auto) 0.7 H (0.1-0.6) K/mm3 Eos # (Auto) 0.2 (0-0.3) K/mm3 Baso # (Auto) 0.1 (0.0-0.1) K/mm3 Abs Immat Gran (auto) 0.08 H (0.00-0.031) K/mm3 Absolute Neuts (auto) 9.8 H (1.3-6.7) K/mm3 Absolute Nucleated RBC 0.000 (0.0-0.012) K/mm3 Nucleated RBC % 0.0 (0.0-0.2) % Sodium 137 (137-145) mmol/L Potassium 4.1 (3.4-5.0) mmol/L Chloride 105 (98-107) mmol/L Carbon Dioxide 22 (22-30) mmol/L Anion Gap 10 (4-12) mmol/L BUN 43 H D (9-20) mg/dL Creatinine 1.84 H (0.7-1.3) mg/dL Estim Creat Clear Calc 26 ml/min Estimated GFR 35 L (59 - ) Glucose 127 H (65-110) mg/dL Calcium 8.3 L (8.4-10.2) mg/dL Imaging Data Attestation: I personally reviewed and interpreted this imaging study as follows: My impression: No acute fracture are my independent interpretation of: Right hip/pelvis, right shoulder, right elbow. The base of the R wrist has a questionable finding on my interpretation, sent to Stat Rad. Radiologist's impression: CT Head Stat Rad: No acute intracranial finding. Paranasal sinus disease. For stroke and I recommend CTA or MRI. CT C Spine Stat Rad: No acute C-spine finding. XR Right Wrist Stat Rad: No displaced fracture dislocation identified. Small well corticated ossifications adjacent to the ulnar styloid process and trapezium may represent will trauma. Mild soft tissue swelling. Degenerative changes of the right 1st MCP joint, CMC joint, and triscaphe joint. Discharge Plan Discharge Clinical Impression: Fall, Leukocytosis, Anemia, Thrombocytosis, CKD (chronic kidney disease), Acute pain of right shoulder due to trauma, Acute pain of right hip, Pain of right arm Patient Disposition: NH Jail/Asst Living Condition: Stable Instructions: Antibiotic Form, Chronic Kidney Disease (ED), Chronic Kidney Disease Diet (DC), Anemia (ED), Shoulder Pain (ED), Hip Pain (ED), Arm Pain (ED) Additional Instructions: No bleeding in the brain and no broken bones in the C-spine, wrist, elbow, shoulder, or hip. Patient is likely to be sore and achy. Acetaminophen/Tylenol (maximum 4000 mg per day) is safe to take with NSAIDs (ibuprofen/Motrin) for pain relief. Follow-up with the primary care physician/facility chief medical technologist. Patient Language: Turkish Prescriptions: New ibuprofen 600 mg tablet 600 mg PO TID PRN (Reason: pain) Qty: 30 0RF acetaminophen 500 mg capsule 1,000 mg PO Q6H PRN (Reason: pain) Qty: 30 0RF No Action venlafaxine 75 mg capsule,extended release 24hr 75 mg PO DAILY pravastatin 40 mg tablet 40 mg PO DAILY levothyroxine 75 mcg tablet 75 mcg PO DAILY tamsulosin 0.4 mg capsule 0.4 mg PO DAILY furosemide 20 mg tablet 20 mg PO DAILY acetaminophen [Mapap (acetaminophen)] 325 mg Tablet 650 mg PO Q6H PRN (Reason: Mild Pain (1-3) Or Fever) Qty: 30 0RF polyethylene glycol 3350 [Miralax] 17 gram Powder In Packet 17 g PO QAM Qty: 30 0RF enalapril maleate 20 mg tablet 20 mg PO BID Qty: 30 0RF quetiapine 25 mg tablet 25 mg PO HS melatonin 5 mg Tablet 5 mg PO HS PRN (Reason: Insomnia) Qty: 30 0RF cholecalciferol (vitamin D3) [Vitamin D3] 50 mcg (2,000 unit) capsule 1 unit PO DAILY amlodipine [Norvasc] 5 mg Tablet 10 mg PO QAM Qty: 30 0RF empagliflozin 10 mg tablet 10 mg PO DAILY Qty: 30 0RF Follow-up/Referrals: Nash,Brayden Dominguez MD [Primary Care Provider] - Stand Alone Forms: Intermediate Discharge Time of Disposition: 04:27
[2024-07-30] MEDS: HYDROcodone/acetaminophen (*CRX) 5-325 MG TABLET 1 TAB PO (01:11)
[2024-07-30 01:25] LABS: Basophils Absolute Auto 0.1 K/mm3 (0.0-0.1); Basophils Percent Auto 0.8 % (0.2-1.2); Eosinophils Absolute Auto 0.2 K/mm3 (0-0.3); Eosinophils Percent Auto 1.6 % (0-4.4); Immature Granulocyte Absolute 0.08 K/mm3 (0.00-0.031); Immature Granulocyte Percent A 0.7 % (0-0.5); Lymphocytes Absolute Auto 0.98 K/mm3 (0.9-3.2); Lymphocytes Percent Auto 8.3 % (18.3-44.2); Mean Corpuscular HGB Conc 31.4 g/dl (32-36); Mean Corpuscular Hemoglobin 29.1 pg (26-34); Mean Corpuscular Volume 92.6 fl (80-100); Mean Platelet Volume 9.3 fl (7.4-10.4); Monocytes Absolute Auto 0.7 K/mm3 (0.1-0.6); Monocytes Percent Auto 5.9 % (2.6-8.5); Neutrophils Absolute Auto 9.8 K/mm3 (1.3-6.7); Neutrophils Percent Auto 82.7 % (45.5-73.1); Platelet Count Result 741 k/mm3 (150-375); Red Blood Count 3.78 M/mm3 (4.6-6.20); Red Cell Distribution Width 15.3 % (11.5-14.5); White Blood Count 11.9 K/mm3 (4.5-10.0)
[2024-07-30 01:34] LABS: Anion Gap 10 mmol/L (4-12); Blood Urea Nitrogen 43 mg/dL (9-20); Calcium 8.3 mg/dL (8.4-10.2); Carbon Dioxide 22 mmol/L (22-30); Chloride 105 mmol/L (98-107); Estimated CRCL calculation 26 ml/min; Estimated Glomerular Filt Rate 35; Glucose 127 mg/dL (65-110); Potassium 4.1 mmol/L (3.4-5.0); Sodium 137 mmol/L (137-145)
== END 2024-07-30 06:00 ==
PROVIDERS: Emergency Provider Student in an Organized Health Care Education/Training Program; PCP Family Medicine Sports Medicine
DX: S49.91XA Unspecified injury of right shoulder and upper arm, initial encounter (principal); S79.911A Unspecified injury of right hip, initial encounter; S69.91XA Unspecified injury of right wrist, hand and finger(s), initial encounter; E11.22 Type 2 diabetes mellitus with diabetic chronic kidney disease; I12.9 Hypertensive chronic kidney disease with stage 1 through stage 4 chronic kidney disease, or unspecified chronic kidney disease; N18.9 Chronic kidney disease, unspecified; D64.9 Anemia, unspecified; D75.839 Thrombocytosis, unspecified; D72.829 Elevated white blood cell count, unspecified; I11.9 Hypertensive heart disease without heart failure; J44.9 Chronic obstructive pulmonary disease, unspecified; E03.9 Hypothyroidism, unspecified; E78.5 Hyperlipidemia, unspecified; G47.33 Obstructive sleep apnea (adult) (pediatric); F41.8 Other specified anxiety disorders; Z66 Do not resuscitate; Z87.891 Personal history of nicotine dependence; Z79.899 Other long term (current) drug therapy; M47.812 Spondylosis without myelopathy or radiculopathy, cervical region; M19.031 Primary osteoarthritis, right wrist; M19.021 Primary osteoarthritis, right elbow; W06.XXXA Fall from bed, initial encounter
CPT/HCPCS: 36415; 70450; 72125; 73030; 73070; 73100; 73502; 80048; 85025; 99284; A9270

== ENCOUNTER 2024-08-05 23:41 | Emergency (ER) | payer MEDICARE, SELFPAY ==
--- NOTE | ~2024-08-05 | CT_ITS ---
EXAM: CT brain wo con, CT cervical spine wo con, CT thoracic lumbar wo con - 08/06/2024 00:19 CDT History: 84 years old Male with Fall from bed head injury COMPARISON: 07/30/2024 PROCEDURE: CT of the head, cervical, thoracic and lumbar spine without contrast. Axial, sagittal an d coronal reformatted planes were evaluated. Automatic exposure control was used for this study. FINDINGS: CT HEAD: BRAIN PARENCHYMA: No acute hemorrhage. No mass effect or herniation. Moderate chronic volume loss. Sc attered hypodensities in subcortical and periventricular white matter, likely representing chronic mi crovascular ischemic changes in this age group. Atherosclerotic calcification of the intracranial ves sels is noted. Old right occipital infarct is again seen. VENTRICLES/ EXTRA-AXIAL SPACES: No hydrocephalus or extra-axial fluid collection. EXTRACRANIAL STRUCTURES: No calvarial fracture. CT CERVICAL SPINE: No acute fracture or subluxation. Straightening of cervical lordosis, likely positional or may be rel ated to muscle spasm. Multilevel degenerative changes of the cervical spine include varying degrees o f disk space narrowing, endplate osteophytosis as well as facet and uncal arthropathy. Prevertebral s oft tissues are within normal limits. Visualized lung apices are clear. CT THORACIC SPINE: No fracture or gross subluxation is appreciated. Multilevel degenerative changes are seen in the spin e. Alignment is satisfactory. No intraspinal or paraspinal mass or hematoma appreciated. 7.0 x 2.3 cm lung mass with small pleural effusion versus round atelectasis in the left lung base. CT LUMBAR SPINE: No fracture or gross subluxation is appreciated. Alignment is satisfactory. Large chronic disc protrusion causing moderate to severe stenosis at L4-5. Very large calcified disc bulge at L5-S1 causing moderate to severe spinal canal stenosis as well as severe neural foraminal st enosis. No intraspinal or paraspinal mass or hematoma appreciated. No gross mass or adenopathy identified, considering lack of IV contrast for this exam. Calcified abdo edgar aorta with ectasia measuring up to 2.9 cm in diameter. IMPRESSION: 1. No evidence for acute intracranial hemorrhage or calvarial fracture. 2. No evidence for spine fracture or traumatic subluxation. 3. Multilevel degenerative changes of the spine with disc bulges at L4-5 and L5-S1 causing varying d egrees of spinal canal stenosis and neuroforaminal narrowing, as detailed above. Nonemergent outpatie nt MRI of the lumbar sacral spine can be performed for further evaluation, as clinically indicated. 4. 7.0 x 2.3 cm lung mass with small pleural effusion versus round atelectasis in the left lung base . Outpatient dedicated CT chest is recommended for further evaluation. Reviewed, dictated and finalized at location A. IMPRESSION: 1. No evidence for acute intracranial hemorrhage or calvarial fracture. 2. No evidence for spine fracture or traumatic subluxation. 3. Multilevel degenerative changes of the spine with disc bulges at L4-5 and L 5-S1 causing varying degrees of spinal canal stenosis and neuroforaminal narrow ing, as detailed above. Nonemergent outpatient MRI of the lumbar sacral spine c an be performed for further evaluation, as clinically indicated. 4. 7.0 x 2.3 cm lung mass with small pleural effusion versus round atelectasis in the left lung base. Outpatient dedicated CT chest is recommended for furthe r evaluation. IMPRESSION: 1. No evidence for acute intracranial hemorrhage or calvarial fracture. 2. No evidence for spine fracture or traumatic subluxation. 3. Multilevel degenerative changes of the spine with disc bulges at L4-5 and L 5-S1 causing varying degrees of spinal canal stenosis and neuroforaminal narrow ing, as detailed above. Nonemergent outpatient MRI of the lumbar sacral spine c an be performed for further evaluation, as clinically indicated. 4. 7.0 x 2.3 cm lung mass with small pleural effusion versus round atelectasis in the left lung base. Outpatient dedicated CT chest is recommended for furthe r evaluation.
[2024-08-05 23:40] VITALS: BP 152/67; PULSE 78; RESP 16; TEMP 36.5; O2SAT 98
--- OUTSIDE RECORDS SUMMARY | 2024-08-06 00:33 | XMS_ITS | CONTINUITY OF CARE DOCUMENT ---
Author Name flakito fraga Address Unknown Organization [facility] Address [address] [place] [address] Phone [phone] Care Team Providers Care Criminal Justice Lawyer Name Role Phone flakito fraga Unavailable Unavailable INSURANCE PROVIDERS Payer name Policy type / Coverage type Emerado red green party ID [employer] [id number] [place] [employer] Medicare [id number]
--- NOTE | 2024-08-06 00:51 | PC.NURSE ---
patient yelling from patient room, get me food , I need food now . this rn educated patient on importance of not eating right now. edp dr. brown educated patient about importance of not eating as well.
--- NOTE | 2024-08-06 01:16 | ED_ITS ---
HPI - General Adult General Chief complaint: Fall Stated complaint: Fall, No c/o's Time Seen by Provider: 08/05/24 23:48 History of Present Illness HPI narrative: Patient is a 84-year-old gentleman presents emergency department with chief complaint of fall from chair. Patient slipped out of his chair had an abrasion to his right elbow and the facility was concerned that he may have a head injury since he is on aspirin. The patient does report that he has chronic pain in his neck and reports that he has chronic thoracic and lumbar back pain. Related Data Home Medications ?Medication ?Instructions ?Recorded ?Confirmed ?Last Taken ?Type venlafaxine 75 mg capsule,extended 75 mg PO DAILY 12/26/19 06/26/24 06/25/24 History release 24 hr levothyroxine 75 mcg tablet 75 mcg PO DAILY 05/30/20 06/26/24 06/25/24 History pravastatin 40 mg tablet 40 mg PO DAILY 05/30/20 06/26/24 06/25/24 History tamsulosin 0.4 mg capsule 0.4 mg PO DAILY 05/30/20 06/26/24 06/25/24 History furosemide 20 mg tablet 20 mg PO DAILY 01/11/22 06/26/24 06/25/24 History cholecalciferol (vitamin D3) 50 1 unit PO DAILY 05/18/22 06/26/24 06/25/24 History mcg (2,000 unit) capsule (Vitamin D3) quetiapine 25 mg tablet 25 mg PO HS 06/26/24 06/26/24 Unknown History Allergies Allergy/AdvReac Type Severity Reaction Status Date / Time No Known Allergies Allergy Verified 07/29/24 23:37 Review of Systems Review of Systems: A 10 system review of systems was completed on the patient and is negative except for what is stated in the HPI. Nursing and ancillary documentation was reviewed. [facility] Past Medical History Medical History Other insomnia Cognitive communication deficit Anemia, unspecified Diastolic dysfunction Type 2 diabetes mellitus Chronic kidney disease Chronic anemia Obstructive sleep apnea on CPAP Chronic obstructive pulmonary disease Benign prostatic hyperplasia Hypothyroidism Hyperlipidemia Hypertension Depression with anxiety Surgical History Surgical History History of hydrocelectomy History of appendectomy Family History Family History Mother Natural Father Natural with unknown cause Social History Social History Social History: per long-term documentation; Laura Rosen [phone] Healthcare power of senior attorney: Celsa Velasquez, daughter ([phone]). Code status: DNR per long-term documentation but no POLST Smoking packs per day: 0.5 Smoking cigarettes per day: 10.0 Years smoked: 15 Smoking pack-years: 7.50 Smoking status: Former smoker Tobacco type: cigarettes Alcohol intake: never Substance use: never Substance use type: does not use Do You Feel Safe in your Home?: Yes Lack of Transportation: No Lack of Food: Never True Current Housing: I Have Housing Concerned About Future Housing: No Difficulty Paying Gas/Electric Bills: No Difficulty Paying for Meds: No Currently Unemployed: No Education: Decline to Answer Difficulty w/ Childcare or Family Care: No Additional living arrangements comments: [facility] since 05/27/24 Spiritual care concerns: No Exam Narrative: GENERAL: Well-appearing, well-nourished, and in no acute distress. HEAD: Normocephalic, atraumatic. EYES: PERRLA and EOMI. ENT: Nares clear, no rhinorrhea or epistaxis. Mucous membranes moist. NECK: Supple. CHEST: Clear to auscultation. No respiratory distress. HEART: Regular rate and rhythm. No murmur heard. Normal peripheral pulses. ABDOMEN: Soft, nontender, nondistended, normal active bowel sounds. EXTREMITIES: Normal range of motion. No edema. SKIN: Warm, dry, no rash. NEURO: No focal deficits. Alert and oriented x3. PSYCH: Normal mood and affect. Course Vital Signs Vital signs: Vital Signs Temperature 36.5 C 08/05/24 23:40 Pulse Rate 78 08/05/24 23:40 Respiratory Rate 16 08/05/24 23:40 Blood Pressure 152/67 H 08/05/24 23:40 Pulse Oximetry 98 08/05/24 23:40 Oxygen Delivery Room Air 08/05/24 23:40 Temperature 36.5 C 08/05/24 23:40 Pulse Rate 78 08/05/24 23:40 Respiratory Rate 16 08/05/24 23:40 Blood Pressure 152/67 H 08/05/24 23:40 Pulse Oximetry 98 08/05/24 23:40 Oxygen Delivery Room Air 08/05/24 23:40 Medical Decision Making [facility] Narrative Medical decision making narrative: Differential diagnosis includes head injury, cervical spine fracture, thoracic fracture CT head was negative CT C-spine was negative CT T-spine and L-spine were negative Patient will be transferred back to the long-term Vital Signs Vital Signs: Vital Signs Temperature 36.5 C 08/05/24 23:40 Pulse Rate 78 08/05/24 23:40 Respiratory Rate 16 08/05/24 23:40 Blood Pressure 152/67 H 08/05/24 23:40 Pulse Oximetry 98 08/05/24 23:40 Oxygen Delivery Room Air 08/05/24 23:40 Temperature 36.5 C 08/05/24 23:40 Pulse Rate 78 08/05/24 23:40 Respiratory Rate 16 08/05/24 23:40 Blood Pressure 152/67 H 08/05/24 23:40 Pulse Oximetry 98 08/05/24 23:40 Oxygen Delivery Room Air 08/05/24 23:40 Discharge Plan Discharge Clinical Impression: Fall from ground level, Head injury Patient Disposition: [facility]Asst Living Condition: Stable Instructions: Antibiotic Form Patient Language: Syriac Prescriptions: No Action venlafaxine 75 mg capsule,extended release 24hr 75 mg PO DAILY pravastatin 40 mg tablet 40 mg PO DAILY levothyroxine 75 mcg tablet 75 mcg PO DAILY tamsulosin 0.4 mg capsule 0.4 mg PO DAILY furosemide 20 mg tablet 20 mg PO DAILY acetaminophen [Mapap (acetaminophen)] 325 mg Tablet 650 mg PO Q6H PRN (Reason: Mild Pain (1-3) Or Fever) Qty: 30 0RF polyethylene glycol 3350 [Miralax] 17 gram Powder In Packet 17 g PO QAM Qty: 30 0RF enalapril maleate 20 mg tablet 20 mg PO BID Qty: 30 0RF quetiapine 25 mg tablet 25 mg PO HS melatonin 5 mg Tablet 5 mg PO HS PRN (Reason: Insomnia) Qty: 30 0RF ibuprofen 600 mg tablet 600 mg PO TID PRN (Reason: pain) Qty: 30 0RF acetaminophen 500 mg capsule 1,000 mg PO Q6H PRN (Reason: pain) Qty: 30 0RF cholecalciferol (vitamin D3) [Vitamin D3] 50 mcg (2,000 unit) capsule 1 unit PO DAILY amlodipine [Norvasc] 5 mg Tablet 10 mg PO QAM Qty: 30 0RF empagliflozin 10 mg tablet 10 mg PO DAILY Qty: 30 0RF Follow-up/Referrals: Nash,Brayden Dominguez MD [Primary Care Provider] - Time of Disposition: 01:29
[2024-08-06 02:13] VITALS: BP 140/70; PULSE 70; RESP 16; O2SAT 98
--- NOTE | 2024-08-06 02:13 | PC.NURSE ---
This rn spoke with BREANA Gomez at [facility] to give patient discharge instructions.
== END 2024-08-06 03:44 ==
PROVIDERS: Emergency Provider Emergency Medicine; PCP Family Medicine Sports Medicine
DX: S09.90XA Unspecified injury of head, initial encounter (principal); E11.22 Type 2 diabetes mellitus with diabetic chronic kidney disease; I12.9 Hypertensive chronic kidney disease with stage 1 through stage 4 chronic kidney disease, or unspecified chronic kidney disease; N18.9 Chronic kidney disease, unspecified; I11.9 Hypertensive heart disease without heart failure; D64.9 Anemia, unspecified; E03.9 Hypothyroidism, unspecified; E78.5 Hyperlipidemia, unspecified; N40.0 Benign prostatic hyperplasia without lower urinary tract symptoms; G47.33 Obstructive sleep apnea (adult) (pediatric); R41.841 Cognitive communication deficit; F41.8 Other specified anxiety disorders; Z87.891 Personal history of nicotine dependence; Z66 Do not resuscitate; Z79.899 Other long term (current) drug therapy; Z79.82 Long term (current) use of aspirin; M51.369 Other intervertebral disc degeneration, lumbar region without mention of lumbar back pain or lower extremity pain; M51.379 Other intervertebral disc degeneration, lumbosacral region without mention of lumbar back pain or lower extremity pain; M48.061 Spinal stenosis, lumbar region without neurogenic claudication; R91.8 Other nonspecific abnormal finding of lung field; W07.XXXA Fall from chair, initial encounter
CPT/HCPCS: 70450; 72125; 72128; 72131; 99284